=== PATIENT | male | born 1955 | race Hispanic/Latino ===

== ENCOUNTER 2018-06-09 06:52 | Emergency (ER) | payer MEDICARE, OTHER ==
[~2018-06-09] VITALS: Ht 177.8 cm; Wt 87.5 kg
[~2018-06-09 06:52] MED LIST: ALLOPURINOL300 MG PO; ASPIRIN81 MG PO; CALCIUM500 MG PO; FOLIC ACID1 MG PO; HUMALOG100 UNIT/3; HYDROCHLOROTHIA25 MG PO; IMODIUM2 MG PO; LANTUS100 UNITS/; LISINOPRIL10 MG PO; LOVENOX60 MG/0.6 SC; MAGNESIUM250 MG PO; METOPROLOL SUCC25 MG PO; METOPROLOL TART25 MG PO; MYCOPHENOLATE250 MG PO; PROGRAF0.5 MG PO; RANITIDINE HCL150 MG PO; TACROLIMUS1 MG PO; TORSEMIDE10 MG PO; VITAMIN D5000 UNIT PO; WARFARIN SODIU2.5 MG PO
--- OUTSIDE RECORDS SUMMARY | 2018-06-09 06:55 | XMS REPORT | Clinical Summary ---
Author Author [facility] Organization [facility] Address Unknown Phone Unavailable Care Team Providers Care Electric Motor Fitter Name Role Phone César Augustin MD PCP Unavailable Allergies No Known Allergies Medications End Date Status Medication Sig Dispensed Refills Start Date Active folic acid (FOLVITE) 1 MG Take 1 mg by 0 tablet mouth daily. Active loperamide (IMODIUM) 2 mg Take 2 mg by 0 capsule mouth every other day as needed for diarrhea. Active metoprolol succinate XL Take 25 mg by 0 (TOPROL-XL) 25 mg 24 hr mouth 2 (two) tablet times a day. 1/2 tab Active tacrolimus (PROGRAF) 1 MG Take 1 mg by 0 capsule mouth 2 (two) times a day. Takes two of the 1mg in the morning and 1mg in the evening Active aspirin (ECOTRIN) 81 MG Take 81 mg by 0 enteric coated tablet mouth daily. Active insulin lispro (HumaLOG) Inject under 0 100 unit/mL injection the skin 3 (three) times a day before meals. Per sliding scale Active warfarin (COUMADIN) 5 MG Take 5 mg by 0 tablet mouth daily. Tuesdays, and sundays Active warfarin (COUMADIN) 2.5 Take 2.5 mg 0 MG tablet by mouth daily. Sat, sat, sat and saturdays Active allopurinol (ZYLOPRIM) Take 300 mg 0 300 MG tablet by mouth every other day. Active terazosin (HYTRIN) 1 MG Take 1 mg by 0 capsule mouth nightly. Active acetaminophen-codeine Take 1 tablet 0 (TYLENOL WITH CODEINE #3) by mouth 300-30 mg per tablet every 4 (four) hours as needed for moderate pain. Active gabapentin (NEURONTIN) Take 300 mg 0 300 mg capsule by mouth 2 (two) times a day as needed. Active lisinopril Take 5 mg by 0 (PRINIVIL,ZESTRIL) 5 mg mouth every tablet morning. 06/15/2018 Active sodium bicarbonate 650 mg Take 1 tablet 60 tablet 0 tablet (650 mg 8 total) by mouth 2 (two) times a day for 30 days. 04/21/2018 Discontinued tacrolimus (PROGRAF) 0.5 Take 0.5 mg 0 MG capsule by mouth daily. 04/21/2018 Discontinued torsemide (DEMADEX) 20 MG Take 20 mg by 0 tablet mouth daily as needed. 1/2 TAB ONLY NEEDED 05/16/2018 Discontinued mycophenolate (CELLCEPT) Take 250 mg 0 250 mg capsule by mouth 2 (two) times a day. Active Problems Problem Noted Date Osteoarthritis of right hip 05/13/2018 Arthritis of right hip 05/13/2018 Encounters Care Team Description Date Type Specialty Deja Harmon MA Care Connect Alert 05/19/2018 Telephone Transplant Kev Smiley RN 05/16/2018 Patient Quality Outreach Vale Tang NP 05/13/2018 Anesthesia Orthopedic Surgery Event Tosha Mustafa MD ARTHROPLASTY, HIP, TOTAL 05/13/2018 Surgery Orthopedic Surgery Tosha Mustafa MD Arthritis of right hip 05/13/2018 Hospital Orthopedic Surgery - Encounter 05/16/2018 Tosha Mustafa MD Preop testing (Primary Dx) 04/23/2018 Pre-Admit Pre-Admission Testing Testing Appointment after 06/08/2017 Family History Medical History Relation Name Comments Diabetes Brother Cancer Father Colon cancer Father Heart disease Mother Diabetes Sister Relation Name Status Comments Brother Father Mother Sister Social History Date Tobacco Use Types Packs/Day Years Used Quit: 07/08/2002 Former Smoker Cigarettes 1 30 Smokeless Tobacco: Never Used Alcohol Use Drinks/Week oz/Week Comments No Sex Assigned at Date Recorded Not on file Industry Job Start Date Occupation Not on file Not on file Not on file Travel End Travel History Travel Start No recent travel history available. Last Filed Vital Signs Time Taken Vital Sign Reading 05/16/2018 11:43 AM MASTER SHEET CLERK Blood Pressure 157/84 05/16/2018 11:43 AM MASTER SHEET CLERK Pulse 66 05/16/2018 11:43 AM MASTER SHEET CLERK Temperature 36 C (96.8 F) 05/16/2018 11:43 AM MASTER SHEET CLERK Respiratory Rate 18 05/16/2018 11:43 AM MASTER SHEET CLERK Oxygen Saturation 97% - Inhaled Oxygen - Concentration 05/13/2018 8:22 AM MASTER SHEET CLERK Weight 87.3 kg (192 lb 9 oz) 05/13/2018 8:22 AM MASTER SHEET CLERK Height 177.8 cm (5' 10") 05/13/2018 8:22 AM MASTER SHEET CLERK Body Mass Index 27.63 Plan of Treatment Health Maintenance Due Date Last Done Comments SHINGRIX VACCINE (1 of 2) 2004 ZOSTER VACCINE 2014 INFLUENZA VACCINE 02/05/2018 05/08/2006 COLON CANCER SCREENING 03/30/2026 03/30/2016 Implants Device Identifier Shelf Expiration Date Model / Serial / Lot Implanted Type Area Manufactur er 02/05/2028 [id number] / / [id number] Shell Actblr Sector Series W/ Hip Joint Right: Hip DEPUY Gripton 56mm [place] - [id number] Implants ORTHO-KNEE Implanted: Qty: 1 on 05/13/2018 by Tosha Eli MD [id number] / / Screw Bone Canc Dome 6.5x35mm Ltxf Hip Joint Right: Hip DEPUY [place] - [id number] Implants ORTHO Implanted: Qty: 1 on 05/13/2018 by Tosha Mustafa MD 12/05/2022 [id number] / / [id number] Liner Actblr Neut Altra Linked Pe Hip Joint N/A: N/A DEPUY 36x56x+4mm Altrx - [id number] Implants ORTHO-KNEE Implanted: Qty: 1 on 05/13/2018 by Tosha Eli MD 03/07/2025 [id number] / / [id number] Stem Hip Cmntls Tprd Procoat Pors Hip Joint N/A: N/A DEPUY Ctng Hiofst Ti Alloy 160mm - Implants ORTHO [id number] Implanted: Qty: 1 on 05/13/2018 by Tosha Mustafa MD 02/04/2023 [id number] / / [id number] [place] Fracture System Biolox Delta IPM N/A: N/A DEPUY Ceramic Femoral Heads Size 36 +1.5 IMPLANT ORTHOPAEDI Mm Articul/Blair 06/20 [employer] Femoral Heads - [id number] Implanted: Qty: 1 on 05/13/2018 by Tosha Mustafa MD Valve Valve Procedures Comments Procedure Name Priority Date/Time Associated Diagnosis POC GLUCOSE Routine 05/16/2018 12:20 PM MASTER SHEET CLERK POC GLUCOSE Routine 05/16/2018 8:04 AM MASTER SHEET CLERK FK506 LEVEL Routine 05/16/2018 4:30 AM MASTER SHEET CLERK ESTIMATED GFR Routine 05/16/2018 4:10 AM MASTER SHEET CLERK PROTHROMBIN TIME WITH INR Routine 05/16/2018 4:10 AM MASTER SHEET CLERK HC COMPLETE BLD COUNT Routine 05/16/2018 W/AUTO DIFF 4:10 AM MASTER SHEET CLERK COMPREHENSIVE METABOLIC Routine 05/16/2018 PANEL 4:10 AM MASTER SHEET CLERK PHOSPHORUS LEVEL Routine 05/16/2018 4:10 AM MASTER SHEET CLERK MAGNESIUM LEVEL Routine 05/16/2018 4:10 AM MASTER SHEET CLERK POC GLUCOSE Routine 05/15/2018 9:27 PM MASTER SHEET CLERK POC GLUCOSE Routine 05/15/2018 5:05 PM MASTER SHEET CLERK PROTHROMBIN TIME WITH INR Routine 05/15/2018 2:09 PM MASTER SHEET CLERK HEMOGLOBIN & HEMATOCRIT Routine 05/15/2018 2:09 PM MASTER SHEET CLERK CREATININE LEVEL, URINE, Routine 05/15/2018 RANDOM 1:53 PM MASTER SHEET CLERK PROTEIN, URINE, RANDOM Routine 05/15/2018 1:53 PM MASTER SHEET CLERK URINALYSIS, AUTOMATED Routine 05/15/2018 WITH MICROSCOPY 1:53 PM MASTER SHEET CLERK POC GLUCOSE Routine 05/15/2018 11:54 AM MASTER SHEET CLERK POC GLUCOSE Routine 05/15/2018 7:48 AM MASTER SHEET CLERK ESTIMATED GFR Routine 05/15/2018 4:00 AM MASTER SHEET CLERK PHOSPHORUS LEVEL Routine 05/15/2018 4:00 AM MASTER SHEET CLERK MAGNESIUM LEVEL Routine 05/15/2018 4:00 AM MASTER SHEET CLERK BASIC METABOLIC PANEL Routine 05/15/2018 4:00 AM MASTER SHEET CLERK POC GLUCOSE Routine 05/14/2018 10:08 PM MASTER SHEET CLERK POC GLUCOSE Routine 05/14/2018 5:32 PM MASTER SHEET CLERK POC GLUCOSE Routine 05/14/2018 12:41 PM MASTER SHEET CLERK POC GLUCOSE Routine 05/14/2018 9:45 AM MASTER SHEET CLERK POC GLUCOSE Routine 05/14/2018 7:48 AM MASTER SHEET CLERK PROTHROMBIN TIME WITH INR Routine 05/14/2018 5:25 AM MASTER SHEET CLERK HC COMPLETE BLD COUNT Routine 05/14/2018 W/AUTO DIFF 5:00 AM MASTER SHEET CLERK PARTIAL THROMBOPLASTIN Routine 05/14/2018 TIME (PTT) 5:00 AM MASTER SHEET CLERK PROTHROMBIN TIME WITH INR Routine 05/14/2018 5:00 AM MASTER SHEET CLERK ESTIMATED GFR Routine 05/14/2018 4:00 AM MASTER SHEET CLERK MAGNESIUM LEVEL Routine 05/14/2018 4:00 AM MASTER SHEET CLERK COMPREHENSIVE METABOLIC Routine 05/14/2018 PANEL 4:00 AM MASTER SHEET CLERK POC GLUCOSE Routine 05/13/2018 10:15 PM MASTER SHEET CLERK POC GLUCOSE Routine 05/13/2018 4:29 PM MASTER SHEET CLERK SODIUM LEVEL STAT 05/13/2018 4:25 PM MASTER SHEET CLERK POTASSIUM LEVEL STAT 05/13/2018 4:25 PM MASTER SHEET CLERK HEMOGLOBIN & HEMATOCRIT STAT 05/13/2018 2:43 PM MASTER SHEET CLERK XR PELVIS 1 OR 2 VW Routine 05/13/2018 2:29 PM MASTER SHEET CLERK POC GLUCOSE Routine 05/13/2018 2:02 PM MASTER SHEET CLERK SURGICAL PATHOLOGY Routine 05/13/2018 REQUEST 1:25 PM MASTER SHEET CLERK XR PELVIS 1 OR 2 VW Routine 05/13/2018 12:56 PM MASTER SHEET CLERK WY AN ELECTIVE Routine 05/13/2018 ENDOTRACHEAL AIRWAY 11:45 AM MASTER SHEET CLERK Procedure Note - Pankaj Branham - 05/13/2018 11:45 AM MASTER SHEET CLERK Airway Date/Time: 05/13/2018 11:22 AM Performed by: PANKAJ BRANHAM Authorized by: JAZMINE HAYES Location: OR Urgency: Elective Difficult Airway: No Resident/C RNA/AA: PANKAJ BRANHAM Preoxygena luis with 100% O2: Yes C-spine Precaution s Maintained Throughout : Yes Mask Ventilatio n: Easy mask Final Airway Type: Endotrache al airway Final Endotrache al Airway: ETT Cuffed: Yes Technique Used: Direct laryngosco py Devices/Me thods Used in Placement: Intubatin g stylet Insertion Site: Oral Blade Type: Singh Laryngosco pe Blade/Vide olaryngosc ope Blade Size: 2 ETT Size (mm): 8.0 Cuff at minimum occlusion pressure: Yes Measured from: Lips ETT to Lips (cm): 23 Placement Verified by: CO2 detection, direct visualizat ion and equal breath sounds Laryngosco pic view: Grade I - full view of glottis Rapid Sequence Induction (RSI): No Modified RSI: No Number of Attempts at Approach: 1 atraumati c ARTHROPLASTY, HIP, TOTAL 05/13/2018 Arthritis of right hip 9:25 AM MASTER SHEET CLERK POC GLUCOSE Routine 05/13/2018 8:25 AM MASTER SHEET CLERK ESTIMATED GFR Routine 05/13/2018 8:15 AM MASTER SHEET CLERK PARTIAL THROMBOPLASTIN Routine 05/13/2018 TIME (PTT) 8:15 AM MASTER SHEET CLERK PROTHROMBIN TIME WITH INR Routine 05/13/2018 8:15 AM MASTER SHEET CLERK BASIC METABOLIC PANEL Routine 05/13/2018 8:15 AM MASTER SHEET CLERK URINE CULTURE Routine 04/23/2018 11:16 AM CDT SMEAR REVIEW Routine 04/23/2018 10:51 AM CDT HC COMPLETE BLD COUNT Routine 04/23/2018 Preop testing W/AUTO DIFF 10:51 AM CDT ECG PRE/POST OP Routine 04/23/2018 Preop testing 9:54 AM CDT BILIRUBIN DIRECT Routine 04/23/2018 9:33 AM CDT URINALYSIS SCREEN AND Routine 04/23/2018 Preop testing MICROSCOPY, WITH REFLEX 9:33 AM CDT TO CULTURE TYPE AND SCREEN Routine 04/23/2018 Preop testing 9:33 AM CDT PARTIAL THROMBOPLASTIN Routine 04/23/2018 Preop testing TIME (PTT) 9:33 AM CDT PROTHROMBIN TIME WITH INR Routine 04/23/2018 Preop testing 9:33 AM CDT after 06/08/2017 Results * POC glucose (05/16/2018 12:20 PM MASTER SHEET CLERK) Only the most recent of 15 results within the time period is included. POC glucose 243 (H) 65 - 99 mg/dL [facility] DEPARTMENT OF Comment: PATHOLOGY AND [facility] Notified RN [employer] MEDICINE Meter ID: [id number] Vascular Ultrasound Technologist: Gerhard Hendricks Performing Organization Address [facility] Cent[facility]ode Phone Number [facility] DEPARTMENT OF [address] [place] [phone] PATHOLOGY AND GENOMIC MEDICINE * FK506 level (05/16/2018 4:30 AM MASTER SHEET CLERK) FK506 level 4.4 ng/mL [facility] DEPARTMENT OF Comment: PATHOLOGY AND Therapeutic range 5-20 ng/mL GENOMIC MEDICINE for 12 hour trough. The range varies depending on the organ transplanted, time after transplantation and co-administered immunosuppressant therapies. Please use clinical judgment to interpret test result. Test performed using Dior Elevator Erector Helper chemiluminescent microparticle immunoassay for Tacrolimus on the CEMETERY MANAGER i System. Performing Organization Address City/[facility]/Zipcode Phone Number [facility] DEPARTMENT [address] [address] PATHOLOGY AND GENOMIC MEDICINE * Estimated GFR (05/16/2018 4:10 AM MASTER SHEET CLERK) Only the most recent of 4 results within the time period is included. Estimated GFR 27 (A) mL/min/1.73 m2 [facility] DEPARTMENT OF Comment: PATHOLOGY AND [employer] GENOMIC MEDICINE rpretation G1 >=90 Normal or high G2 60-89Mildly decreased [id number] Mildly to moderately decreased [id number] Moderately to severely decreased G4 15-29Severely decreased G5 <15Kidney failure The eGFR was calculated using the Chronic Kidney Disease Epidemiology Collaboration (CKD-EPI) equation. Interpretation is based on recommendations of the National Kidney Foundation-Kidney Disease Outcomes Quality Initiative (NKF-KDOQI) published in 2014. Specimen Plasma specimen Performing Organization Address City/[facility]/[place] [address] PATHOLOGY AND GENOMIC MEDICINE * Prothrombin time with INR (05/16/2018 4:10 AM MASTER SHEET CLERK) Only the most recent of 6 results within the time period is included. Prothrombin time 13.7 11.5 - 14.5 sec [facility] DEPARTMENT OF PATHOLOGY AND GENOMIC MEDICINE INR 1.1 [facility] DEPARTMENT OF Comment: PATHOLOGY AND The International Normalized GENOMIC MEDICINE Ratio (INR) is a therapeutic monitoring tool for patients who are stable on oral anticoagulant therapy. An INR of 2.0-3.0 is suggested for deep vein thrombosis/pulmonary embolism. Specimen Blood Performing Organization Address City/[facility] Cent[facility]ode Phone Number [facility] DEPARTMENT OF [address] [place] [address] PATHOLOGY AND GENOMIC MEDICINE * CBC with platelet and differential (05/16/2018 4:10 AM MASTER SHEET CLERK) Only the most recent of 3 results within the time period is included. WBC 9.21 4.50 - 11.00 k/uL [facility] DEPARTMENT OF PATHOLOGY AND GENOMIC MEDICINE RBC 2.22 (L) 4.40 - 6.00 m/uL [facility] DE[facility]MENT OF PATHOLOGY AND GENOMIC MEDICINE HGB 8.0 (L) 14.0 - 18.0 g/dL [facility] DEPARTMENT OF PATHOLOGY AND GENOMIC MEDICINE HCT 23.6 (L) 41.0 - 51.0 % [facility] DEPARTMENT OF PATHOLOGY AND GENOMIC MEDICINE MCV 106.3 (H) 82.0 - 100.0 fL [facility] DEPARTMENT OF PATHOLOGY AND GENOMIC MEDICINE MCH 36.0 (H) 27.0 - 34.0 pg [facility] DEPARTMENT OF PATHOLOGY AND GENOMIC MEDICINE MCHC 33.9 31.0 - 37.0 g/dL [facility] DEPARTMENT OF PATHOLOGY AND GENOMIC MEDICINE RDW - SD 62.4 (H) 37.0 - 55.0 fL [facility] DEPARTMENT OF PATHOLOGY AND GENOMIC MEDICINE MPV 11.9 8.8 - 13.2 fL [facility] DEPARTMENT OF PATHOLOGY AND GENOMIC MEDICINE Platelet count 95 (L) 150 - 400 k/uL [facility] DEPARTMENT OF PATHOLOGY AND GENOMIC MEDICINE Nucleated RBC 0.00 /100 WBC [facility] DEPARTMENT OF PATHOLOGY AND GENOMIC MEDICINE Neutrophils 81.6 (H) 39.0 - 69.0 % [facility] DEPARTMENT OF PATHOLOGY AND GENOMIC MEDICINE Lymphocytes 8.5 (L) 25.0 - 45.0 % [facility] DEPARTMENT OF PATHOLOGY AND GENOMIC MEDICINE Monocytes 9.2 0.0 - 10.0 % [facility] DEPARTMENT OF PATHOLOGY AND GENOMIC MEDICINE Eosinophils 0.0 0.0 - 5.0 % [facility] DEPARTMENT OF PATHOLOGY AND GENOMIC MEDICINE Basophils 0.0 0.0 - 1.0 % [facility] DEPARTMENT OF PATHOLOGY AND GENOMIC MEDICINE Immature granulocytes 0.7Comment: "Immature 0.0 - 1.0 % [facility] DEPARTMENT OF granulocytes" (promyelocytes, PATHOLOGY AND myelocytes, metamyelocytes) GENOMIC MEDICINE Specimen Blood Performing Organization Address [facility] [place] [address] PATHOLOGY AND GENOMIC MEDICINE * Phosphorus level (05/16/2018 4:10 AM MASTER SHEET CLERK) Only the most recent of 2 results within the time period is included. Phosphorus 2.3 (L) 2.4 - 4.5 mg/dL [facility] DE[facility]MENT OF PATHOLOGY AND GENOMIC MEDICINE Specimen Plasma specimen Performing Organization Address City/[facility] [place] [address] PATHOLOGY AND GENOMIC MEDICINE * Magnesium level (05/16/2018 4:10 AM MASTER SHEET CLERK) Only the most recent of 3 results within the time period is included. Magnesium 1.6 1.6 - 2.4 mg/dL [facility] DE[facility]MENT OF PATHOLOGY AND GENOMIC MEDICINE Specimen Plasma specimen Performing Organization Address [facility] [place] [address] PATHOLOGY AND GENOMIC MEDICINE * Comprehensive metabolic panel (05/16/2018 4:10 AM MASTER SHEET CLERK) Only the most recent of 2 results within the time period is included. Sodium 136 135 - 148 mEq/L [facility] DE[facility]MENT OF PATHOLOGY AND GENOMIC MEDICINE Potassium 4.3 3.5 - 5.0 mEq/L [facility] DEPARTMENT OF PATHOLOGY AND GENOMIC MEDICINE Chloride 102 98 - 112 mEq/L [facility] DEPARTMENT OF PATHOLOGY AND GENOMIC MEDICINE CO2 19 (L) 24 - 31 mEq/L [facility] DEPARTMENT OF PATHOLOGY AND GENOMIC MEDICINE Anion gap 15@ANIO 7 - 15 mEq/L [facility] DEPARTMENT OF PATHOLOGY AND GENOMIC MEDICINE BUN 66 (H) 8 - 23 mg/dL [facility] DEPARTMENT OF PATHOLOGY AND GENOMIC MEDICINE Creatinine 2.45 (H) 0.70 - 1.20 mg/dL [facility] DE[facility]MENT OF PATHOLOGY AND GENOMIC MEDICINE Glucose 183 (H) 65 - 99 mg/dL [facility] DE[facility]MENT OF PATHOLOGY AND GENOMIC MEDICINE Calcium 8.7 (L) 8.8 - 10.2 mg/dL [facility] DE[facility]MENT OF PATHOLOGY AND GENOMIC MEDICINE Protein 5.4 (L) 6.3 - 8.3 g/dL [facility] DEPARTMENT OF Comment: PATHOLOGY AND GENOMIC MEDICINE 4.6-7.0 g/dL 1 week 4.4-7.6 g/dL 7 months-1year 5.1-7.3 g/dL 1-2 years5.6-7 .5 g/dL >3 years6.0-8 .0 g/dL 18-150 6.3-8.3 g/dL Albumin 3.0 (L) 3.5 - 5.0 g/dL [facility] DEPARTMENT OF PATHOLOGY AND GENOMIC MEDICINE A/G ratio 1.2 0.7 - 3.8 [facility] DEPARTMENT OF PATHOLOGY AND GENOMIC MEDICINE Alkaline phosphatase 73 40 - 129 U/L [facility] DEPARTMENT OF PATHOLOGY AND GENOMIC MEDICINE AST 53 (H) 10 - 50 U/L [facility] DE[facility]MENT OF PATHOLOGY AND GENOMIC MEDICINE ALT 16 5 - 50 U/L [facility] DE[facility]MENT OF PATHOLOGY AND GENOMIC MEDICINE Total bilirubin 0.5 0.0 - 1.2 mg/dL [facility] DE[facility]MENT OF PATHOLOGY AND GENOMIC MEDICINE Specimen Plasma specimen Performing Organization Address City/State/Zipcode Phone Number [facility] [address] [place] [address] PATHOLOGY AND GENOMIC MEDICINE * Hemoglobin & hematocrit (05/15/2018 2:09 PM MASTER SHEET CLERK) Only the most recent of 2 results within the time period is included. HGB 9.1 (L) 14.0 - 18.0 g/dL [facility] DE[facility]MENT OF PATHOLOGY AND GENOMIC MEDICINE HCT 26.5 (L) 41.0 - 51.0 % [facility] DEPARTMENT OF PATHOLOGY AND GENOMIC MEDICINE Specimen Blood Performing Organization Address City/[facility] [place] [address] PATHOLOGY AND GENOMIC MEDICINE * Protein, urine, random (05/15/2018 1:53 PM MASTER SHEET CLERK) Protein, urine random 73 mg/dL [facility] DEPARTMENT OF PATHOLOGY AND GENOMIC MEDICINE Specimen Urine Performing Organization Address City/[facility] [place] [address] PATHOLOGY AND GENOMIC MEDICINE * Creatinine level, urine, random (05/15/2018 1:53 PM MASTER SHEET CLERK) Creatinine, urine, random 127 mg/dL [facility] DE[facility]MENT OF PATHOLOGY AND GENOMIC MEDICINE Specimen Urine Performing Organization Address City/[facility] [place] [address] PATHOLOGY AND GENOMIC MEDICINE * Urinalysis, automated with microscopy (05/15/2018 1:53 PM MASTER SHEET CLERK) Color, UA Straw [facility] DEPARTMENT OF PATHOLOGY AND GENOMIC MEDICINE Appearance, UA Clear [facility] DEPARTMENT OF PATHOLOGY AND GENOMIC MEDICINE Specific gravity, UA 1.015 1.001 - 1.035 [facility] DEPARTMENT OF PATHOLOGY AND GENOMIC MEDICINE pH, UA 5.0 5.0 - 8.5 [facility] DE[facility]MENT OF PATHOLOGY AND GENOMIC MEDICINE Protein, UA 2+ (A) Negative [facility] DE[facility]MENT OF PATHOLOGY AND GENOMIC MEDICINE Glucose, UA Negative Negative [facility] DE[facility]MENT OF PATHOLOGY AND GENOMIC MEDICINE Ketones, UA Negative Negative [facility] DE[facility]MENT OF PATHOLOGY AND GENOMIC MEDICINE Bilirubin, UA Negative Negative [facility] DE[facility]MENT OF PATHOLOGY AND GENOMIC MEDICINE Blood, UA Small (A) Negative [facility] DE[facility]MENT OF PATHOLOGY AND GENOMIC MEDICINE Nitrite, UA Negative Negative [facility] DEPARTMENT OF PATHOLOGY AND GENOMIC MEDICINE Urobilinogen, UA <2.0 <2.0 [facility] DEPARTMENT OF PATHOLOGY AND GENOMIC MEDICINE Leukocyte esterase, UA Negative Negative [facility] DEPARTMENT OF PATHOLOGY AND GENOMIC MEDICINE Epithelial cells, UA <1 /HPF [facility] DEPARTMENT OF PATHOLOGY AND GENOMIC MEDICINE WBC, UA <1 0 - 1 /HPF [facility] DEPARTMENT OF PATHOLOGY AND GENOMIC MEDICINE RBC, UA <1 0 - 5 /HPF [facility] DEPARTMENT OF PATHOLOGY AND GENOMIC MEDICINE Bacteria, UA None seen None seen [facility] DEPARTMENT OF PATHOLOGY AND GENOMIC MEDICINE Yeast, UA None seen [facility] DEPARTMENT OF PATHOLOGY AND GENOMIC MEDICINE Yeast with pseudohyphae, None seen [facility] DEPARTMENT [facility] PATHOLOGY AND GENOMIC MEDICINE Specimen Urine Performing Organization Address City/[facility] [place] [address] PATHOLOGY AND GENOMIC MEDICINE * Basic metabolic panel (05/15/2018 4:00 AM MASTER SHEET CLERK) Only the most recent of 2 results within the time period is included. Sodium 135 135 - 148 mEq/L [facility] DEPARTMENT OF PATHOLOGY AND GENOMIC MEDICINE Potassium 5.0 3.5 - 5.0 mEq/L [facility] DE[facility]MENT OF PATHOLOGY AND GENOMIC MEDICINE Chloride 101 98 - 112 mEq/L [facility] DE[facility]MENT OF PATHOLOGY AND GENOMIC MEDICINE CO2 21 (L) 24 - 31 mEq/L [facility] DEPARTMENT OF PATHOLOGY AND GENOMIC MEDICINE Anion gap 13@ANIO 7 - 15 mEq/L [facility] DEPARTMENT OF PATHOLOGY AND GENOMIC MEDICINE BUN 61 (H) 8 - 23 mg/dL [facility] DEPARTMENT OF PATHOLOGY AND GENOMIC MEDICINE Creatinine 2.67 (H) 0.70 - 1.20 mg/dL [facility] DE[facility]MENT OF PATHOLOGY AND GENOMIC MEDICINE Glucose 259 (H) 65 - 99 mg/dL [facility] DE[facility]MENT OF PATHOLOGY AND GENOMIC MEDICINE Calcium 8.5 (L) 8.8 - 10.2 mg/dL [facility] DEPARTMENT OF PATHOLOGY AND GENOMIC MEDICINE Specimen Plasma specimen Performing Organization Address City/[facility] [place] [address] PATHOLOGY AND [employer] MEDICINE * Partial thromboplastin time, activated (05/14/2018 5:00 AM MASTER SHEET CLERK) Only the most recent of 3 results within the time period is included. PTT 28.9 23.0 - 36.0 sec [facility] DEPARTMENT OF Comment: PATHOLOGY AND PTT therapeutic range for [facility] MEDICINE unfractionated heparin is 61.0-112.0 seconds which corresponds to Anti-Xa 0.3-0.7 U/ml. Specimen Blood Performing Organization Address City/[facility] [place] [address] PATHOLOGY AND [employer] MEDICINE * Sodium level (05/13/2018 4:25 PM MASTER SHEET CLERK) Sodium 133 (L) 135 - 148 mEq/L [facility] DE[facility]MENT OF PATHOLOGY AND GENOMIC MEDICINE Specimen Plasma specimen Performing Organization Address City/[facility] [place] [address] PATHOLOGY AND GENOMIC MEDICINE * Potassium level (05/13/2018 4:25 PM MASTER SHEET CLERK) Potassium 5.6 (H) 3.5 - 5.0 mEq/L [facility] DE[facility]MENT OF PATHOLOGY AND GENOMIC MEDICINE Specimen Plasma specimen Performing Organization Address City/[facility] [place] [address] PATHOLOGY AND GENOMIC MEDICINE * XR Pelvis 1 Or 2 Vw (05/13/2018 2:29 PM MASTER SHEET CLERK) Only the most recent of 2 results within the time period is included. Narrative Performed At EXAMINATION: XR PELVIS 1 OR 2 VW RADIANT INDICATION: Post operative COMPARISON: 05/13/2018 IMPRESSION: A single frontal view of the pelvis was obtained demonstrating expected postoperative changes following right hip total arthroplasty with appropriate implant alignment. [facility]-[id number] Procedure Note Hm Interface, Radiology Results Incoming - 05/13/2018 2:35 PM MASTER SHEET CLERK EXAMINATION: XR PELVIS 1 OR 2 VW INDICATION: Post operative COMPARISON: 05/13/2018 IMPRESSION: A single frontal view of the pelvis was obtained demonstrating expected postoperative changes following right hip total arthroplasty with appropriate implant alignment. [facility]-[id number] Performing Organization Address [facility] [place] [address] * Surgical pathology request (05/13/2018 1:25 PM MASTER SHEET CLERK) [facility] DEPARTMENT OF PATHOLOGY AND GENOMIC MEDICINE Surgical pathology report See link below for PDF Lab [facility] DEPARTMENT OF Report PATHOLOGY AND GENOMIC MEDICINE Result status This is Final Report for [facility] DEPARTMENT OF [id number] PATHOLOGY AND GENOMIC MEDICINE Performing Organization Address [facility] [place] [address] PATHOLOGY AND GENOMIC MEDICINE * Urine culture (04/23/2018 11:16 AM CDT) Urine culture SEE COMMENTComment: [facility] DEPARTMENT OF Bacteriuria screen negative. PATHOLOGY AND GENOMIC MEDICINE Performing Organization Address City/[facility]/Zipcode Phone Number [address] [place] [address] PATHOLOGY AND GENOMIC MEDICINE * Smear review (04/23/2018 10:51 AM CDT) Platelet slide review Dionne slt decr [facility] DEPARTMENT OF PATHOLOGY AND GENOMIC MEDICINE Anisocytosis Moderate [facility] DEPARTMENT OF PATHOLOGY AND GENOMIC MEDICINE Ovalocytes Moderate [facility] DEPARTMENT OF PATHOLOGY AND GENOMIC MEDICINE Performing Organization Address [facility] Phone Number [place] [phone] PATHOLOGY AND GENOMIC MEDICINE * ECG Pre/Post Op (04/23/2018 9:54 AM CDT) Ventricular rate 62 [facility] Atrial rate 62 [facility] WY interval 200 [facility] QRSD interval 122 [facility] QT interval 444 [facility] QTC interval 450 [facility] P axis 1 23 [facility]USE QRS axis 1 -25 [facility] T wave axis -11 [facility] EKG impression Normal sinus rhythm-Possible [facility] Left atrial enlargement-Nonspecific intraventricular conduction delay-Borderline ECG-No previous ECGs available- Performing Organization Address [facility] Centercode Phone Number [address] [address] * Urinalysis screen and microscopy, with reflex to culture (04/23/2018 9:33 AM CDT) Specimen site Clean catch [facility] DEPARTMENT OF PATHOLOGY AND GENOMIC MEDICINE Color, UA Yellow [facility] DEPARTMENT OF PATHOLOGY AND GENOMIC MEDICINE Appearance, UA Clear [facility] DEPARTMENT OF PATHOLOGY AND GENOMIC MEDICINE Specific gravity, UA 1.015 1.001 - 1.035 [facility] DEPARTMENT OF PATHOLOGY AND GENOMIC MEDICINE pH, UA 5.0 5.0 - 8.5 [facility] DEPARTMENT OF PATHOLOGY AND GENOMIC MEDICINE Protein, UA 3+ (A) Negative [facility] DEPARTMENT OF PATHOLOGY AND GENOMIC MEDICINE Glucose, UA Negative Negative [facility] DEPARTMENT OF PATHOLOGY AND GENOMIC MEDICINE Ketones, UA Negative Negative [facility] DEPARTMENT OF PATHOLOGY AND GENOMIC MEDICINE Bilirubin, UA Negative Negative [facility] DEPARTMENT OF PATHOLOGY AND GENOMIC MEDICINE Blood, UA Negative Negative [facility] DEPARTMENT OF PATHOLOGY AND GENOMIC MEDICINE Nitrite, UA Negative Negative [facility] DEPARTMENT OF PATHOLOGY AND GENOMIC MEDICINE Urobilinogen, UA <2.0 <2.0 [facility] DEPARTMENT OF PATHOLOGY AND GENOMIC MEDICINE Leukocyte esterase, UA Negative Negative [facility] DEPARTMENT OF PATHOLOGY AND GENOMIC MEDICINE Epithelial cells, UA <1 /HPF [facility] DEPARTMENT OF PATHOLOGY AND GENOMIC MEDICINE WBC, UA <1 0 - 1 /HPF [facility] DEPARTMENT OF PATHOLOGY AND GENOMIC MEDICINE RBC, UA <1 0 - 5 /HPF [facility] DEPARTMENT OF PATHOLOGY AND GENOMIC MEDICINE Bacteria, UA None seen None seen [facility] DEPARTMENT OF PATHOLOGY AND GENOMIC MEDICINE Yeast, UA None seen [facility] DEPARTMENT OF PATHOLOGY AND GENOMIC MEDICINE Yeast with pseudohyphae, None seen [facility] DEPARTMENT OF UA PATHOLOGY AND GENOMIC MEDICINE Specimen Urine Performing Organization Address City/[facility]/Zipcode Phone Number [facility] [place] [address] PATHOLOGY AND GENOMIC MEDICINE * Type and screen (04/23/2018 9:33 AM CDT) ABO grouping A [facility] DEPARTMENT OF PATHOLOGY AND GENOMIC MEDICINE Rh type POS [facility] DEPARTMENT OF PATHOLOGY AND GENOMIC MEDICINE Antibody screen (gel) NEG [facility] DEPARTMENT OF PATHOLOGY AND GENOMIC MEDICINE Specimen Blood Performing Organization Address City/[facility] [place] [address] PATHOLOGY AND GENOMIC MEDICINE * Bilirubin direct (04/23/2018 9:33 AM CDT) Bilirubin direct 0.3 0.0 - 0.3 mg/dL [facility] DEPARTMENT OF PATHOLOGY AND GENOMIC MEDICINE Specimen Plasma specimen Performing Organization Address [facility] Centercode Phone Number [facility] [place] [address] PATHOLOGY AND GENOMIC MEDICINE after 06/08/2017 Insurance Payer Benefit Subscriber ID Type Phone Address Plan / Group AETNA AETNA xxxxxxxxxx Indemnity [facility] RE INDEMNITY MEDICARE MEDICARE xxxxxxxxxx Medicare [place], [place] PART A AND B AETNA AETNA xxxxxxxxxx HMO HMO,POS,EP O, MC/EC Advance Directives Patient has advance care planning documents on file. For more information, ashlie arroyo contact: Everette Lucero [address] [facility] [place] [address]
--- OUTSIDE RECORDS SUMMARY | 2018-06-09 06:56 | XMS REPORT | Summary of Care ---
Author Author [facility] Outpatient Imaging [facility] Outpatient Imaging [facility] Address Unknown Phone Unavailable Encounter HQ Encntr_alias(FIN) [id number] Date(s): 06/25/16 - 06/25/16 [facility] Outpatient Imaging [facility] [address] [facility], [address] [place] [phone] Discharge Disposition: Home or Self Care Attending Physician: César Augustin MD Vital Signs No data available for this section Problem List Condition Effective Dates Status Health Status Informant Diabetes(Confirmed) Resolved Heart Resolved murmur(Confirmed) Hypertension(Confirm Resolved ed) Synovial Resolved cyst(Confirmed) Allergies, Adverse Reactions, Alerts Substance Reaction Severity Status NKDA Active Medications No data available for this section Results No data available for this section Immunizations No data available for this section Procedures Procedure Date Related Diagnosis Body Site Liver transplant with recipient hepatectomy Social History Social History Type Response Smoking Status Never smoker; Exposure to Tobacco Smoke None; Cigarette Smoking Last 365 Days No; Reg Smoking Cessation Counseling No Assessment and Plan No data available for this section
--- OUTSIDE RECORDS SUMMARY | 2018-06-09 06:56 | XMS REPORT | Summary of Care ---
Author Organization Unknown Address Unknown Phone Unavailable Encounter HQ Encntr_alitaylor([facility]) [id number] Date(s): 03/22/14 - 03/22/14 [facility] Outpatient Imaging - [address] [address] [place] Discharge Disposition: Home Physician Attending: César Augustin MD Reason for Visit 268.9 - VITAMIN D DEFIC V42.7 - LIVER TRANSPLAN Problem List No data available for this section Allergies, Adverse Reactions, Alerts No data available for this section Medications No data available for this section Medications Administered During Your Visit No data available for this section Immunizations No data available for this section
--- OUTSIDE RECORDS SUMMARY | 2018-06-09 06:56 | XMS REPORT | Summary of Care ---
Author Author [facility] Outpatient Imaging [facility] Outpatient Imaging [facility] Address Unknown Phone Unavailable Encounter HQ Dionna_terrence(FIN) [id number] Date(s): 01/16/18 - 01/16/18 [facility] Imaging [facility] [address] [facility] [address] [place] [phone] Discharge Disposition: Home or Self Care Attending Physician: César Augustin MD Referring Physician: César Augustin MD Vital Signs No [...] Procedures Procedure Date Related Diagnosis Body Site Status Liver transplant with recipient hepatectomy Completed Social History Social History Type Response Smoking Status Never smoker; Exposure to Tobacco Smoke None; Cigarette Smoking Last 365 Days No; Reg Smoking Cessation Counseling No entered on: 12/29/14 Assessment and Plan No data available for this section
--- OUTSIDE RECORDS SUMMARY | 2018-06-09 06:56 | XMS REPORT | Summary of Care ---
Author Organization Unknown Address Unknown Phone Unavailable Encounter HQ Encntr_terrence([facility]) [id number] Date(s): 06/26/14 - 06/26/14 [facility] Outpatient Imaging - [address] [address] [place] Discharge Disposition: Home Physician Attending: César Augustin MD Reason for Visit 782.0 - SKIN SENSATION Problem List No data available for this section Allergies, Adverse Reactions, Alerts No data available for this section Medications No data available for this section Medications Administered During Your Visit No data available for this section Immunizations No data available for this section
--- OUTSIDE RECORDS SUMMARY | 2018-06-09 06:56 | XMS REPORT | Continuity of Care Document ---
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 12/30/2014 [facility] CHEM PANEL Glucose Lvl 120 mg/dL 70 - 99 12/30/2014 5Interpretive Data: Adult reference range values reflect the clinical guidelines of the [place] [employer]. [facility] CHEM PANEL BUN 37 mg/dL 7 - 22 12/30/2014 [facility] CHEM PANEL CO2 28 meq/L 24 - 32 12/30/2014 [facility] CHEM PANEL Chloride Lvl 101 meq/L 95 - 109 12/30/2014 [facility] CHEM PANEL Sodium Lvl 137 meq/L 135 - 145 12/30/2014 [facility] CHEM PANEL Potassium Lvl 4.3 meq/L 3.5 - 5.1 12/30/2014 [facility] Abdomen RUQ US Abdomen RUQ US Right upper quadrant ultrasound. Clinical History: Abnormal Lab tests- LFT Comparison: None. Findings: Transverse and longitudinal imaging of the right upper quadrant. The liver is densely echogenic measuring 15.2 cm. The patient is status post cholecystectomy. There is no biliary ductal dilatation. The common bile duct measures 5 mm. The sonographic Augustin's sign is negative. No free fluid in Wilson's pouch. Right kidney is normal in appearance without mass, hydronephrosis, or stone measuring 10 x 5 x 5.6 cm. The IVC is patent. The pancreas is normal in the visualized portions. The main portal vein is patent with hepatopedal flow. Impression: 1. Hepatic steatosis. 2. Status post cholecystectomy. SL: 16 12/30/2014 - - Read by: Onel Adams MD Dictated Date/time: 12/30/14 09:04 Electronically Signed by: Onel Adams MD 12/30/14 09:07 FINAL REPORT [facility] DRUG SCREEN U Amph Scr Negative *NA* (12/29/14 10:41 PM) Negative 12/30/2014 [facility] DRUG SCREEN U Benzodia Scr Negative *NA* (12/29/14 10:41 PM) Negative 12/30/2014 [facility] DRUG SCREEN U Lilliam Scr Negative *NA* (12/29/14 10:41 PM) Negative 12/30/2014 [facility] DRUG SCREEN U Opiate Scr Negative *NA* (12/29/14 10:41 PM) Negative 12/30/2014 [facility] DRUG SCREEN U Cocaine Scr Negative *NA* (12/29/14 10:41 PM) Negative 12/30/2014 [facility] DRUG SCREEN U Cannab Scr Positive *ABN* (12/29/14 10:41 PM) Negative 12/30/2014 [facility] DRUG SCREEN UDS Note See Note 8 (12/29/14 10:41 PM) 12/30/2014 8Interpretive Data: Drugs reported as positive have not been confirmed by a second method and should be used for medical purposes only. To order confirmation, contact laboratory. note: Below are cut-off concentrations for all urine drugs of abuse performed in the laboratory. Some drugs listed in the table may not be included in this panel. Description Cut-off concentration Amphetamine 1000 ng/mL Barbiturates 200 ng/mL Benzodiazepines 300 ng/mL Cocaine metabolites 300 ng/mL Opiates 300 ng/mL Phencyclidine 25 ng/mL Propoxyphene 300 ng/mL Marijuana metabolites 50 ng/mL Methadone 300 ng/mL Urine alcohol 20 mg/dL [facility] DRUG SCREEN U Phencyc Scr Negative *NA* (12/29/14 10:41 PM) Negative 12/30/2014 [facility] IMMUNOLOGY [place] HCV RNA Log10 6.1 [iU]/mL 12/30/2014 9Interpretive Data: Reference Interval: Less than 15(1.18 log IU/mL)HCV RNA IU/mL Analytic Measurement Range: 15-100,000,000 IU/mL(1.18-8.0 log value) No Target HCV RNA detected is reported as HCV RNA Not Detected. A negative result does not rule out the possibility of the presence of the HCV virus. The specimen may contain HCV below the detectable limits of the assay. HCV RNA detected below 15 IU/mL is resulted as "HCV RNA Detected, Less than 15 HCV RNA IU/mL." HCV version 2.0 quantitative assay is performed using the FDA approved Lizzy VIVIAN AmpliPrep/VIVIAN TaqMan HCV real-time RT-PCR IVD system to detect the 5'-untranslated region of the HCV genome in genotypes 1 through 6 utilizing a dual probe approach. The assay is intended for use as an aid in the management of HCV-infected individuals undergoing anti-viral therapy and results are not intended to be used as the individual means for clinical diagnosis or patient management. Performance characteristics have been verified by the [facility] within [facility]. The [facility] Laboratory is authorized under the Clinical Laboratory Improvement Amendments of 1988 (CLIA-88) to perform high complexity testing. [facility] IMMUNOLOGY [place] HCV RNA Virload [id number] [iU]/mL 12/30/2014 [facility] [place]-Hep C Ab Positive *NA* (12/29/14 8:56 PM) Negative 12/30/2014 [facility] CARDIAC ENZYMES CK MB Index 0.7 0.0 - 2.5 12/29/2014 [facility] CARDIAC ENZYMES CK MB 10.1 ng/mL 0.5 - 3.6 12/29/2014 [facility] CARDIAC ENZYMES Total CK 1359 unit/L 12 - 191 12/29/2014 [facility] CARDIAC ENZYMES BNP 337 pg/mL <=100 pg/mL 12/29/2014 7Interpretive Data: Elevated results are in line with increasing severity of congestive heart failure. Minor elevations between 100 and 300 may be seen with Myocardial Ischemia, Sodium retaining drugs, and compensated/treated heart failure. [facility] CARDIAC ENZYMES Troponin-I 0.02 ng/mL 0.00 - 0.40 12/29/2014 [facility] CHEM PANEL BUN 32 mg/dL 7 - 22 12/29/2014 [facility] CHEM PANEL Glucose Lvl 103 mg/dL 70 - 99 12/29/2014 6Interpretive Data: Adult reference range values reflect the clinical guidelines of the [place] [employer]. [facility] CHEM PANEL eGFR 31 mL/min/1.73m2 12/29/2014 3Result Comment: The eGFR is calculated using the CKD-EPI formula. In most young, healthy individuals the eGFR will be >90 mL/min/1.73m2. The eGFR declines with age. An eGFR of 60-89 may be normal in some populations, particularly the elderly, for whom the CKD-EPI formula has not been extensively validated. Use of the eGFR is not recommended in the following populations: Individuals with unstable creatinine concentrations, including patients and those with serious co-morbid conditions. Patients with extremes in muscle mass or diet. The data above are obtained from the National Kidney Disease Education Program (NKDEP) which additionally recommends that when the eGFR is used in patients with extremes of body mass index for purposes of drug dosing, the eGFR should be multiplied by the estimated BMI. [facility] CHEM PANEL Calcium Lvl 9.3 mg/dL 8.5 - 10.5 12/29/2014 [facility] CHEM PANEL AGAP 14.2 meq/L 10.0 - 20.0 12/29/2014 [facility] CHEM PANEL CO2 24 meq/L 24 - 32 12/29/2014 [facility] CHEM PANEL Chloride Lvl 99 meq/L 95 - 109 12/29/2014 [facility] CHEM PANEL Potassium Lvl 4.2 meq/L 3.5 - 5.1 12/29/2014 [facility] CHEM PANEL Sodium Lvl 133 meq/L 135 - 145 12/29/2014 [facility] CHEM PANEL Creatinine Lvl 2.2 mg/dL 0.5 - 1.4 12/29/2014 [facility] Chest 1view DX Chest 1view DX CHEST SINGLE VIEW: HX: Chest pain COMPARISON: 02/17/2014 FINDINGS: The lungs are free of consolidation or pleural effusion and the mediastinal silhouette is within normal limits of size. The visualized osseous structures are grossly normal. A stellate density overlying the anterior arch of the right sixth rib was present on previous examination of 02/17/2014. A larger density is seen superimposed on the cardiac silhouette to the left of midline in the lower thoracic cavity. The right-sided density appears represent a calcification in the major fissure from previous infection. The left-sided calcification is in the posterior myocardium or pericardium, associated with previous myocardial/pericardial insult. The appearance is stable when compared to prior CT of 04/21/2013. IMPRESSION: 1. Myocardial/pericardial calcification in the left lower chest similar to previous exams. 2. Calcification in the region the major fissure in the right lower lung unchanged from prior studies. 3. No acute abnormality noted. SL: 12 12/29/2014 - - Read by: Shadi Villalobos MD Dictated Date/time: 12/29/14 17:14 Electronically Signed by: Shadi Villalobos MD 12/29/14 17:19 FINAL REPORT [facility] Spine cervical wo contrast MRI Spine cervical wo contrast MRI EXAM: MRI CERVICAL SPINE WITHOUT CONTRAST DATE: Jun 26, 2014 11:24:14 AM CLINICAL INDICATION: Paresthesias. TECHNIQUE: Multiplanar, multisequence MRI cervical spine without IV contrast COMPARISON: Cervical MRI of 07/24/2007 FINDINGS: Cervical vertebral bodies have normal height, shape and alignment. No worrisome marrow signal abnormality is identified. Cerebellar tonsils are above foramen magnum. Cervical cord signal is normal and homogenous. Paravertebral soft tissues are within normal limits. Disc levels, spinal canal, neural foramina: Craniocervical junction: No stenosis C1-C2: No subluxation, ligamentous pannus formation, or stenosis C2-C3: Intervertebral disc height and signal are maintained. There is no stenosis. C3-C4: Loss of intervertebral disc height and signal with moderate diffuse disc bulge and radial annular fissuring. There is indention of the thecal sac. Mild left facet hypertrophy cause bilateral foraminal narrowing without encroachment. C4-C5: Loss of intervertebral disc height and signal with small posterior disc osteophyte complex indenting thecal sac without remodeling of the cord contour. There is mild facet hypertrophy without significant neural foraminal narrowing. C5-C6: Loss of intervertebral disc height and signal with posterior disc osteophyte complex indenting the thecal sac and slightly flattening anterior cord contour. There is a bilateral uncovertebral hypertrophy lead to mild bilateral neural foraminal narrowing. C6-C7: Loss of intervertebral disc height and signal with small diffuse osteophyte complex and superimposed moderate diffuse disc bulge. There there scattered radial fissuring of the posterior annulus. Is indention of the thecal sac without remodeling of the cord contour. The neural foramina are grossly patent. C7-T1: Loss of intervertebral disc height and signal. There is no stenosis. IMPRESSION: Significant motion artifact on axial images limits the foraminal evaluation. 1. Multilevel spondylosis . Mild C5-C6 spinal stenosis which remodeling of the anterior cord contour without cord signal abnormality. 2. Mild bilateral C5-C6 neural foraminal narrowing without encroachment 3. Interval removal or resolution of the previously present C7-T1 extradural lesion, likely a synovial cyst 06/26/2014 - - Read by: Rustam Bustos MD Dictated Date/time: 06/27/14 08:33 Electronically Signed by: Rustam Bustos MD 06/27/14 08:46 FINAL REPORT [facility] Bone Density-Dual Energy Absorptionmetry Bone Density-Dual Energy Absorptionmetry - Bone Density-Dual Energy Absorptionmetry MALE BONE DENSITY EVALUATION: 03/22/2014 CLINICAL DATA: Vitamin D deficiency. COMPARISON: 04/01/2012 AP L1-L4 region of spine using Lunar Dual Energy X-Ray Absorptiometry from [facility] with reported normal fracture risk, BMD of 1.113g/cm2, T-score of -0.90, Z-score of -1.30 and 88.0% age-match bone mineralization. 04/01/2012 Right hip using Lunar Dual Energy X-Ray Absorptiometry from [facility] with reported normal fracture risk, BMD of 1.049g/cm2, T-score of -0.40, Z-score of -0.40 and 95.0% age-match bone mineralization. 04/01/2012 Left hip using Lunar Dual Energy X-Ray Absorptiometry from [facility] with reported normal fracture risk, BMD of 1.027g/cm2, T-score of -0.50, Z-score of -0.50 and 93.0% age-match bone mineralization. FINDINGS: Bone density evaluation was performed 03/22/2014 on the AP L1-L4 region of spine using Lunar Dual Energy X-Ray Absorptiometry. The BMD average for the exam is 1.186 g/cm2. The T-score is -0.30 and the Z-score is -0.30. These values indicate 97.0% for age-matched controls. Since the previous similar exam of 04/01/2012, there has been a +0.073 or +6.6% change in the BMD value which represents no significant interval change in bone density. This matches the World Health Organization's criteria for normal bone density and places the patient within normal limits of fracture risk. An additional bone density evaluation was performed 03/22/2014 on the right femur neck using Lunar Dual Energy X-Ray Absorptiometry. The BMD average for the exam is 0.957 g/cm2. The T-score is -0.90 and the Z-score is -0.20. These values indicate 97.0% for age-matched controls. This matches the World Health Organization's criteria for normal bone density and places the patient within normal limits of fracture risk. An additional bone density evaluation was performed 03/22/2014 on the right hip using Lunar Dual Energy X-Ray Absorptiometry. The BMD average for the exam is 1.047 g/cm2. The T-score is -0.40 and the Z-score is -0.10. These values indicate 98.0% for age-matched controls. Since the previous similar exam of 04/01/2012, there has been a -0.002 or -0.2% change in the BMD value which represents no significant interval change in bone density. This matches the World Health Organization's criteria for normal bone density and places the patient within normal limits of fracture risk. An additional bone density evaluation was performed 03/22/2014 on the left femur neck using Lunar Dual Energy X-Ray Absorptiometry. The BMD average for the exam is 0.997 g/cm2. The T-score is -0.60 and the Z-score is 0.10. These values indicate 101.0% for age-matched controls. This matches the World Health Organization's criteria for normal bone density and places the patient within normal limits of fracture risk. An additional bone density evaluation was performed 03/22/2014 on the left hip using Lunar Dual Energy X-Ray Absorptiometry. The BMD average for the exam is 1.029 g/cm2. The T-score is -0.50 and the Z-score is -0.30. These values indicate 96.0% for age-matched controls. Since the previous similar exam of 04/01/2012, there has been a +0.002 or +0.2% change in the BMD value which represents no significant interval change in bone density. This matches the World Health Organization's criteria for normal bone density and places the patient within normal limits of fracture risk. IMPRESSION: BONE DENSITY WITHIN NORMAL LIMITS Patient is at normal risk for fracture. Dr. Aldo steinberg/ashkan:03/22/2014 16:43:24 Salon Stylist: Efrain Mccray [facility] 03/22/2014 - - Read by: Aldo Choi MD Dictated Date/time: 03/22/14 16:43 Electronically Signed by: Aldo Choi MD 03/22/14 16:43 FINAL REPORT [facility] [place] Vital Signs Vital Sign Value Date Comments Source Systolic (mm Hg) 120 01/01/2015 [facility] Diastolic (mm Hg) 86 01/01/2015 [facility] Heart Rate 80 01/01/2015 [facility] Temperature Oral (F) 98.2 F 01/01/2015 [facility] Respitory Rate 16 01/01/2015 [facility] Respitory Rate 16 01/01/2015 [facility] Temperature Oral (F) 98.7 F 01/01/2015 [facility] Heart Rate 83 01/01/2015 [facility] Systolic (mm Hg) 106 01/01/2015 [facility] Diastolic (mm Hg) 74 01/01/2015 [facility] Heart Rate 74 01/01/2015 [facility] Temperature Oral (F) 98.8 F 01/01/2015 [facility] Respitory Rate 16 01/01/2015 [facility] Systolic (mm Hg) 127 01/01/2015 [facility] Diastolic (mm Hg) 83 01/01/2015 [facility] Height 170.18 cm 12/30/2014 [facility] Weight 85.909 12/30/2014 [facility] BMI Calculated 29.66 12/30/2014 [facility] BMI Calculated 27.18 12/30/2014 [facility] Weight 85.909 12/30/2014 [facility] Height 177.8 cm 12/30/2014 [facility] Weight 85.909 12/29/2014 [facility] Encounters Location Location Details Encounter Type Encounter Number Reason For Visit Attending Provider ADM Date DC Date Status Source [facility] [place] [facility] [id number] Zana Hatch 02/17/2014 02/18/2014 [facility] [place] [facility] [place] [facility] [id number] César Augustin 03/22/2014 03/23/2014 [facility] [place] [facility] [place] [facility] [id number] César Augustin 06/26/2014 06/27/2014 [facility] [place] [facility] O[facility] Observation Patient [id number] Beka Sandra 12/29/2014 01/01/2015 [facility] [place] [facility] [id number] César Augutsin 06/25/2016 06/26/[address] [facility] [place] [facility] [id number] Ok Branch 07/11/2017 07/12/2017 LUIGI Smith [facility] [place] [facility] [id number] César Augustin 01/16/2018 01/17/2018 [facility] [place] Procedures Procedure Code Date Perfomer Comments Source Liver transplant with recipient hepatectomy [id number] BENNY Smith Liver transplant [facility]atectomy [id number] [facility] [place] Liver [facility] with recipient hepatectomy [id number] [facility]
--- OUTSIDE RECORDS SUMMARY | 2018-06-09 06:56 | XMS REPORT | Summary of Care ---
Author Author [facility] [place] Organization [facility] [place] Address Unknown Phone Unavailable Encounter HQ Ravenr_terrence(FIN) [id number] Date(s): 07/11/17 - 07/11/17 [facility] [place] [address] [place] [address] [phone] Discharge Disposition: Home or Self Care Attending Physician: Ok Branch MD Vital Signs No data available for [...]
--- OUTSIDE RECORDS SUMMARY | 2018-06-09 06:56 | XMS REPORT | Summary of Care ---
Author Organization Unknown Address Unknown Phone Unavailable Encounter HQ Elayne(MOON) [id number] Date(s): 12/29/14 - 01/01/15 [facility] [address] [place] [address]- Discharge Disposition: Home Physician Attending: Beka Flores DO Physician Admitting: Beka Flores DO Vital Signs 1 2 3 Most recent to oldest [Reference Range]: 170.18 cm (12/30/14 4:47 AM) 177.8 cm (12/29/14 10:29 PM) Height 98.2 DegF (01/01/15 4:00 PM) 98.7 DegF (01/01/15 11:58 AM) 98.8 DegF (01/01/15 7:51 AM) Temperature Oral [96.4-99.1 DegF] 120/86 mmHg (01/01/15 4:00 PM) 106/74 mmHg (01/01/15 11:58 AM) 127/83 mmHg (01/01/15 7:51 AM) Blood Pressure [90-140/60-90 mmHg] 16 BRMIN (01/01/15 4:00 PM) 16 BRMIN (01/01/15 11:58 AM) 16 BRMIN (01/01/15 7:51 AM) Respiratory Rate [14-20 BRMIN] 80 bpm (01/01/15 4:00 PM) 83 bpm (01/01/15 11:58 AM) 74 bpm (01/01/15 7:51 AM) Peripheral Pulse Rate [60-100 bpm] 85.909 kg (12/30/14 4:47 AM) 85.909 kg (12/29/14 10:29 PM) 85.909 kg (12/29/14 4:46 PM) Weight 29.66 m2 (12/30/14 4:47 AM) 27.18 m2 (12/29/14 10:29 PM) Body Mass Index Problem List Condition Effective Dates Status Health Status Informant Diabetes(Confirmed) Resolved Heart Resolved murmur(Confirmed) Hypertension(Confirm Resolved ed) Synovial Resolved cyst(Confirmed) Allergies, Adverse Reactions, Alerts Substance Reaction Severity Status NKDA Active Medications allopurinol 300 mg, 1 tab, Route: PO, Drug form: TAB, Daily, Dosing Weight 85.909, kg, Start date: 12/30/14 9:00:00, Duration: 30 day, Stop date: 01/28/15 9:00:00 Notes: (Same as: Zyloprim) Start Date: 12/30/14 Stop Date: 01/01/15 Status: Discontinued allopurinol 300 mg oral tablet 300 mg=1 tab, PO, Daily, # 30 tab, 0 Refill(s) Start Date: 12/29/14 Status: Ordered aspirin 81 mg, 1 tab, Route: PO, Drug form: ECTAB, Daily, Dosing Weight 85.909, kg, Star t date: 12/30/14 1:15:00, Duration: 30 day, Stop date: 01/28/15 9:00:00 Notes: Do not crush or chew.(Same As: Ecotrin) Start Date: 12/30/14 Stop Date: 01/01/15 Status: Discontinued aspirin 81 mg tablet, enteric coated 81 mg=1 tab, PO, Daily, # 90 tab, 3 Refill(s) Start Date: 12/29/14 Status: Ordered Ativan 0.5 mg, 1 tab, Route: PO, Drug form: TAB, Q6H, Dosing Weight 85.909, kg, PRN as needed for anxiety, Start date: 12/30/14 18:00:00, Duration: 30 day, Stop date: 01/29/15 12:00:00 Notes: (Same as: Ativan) Start Date: 12/30/14 Stop Date: 01/01/15 Status: Discontinued atropine 0.5 mg, 5 mL, Route: IVP, Drug form: INJ, PRN, Dosing Weight 85.909, kg, PRN Bra dycardia, Start date: 12/30/14 5:07:00, Stop date: 01/29/15 5:06:00 Start Date: 12/30/14 Stop Date: 01/01/15 Status: Discontinued Calcium 500+D oral tablet, chewable 1 tab, CHEW, TID, 0 Refill(s) Start Date: 12/29/14 Status: Ordered calcium-vitamin D 500 mg-200 intl units oral tablet 1 tab, Route: PO, Drug Form: TAB, Dosing Weight 85.909, kg, TID-Meals, Start nolvia e: 12/30/14 8:00:00, Duration: 30 day, Stop date: 01/28/15 17:00:00 Notes: (Same As: Madeline-D, OsCal-D, Oyster Calcium) Start Date: 12/30/14 Stop Date: 01/01/15 Status: Discontinued Dextrose 50% Syringe 25 gm, 50 mL, Route: IVP, Drug Form: INJ, Dosing Weight 85.909, kg, PRN, PRN Blo od Glucose Results, Start date: 12/30/14 0:54:00, Duration: 30 day, Stop date: 0 01/29/15 0:53:00 Start Date: 12/30/14 Stop Date: 01/01/15 Status: Discontinued Dextrose 50% Syringe 12.5 gm, 25 mL, Route: IVP, Drug Form: INJ, Dosing Weight 85.909, kg, PRN, PRN B lood Glucose Results, Start date: 12/30/14 0:54:00, Duration: 30 day, Stop date: 01/29/15 0:53:00 Start Date: 12/30/14 Stop Date: 01/01/15 Status: Discontinued glucagon 1 mg, Route: IM, Drug form: PDR/INJ, PRN, Dosing Weight 85.909, kg, PRN Blood Gl ucose Results, Start date: 12/30/14 0:54:00, Duration: 30 day, Stop date: 0:53:00 Start Date: 12/30/14 Stop Date: 01/01/15 Status: Discontinued Humalog SUB-Q, TID-Before Meals, 0 Refill(s) Start Date: 12/29/14 Status: Ordered hydrochlorothiazide 25 mg, 1 tab, Route: PO, Drug form: TAB, Daily, Dosing Weight 85.909, kg, Start date: 12/30/14 9:00:00, Duration: 30 day, Stop date: 01/28/15 9:00:00 Notes: (Same as: Hydrodiuril) With food. Start Date: 12/30/14 Stop Date: 12/30/14 Status: Discontinued hydrochlorothiazide 25 mg, PO, Daily, 0 Refill(s) Start Date: 12/29/14 Stop Date: 01/01/15 Status: Discontinued insulin aspart 2 unit, 0.02 mL, Route: SUB-Q, Drug form: SOLN, TID-Before Meals, Dosing Weight 85.909, kg, PRN Blood Glucose Results, Start date: 12/30/14 0:54:00, Duration: 3 0 day, Stop date: 01/29/15 0:53:00 Notes: Roll in palms of hands gently; Do not shake vigorously. (Same as: NovoLO G)"single patient use only" Stable for 28 days at room temperature.Expires in _ ____ days from Date Start Date: 12/30/14 Stop Date: 01/01/15 Status: Discontinued insulin aspart 4 unit, 0.04 mL, Route: SUB-Q, Drug form: SOLN, TID-Before Meals, Dosing Weight 85.909, kg, PRN Blood Glucose Results, Start date: 12/30/14 0:54:00, Duration: 3 0 day, Stop date: 01/29/15 0:53:00 Notes: Roll in palms of hands gently; Do not shake vigorously. (Same as: NovoLO G)"single patient use only" Stable for 28 days at room temperature.Expires in _ ____ days from Date Start Date: 12/30/14 Stop Date: 01/01/15 Status: Discontinued insulin aspart 3 unit, 0.03 mL, Route: SUB-Q, Drug form: SOLN, TID-Before Meals, Dosing Weight 85.909, kg, PRN Blood Glucose Results, Start date: 12/30/14 0:54:00, Duration: 3 0 day, Stop date: 01/29/15 0:53:00 Notes: Roll in palms of hands gently; Do not shake vigorously. (Same as: NovoLO G)"single patient use only" Stable for 28 days at room temperature.Expires in _ ____ days from Date Start Date: 12/30/14 Stop Date: 01/01/15 Status: Discontinued insulin aspart 5 unit, 0.05 mL, Route: SUB-Q, Drug form: SOLN, TID-Before Meals, Dosing Weight 85.909, kg, PRN Blood Glucose Results, Start date: 12/30/14 0:54:00, Duration: 3 0 day, Stop date: 01/29/15 0:53:00 Notes: Roll in palms of hands gently; Do not shake vigorously. (Same as: NovoLO G)"single patient use only" Stable for 28 days at room temperature.Expires in _ ____ days from Date Start Date: 12/30/14 Stop Date: 01/01/15 Status: Discontinued insulin aspart 1 unit, 0.01 mL, Route: SUB-Q, Drug form: SOLN, TID-Before Meals, Dosing Weight 85.909, kg, PRN Blood Glucose Results, Start date: 12/30/14 0:54:00, Duration: 3 0 day, Stop date: 01/29/15 0:53:00 Notes: Roll in palms of hands gently; Do not shake vigorously. (Same as: NovoLO G)"single patient use only" Stable for 28 days at room temperature.Expires in _ ____ days from Date Start Date: 12/30/14 Stop Date: 01/01/15 Status: Discontinued lactulose 20 gm, 30 ml, Route: PO, Drug Form: SYRP, Dosing Weight 85.909, kg, ONCE, PRN Ot her -See Comment, Start date: 12/29/14 22:32:00, Stop date: 01/28/15 22:31:00 Notes: (Same as:Chronulac) Start Date: 12/29/14 Stop Date: 12/29/14 Status: Completed lactulose 20 gm, 30 ml, Route: PO, Drug Form: SYRP, Dosing Weight 85.909, kg, TID, Start d ate: 12/30/14 9:00:00, Duration: 30 day, Stop date: 01/28/15 17:00:00 Notes: (Same as:Chronulac) Start Date: 12/30/14 Stop Date: 01/01/15 Status: Discontinued lactulose 10 g/15 mL oral syrup 20 gm=30 mL, PO, TID, X 30 day, # 2700 mL, 0 Refill(s) Start Date: 01/01/15 Stop Date: 01/31/15 Status: Ordered Lantus SUB-Q, Before Lunch, 0 Refill(s) Start Date: 12/29/14 Status: Ordered lisinopril 5 mg, 1 tab, Route: PO, Drug form: TAB, Daily, Dosing Weight 85.909, kg, Start d ate: 12/30/14 9:00:00, Duration: 30 day, Stop date: 01/28/15 9:00:00 Notes: (Same as: Prinivil, Zestril) Start Date: 12/30/14 Stop Date: 01/01/15 Status: Discontinued lisinopril 5 mg oral tablet 5 mg=1 tab, PO, Daily, # 30 tab, 0 Refill(s) Start Date: 12/29/14 Status: Ordered metoprolol 25 mg oral tablet, extended release 25 mg=1 tab, PO, BID, # 30 tab, 0 Refill(s) Start Date: 12/29/14 Status: Ordered metoprolol tartrate 25 mg, 1 tab, Route: PO, Drug form: TAB, [id number], Dosing Weight 85.909, kg, Star t date: 12/30/14 18:00:00, Duration: 30 day, Stop date: 01/29/15 6:00:00 Notes: (Same as: Lopressor) Start Date: 12/30/14 Stop Date: 01/01/15 Status: Discontinued mycophenolate mofetil 1,000 mg, 2 tab, Route: PO, Drug form: TAB, BID, Dosing Weight 85.909, kg, Start date: 12/30/14 9:00:00, Duration: 30 day, Stop date: 01/28/15 17:00:00 Notes: SEPARATE ANTACIDS from [employer] by 2 hrs.(Same As: CellCept) Start Date: 12/30/14 Stop Date: 01/01/15 Status: Discontinued mycophenolate mofetil 250 mg oral capsule 1,000 mg=4 cap, PO, BID, # 120 cap, 0 Refill(s) Start Date: 12/29/14 Status: Ordered nitroglycerin 0.4 mg sublingual tablet 0.4 mg, 1 tab, Route: SL, Drug form: TAB, Q5Min, Dosing Weight 85.909, kg, PRN C hest Pain, Start date: 12/30/14 5:06:00, Duration: 30 day, Stop date: 01/29/15 5 :05:00 Notes: (Same as:Nitroquick, Nitrostat)"Do Not Crush" Sublingual tablet Start Date: 12/30/14 Stop Date: 01/01/15 Status: Discontinued Prograf 0.5 mg, 1 cap, Route: PO, Drug form: CAP, [id number], Dosing Weight 85.909, kg, Sta rt date: 12/30/14 9:00:00, Duration: 30 day, Stop date: 01/28/15 9:00:00 Notes: Avoid grapefruit and grapefruit juice.(Same As: Prograf) Start Date: 12/30/14 Stop Date: 01/01/15 Status: Discontinued Prograf 0.5 mg oral capsule 0.5 mg=1 cap, PO, [id number], 0 Refill(s) Start Date: 12/29/14 Status: Ordered Sodium Chloride 0.9% IV 500 mL 500 mL, Rate: 100 ml/hr, Infuse over: 5 hr, Route: IV, Dosing Weight 85.909 kg, Total Volume: 500, Start date: 12/29/14 21:41:00, Duration: 30 day, Stop date: 0 01/28/15 21:40:00 Start Date: 12/29/14 Stop Date: 12/31/14 Status: Discontinued Xanax 0.5 mg oral tablet 0.5 mg, 1 tab, Route: PO, Drug form: TAB, TID, Dosing Weight 85.909, kg, Start d ate: 12/30/14 9:00:00, Duration: 30 day, Stop date: 01/28/15 17:00:00 Notes: With food or milk(Same as: Xanax) Start Date: 12/30/14 Stop Date: 12/30/14 Status: Discontinued Zantac PRN, 0 Refill(s) Start Date: 12/29/14 Stop Date: 01/01/15 Status: Discontinued Results ELECTROLYTES 1 2 3 Most recent to oldest [Reference Range]: 139 mEq/L (12/31/14 4:16 AM) 137 mEq/L (12/30/14 4:16 AM) 133 mEq/L *LOW* (12/29/14 4:58 PM) Sodium Lvl [135-145 mEq/L] 4.2 mEq/L (12/31/14 4:16 AM) 4.3 mEq/L (12/30/14 4:16 AM) 4.2 mEq/L (12/29/14 4:58 PM) Potassium Lvl [3.5-5.1 mEq/L] 102 mEq/L (12/31/14 4:16 AM) 101 mEq/L (12/30/14 4:16 AM) 99 mEq/L (12/29/14 4:58 PM) Chloride Lvl [95-109 mEq/L] 23 mEq/L *LOW* (12/31/14 4:16 AM) 28 mEq/L (12/30/14 4:16 AM) 24 mEq/L (12/29/14 4:58 PM) CO2 [24-32 mEq/L] 18.2 mEq/L (12/31/14 4:16 AM) 12.3 mEq/L (12/30/14 4:16 AM) 14.2 mEq/L (12/29/14 4:58 PM) AGAP [10.0-20.0 mEq/L] CHEM PANEL 1 2 3 Most recent to oldest [Reference Range]: 2.0 mg/dL *HI* (12/31/14 4:16 AM) 2.2 mg/dL *HI* (12/30/14 4:16 AM) 2.2 mg/dL *HI* (12/29/14 4:58 PM) Creatinine Lvl [0.5-1.4 mg/dL] 35 mL/min/1.73m2 1 *NA* (12/31/14 4:16 AM) 31 mL/min/1.73m2 2 *NA* (12/30/14 4:16 AM) 31 mL/min/1.73m2 3 *NA* (12/29/14 4:58 PM) eGFR 38 mg/dL *HI* (12/31/14 4:16 AM) 37 mg/dL *HI* (12/30/14 4:16 AM) 32 mg/dL *HI* (12/29/14 4:58 PM) BUN [7-22 mg/dL] 17 (12/30/14 4:16 AM) B/C Ratio [6-25] 94 mg/dL 4 (12/31/14 4:16 AM) 120 mg/dL 5 *HI* (12/30/14 4:16 AM) 103 mg/dL 6 *HI* (12/29/14 4:58 PM) Glucose Lvl [70-99 mg/dL] 6.2 g/dL *LOW* (12/30/14 4:16 AM) Total Protein [6.4-8.4 g/dL] 2.8 g/dL *LOW* (12/30/14 4:16 AM) Albumin Lvl [3.5-5.0 g/dL] 3.4 g/dL (12/30/14 4:16 AM) Globulin [2.0-4.0 g/dL] 0.8 (12/30/14 4:16 AM) A/G Ratio [0.7-1.6] 8.8 mg/dL (12/31/14 4:16 AM) 8.5 mg/dL (12/30/14 4:16 AM) 9.3 mg/dL (12/29/14 4:58 PM) Calcium Lvl [8.5-10.5 mg/dL] 235 unit/L *HI* (12/30/14 4:16 AM) ALT [0-65 unit/L] 299 unit/L *HI* (12/30/14 4:16 AM) AST [0-37 unit/L] 159 unit/L *HI* (12/30/14 4:16 AM) Alk Phos [39-136 unit/L] 3.3 mg/dL *HI* (12/30/14 4:16 AM) Bili Total [0.2-1.3 mg/dL] 1Result Comment: The eGFR is calculated using [...] from the National Kidney Disease Education Program ( NKDEP) which additionally recommends that when the eGFR is used in patients with extremes of body mass index for purposes of drug dosing, the eGFR should be mul tiplied by the estimated BMI. 2Result Comment: The eGFR is calculated using [...] from the National Kidney Disease Education Program ( NKDEP) which additionally recommends that when the eGFR is used in patients with extremes of body mass index for purposes of drug dosing, the eGFR should be mul tiplied by the estimated BMI. 3Result Comment: The eGFR is calculated using [...] from the National Kidney Disease Education Program ( NKDEP) which additionally recommends that when the eGFR is used in patients with extremes of body mass index for purposes of drug dosing, the eGFR should be mul tiplied by the estimated BMI. 4Interpretive Data: Adult reference range values reflect the clinical guidelines of the [place] [employer]. 5Interpretive Data: Adult reference range values reflect the clinical guidelines of the [place] [employer]. 6Interpretive Data: Adult reference range values reflect the clinical guidelines of the [place] [employer]. CARDIAC ENZYMES 1 2 3 Most recent to oldest [Reference Range]: 1116 unit/L *HI* (12/30/14 4:16 AM) 1359 unit/L *HI* (12/29/14 4:58 PM) Total CK [12-191 unit/L] 7.6 ng/mL *HI* (12/30/14 4:16 AM) 10.1 ng/mL *HI* (12/29/14 4:58 PM) CK MB [0.5-3.6 ng/mL] 0.7 (12/30/14 4:16 AM) 0.7 (12/29/14 4:58 PM) CK MB Index [0.0-2.5] 0.02 ng/mL (12/30/14 4:16 AM) 0.02 ng/mL (12/29/14 4:58 PM) Troponin-I [0.00-0.40 ng/mL] 337 pg/mL 7 *HI* (12/29/14 4:58 PM) BNP [<=100 pg/mL] 7Interpretive Data: Elevated results are in line with increasing severity of congestive heart failure. Minor elevations between 100 and 300 may be seen with Myocardial Ischemia, Sodium retaining drugs, and compensated/treated heart failure. DRUG SCREEN 1 2 3 Most recent to oldest [Reference Range]: Negative *NA* (12/29/14 10:41 PM) U Amph Scr [Negative] Negative *NA* (12/29/14 10:41 PM) U Lilliam Scr [Negative] Negative *NA* (12/29/14 10:41 PM) U Benzodia Scr [Negative] Negative *NA* (12/29/14 10:41 PM) U Cocaine Scr [Negative] Negative *NA* (12/29/14 10:41 PM) U Opiate Scr [Negative] Negative *NA* (12/29/14 10:41 PM) U Phencyc Scr [Negative] Positive *ABN* (12/29/14 10:41 PM) U Cannab Scr [Negative] See Note 8 (12/29/14 10:41 PM) UDS Note 8Interpretive Data: Drugs reported as positive have [...] Methadone 300 ng/mL Urine alcohol 20 mg/dL TOXICOLOGY 1 2 3 Most recent to oldest [Reference Range]: <2.0 ng/mL *LOW* (12/30/14 4:19 AM) Tacrolimus Lvl [5.0-15.0 ng/mL] URINE AND STOOL 1 2 3 Most recent to oldest [Reference Range]: Clear (12/31/14 11:33 AM) UA Turbidity [Clear] Yellow *NA* (12/31/14 11:33 AM) UA Color [Yellow] 6.0 (12/31/14 11:33 AM) UA pH [5.0-8.0] 1.012 (12/31/14 11:33 AM) UA Spec Grav [<=1.030] Negative mg/dL *NA* (12/31/14 11:33 AM) UA Glucose [Negative mg/dL] Negative (12/31/14 11:33 AM) UA Blood [Negative] Negative mg/dL *NA* (12/31/14 11:33 AM) UA Ketones [Negative mg/dL] Negative mg/dL (12/31/14 11:33 AM) UA Protein [Negative mg/dL] 2.0 mg/dL *HI* (12/31/14 11:33 AM) UA Urobilinogen [0.1-1.0 mg/dL] Negative *NA* (12/31/14 11:33 AM) UA Bili [Negative] Negative (12/31/14 11:33 AM) UA Leuk Est [Negative] Negative (12/31/14 11:33 AM) UA Nitrite [Negative] <1 /HPF (12/31/14 11:33 AM) UA WBC [0-5 /HPF] Occasional /LPF *NA* (12/31/14 11:33 AM) UA Sq Epi [Few /LPF] IMMUNOLOGY 1 2 3 Most recent to oldest [Reference Range]: Positive *NA* (12/29/14 8:56 PM) [place]-Hep C Ab [Negative] [id number] IU/mL *NA* (12/29/14 8:56 PM) [place] HCV RNA Virload 6.1 IU/mL 9 *NA* (12/29/14 8:56 PM) [place] HCV RNA Log10 9Interpretive Data: Reference Interval: Less than 15(1.18 [...] performed using the FDA approved Lizzy VIVIAN AmpliPrep/VIVAIN TaqMan HCV real-time RT-PCR IVD system to detect the 5'-untranslated region of the HCV genome in genotypes 1 thr ough 6 utilizing a dual probe approach. The assay is intended for use as an aid in the management of HCV-infected individuals undergoing anti-viral therapy and results are not intended to be used as the individual means for clinical diagnos is or patient management. Performance characteristics have been verified by the [facility] within [facility]. The [facility] is authorized under the Clinical Laboratory Improvement Amendments of 1988 (CLIA-88) to perform high complexity testing. HEMATOLOGY 1 2 3 Most recent to oldest [Reference Range]: 4.6 K/CMM (12/31/14 4:16 AM) WBC [3.7-10.4 K/CMM] 3.23 M/CMM *LOW* (12/31/14 4:16 AM) RBC [4.70-6.10 M/CMM] 12.9 g/dL *LOW* (12/31/14 4:16 AM) Hgb [14.0-18.0 g/dL] 37.0 % *LOW* (12/31/14 4:16 AM) Hct [42.0-54.0 %] 114.5 fL *HI* (12/31/14 4:16 AM) MCV [80.0-94.0 fL] 39.9 pg *HI* (12/31/14 4:16 AM) MCH [27.0-31.0 pg] 34.8 g/dL (12/31/14 4:16 AM) MCHC [32.0-36.0 g/dL] 14.1 % (12/31/14 4:16 AM) RDW [11.5-14.5 %] 85 K/CMM *LOW* (12/31/14 4:16 AM) Platelet [133-450 K/CMM] 9.6 fL (12/31/14 4:16 AM) MPV [7.4-10.4 fL] 52.3 % (12/31/14 4:16 AM) Segs [45.0-75.0 %] 31.2 % (12/31/14 4:16 AM) Lymphocytes [20.0-40.0 %] 13.3 % *HI* (12/31/14 4:16 AM) Monocytes [2.0-12.0 %] 2.4 % (12/31/14 4:16 AM) Eosinophils [0.0-4.0 %] 0.8 % (12/31/14 4:16 AM) Basophils [0.0-1.0 %] 2.4 K/CMM (12/31/14 4:16 AM) Segs-Bands # [1.5-8.1 K/CMM] 1.4 K/CMM (12/31/14 4:16 AM) Lymphocytes # [1.0-5.5 K/CMM] 0.6 K/CMM (12/31/14 4:16 AM) Monocytes # [0.0-0.8 K/CMM] 0.1 K/CMM (12/31/14 4:16 AM) Eosinophils # [0.0-0.5 K/CMM] 3+ *NA* (12/31/14 4:16 AM) Macrocyte [None Seen] Immunizations No data available for this section Procedures Procedure Date Related Diagnosis Body Site Liver transplant with recipient hepatectomy Social History Social History Type Response Smoking Status Never smoker; Exposure to Tobacco Smoke None; Cigarette Smoking Last 365 Days No; Reg Smoking Cessation Counseling No Assessment and Plan Extracted from: Title: Clinical Document Author: Marta Reynoso MD Date: 01/01/15 SUBJECTIVE:Pt s and patient reprt that he is feeling better , wishes to go home, much more alert now OBJECTIVE: GENERAL: Alert Ox3 HEENT: Anicteric NECK: Nontender LUNGS: Clear to ausculatation CARDIOVASCULAR: S1, S2.Normal ABDOMEN: Soft, nontender, no rebound , no guarding EXTREMITIES: No lower extremities edema. NEUROLOGICAL: Alert, oriented, communicative. LABS: Labs (Last four charted values) WBC 4.6(DEC 31) Hgb L 12.9(DEC 31) Hct L 37.0(DEC 31) Plt L 85(DEC 31) Na 139(ALLEN 26)137(ALLEN 25)L 133(ALLEN 24) K 4.2(ALLEN 26)4.3(ALLEN 25)4.2(ALLEN 24) CO2 L 23(ALLEN 26)28(ALLEN 25)24(ALLEN 24) Cl 102(ALLEN 26)101(ALLEN 25)99(ALLEN 24) Cr H 2.0(ALLEN 26)H 2.2(ALLEN 25)H 2.2(ALLEN 24) BUN H 38(ALLEN 26)H 37(ALLEN 25)H 32(ALLEN 24) Glucose Random 94(ALLEN 26)H 120(ALLEN 25)H 103(ALLEN 24) Ca 8.8(ALLEN 26)8.5(ALLEN 25)9.3(ALLEN 24) Troponin 0.02(ALLEN 25)0.02(ALLEN 24) CK MB H 7.6(ALLEN 25)H 10.1(ALLEN 24) Total CK H 1116(ALLEN 25)H 1359(ALLEN 24) XRAYS: Vital Signs (last 24 hrs) Last Charted Temp Oral98.2 DegF (JAN 01 16:00) Heart Rate Waldvdcoxy25 bpm (JAN 01 16:00) Resp Rate 16 BRMIN (JAN 01 16:00) [id number] mmHg (JAN 01 16:00) DBP86 mmHg (JAN 01 16:00) Medications (19) Active Scheduled: (8) allopurinol 300 mg TAB 300 mg 1 tab, PO, Daily aspirin 81 mg ECT 81 mg 1 tab, PO, Daily calcium-vitamin D 500 mg-200 unit TAB 1 tab, PO, TID-Meals lactulose 20 gm/30 ml ud LIQ 20 gm 30 ml, PO, TID lisinopril 5 mg TAB 5 mg 1 tab, PO, Daily metoprolol tartrate 25 mg TAB 25 mg 1 tab, PO, [id number] mycophenolate mofetil 500 mg film TAB 1,000 mg 2 tab, PO, BID tacrolimus 0.5 mg CAP 0.5 mg 1 cap, PO, [id number] Continuous: (0) PRN: (11) atropine 1 mg/10 ml INJ syringe 0.5 mg 5 mL, IVP, PRN Dextrose 50% 50 ml INJ syringe 12.5 gm 25 mL, IVP, PRN Dextrose 50% 50 ml INJ syringe 25 gm 50 mL, IVP, PRN glucagon recombinant 1 mg PDR 1 mg, IM, PRN insulin aspart 100 unit/ml 3ml Pen 1 unit 0.01 mL, SUB-Q, TID-Before Meals insulin aspart 100 unit/ml 3ml Pen 2 unit 0.02 mL, SUB-Q, TID-Before Meals insulin aspart 100 unit/ml 3ml Pen 3 unit 0.03 mL, SUB-Q, TID-Before Meals insulin aspart 100 unit/ml 3ml Pen 4 unit 0.04 mL, SUB-Q, TID-Before Meals insulin aspart 100 unit/ml 3ml Pen 5 unit 0.05 mL, SUB-Q, TID-Before Meals LORazepam 0.5 mg TAB 0.5 mg 1 tab, PO, Q6H nitroglycerin 0.4 mg TAB 25's btl 0.4 mg 1 tab, SL, Q5Min Diagnosis : 1)Hepatitis C , s/p OLT 2)Hepatic encephalopathy 3)HTN 4)GOUT Plan: 1)Continue Lactulose, add Xifaxan 2) DC home soon Extracted from: Title: Clinical Document Author: Max Sultana MD Date: 12/29/14 History and Physical Attending: Beka Flores: Service: Emergency Medicine Service Code status: None Specified=FULL CODE Reason for Admission: DYSPNEA, WEAKNESS Working DRG: None Documented Isolation: None Documented Consulting Physicians: (none on file) CC: my hands were shaking HPI: This is a 59 yo w/ below PMHx who p/w 4 day h/o shaking. Ocurred more in hands than in LEs, happens when he tried to do something and not so much at rest. C/o chest pressure (not pain), located retrosternally, intermittent, lasting seconds at a time. Worsens w/ deep breath but independent of activity. SOB independent of exertion. Pt is not sedentary. Has dry cough. Temp 98 at home. N/V x 5, NB/NB. Poor appetite. Watery stools, no melena or hematochezia. Also c/o b/l feet numbness that started recently. Denies lightheadedness/dizziness, vertigo, focal weakness. PMHx: liver disease hep C T2DM HTN heart murmur PSHx: Liver transplant FHx: reviewed and noncontributory SHx: Former smoker and everyday EtOH and quit in 2004 Denies illicit drugs Meds: Medication List Active Medications Ordered allopurinol: 300 mg, 1 tab, PO, Daily, 30 tab, 0 Refill(s). ALPRAZolam: 0.5 mg, 1 tab, PO, TID. aspirin: 81 mg, 1 tab, PO, Daily, 90 tab, 3 Refill(s). calcium-vitamin D: 1 tab, CHEW, TID, 0 Refill(s). hydrochlorothiazide: 25 mg, PO, Daily, 0 Refill(s). insulin glargine: SUB-Q, Before Lunch, 0 Refill(s). insulin lispro: SUB-Q, TID-Before Meals, 0 Refill(s). lisinopril: 5 mg, 1 tab, PO, Daily, 30 tab, 0 Refill(s). metoprolol: 25 mg, 1 tab, PO, BID, 30 tab, 0 Refill(s). mycophenolate mofetil: 1,000 mg, 4 cap, PO, BID, 120 cap, 0 Refill(s). ranitidine: PRN, 0 Refill(s). Sodium Chloride 0.9% IV 500 mL: 100 ml/hr, IV, Stop: 01/28/15 21:40:00. tacrolimus: 0.5 mg, 1 cap, PO, [id number], 0 Refill(s). Medications Inactivated in the Last 72 Hours ALPRAZolam: 0.5 mg, 2 tab, PYXIS, ONCE. lactulose: 20 gm, 30 ml, PO, ONCE, PRN: Other -See Comment. Sodium Chloride 0.9% IV: 500 mL, PYXIS, ONCE. Allergies: NKDA ROS: See HPI. All other systems reviewed by myself are negative unless noted above. Physical Exam: VitalsTmp(F)[id number] 12/29 23:[id number]--- 12/29 21:[id number]--- 12/29 19:[id number]--- 12/29 16:[id number]--- 24 Hr Tmax: 98.4F (36.89c) at 12/29 16:46Vital Signs are the last 5 in the past 48 hours. General: NAD, nontoxic appearing HEENT: NCAT, PERRL, MMM, no JVD Cardiovascular: RRR, S1S2, systolic murmur Respiratory: CTAB Abdomen: +BS, NT/ND Extremities: no b/l LE edema Skin: no rashes Neurologic: AAOx4, comprehension and speech intact, CN III-XII grossly intact, +asterixis, diminished sensation to light touch in b/l feet plantar areas distal to heel Musculoskeletal: symmetric strength in all extremities Labs: 24hr Labs 12/29 2241 U Amph ScrNegative U Lilliam ScrNegative U Benzodia ScrNegative U Cannab ScrPositive U Cocaine ScrNegative U Opiate ScrNegative U Phencyc ScrNegative UDS NoteSee Note 12/29 1658 Glucose Aeh672 H BUN32 H Creatinine Lvl2.2 H Sodium Zbx155 L Potassium Lvl4.2 Chloride Lvl99 CO224 AGAP14.2 Calcium Lvl9.3 eGFR31 IMK507 H Troponin-I0.02 CK MB10.1 H Total FH4644 H CK MB Index0.7 12/29 1651 Glucose CAI560 H Micro: blood cx sent Imaging: CXR: 1. Myocardial/pericardial calcification in the left lower chest similar to previous exams. 2. Calcification in the region the major fissure in the right lower lung unchanged from prior studies. 3. No acute abnormality noted. EKG: NSR, no major ST abnormalities Assessment and Plan: 59 yo p/w tremors, N/V/D, chest pressure, SOB. Ammonia 97 although not really a reliable indicator of hepatic encephalopathy. He is AAOx4 and not somnolent but does have asterixis. BNP 337 but does not look volume overloaded. CK 1359, has some chest discomfort but EKG and trop so far not elevated. He did have SOB but CXR shows no acute abnormalities and pt is not sedentary to sugest PE (although there is some pleuritic component, he is not tachycardic, tachypneic, or hypoxic). # hypovolemia: iv fluids # ACS r/o: aspirin, EKG okay, trend cardiac enzymes, tele monitoring # renal insufficiency: unknown baseline but was told that he has some baseline dysfxn, iv fluids and recheck # hepatic encephalopathy: lactulose tid, GI consult # transaminitis w/ elevated alk phos and elevated bili: RUQ u/s, GI consult # thrombocytopenia: no signs/symptoms of bleeding # T2DM: SSI Prophylaxis: SCDs Diet: diabetic Max [employer]
--- OUTSIDE RECORDS SUMMARY | 2018-06-09 06:56 | XMS REPORT | Clinical Summary ---
Author Author JONATHAN [facility] Organization [facility] Address Unknown Phone Unavailable Care Team Providers Care Blast Furnace Checker Name Role Phone César Augustin PCP Hector Stone 30 Unavailable Allergies No Known Allergies Medications End Date Status Medication Sig Dispensed Refills Start Date Active metoprolol (LOPRESSOR) 25 Take 12.5 mg 0 MG tablet by mouth 2 (two) times daily . Active insulin lispro (HUMALOG) Inject 0 100 unit/mL injection subcutaneousl y 3 (three) times daily before meals. Sliding scale Active folic acid (FOLVITE) 1 MG Take 1 mg by 0 tablet mouth daily. Active aspirin 81 MG EC tablet Take 81 mg by 0 mouth daily. Active allopurinol (ZYLOPRIM) Take 300 mg 0 300 MG tablet by mouth daily. Active warfarin (COUMADIN) 2.5 Take 2.5 mg 0 MG tablet by mouth daily Takes 2.5 mg (, Sat, , Sat, Saturday) Takes 5 mg Saturday and Saturday. . Active tacrolimus (PROGRAF) 1 MG 2 capsules in 270 capsule 3 capsuleIndications: am, 1 mg in 8 Status post liver pm. transplantation (HCC), Hepatocellular carcinoma (HCC), Renal insufficiency, Hepatitis C virus infection without hepatic coma, unspecified chronicity, Immunosuppression (HCC), Status post liver transplantation (HCC), Immunosuppression (HCC) Active terazosin (HYTRIN) 1 MG Take 1 mg by 0 capsule mouth 2 (two) times daily . Active acetaminophen-codeine Take 1 tablet 0 (TYLENOL #3) 300-30 mg by mouth 3 per tablet (three) times daily. Active lisinopril Take 5 mg by 0 (PRINIVIL,ZESTRIL) 5 MG mouth daily. tablet Active gabapentin (NEURONTIN) Take 1 0 300 MG capsule (300 8 capsuleIndications: mg total) by Status post liver mouth 2 (two) transplantation (HCC), times daily. Hepatocellular carcinoma (HCC) 02/15/2018 Discontinued torsemide (DEMADEX) 20 MG Take 10 mg by 0 tablet mouth as needed . 09/17/2017 Discontinued mycophenolate (CELLCEPT) Take 1 180 capsule 2 250 mg capsule (250 7 capsuleIndications: mg total) by Status post liver mouth 2 (two) transplantation (HCC), times daily. Immunosuppression (HCC) 02/15/2018 Discontinued lisinopril Take 5 mg by 0 (PRINIVIL,ZESTRIL) 5 MG mouth daily . tablet 02/15/2018 Discontinued pantoprazole (PROTONIX) Take 1 tablet 30 tablet 0 40 MG tablet (40 mg total) 7 by mouth daily. 02/15/2018 Discontinued miscellaneous medical Please 1 each 0 supply [facility] [place] 1 7 rolling walker (5' 10' Wt 181 lbs). 02/15/2018 Discontinued insulin needles, Use as 30 each 0 disposable, 30 X 3/4 " directed with 7 Ndle heparin. 02/15/2018 Discontinued levoFLOXacin (LEVAQUIN) Take 1 tablet 5 tablet 0 500 MG tabletIndications: (500 mg 7 Status post liver total) by transplantation (HCC), mouth every Renal insufficiency, other day. Urinary tract infection without hematuria, site unspecified 10/02/2017 Discontinued tacrolimus (PROGRAF) 1 MG Take 1 270 capsule 2 capsuleIndications: capsule (1 mg 7 Status post liver total) by transplantation (HCC), mouth 2 (two) Hepatocellular carcinoma times daily. (HCC), Renal insufficiency, Hepatitis C virus infection without hepatic coma, unspecified chronicity, Immunosuppression (HCC) 10/02/2017 Discontinued tacrolimus (PROGRAF) 1 MG Take 1 180 capsule 3 capsuleIndications: capsule (1 mg 7 Status post liver total) by transplantation (HCC), mouth 2 (two) Hepatocellular carcinoma times daily. (HCC), Renal insufficiency, Hepatitis C virus infection without hepatic coma, unspecified chronicity, Immunosuppression (HCC) 10/02/2017 Discontinued mycophenolate (CELLCEPT) Take 1 180 capsule 3 250 mg capsule (250 8 capsuleIndications: mg total) by Status post liver mouth 2 (two) transplantation (HCC), times daily. Immunosuppression (HCC) 09/27/2017 mycophenolate (CELLCEPT) Take 1 14 capsule 0 250 mg capsule (250 8 capsuleIndications: mg total) by Status post liver mouth 2 (two) transplantation (HCC), times daily Immunosuppression (HCC) for 7 days. 11/07/2017 Discontinued mycophenolate (CELLCEPT) Take 2 360 capsule 3 250 mg capsules (500 8 capsuleIndications: mg total) by Status post liver mouth 2 (two) transplantation (HCC), times daily. Immunosuppression (HCC), Status post liver transplantation (HCC), Hepatocellular carcinoma (HCC), Renal insufficiency, Hepatitis C virus infection without hepatic coma, unspecified chronicity, Immunosuppression (HCC) 11/22/2017 Discontinued mycophenolate (CELLCEPT) Take 3 540 capsule 3 250 mg capsules (750 8 capsuleIndications: mg total) by Status post liver mouth 2 (two) transplantation (HCC), times daily. Immunosuppression (HCC), Status post liver transplantation (HCC), Hepatocellular carcinoma (HCC), Renal insufficiency, Hepatitis C virus infection without hepatic coma, unspecified chronicity, Immunosuppression (HCC) 12/13/2017 Discontinued mycophenolate (CELLCEPT) Take 2 120 capsule 11 250 mg capsules (500 8 capsuleIndications: mg total) by Status post liver mouth 2 (two) transplantation (HCC), times daily. Immunosuppression (HCC), Status post liver transplantation (HCC), Hepatocellular carcinoma (HCC), Renal insufficiency, Hepatitis C virus infection without hepatic coma, unspecified chronicity, Immunosuppression (HCC), Complication of transplanted liver, unspecified complication (HCC) 04/23/2018 Discontinued mycophenolate (CELLCEPT) Take 1 120 capsule 11 250 mg capsule (250 8 capsuleIndications: mg total) by Status post liver mouth 2 (two) transplantation (HCC), times daily. Immunosuppression (HCC), Status post liver transplantation (HCC), Hepatocellular carcinoma (HCC), Renal insufficiency, Hepatitis C virus infection without hepatic coma, unspecified chronicity, Immunosuppression (HCC), Complication of transplanted liver, unspecified complication (HCC) 02/24/2018 Discontinued gabapentin (NEURONTIN) Take 300 mg 0 300 MG capsule by mouth 3 (three) times daily. Active Problems Problem Noted Date Abdominal pain, acute, epigastric 02/16/2018 Elevated troponin 02/16/2018 Vomiting and diarrhea 02/16/2018 Screening for malignant neoplasm 12/30/2017 UTI (urinary tract infection) 02/08/2017 Acute hyperkalemia 08/31/2016 Elevated liver enzymes 06/27/2016 S/P TAVR (transcatheter aortic valve replacement) 04/30/2016 SIRS due to infectious process with organ dysfunction 04/04/2016 Postoperative pain 04/02/2016 Type 2 diabetes mellitus with hyperglycemia 04/02/2016 Peritonitis 04/02/2016 Chronic anticoagulation 04/02/2016 Intra-abdominal abscess 04/01/2016 Ischemic bowel disease 03/31/2016 Postoperative anemia due to acute blood loss 03/31/2016 Hyperglycemia 03/31/2016 SIRS (systemic inflammatory response syndrome) 03/31/2016 CKD (chronic kidney disease), stage III 03/25/2016 Acute kidney injury superimposed on chronic kidney disease 03/25/2016 Severe aortic stenosis 03/25/2016 Moderate mitral regurgitation 03/25/2016 Left leg DVT 04/22/2015 DVT (deep venous thrombosis) 04/20/2015 Hemolytic anemia 04/06/2015 Immunosuppression 07/30/2014 Renal insufficiency 03/16/2014 Last Assessment & Plan: His creatinine has been elevated since at least January 2012 (our earliest record) - level on 03/16/14 was 1.66 (EGFR 43) - he sees Dr. Naik every 3-6 months. We will review his liver biopsy and change to sirolimus to prevent further deterioration. HCV (hepatitis C virus) 03/16/2014 Last Assessment & Plan: He has documented HCV recurrence - viral load in 2013 was 1.2 million IU/mL. We will refer his for antiviral therapy. Diabetes 03/16/2014 Last Assessment & Plan: Insulin dependent - followed by Dr. Augustin - FBS < 130 on AM finger stick - A1c 5.6 by patient history. We will defer further care to Dr. Augustin. Osteopenia 03/16/2014 Last Assessment & Plan: He has spontaneous fractures, suggesting osteopenia or osteoporosis. He will speak to Dr. Augustin about a Dexa scan and therapy as indicated. He recently stopped vitamin D because of an elevated level. Pulmonic stenosis 03/16/2014 Last Assessment & Plan: He has a loud pulmonary valve murmur, and has been told that he will require pulmonary valve replacement in the next year. He will follow up with Dr. Knowles (cardiology). Status post liver transplantation 11/11/2013 Last Assessment & Plan: OLT 23 December 2004. His liver tests continue to increase - suspect a combination of rejection and HCV. Will get liver biopsy and consider change to sirolimus to avoid further renal injury. Hepatocellular carcinoma 11/11/2013 Last Assessment & Plan: Nine years post OLT - recurrence is very unlikely at this stage - routine ultrasound scheduled for today. Encounter for long-term (current) use of high-risk medication 11/11/2013 Resolved Problems Problem Noted Date Resolved Date Ileostomy in place 08/30/2016 12/30/2017 Anemia 04/19/2016 12/30/2017 SOB (shortness of breath) 04/04/2016 12/30/2017 URI (upper respiratory infection) 08/26/2015 12/30/2017 DVT (deep venous thrombosis) 04/20/2015 12/30/2017 Overview: UPDATED BY ICD10 SNOMED/IMO UPDATES Leg pain, diffuse, left 04/20/2015 12/30/2017 Encounters Care Team Description Date Type Specialty Kimberli Garcia Labs Only (SPK W PTN RE: LAB/RX RESULTS; NO MED CHANGES; REPEAT BLD WK X1 MTH; 06/27/18; [facility]; GGT;) 06/04/2018 Telephone Transplant Hepatology Juice Landa MD 05/31/2018 Orders Only Transplant Hepatology Amarilys Garcia RN Medication Management 05/15/2018 Telephone Transplant Hepatology Amarilys Garcia, valve lapper Management 05/14/2018 Telephone Transplant Hepatology Amarilys Garcia, valve lapper Management 05/09/2018 Telephone Transplant Hepatology Amarilys Garcia, ERNESTINE Follow-up 05/06/2018 Telephone Transplant Hepatology Amarilys Garcia RN Follow-up 05/05/2018 Telephone Transplant Hepatology Juice Landa MD 05/02/2018 Orders Only Transplant Hepatology Amarilys Garcia RN Abnormal Lab (hemolyzed specimen ) 05/02/2018 Telephone Transplant Hepatology Juice Landa MD 04/30/2018 Orders Only Transplant Hepatology Amarilys Garcia RN Follow-up 04/25/2018 Telephone Transplant Hepatology Amarilys Garcia, valve lapper Management 04/24/2018 Telephone Transplant Hepatology Amarilys Garcia, ERNESTINE Follow-up 04/23/2018 Telephone Transplant Hepatology Amarilys Garcia, valve lapper Management 04/23/2018 Telephone Transplant Hepatology Amarilys Garcia RN 04/23/2018 Orders Only Transplant Hepatology Amarilys Garcia RN Follow-up 04/23/2018 Telephone Transplant Hepatology Juice Landa MD 04/21/2018 Orders Only Transplant Hepatology Amarilys Garcia RN Follow-up 04/16/2018 Telephone Transplant Hepatology Amarilys Garcia RN Follow-up 04/15/2018 Telephone Transplant Hepatology Kimberli Garcia Labs Only (LVM RE: LAB/RX RESULTS; NO MED CHANGES; REPEAT BLD WK X2 MTHS; 06/02/2018; [facility]; GGT;) 04/07/2018 Telephone Transplant Hepatology Juice Landa MD 04/02/2018 Orders Only Transplant Hepatology Katherine Roberson RN 03/25/2018 Documentation Research Kimberli Garcia 02/25/2018 Documentation Transplant Hepatology Amie Mireles MD Status post liver transplantation (Primary Dx); Hepatocellular carcinoma (HCC); Acute kidney injury superimposed on chronic kidney disease (HCC); Chronic anticoagulation; CKD (chronic kidney disease), stage III; Hepatitis C virus infection without hepatic coma, unspecified chronicity; Hyperglycemia; Immunosuppression (HCC); Screening for malignant neoplasm 02/24/2018 Follow-Up Transplant Hepatology Amie Mireles MD Status post liver transplantation; Hepatocellular carcinoma (HCC); Immunosuppression; Hepatitis C virus infection without hepatic coma, unspecified chronicity; Screening for malignant neoplasm 02/24/2018 Hospital Encounter Amie Mireles MD Status post liver transplantation; Hepatocellular carcinoma (HCC); Immunosuppression; Hepatitis C virus infection without hepatic coma, unspecified chronicity; Screening for malignant neoplasm 02/24/2018 Hospital Radiology Encounter Amie Mireles MD Status post liver transplantation; Hepatocellular carcinoma (HCC); Immunosuppression; Hepatitis C virus infection without hepatic coma, unspecified chronicity; Screening for malignant neoplasm 02/24/2018 Orders Only Lab Amarilys Garcia, valve lapper Management 02/21/2018 Telephone Transplant Hepatology Veronica Cash Appointment 02/19/2018 Telephone Research Martín Spaulding MD [place], MD Rick Chen Khannan K., MD Abdominal pain, acute, epigastric (Primary Dx); Vomiting and diarrhea; Acute kidney injury superimposed on chronic kidney disease (HCC); Elevated troponin; Severe dehydration; Type 2 diabetes mellitus with hyperglycemia, with long-term current use of insulin (HCC); Liver transplanted (HCC); Gastroenteritis; Immunosuppression (HCC); Status post liver transplantation (HCC); Viral gastroenteritis; Immunosuppressed status (HCC) 02/15/2018 Emergency Transplant - 02/17/2018 Kalani Lozano Lab Results 01/22/2018 Telephone Transplant Hepatology Juice Landa MD 01/16/2018 Orders Only Transplant Hepatology Amarilys Garcia RN Status post liver transplantation (Primary Dx); Hepatocellular carcinoma (HCC); Immunosuppression; Hepatitis C virus infection without hepatic coma, unspecified chronicity; Screening for malignant neoplasm 12/30/2017 Orders Only Transplant Hepatology Amarilys Garcia RN Medication Dose Change 12/30/2017 Telephone Transplant Hepatology Juice Landa MD 12/25/2017 Orders Only Transplant Hepatology Amarilys Garcia RN Medication Management 12/24/2017 Telephone Transplant Hepatology Amarilys Garcia RN Medication Dose Change 12/13/2017 Telephone Transplant Hepatology Amarilys Garcia RN Status post liver transplantation (HCC); Immunosuppression (HCC); Status post liver transplantation; Hepatocellular carcinoma (HCC); Renal insufficiency; Hepatitis C virus infection without hepatic coma, unspecified chronicity; Immunosuppression; Complication of transplanted liver, unspecified complication (HCC) 12/13/2017 Orders Only Transplant Hepatology Juice Lnada MD 12/09/2017 Orders Only Transplant Hepatology Amarilys Garcia RN Follow-up; Medication Management 12/09/2017 Telephone Transplant Hepatology Emily Hernandez RN Medication Dose Change (Dr. Iniguez reviewed labs from 11/14) 11/22/2017 Telephone Transplant Hepatology Juice Lnada MD 11/14/2017 Orders Only Transplant Hepatology Amarilys Garcia RN Status post liver transplantation (HCC); Immunosuppression (HCC); Status post liver transplantation; Hepatocellular carcinoma (HCC); Renal insufficiency; Hepatitis C virus infection without hepatic coma, unspecified chronicity; Immunosuppression 11/07/2017 Orders Only Transplant Hepatology Amarilys Garcia, valve lapper Dose Change 11/07/2017 Telephone Transplant Hepatology Juice Landa MD 11/04/2017 Orders Only Transplant Hepatology Amarilys Garcia, valve lapper Management 10/30/2017 Telephone Transplant Hepatology Amarilys Garcia RN Status post liver transplantation (HCC); Immunosuppression (HCC); Status post liver transplantation; Hepatocellular carcinoma (HCC); Renal insufficiency; Hepatitis C virus infection without hepatic coma, unspecified chronicity; Immunosuppression 10/02/2017 Orders Only Transplant Hepatology Amarilys Garcia RN Medication Dose Change 10/02/2017 Telephone Transplant Hepatology Evelia Borden RN Cellcept refill 09/28/2017 Telephone Transplant Hepatology Juice Landa MD 09/25/2017 Orders Only Transplant Hepatology Amarilys Garcia RN Follow-up 09/20/2017 Telephone Transplant Hepatology Amarilys Garcia RN Status post liver transplantation (Primary Dx); Immunosuppression 09/20/2017 Orders Only Transplant Hepatology Amarilys Garcia RN Medication Management 09/20/2017 Telephone Transplant Hepatology Lauren Scruggs RN Status post liver transplantation (HCC); Immunosuppression (HCC) 09/17/2017 Refill Transplant Hepatology Sterling Iniguez MD Status post liver transplantation (HCC); Immunosuppression (HCC) 09/12/2017 Refill Transplant Hepatology Maxine Gomez Labs Only 08/16/2017 Telephone Transplant Hepatology Amarilys Garcia RN Status post liver transplantation; Immunosuppression; CKD (chronic kidney disease), stage III 08/14/2017 Orders Only Transplant Hepatology Amarilys Garcia RN Status post liver transplantation (Primary Dx); Immunosuppression; CKD (chronic kidney disease), stage III 08/14/2017 Orders Only Transplant Hepatology Amarilys Garcia, ERNESTINE Labs Only 08/14/2017 Telephone Transplant Hepatology Yaquelin Arshad RN health care concerns 07/22/2017 Telephone Transplant Hepatology Juice Landa MD Status post liver transplantation; Hepatocellular carcinoma (HCC); Renal insufficiency; Hepatitis C virus infection without hepatic coma, unspecified chronicity; Immunosuppression 06/14/2017 Refill Transplant Hepatology after 06/08/2017 Immunizations Name Dates Previously Given Next Due Influenza High Dose 04/25/2015 Preservative Free Family History Medical History Relation Name Comments Diabetes Brother Liver disease Cousin 2 cousin with liver disease and 1transplant list Cancer Father prostate cancer Heart disease Mother Relation Name Status Comments Brother Cousin Father Mother Social History Date Tobacco Use Types Packs/Day Years Used Quit: 07/08/2004 Former Smoker 1 20 Smokeless Tobacco: Never Used Alcohol Use Drinks/Week oz/Week Comments No Sex Assigned at Date Recorded Not on file Industry Job Start Date Occupation Not on file Not on file Not on file Travel End Travel History Travel Start No recent travel history available. Last Filed Vital Signs Time Taken Vital Sign Reading 02/24/2018 9:55 AM CDT Blood Pressure 146/86 02/24/2018 9:55 AM CDT Pulse 73 02/24/2018 9:55 AM CDT Temperature 36.9 C (98.4 F) 02/24/2018 9:55 AM CDT Respiratory Rate 18 02/24/2018 9:55 AM CDT Oxygen Saturation 97% - Inhaled Oxygen - Concentration 02/24/2018 9:55 AM CDT Weight 84.6 kg (186 lb 9.6 oz) 02/24/2018 9:55 AM CDT Height 177.8 cm (5' 10") 02/24/2018 9:55 AM CDT Body Mass Index 26.77 Plan of Treatment Health Maintenance Due Date Last Done Comments INFLUENZA VACCINE 04/07/2018 Implants Device Identifier Shelf Expiration Date Model / Serial / Lot Implanted Type Area Manufactur er 10/05/2017 [id number] / N/A / [id number] Closure Sys Perclose Progl 6fr Cardiovasc Right: Groin [employer] [id number] - Sn/A ular LAB:VASC Implanted: Qty: 2 on 04/30/2016 by Bo Marrero MD 02/04/2018 [id number] / / [id number] Tiss Live Frm Strtce 6x10cm - Tissue [employer] [id number] Graft/Subs Implanted: Qty: 1 on 08/30/2016 by Panda Oconnor MD 01/11/2018 [id number] / [id number] / N/A Valve Aortic 29 [id number] - Valves [employer]: [id number] STRUCTURAL Implanted: Qty: 1 on 04/30/2016 HEART Procedures Comments Procedure Name Priority Date/Time Associated Diagnosis TACROLIMUS Routine 05/31/2018 8:53 AM GROUP LEADER CBC W/PLT COUNT & AUTO Routine 05/31/2018 DIFFERENTIAL 8:53 AM GROUP LEADER HEPATIC FUNCTION PANEL Routine 05/31/2018 8:53 AM GROUP LEADER BASIC METABOLIC PANEL (7) Routine 05/31/2018 8:53 AM GROUP LEADER MAGNESIUM Routine 05/31/2018 8:53 AM GROUP LEADER TACROLIMUS Routine 05/02/2018 1:50 PM CDT CBC W/PLT COUNT & AUTO Routine 05/02/2018 DIFFERENTIAL 1:50 PM CDT HEPATIC FUNCTION PANEL Routine 05/02/2018 1:50 PM CDT BASIC METABOLIC PANEL (7) Routine 05/02/2018 1:50 PM CDT MAGNESIUM Routine 05/02/2018 1:50 PM CDT TACROLIMUS Routine 04/30/2018 8:39 AM CDT CBC W/PLT COUNT & AUTO Routine 04/30/2018 DIFFERENTIAL 8:39 AM CDT HEPATIC FUNCTION PANEL Routine 04/30/2018 8:39 AM CDT BASIC METABOLIC PANEL (7) Routine 04/30/2018 8:39 AM CDT MAGNESIUM Routine 04/30/2018 8:39 AM CDT TACROLIMUS Routine 04/21/2018 9:03 AM CDT CBC W/PLT COUNT & AUTO Routine 04/21/2018 DIFFERENTIAL 9:03 AM CDT HEPATIC FUNCTION PANEL Routine 04/21/2018 9:03 AM CDT BASIC METABOLIC PANEL (7) Routine 04/21/2018 9:03 AM CDT MAGNESIUM Routine 04/21/2018 9:03 AM CDT TACROLIMUS Routine 04/02/2018 8:06 AM CDT CBC W/PLT COUNT & AUTO Routine 04/02/2018 DIFFERENTIAL 8:06 AM CDT HEPATIC FUNCTION PANEL Routine 04/02/2018 8:06 AM CDT BASIC METABOLIC PANEL (7) Routine 04/02/2018 8:06 AM CDT MAGNESIUM Routine 04/02/2018 8:06 AM CDT US ABDOMINAL WITH DOPPLER Routine 02/24/2018 Status post liver 9:00 AM CDT transplantation Hepatocellular carcinoma (HCC) Immunosuppression Hepatitis C virus infection without hepatic coma, unspecified chronicity Screening for malignant neoplasm XR CHEST 2 VIEWS Routine 02/24/2018 Status post liver 7:45 AM CDT transplantation Hepatocellular carcinoma (HCC) Immunosuppression Hepatitis C virus infection without hepatic coma, unspecified chronicity Screening for malignant neoplasm CBC W/PLT COUNT & AUTO Routine 02/24/2018 Status post liver DIFFERENTIAL 7:14 AM CDT transplantation Hepatocellular carcinoma (HCC) Immunosuppression Hepatitis C virus infection without hepatic coma, unspecified chronicity Screening for malignant neoplasm PHOSPHORUS Routine 02/24/2018 Status post liver 7:14 AM CDT transplantation Hepatocellular carcinoma (HCC) Immunosuppression Hepatitis C virus infection without hepatic coma, unspecified chronicity Screening for malignant neoplasm ALPHA FETOPROTEIN (AFP), Routine 02/24/2018 Status post liver TUMOR MARKER 7:14 AM CDT transplantation Hepatocellular carcinoma (HCC) Immunosuppression Hepatitis C virus infection without hepatic coma, unspecified chronicity Screening for malignant neoplasm MAGNESIUM Routine 02/24/2018 Status post liver 7:14 AM CDT transplantation Hepatocellular carcinoma (HCC) Immunosuppression Hepatitis C virus infection without hepatic coma, unspecified chronicity Screening for malignant neoplasm LIPID PANEL Routine 02/24/2018 Status post liver 7:14 AM CDT transplantation Hepatocellular carcinoma (HCC) Immunosuppression Hepatitis C virus infection without hepatic coma, unspecified chronicity Screening for malignant neoplasm COMPREHENSIVE METABOLIC Routine 02/24/2018 Status post liver PANEL 7:14 AM CDT transplantation Hepatocellular carcinoma (HCC) Immunosuppression Hepatitis C virus infection without hepatic coma, unspecified chronicity Screening for malignant neoplasm CBC W/PLT COUNT & AUTO Routine 02/24/2018 Status post liver DIFFERENTIAL 7:14 AM CDT transplantation Hepatocellular carcinoma (HCC) Immunosuppression Hepatitis C virus infection without hepatic coma, unspecified chronicity Screening for malignant neoplasm BILIRUBIN, DIRECT Routine 02/24/2018 Status post liver 7:14 AM CDT transplantation Hepatocellular carcinoma (HCC) Immunosuppression Hepatitis C virus infection without hepatic coma, unspecified chronicity Screening for malignant neoplasm HEPATITIS C PCR, Routine 02/24/2018 Status post liver QUANTITATIVE 7:13 AM CDT transplantation Hepatocellular carcinoma (HCC) Immunosuppression Hepatitis C virus infection without hepatic coma, unspecified chronicity Screening for malignant neoplasm TACROLIMUS LEVEL Routine 02/24/2018 Status post liver 7:13 AM CDT transplantation Hepatocellular carcinoma (HCC) Immunosuppression Hepatitis C virus infection without hepatic coma, unspecified chronicity Screening for malignant neoplasm RHYTHM STRIP - SCAN 02/18/2018 2:00 PM CDT POCT-GLUCOSE METER Routine 02/17/2018 11:44 AM CDT ECHOCARDIOGRAM REPORT - 02/17/2018 SCAN 10:30 AM CDT POCT-GLUCOSE METER Routine 02/17/2018 7:32 AM CDT HEPATIC FUNCTION PANEL Routine 02/17/2018 5:47 AM CDT TACROLIMUS LEVEL Routine 02/17/2018 5:47 AM CDT CBC (HEMOGRAM ONLY) Routine 02/17/2018 5:47 AM CDT PROTHROMBIN TIME/INR Routine 02/17/2018 5:47 AM CDT MAGNESIUM Routine 02/17/2018 5:47 AM CDT BASIC METABOLIC PANEL (7) Routine 02/17/2018 5:47 AM CDT POCT-GLUCOSE METER Routine 02/16/2018 9:43 PM CDT 2D ECHO W/ DOPPLER Routine 02/16/2018 (CW/PW/COLOR) 5:27 PM CDT POCT-GLUCOSE METER Routine 02/16/2018 5:04 PM CDT POCT-GLUCOSE METER Routine 02/16/2018 11:41 AM CDT POCT-GLUCOSE METER Routine 02/16/2018 7:38 AM CDT TACROLIMUS LEVEL Routine 02/16/2018 5:19 AM CDT TROPONIN I Routine 02/16/2018 5:19 AM CDT CBC (HEMOGRAM ONLY) Routine 02/16/2018 5:19 AM CDT PROTHROMBIN TIME/INR Routine 02/16/2018 5:19 AM CDT MAGNESIUM Routine 02/16/2018 5:19 AM CDT BASIC METABOLIC PANEL (7) Routine 02/16/2018 5:19 AM CDT ECG 12-LEAD STAT 02/15/2018 11:40 PM CDT TROPONIN I STAT 02/15/2018 11:38 PM CDT ECG 12-LEAD Routine 02/15/2018 9:00 PM CDT Procedure Note - Interface, External Ris In - 02/15/2018 11:21 PM CDT Ventricula r Rate 93 BPM Atrial Rate 93 BPM P-R Interval 200 ms QRS Duration 124 ms Q-T Interval 380 ms QTC Calculatio n(Bazett) 472 ms P [place] 27 degrees R [place] -50 degrees T [place] 57 degrees Normal sinus rhythm Possible Left atrial enlargemen t Left anterior fascicular block Abnormal ECG When compared with ECG of 7 17:38, T wave inversion no longer evident in Inferior leads ECG 12-LEAD STAT 02/15/2018 9:00 PM CDT URINALYSIS W/ REFLEX STAT 02/15/2018 URINE CULTURE 8:[address] ABDOMEN/PELVIS WITHOUT STAT 02/15/2018 IV CONTRAST 8:49 PM CDT PT/APTT STAT 02/15/2018 7:54 PM CDT CBC W/PLT COUNT & AUTO STAT 02/15/2018 DIFFERENTIAL 7:53 PM CDT TACROLIMUS LEVEL AP Routine 02/15/2018 7:53 PM CDT COMPREHENSIVE METABOLIC STAT 02/15/2018 PANEL 7:53 PM CDT CREATINE KINASE (CK), STAT 02/15/2018 TOTAL AND MB 7:53 PM CDT LIPASE STAT 02/15/2018 7:53 PM CDT TROPONIN I STAT 02/15/2018 7:53 PM CDT CBC W/PLT COUNT & AUTO STAT 02/15/2018 DIFFERENTIAL 7:53 PM CDT PHOSPHORUS STAT 02/15/2018 7:53 PM CDT MAGNESIUM STAT 02/15/2018 7:53 PM CDT TACROLIMUS Routine 01/16/2018 9:27 AM CDT CBC W/PLT COUNT & AUTO Routine 01/16/2018 DIFFERENTIAL 9:27 AM CDT HEPATIC FUNCTION PANEL Routine 01/16/2018 9:27 AM CDT BASIC METABOLIC PANEL (7) Routine 01/16/2018 9:27 AM CDT MAGNESIUM Routine 01/16/2018 9:27 AM CDT TACROLIMUS Routine 12/25/2017 8:17 AM CDT CBC W/PLT COUNT & AUTO Routine 12/25/2017 DIFFERENTIAL 8:17 AM CDT HEPATIC FUNCTION PANEL Routine 12/25/2017 8:17 AM CDT BASIC METABOLIC PANEL (7) Routine 12/25/2017 8:17 AM CDT MAGNESIUM Routine 12/25/2017 8:17 AM CDT TACROLIMUS Routine 12/09/2017 9:25 AM CDT CBC W/PLT COUNT & AUTO Routine 12/09/2017 DIFFERENTIAL 9:25 AM CDT HEPATIC FUNCTION PANEL Routine 12/09/2017 9:25 AM CDT BASIC METABOLIC PANEL (7) Routine 12/09/2017 9:25 AM CDT MAGNESIUM Routine 12/09/2017 9:25 AM CDT TACROLIMUS Routine 11/14/2017 9:05 AM CDT CBC W/PLT COUNT & AUTO Routine 11/14/2017 DIFFERENTIAL 9:05 AM CDT HEPATIC FUNCTION PANEL Routine 11/14/2017 9:05 AM CDT BASIC METABOLIC PANEL (7) Routine 11/14/2017 9:05 AM CDT MAGNESIUM Routine 11/14/2017 9:05 AM CDT TACROLIMUS Routine 11/04/2017 9:40 AM CDT CBC W/PLT COUNT & AUTO Routine 11/04/2017 DIFFERENTIAL 9:40 AM CDT HEPATIC FUNCTION PANEL Routine 11/04/2017 9:40 AM CDT BASIC METABOLIC PANEL (7) Routine 11/04/2017 9:40 AM CDT MAGNESIUM Routine 11/04/2017 9:40 AM CDT TACROLIMUS Routine 09/25/2017 9:34 AM CDT CBC W/PLT COUNT & AUTO Routine 09/25/2017 DIFFERENTIAL 9:34 AM CDT HEPATIC FUNCTION PANEL Routine 09/25/2017 9:34 AM CDT BASIC METABOLIC PANEL (7) Routine 09/25/2017 9:34 AM CDT MAGNESIUM Routine 09/25/2017 9:34 AM CDT after 06/08/2017 Results * TACROLIMUS (05/31/2018 8:53 AM GROUP LEADER) Only the most recent of 11 results within the time period is included. Tacrolimus, Highly 4.5 (L) mcg/L [facility] Sensitive, LC/MS/MS Comment: ([facility]) No definitive therapeutic or toxic ranges have been established. Optimal blood drug levels are influenced by type of transplant, patient response, time post- transplant, co-administration of other drugs, and drug formulation. The following trough range is a suggested guideline: 5.0-20.0 mcg/L. This test was developed and its analytical performance characteristics have been determined by [facility]. It has not been cleared or approved by the FDA. This assay has been validated pursuant to the CLIA regulations and is used for clinical purposes. Narrative Performed At FASTING:YES [facility] FASTING: YES Resulting Agency Comment Performing Organization Information: Site ID: [facility]: [facility] Address: [address] [place] [address] Director: Dr. Jadon Riley Performing Organization Address City/State/Zipcode Phone Number [facility] [address] [place] [address] [facility] * CBC with platelet count + automated diff (05/31/2018 8:53 AM GROUP LEADER) Only the most recent of 11 results within the time period is included. WBC 6.0 3.8 - 10.8 Thousand/uL [facility] RBC 2.52 (L) 4.20 - 5.80 Million/uL [facility] Hemoglobin 8.8 (L) 13.2 - 17.1 g/dL [facility] Hematocrit 25.9 (L) 38.5 - 50.0 % [facility] MCV 102.8 (H) 80.0 - 100.0 fL [facility] MCH 34.9 (H) 27.0 - 33.0 pg [facility] MCHC 34.0 32.0 - 36.0 g/dL [facility] RDW 14.1 11.0 - 15.0 % [facility] Platelets 177 140 - 400 Thousand/uL [facility] MPV 10.9 7.5 - 12.5 fL [facility] # Neutros 4,236 1,500 - 7,800 cells/uL [facility] # Lymphs 960 850 - 3,900 cells/uL [facility] # Monos 660 200 - 950 cells/uL [facility] # Eos 102 15 - 500 cells/uL [facility] # Baso 42 0 - 200 cells/uL [facility] % Neutros 70.6 % [facility] % Lymphs 16.0 % [facility] % Monos 11.0 % [facility] % Eos 1.7 % [facility] % Baso 0.7 % [facility] Narrative Performed At FASTING:YES [facility] FASTING: YES Resulting Agency Comment Performing Organization Information: Site ID: [id number] Name: [facility] Address: [address] [place] [phone] Director: Teresa Pizarro Performing Organization Address [facility] Phone Number [facility] [address] [place] [address] [facility] * Magnesium (05/31/2018 8:53 AM GROUP LEADER) Only the most recent of 15 results within the time period is included. Magnesium, Serum 1.3 (L) 1.5 - 2.5 mg/dL [facility] Narrative Performed At FASTING:YES [facility] FASTING: YES Resulting Agency Comment Performing Organization Information: Site ID: [id number] Name: [facility] Address: [address] [place] [phone] Director: Teresa Pizarro Performing Organization Address [facility] Phone Number [facility] [address] [place] [address] [facility] * Hepatic function panel (05/31/2018 8:53 AM GROUP LEADER) Only the most recent of 12 results within the time period is included. Protein, Total, Serum 6.0 (L) 6.1 - 8.1 g/dL [facility] Albumin 3.4 (L) 3.6 - 5.1 g/dL [facility] GLOBULIN ([facility]) 2.6 1.9 - 3.7 g/dL (calc) [facility] Albumin Globulin Ratio 1.3 1.0 - 2.5 (calc) [facility] Bilirubin, Total 0.7 0.2 - 1.2 mg/dL [facility] Bilirubin, Direct 0.2 < OR=0.2 mg/dL [facility] Bilirubin, Indirect 0.5 0.2 - 1.2 mg/dL (calc) [facility] Alkaline Phosphatase, S 107 40 - 115 U/L [facility] AST (SGOT) 20 10 - 35 U/L [facility] ALT (SGPT) 10 9 - 46 U/L [facility] Narrative Performed At FASTING:YES [facility] FASTING: YES Resulting Agency Comment Performing Organization Information: Site ID: [id number] Name: [facility] Address: [address] [place] [phone] Director: Teersa Pizarro Performing Organization Address City/State/Zipcode Phone Number [facility] [address] [place] [address] [facility] * Basic Metabolic Panel (05/31/2018 8:53 AM GROUP LEADER) Only the most recent of 13 results within the time period is included. Glucose 113 (H) 65 - 99 mg/dL [facility] Comment: Fasting reference interval For someone without known diabetes, a glucose value between 100 and 125 mg/dL is consistent with prediabetes and should be confirmed with a follow-up test. BUN 58 (H) 7 - 25 mg/dL [facility] Creatinine 2.91 (H) 0.70 - 1.25 mg/dL [facility] Comment: For patients >49 years of age, the reference limit for Creatinine is approximately 13% higher for people identified as -Filipino. eGFR If NonAfricn Am 22 (L) > OR=60 mL/min/1.73m2 [facility] eGFR If Africn Am 25 (L) > OR=60 mL/min/1.73m2 [facility] BUN/Creatinine Ratio 20 6 - 22 (calc) [facility] Sodium 138 135 - 146 mmol/L [facility] Potassium, Serum 5.3 3.5 - 5.3 mmol/L [facility] Chloride 105 98 - 110 mmol/L [facility] Carbon Dioxide, Total 24 20 - 32 mmol/L [facility] Calcium, Serum 9.1 8.6 - 10.3 mg/dL [facility] Narrative Performed At FASTING:YES [facility] FASTING: YES Resulting Agency Comment Performing Organization Information: Site ID: [id number] Name: [facility] Lab Address: [address] [place] [address] Director: Teresa Pizarro Performing Organization Address City/State/Zipcode Phone Number R[facility] [address] [address] [facility] * US abdominal with doppler (02/24/2018 9:00 AM CDT) Narrative Performed At FINAL REPORT yourdelivery Ultrasound of the Abdomen and Duplex Doppler. TECHNIQUE: Sonographic assessment of the abdomen was performed as well as a detailed duplex Doppler assessment of the liver including spectral wave forms and color-flow analysis of the major vascular structures. Clinical History: evaluate hepatic vessels; Hx: OLT;HCC,. Comparison study: CT scan dated February 15, 2018 and ultrasound dated January 29, 2017. Findings: The transplant liver is homogeneous in echotexture with no focal masses. It measures 13.3 cm in length. There is no evidence of intra or extrahepatic biliary dilatation with the common bile duct measuring five mm. The main portal vein diameter is 1.1 cm. The gallbladder is absent. The spleen measures 9.8 cm, enlarged. The pancreas is not well seen. No ascites is present. The right kidney measures 9.2 cm and left kidney measures 10.1 cm. A 1.0 x 0.9 x 1.2 cm complex cyst is seen in the upper pole of the right kidney with some internal septations.No pleural effusions are seen.The proximal aorta and IVC are unremarkable. Doppler interrogation of the liver demonstrates a main portal vein diameter measuring 1.1 cm with a peak systolic velocity of 20 cm/sec. Hepatopetal inflow is seen in the right, left, main portal and splenic veins. The resistive indices in the proper, right and left hepatic arteries are 0.6, 0.6 and 0.6 respectively. Outflow with appropriate directionality is seen in the IVC, hepatic venous confluence as well as the right, middle and left hepatic veins. Impression: 1. Homogeneous transplant liver. No focal masses are seen. 2. Pancreas not well seen. 3. Unremarkable hepatic Doppler. 4. Complex cyst in the right kidney which could be followed up. 5. Pancreas not well seen. Signed: Omar Mejia MD Report Verified Date/Time:02/24/2018 10:46:05 Reading Location: [address] Radiology Reading Room Procedure Note Interface, External Ris In - 02/24/2018 10:48 AM CDT FINAL REPORT Ultrasound of the Abdomen and Duplex Doppler. TECHNIQUE: Sonographic assessment of the abdomen was performed as well as a detailed duplex Doppler assessment of the liver including spectral wave forms and color-flow analysis of the major vascular structures. Clinical History: evaluate hepatic vessels; Hx: OLT;HCC,. Comparison study: CT scan dated February 15, 2018 and ultrasound dated January 29, 2017. Findings: The transplant liver is homogeneous in echotexture with no focal masses. It measures 13.3 cm in length. There is no evidence of intra or extrahepatic biliary dilatation with the common bile duct measuring five mm. The main portal vein diameter is 1.1 cm. The gallbladder is absent. The spleen measures 9.8 cm, enlarged. The pancreas is not well seen. No ascites is present. The right kidney measures 9.2 cm and left kidney measures 10.1 cm. A 1.0 x 0.9 x 1.2 cm complex cyst is seen in the upper pole of the right kidney with some internal septations. No pleural effusions are seen. The proximal aorta and IVC are unremarkable. Doppler interrogation of the liver demonstrates a main portal vein diameter measuring 1.1 cm with a peak systolic velocity of 20 cm/sec. Hepatopetal inflow is seen in the right, left, main portal and splenic veins. The resistive indices in the proper, right and left hepatic arteries are 0.6, 0.6 and 0.6 respectively. Outflow with appropriate directionality is seen in the IVC, hepatic venous confluence as well as the right, middle and left hepatic veins. Impression: 1. Homogeneous transplant liver. No focal masses are seen. 2. Pancreas not well seen. 3. Unremarkable hepatic Doppler. 4. Complex cyst in the right kidney which could be followed up. 5. Pancreas not well seen. Signed: Omar Mejia MD Report Verified Date/Time: 02/24/2018 10:46:05 Reading Location: [address] Radiology Reading Room Performing Organization Address [facility] Phone Number [facility] * XR chest 2 views (02/24/2018 7:45 AM CDT) Narrative Performed At FINAL REPORT [facility] INDICATION: Post OLT; HX;HCC COMPARISON: January 29, 2017 TECHNIQUE: Chest radiograph, two views, PA and lateral. FINDINGS / IMPRESSION: Right lower lung suture again noted. Lungs are clear. No pneumothorax or definite pleural effusion is demonstrated. Transcatheter aortic valve replacement and mitral valve annular calcification again noted. Heart shadow is normal in size. Osseous structures unremarkable. Signed: James Tyler MD Report Verified Date/Time:02/24/2018 08:25:59 Reading Location: [facility] Diagnostic Imaging Reading Room - [place] [id number] Procedure Note Interface, External Ris In - 02/24/2018 8:28 AM CDT FINAL REPORT INDICATION: Post OLT; HX;HCC COMPARISON: January 29, 2017 TECHNIQUE: Chest radiograph, two views, PA and lateral. FINDINGS / IMPRESSION: Right lower lung suture again noted. Lungs are clear. No pneumothorax or definite pleural effusion is demonstrated. Transcatheter aortic valve replacement and mitral valve annular calcification again noted. Heart shadow is normal in size. Osseous structures unremarkable. Signed: James Tyler MD Report Verified Date/Time: 02/24/2018 08:25:59 Reading Location: [facility] Diagnostic Imaging Reading Room - [place] [id number] Performing Organization Address City/[facility] Phone Number [facility] * CBC with platelet count + automated diff (02/24/2018 7:14 AM CDT) Only the most recent of 2 results within the time period is included. WBC 4.6 3.5 - 10.5 K/L [facility] RBC 3.10 (L) 4.63 - 6.08 M/L [facility] Hemoglobin 10.4 (L) 13.7 - 17.5 GM/DL [facility] Hematocrit 32.1 (L) 40.1 - 51.0 % [facility] MCV 103.5 (H) 79.0 - 92.2 fL [facility] MCH 33.5 (H) 25.7 - 32.2 pg [facility] MCHC 32.4 32.3 - 36.5 GM/DL [facility] RDW 16.0 (H) 11.6 - 14.4 % [facility] Platelets 143 (L) 150 - 450 K/CU MM [facility] MPV 10.6 9.4 - 12.4 fL [facility] nRBC 0 0 - 0 /100 WBC [facility] % Neutros 67 % [facility] % Lymphs 21 % [facility] % Monos 10 % [facility] % Eos 2 % [facility] % Baso 1 % [facility] # Neutros 3.04 1.78 - 5.38 K/L [facility] # Lymphs 0.94 (L) 1.32 - 3.57 K/L [facility] # Monos 0.44 0.30 - 0.82 K/L [facility] # Eos 0.10 0.04 - 0.54 K/L [facility] # Baso 0.03 0.01 - 0.08 K/L [facility] Immature 0 0 - 1 % [facility] Specimen Blood Performing Organization Address City/State/Zipcode Phone Number [facility] [address] [place] [address] MEDICAL CENTER * Alpha fetoprotein (AFP), tumor marker (02/24/2018 7:14 AM CDT) Alpha-Fetoprotein <2.0 <10.0 ng/mL [facility] Specimen Blood Performing Organization Address City/[facility] Phone Number [address] * Phosphorus (02/24/2018 7:14 AM CDT) Only the most recent of 2 results within the time period is included. Phosphorus 3.7 2.3 - 4.7 mg/dL [facility] Specimen Blood Performing Organization Address City/[facility] Phone Number [address] * Bilirubin, direct (02/24/2018 7:14 AM CDT) Bilirubin, Direct 0.3 0.1 - 0.5 mg/dL [facility] Specimen Blood Performing Organization Address [facility] Phone Number [address] * Lipid panel (02/24/2018 7:14 AM CDT) Triglycerides 55 mg/dL [facility] Cholesterol 162 mg/dL [facility] HDL 84 mg/dL [facility] LDL Calculated 67 mg/dL [facility] Specimen Blood Narrative Performed At Triglyceride Reference Range: [facility] Low Risk <150 [facility] [id number] High Risk 200-499 Very High Risk>=500 Cholesterol Reference Range: Low Risk <200 [id number] High Risk>240 HDL Cholesterol Reference Range: Low Risk >=60 High Risk <40 LDL Cholesterol Reference Range: Optimal<100 Near [id number] Very High >=190 Performing Organization Address City/[facility] Phone Number [address] * Comprehensive metabolic panel (02/24/2018 7:14 AM CDT) Only the most recent of 2 results within the time period is included. Protein, Total 6.6 6.0 - 8.3 gm/dL [facility] Albumin 3.7 3.5 - 5.0 g/dL [facility] Alkaline Phosphatase 107 40 - 150 U/L [facility] Total Bilirubin 0.6 0.2 - 1.2 mg/dL [facility] Sodium 139 136 - 145 meq/L [facility] Potassium 5.0 3.5 - 5.1 meq/L [facility] Chloride 111 (H) 98 - 107 meq/L [facility] CO2 22 22 - 29 meq/L [facility] BUN 43 (H) 7 - 21 mg/dL [facility] Creatinine 2.19 (H) 0.57 - 1.25 mg/dL [facility] Glucose 112 (H) 70 - 105 mg/dL [facility] Calcium 9.1 8.4 - 10.2 mg/dL [facility] AST 43 (H) 5 - 34 U/L [facility] ALT 34 6 - 55 U/L [facility] EGFR 31Comment: ESTIMATED GFR IS mL/min/1.73 sq m [facility] NOT ACCURATE CREATININE [facility] CLEARANCE IN PREDICTING GLOMERULAR FILTRATION RATE. ESTIMATED GFR IS NOT APPLICABLE FOR DIALYSIS PATIENTS. Specimen Blood Performing Organization Address City/State/Zipcode Phone Number [facility] [address] [place] [address] [facility] * Tacrolimus level (02/24/2018 7:13 AM CDT) Only the most recent of 4 results within the time period is included. Tacrolimus Lvl 7.9 (L) 10.0 - 20.0 ng/mL [facility] Specimen Blood Performing Organization Address City/State/Zipcode Phone Number [address] [address] [facility] * Hepatitis C PCR, Quantitative (02/24/2018 7:13 AM CDT) HCV PCR, Quantitative HCV RNA not detected HCV RNA not detected [facility] Specimen Blood Narrative Performed At This test uses a Real-Time Polymerase Chain Reaction (RT-PCR) methodology and [facility] was performed using [employer] Ampliprep/[employer] TaqMan HCV test kit version 2.0 [facility] ([employer] Reportable range for this assay is 15 - 100,000,000 IU per mL (1.18 - 8.00 Log IU/mL). Performing Organization Address [facility] Phone Number [address] [address] [phone] [place] [address] * RHYTHM STRIP - SCAN (02/18/2018 2:00 PM CDT) Narrative Performed At * POC-Glucose meter (02/17/2018 11:44 AM CDT) Only the most recent of 6 results within the time period is included. POC-Glucose Meter 163 (H)Comment: TESTED AT 70 - 110 mg/dL [facility] [address] [place] [address] Specimen Blood Performing Organization Address [facility] Phone Number [address] [address] [phone] [place] [address] * ECHOCARDIOGRAM REPORT - SCAN (02/17/2018 10:30 AM CDT) Narrative Performed At * Prothrombin time/INR (02/17/2018 5:47 AM CDT) Only the most recent of 2 results within the time period is included. Protime 19.3 (H) 11.7 - 14.7 seconds [facility] INR 1.6 <=5.9 [facility] Specimen Blood Narrative Performed At RECOMMENDED COUMADIN/WARFARIN INR THERAPY RANGES [facility] STANDARD DOSE: 2.0 - 3.0 Includes: PROPHYLAXIS for venous thrombosis, [facility] systemic embolization; TREATMENT for venous thrombosis and/or pulmonary embolus. HIGH RISK: Target INR is 2.5-3.5 for patients with mechanical heart valves. Performing Organization Address City/[facility] Phone Number [facility] [address] [place] [address] [facility] * CBC (Hemogram only) (02/17/2018 5:47 AM CDT) Only the most recent of 2 results within the time period is included. WBC 4.9 3.5 - 10.5 K/L [facility] RBC 2.84 (L) 4.63 - 6.08 M/L [facility] Hemoglobin 9.3 (L) 13.7 - 17.5 GM/DL [facility] Hematocrit 29.7 (L) 40.1 - 51.0 % [facility] MCV 104.6 (H) 79.0 - 92.2 fL [facility] MCH 32.7 (H) 25.7 - 32.2 pg [facility] MCHC 31.3 (L) 32.3 - 36.5 GM/DL [facility] RDW 15.9 (H) 11.6 - 14.4 % [facility] Platelets 80 (L) 150 - 450 K/CU MM [facility] MPV 10.3 9.4 - 12.4 fL [facility] nRBC 0 0 - 0 /100 WBC [facility] Specimen Blood Performing Organization Address City/State/Zipcode Phone Number [facility] [address] [place] [address] [facility] * 2D Echo W/Doppler(CW/PW/Color) (02/16/2018 5:27 PM CDT) Ejection [facility] ECHO HEARTLAB MKCKESSON CPACS Narrative Performed At Transthoracic Echocardiography Report (TTE) [facility] ECHO HEARTLAB Demographics [facility] Patient NameGONDIYA, Date of Study02/16/2018 DAVID Male Visit [id number] Unknown Room [id number] Number Date of 1955ReferringAlexander Postalian PhysicianMEL Sweeney Age 62 year(s)SonographerJake Alvarez [facility] Interpreting Bo Ashley MD PhysicianBSLMC Needs to be Pre Read Procedure Type of Study TTE procedure:2DECHO W DOPPLER(CW/PW/COLOR) (Pending Discharge) Indications:Known or suspected heart failure. Clinical History Hepatitis C Cirrhosis Diabetes DVT Cancer Murmur Hypertension 2004 Liver Transplant 07/31/15 TAVR - 29mm Medtronic HGB 10 HCT 30.2 % Height: 70 inches Weight: 78.93 kg (174 lbs) BSA: 1.97 m^2 BMI: 24.97 kg/m^2 HR: 79 bpm BP: 139/90 mmHg Summary The LV endocardium is adequately visualized. The left ventricle is chamber size (by PSLAX dimension) is normal (male - LVIDd 4.2-5.8cm) . Severe concentric LV hypertrophy. All of the LV segments contract normally . LVEF by Madden's method of disk assessment is normal (55-60%) . Grade 1 diastolic dysfunction (impaired relaxation and low-normal LA pressure). A biologic prosthetic aortic valve is visualized and appears well-seated with normal function by doppler. AoV dimensionless obstructive index (DOI)) is 0.54 . Mean AVR gradient= 12mmHg. There is trace paravalvular leak posteriorly. Estimated peak systolic PA pressure is 25-30 mmHg . Signature Findings Rhythm/BPRegular sinus rhythm during the exam. Left Ventricle The LV endocardium is adequately visualized. The left ventricle is chamber size (by PSLAX dimension) is normal (male - LVIDd 4.2-5.8cm) . Severe concentric LV hypertrophy. All of the LV segments contract normally . LVEF by Madden's method of disk assessment is normal (55-60%) . Grade 1 diastolic dysfunction (impaired relaxation and low-normal LA pressure). Left AtriumLA size is moderately enlarged (42-48 ml/m2) . Right VentricleThe right ventricular cavity size is mildly enlarged . Normal right ventricular systolic function. Right Atrium RA size is normal. Atrial SeptumNormal interatrial septum by available views. Aortic Valve A biologic prosthetic aortic valve is visualized and appears well-seated with normal function by doppler. AoV dimensionless obstructive index (DOI)) is 0.54 . Mean AVR gradient=12mmHg. There is trace paravalvular leak posteriorly. Mitral Valve Mild MV leaflet thickening. Mild mitral annular calcification. Mild mitral regurgitation. Tricuspid ValveTV structure is normal Mild tricuspid regurgitation. Estimated peak systolic PA pressure is 25-30 mmHg . Pulmonic Valve PV is not well visualized; function appears normal by Doppler visualized. AortaAortic root size (SInus of Valsalva diameter) is normal . PericardiumNo pericardial effusion is visualized. IVC/SVC/PA/PV/PleuralThe estimated RA pressure by IVC dynamics 5-10mmHg . Chambers/Structures Left Atrium LA Volume: 84.45 ml LA Area: 26.46 cm^2 LA Vol. Index: 43 ml/m^2 Left Ventricle LVIDd: 4.79 cm LVIDs: 2.85 cm LV Septum Diastolic: 1.44 cm LV PW Diastolic: 1.65 cmLV FS: 40.5 % LVEDV Madden's:81.98 ml LVESV Madden's:35.71 mlLVEDVI: 42 ml/m^2 LVEF Madden's: 56.4 %LVESVI: 18 ml/m^2 LVOT Diameter: 1.83 cm Right Atrium RA Vol. (Sngl Plane): 38.11 ml Right Ventricle RV Diast Dim.: 3.7 cm Aorta Ao Root S of Pretty.: 3.19 cm Doppler/Quantitative Measurements Mitral Valve MV Peak E-Wave: 0.79 m/sMV Peak A-Wave: 1.55 m/s E/A Ratio: 0.51 Peak Gradient: 2.51 mmHg Deceleration Time: 202.9 msec MR Velocity: 5.58 m/s MV Mario. Peak: Tissue Doppler E' Lateral Velocity: 0.05 m/s A' Lateral Velocity: 0.1 m/s E/E': 15 Aortic Valve Peak Velocity: 2.46 m/sMean Velocity: 1.59 m/s Peak Gradient: 24.12 mmHgMean Gradient: 12.15 mmHg AV Area (continuity): 1.43 cm^2 AV VTI: 42.74 cm AV DVI: 0.54 LVOT Peak Velocity: 1.08 m/s Peak Gradient: 4.66 mmHg Mean Velocity: 0.68 m/s Mean Gradient: 2.24 mmHg LVOT Diameter: 1.83 cmLVOT VTI: 23.22 cm LVOT Area: 2.63 cm^2LVOT SV:61.04 ml LVOT CO: 4.82 l/min LVOT CI: 2.45 l/min/m^2 Tricuspid Valve TR Velocity: 1.81 m/s TR Gradient: 13.08 mmHg Procedure Note Interface, External Ris In - 02/17/2018 9:56 AM CDT Transthoracic Echocardiography Report (TTE) Demographics Patient Name GEOFF, Date of Study 02/16/2018 DAVID Gender Male Visit Number [id number] Race Unknown Room Number 1250 Number Date of 1955 Referring Jose Rafael Alfaro Physician MEL Sweeney Age 62 year(s) Enterprise Security Architect Jake Alvarez RDJOY Interpreting Bo Ashley MD Physician [facility] Needs to be Pre Read Procedure Type of Study TTE procedure:2DECHO W DOPPLER(CW/PW/COLOR) (Pending Discharge) Indications:Known or suspected heart failure. Clinical History Hepatitis C Cirrhosis Diabetes DVT Cancer Murmur Hypertension 2004 Liver Transplant 07/31/15 TAVR - 29mm Medtronic HGB 10 HCT 30.2 % Height: 70 inches Weight: 78.93 kg (174 lbs) BSA: 1.97 m^2 BMI: 24.97 kg/m^2 HR: 79 bpm BP: 139/90 mmHg Summary The LV endocardium is adequately visualized. The left ventricle is chamber size (by PSLAX dimension) is normal (male - LVIDd 4.2-5.8cm) . Severe concentric LV hypertrophy. All of the LV segments contract normally . LVEF by Madden's method of disk assessment is normal (55-60%) . Grade 1 diastolic dysfunction (impaired relaxation and low-normal LA pressure). A biologic prosthetic aortic valve is visualized and appears well-seated with normal function by doppler. AoV dimensionless obstructive index (DOI)) is 0.54 . Mean AVR gradient = 12mmHg. There is trace paravalvular leak posteriorly. Estimated peak systolic PA pressure is 25-30 mmHg . Signature Findings Rhythm/BP Regular sinus rhythm during the exam. Left Ventricle The LV endocardium is adequately visualized. The left ventricle is chamber size (by PSLAX dimension) is normal (male - LVIDd 4.2-5.8cm) . Severe concentric LV hypertrophy. All of the LV segments contract normally . LVEF by Madden's method of disk assessment is normal (55-60%) . Grade 1 diastolic dysfunction (impaired relaxation and low-normal LA pressure). Left Atrium LA size is moderately enlarged (42-48 ml/m2) . Right Ventricle The right ventricular cavity size is mildly enlarged . Normal right ventricular systolic function. Right Atrium RA size is normal. Atrial Septum Normal interatrial septum by available views. Aortic Valve A biologic prosthetic aortic valve is visualized and appears well-seated with normal function by doppler. AoV dimensionless obstructive index (DOI)) is 0.54 . Mean AVR gradient=12mmHg. There is trace paravalvular leak posteriorly. Mitral Valve Mild MV leaflet thickening. Mild mitral annular calcification. Mild mitral regurgitation. Tricuspid Valve TV structure is normal Mild tricuspid regurgitation. Estimated peak systolic PA pressure is 25-30 mmHg . Pulmonic Valve PV is not well visualized; function appears normal by Doppler visualized. Aorta Aortic root size (SInus of Valsalva diameter) is normal . Pericardium No pericardial effusion is visualized. IVC/SVC/PA/PV/Pleural The estimated RA pressure by IVC dynamics 5-10mmHg . Chambers/Structures Left Atrium LA Volume: 84.45 ml LA Area: 26.46 cm^2 LA Vol. Index: 43 ml/m^2 Left Ventricle LVIDd: 4.79 cm LVIDs: 2.85 cm LV Septum Diastolic: 1.44 cm LV PW Diastolic: 1.65 cm LV FS: 40.5 % LVEDV Madden's:81.98 ml LVESV Madden's:35.71 ml LVEDVI: 42 ml/m^2 LVEF Madden's: 56.4 % LVESVI: 18 ml/m^2 LVOT Diameter: 1.83 cm Right Atrium RA Vol. (Sngl Plane): 38.11 ml Right Ventricle RV Diast Dim.: 3.7 cm Aorta Ao Root S of Pretty.: 3.19 cm Doppler/Quantitative Measurements Mitral Valve MV Peak E-Wave: 0.79 m/s MV Peak A-Wave: 1.55 m/s E/A Ratio: 0.51 Peak Gradient: 2.51 mmHg Deceleration Time: 202.9 msec MR Velocity: 5.58 m/s MV Mario. Peak: Tissue Doppler E' Lateral Velocity: 0.05 m/s A' Lateral Velocity: 0.1 m/s E/E': 15 Aortic Valve Peak Velocity: 2.46 m/s Mean Velocity: 1.59 m/s Peak Gradient: 24.12 mmHg Mean Gradient: 12.15 mmHg AV Area (continuity): 1.43 cm^2 AV VTI: 42.74 cm AV DVI: 0.54 LVOT Peak Velocity: 1.08 m/s Peak Gradient: 4.66 mmHg Mean Velocity: 0.68 m/s Mean Gradient: 2.24 mmHg LVOT Diameter: 1.83 cm LVOT VTI: 23.22 cm LVOT Area: 2.63 cm^2 LVOT SV:61.04 ml LVOT CO: 4.82 l/min LVOT CI: 2.45 l/min/m^2 Tricuspid Valve TR Velocity: 1.81 m/s TR Gradient: 13.08 mmHg Performing Organization Address City/State/Zipcode Phone Number [facility] * Troponin I (02/16/2018 5:19 AM CDT) Only the most recent of 3 results within the time period is included. Troponin I 0.11 (H) 0.00 - 0.03 ng/mL [facility] Specimen Blood - Arm, Left Narrative Performed At Troponin I (TnI) levels must be interpreted in the context of the presenting [facility] symptoms and the clinical findings. Elevated TnI levels indicate myocardial [facility] damage, but are not specific for ischemic heart disease. Elevated TnI levels are seen in patients with other cardiac conditions (including myocarditis and congestive heart failure), and slight TnI elevations occur in patients with other conditions, including sepsis, renal failure, acidosis, acute neurological disease, and persistent tachyarrhythmia. Performing Organization Address City/[facility] Phone Number [facility] [address] [place] [address] [facility] * ECG 12 lead (02/15/2018 11:40 PM CDT) Only the most recent of 2 results within the time period is included. Narrative Performed At Ventricular Rate 91 BPM GE MUSE Atrial Rate 91 BPM P-R Interval 202 ms QRS Duration 124 ms Q-T Interval 388 ms QTC Calculation(Bazett) 477 ms P [place] 30 degrees R [place] -43 degrees T [place] 51 degrees Normal sinus rhythm Left atrial enlargement Left axis deviation Non-specific intra-ventricular conduction delay Abnormal ECG When compared with ECG of 15-FEB-2018 21:00, No significant change was found Confirmed by MD Tyson, Spencer ([id number]) on 02/16/2018 8:32:08 AM Procedure Note Interface, External Ris In - 02/16/2018 8:32 AM CDT Ventricular Rate 91 BPM Atrial Rate 91 BPM P-R Interval 202 ms QRS Duration 124 ms Q-T Interval 388 ms QTC Calculation(Bazett) 477 ms P [place] 30 degrees R [place] -43 degrees T [place] 51 degrees Normal sinus rhythm Left atrial enlargement Left axis deviation Non-specific intra-ventricular conduction delay Abnormal ECG When compared with ECG of 15-FEB-2018 21:00, No significant change was found Confirmed by MD Mehta Roberto ([id number]) on 02/16/2018 8:32:08 AM Performing Organization Address City/[facility]/Zipcode Phone Number GE MUSE * Urinalysis w/Microscopic + Reflex to Culture (02/15/2018 8:50 PM CDT) Color, UA Yellow [facility] Clarity, UA Clear [facility] Specific [place], UA 1.013 1.001 - 1.035 [facility] pH, UA 5.5 5.0 - 8.0 [facility] Protein, UA 200 mg/dL (A) Negative [facility] Glucose, UA Negative Negative [facility] Ketones, UA Trace (A) Negative [facility] Bilirubin, UA Negative Negative [facility] Blood, UA Small (A) Negative [facility] Nitrite, UA Negative Negative [facility] Leukocytes, UA Negative Negative [facility] Urobilinogen, UA 2.0 (H) 0.2 - 1.0 mg/dL [facility] RBC, UA 1 /HPF [facility] WBC, UA 1 /HPF [facility] Mucus Rare [facility] Squam Epithel, UA 1 /HPF [facility] Hyaline Casts, UA 11 /LPF [facility] Crystals, Urine Rare [facility] Specimen Source [facility] Specimen Urine - Urine, Clean Catch Performing Organization Address City/[facility]/Zipcode Phone Number [facility] [address] [place] [address] [facility] * CT abdomen pelvis without contrast (02/15/2018 8:49 PM CDT) Narrative Performed At FINAL REPORT [place] CLINICAL HISTORY: Right flank pain, acute abdominal pain FINDINGS: Multiple axial images of the abdomen and pelvis were performed without intravenous contrast. Oral contrast was not given. This exam was performed according to our departmental dose-optimization program, which includes automated exposure control, adjustment of the mA and/or kV according to patient size and/or use of the iterative reconstruction technique. Comparison: 03/30/2016 Lower chest: Clear lungs. No pleural effusion or pneumothorax. Previous TAVR. Liver: No significant findings. Gallbladder and biliary tree: Previous cholecystectomy Spleen: No significant findings. Adrenal Glands: No significant findings. Kidneys and ureters: Bilateral renal atrophy. No nephrolithiasis or noncontrast CT evidence of obstructive uropathy. Stomach and Duodenum: No significant findings. Pancreas: No significant findings. Bowel: Previous partial right hemicolectomy. No evidence of bowel obstruction or anastomotic breakdown. No pneumatosis intestinalis. Left colonic diverticulosis. Bladder: Decompressed Major vascular structures: Atherosclerotic calcifications. Previous IVC filter placement. Reproductive organs: No significant findings. Other: No free air, fluid or adenopathy Skeleton: Advanced degenerative changes in the right hip. IMPRESSION: No CT abnormality to explain the patient's symptoms. Left colonic diverticulosis. Postoperative changes, as described. Signed: Sourav La MD Report Verified Date/Time:02/15/2018 21:18:10 Reading Location: [address] Reading Room Procedure Note Interface, External Ris In - 02/15/2018 9:20 PM CDT FINAL REPORT CLINICAL HISTORY: Right flank pain, acute abdominal pain FINDINGS: Multiple axial images of the abdomen and pelvis were performed without intravenous contrast. Oral contrast was not given. This exam was performed according to our departmental dose-optimization program, which includes automated exposure control, adjustment of the mA and/or kV according to patient size and/or use of the iterative reconstruction technique. Comparison: 03/30/2016 Lower chest: Clear lungs. No pleural effusion or pneumothorax. Previous TAVR. Liver: No significant findings. Gallbladder and biliary tree: Previous cholecystectomy Spleen: No significant findings. Adrenal Glands: No significant findings. Kidneys and ureters: Bilateral renal atrophy. No nephrolithiasis or noncontrast CT evidence of obstructive uropathy. Stomach and Duodenum: No significant findings. Pancreas: No significant findings. Bowel: Previous partial right hemicolectomy. No evidence of bowel obstruction or anastomotic breakdown. No pneumatosis intestinalis. Left colonic diverticulosis. Bladder: Decompressed Major vascular structures: Atherosclerotic calcifications. Previous IVC filter placement. Reproductive organs: No significant findings. Other: No free air, fluid or adenopathy Skeleton: Advanced degenerative changes in the right hip. IMPRESSION: No CT abnormality to explain the patient's symptoms. Left colonic diverticulosis. Postoperative changes, as described. Signed: Sourav La MD Report Verified Date/Time: 02/15/2018 21:18:10 Reading Location: [address] Reading Room Performing Organization Address City/[facility]oh Phone Number GE RIS * PT/aPTT (02/15/2018 7:54 PM CDT) Protime 22.9 (H) 11.7 - 14.7 seconds [facility] INR 2.0 <=5.9 [facility] PTT 33.7 22.5 - 36.0 seconds [facility] Specimen Blood Narrative Performed At RECOMMENDED COUMADIN/WARFARIN INR THERAPY RANGES [facility] STANDARD DOSE: 2.0 - 3.0 Includes: PROPHYLAXIS for venous thrombosis, [facility] systemic embolization; TREATMENT for venous thrombosis and/or pulmonary embolus. HIGH RISK: Target INR is 2.5-3.5 for patients with mechanical heart valves. Performing Organization Address City/[facility]/Zipcode Phone Number [facility] [address] [place] [address] [facility] * Lipase (02/15/2018 7:53 PM CDT) Lipase 45 8 - 78 U/L [facility] Specimen Blood Performing Organization Address City/[facility]/Zipcode Phone Number [facility] [address] [place], [place] [id number] [facility] * Creatine Kinase (CK), Total and MB (02/15/2018 7:53 PM CDT) Total CK 447 (H) 29 - 200 U/L [facility] CK-MB 7.8 (H) 0.0 - 6.6 ng/mL [facility] MB Relative Index 1.7 % [facility] Specimen Blood Narrative Performed At CK-MB Reference Range: [facility] <6.7Normal [facility] 6.7-10.0Borderline >10.0 Abnormal Performing Organization Address City/State/Zipcode Phone Number [facility] [address] [place] [address] [facility] after 06/08/2017 Insurance Payer Benefit Subscriber ID Type Phone Address Plan / Group MEDICARE MEDICARE A xxxxxxxxxx Medicare B AETNA - MGD CARE AETNA xxxxxxxxxx Comm INDEMNITY NON CONTR Advance Directives For more information, please contact: [address] [address] Date Inactivated Comments Code Status Date Activated 02/17/2018 6:18 PM Full Code 02/16/2018 2:02 AM This code status was determined by: Patient 11/06/2016 12:29 PM Full Code 11/06/2016 10:45 AM This code status was determined by: Patient 09/06/2016 4:16 PM Full Code 08/30/2016 6:41 PM This code status was determined by: Patient 08/30/2016 6:41 PM Full Code 08/30/2016 6:08 AM This code status was determined by: Patient 08/16/2016 9:19 PM Full Code 08/16/2016 4:15 PM This code status was determined by: Patient
--- OUTSIDE RECORDS SUMMARY | 2018-06-09 06:57 | XMS REPORT ---
Author Author [facility] Address Unknown Phone Unavailable Care Team Providers Care Missile Mechanic Name Role Phone HILDA WHITE Unavailable Unavailable CHUY AMES Unavailable Unavailable COURTNEY BOB Unavailable Unavailable Joshua REDDING Unavailable Unavailable Jeff LUCAS Unavailable Unavailable AMY LOPEZ Unavailable Unavailable DOMITILA SALINAS Unavailable Unavailable Problems This patient has no known problems. Allergies, Adverse Reactions, Alerts This patient has no known allergies or adverse reactions. Medications This patient has no known medications. Results Test Description Test Time Test Comments Text Results Atomic Results Result Comments HEPATITIS C PCR, QUANTITATIVE 2018-02-25 14:43:00 HCV RESULT COMPONENT (RAJENDRA) (test cens=6190) HCV RNA not detected HCV RNA not detected This test uses a Real-Time Polymerase Chain Reaction (RT-PCR) methodology and wa s performed using VIVIAN Ampliprep/VIVIAN TaqMan HCV test kit version 2.0 ([employer]).Reportable range for this assay is 15 - 100,000,000 IU per mL (1.18 - 8.00 Log IU/mL).U/S, ABDOMINAL, WITH [id number] 10:46:00 Doppler Study to evaluate Hepatic vesselsDoppler study to evaluate hepatic vesse ls; Hx;OLT;HCCReason for Exam:->evaluate hepatic vessels; Hx: OLT;HCC,FINAL REPORT Ultrasound of the Abdomen and Duplex Doppler. TECHNIQUE: Sonographic assessment of the abdomen was performed as well as a de tailed duplex Doppler assessment of the liver including spectral wave forms and color-flow analysis of the major vascular structures. Clinical History: evaluate hepatic vessels; Hx: OLT;HCC,. Comparison study: CT scan dated February 15, 2018 and ultrasound dated January 29, 2017. Findings: The transplant liver is homogeneou s in echotexture with no focal masses. It measures 13.3 cm in length. There is n o evidence of intra or extrahepatic biliary dilatation with the common bile duct measuring five mm. The main portal vein diameter is 1.1 cm. The gallbladder is absent. The spleen measures 9.8 cm, enlarged. The pancreas is not well seen. No ascites is present. The right kidney measures 9.2 cm and left kidney measures 10 .1 cm. A 1.0 x 0.9 x 1.2 cm complex cyst is seen in the upper pole of the right kidney with some internal septations. No pleural effusions are seen. The proxi mal aorta and IVC are unremarkable. Doppler interrogation of the liver demonstra cristobal a main portal vein diameter measuring 1.1 cm with a peak systolic velocity o f 20 cm/sec. Hepatopetal inflow is seen in the right, left, main portal and sple mera veins. The resistive indices in the proper, right and left hepatic arteries are 0.6, 0.6 and 0.6 respectively. Outflow with appropriate directionality is s een in the IVC, hepatic venous confluence as well as the right, middle and left hepatic veins. Impression: 1. Homogeneous transplant liver. No focal masses are seen.2. Pancreas not well seen.3. Unremarkable hepatic Doppler.4. Complex cyst i n the right kidney which could be followed up.5. Pancreas not well seen. Signed: Omar Mejiaeport Verified Date/Time: 02/24/2018 10:46:05 Reading Locat ion: [facility] [address] [place] [address] Radiology Reading Room OLIMUS [id number] 09:30:00* Test Item Value Reference Range Comments TACROLIMUS BLOOD (BEAKER) (test laxi=452) 7.9 ng/mL 10.0-20.0 RAD, CHEST, 2 [id number] 08:25:00PA and Lateral for Liver TransplantReason for Exam:->Post OLT; HX;HCCFINAL REPORT INDICATION: Post OLT; HX;HCC COMPARISON: January 29, 2017 TECHNIQUE: Chest radiograph, two views, PA and lateral. FINDINGS / IMPRESSION:Right lower lung suture again noted. Lungs are clear. No pneumothorax or definite pleural effusion is demonstrated. Transcatheter aortic valve replacement and mitral valve annular calcification again noted. Heart shadow is normal in size. Osseous structures unremarkable. Signed: James Tyler MDReport Verified Date/Time: 02/24/2018 08:25:59 Reading Location: [facility] Diagnostic Imaging Reading Room - [place] [address] 1120 A FETOPROTEIN (AFP), TUMOR [id number] 08:15:00* Test Item Value Reference Range Comments ALPHA-FETOPROTEIN (BEAKER) (test hzbi=1899) < ng/mL <10.0 [id number] 07:57:00* Test Item Value Reference Range Comments PHOSPHORUS (BEAKER) (test wmyd=788) 3.7 mg/dL 2.3-4.7 [id number] 07:57:00* Test Item Value Reference Range Comments MAGNESIUM (BEAKER) (test wthb=176) 1.6 mg/dL 1.6-2.6 COMPREHENSIVE METABOLIC [id number] 07:57:00* Test Item Value Reference Range Comments TOTAL PROTEIN (BEAKER) (test atjk=128) 6.6 gm/dL 6.0-8.3 ALBUMIN (BEAKER) (test sspp=6518) 3.7 g/dL 3.5-5.0 ALKALINE PHOSPHATASE (BEAKER) (test avri=594) 107 U/L 40-150 BILIRUBIN TOTAL (BEAKER) (test ewkm=761) 0.6 mg/dL 0.2-1.2 SODIUM (BEAKER) (test uqmz=407) 139 meq/L 136-145 POTASSIUM (BEAKER) (test ylel=004) 5.0 meq/L 3.5-5.1 CHLORIDE (BEAKER) (test itkk=897) 111 meq/L 98-107 CO2 (BEAKER) (test xkqu=091) 22 meq/L 22-29 BLOOD UREA NITROGEN (BEAKER) (test zfkh=683) 43 mg/dL 7-21 CREATININE (BEAKER) (test iomi=563) 2.19 mg/dL 0.57-1.25 GLUCOSE RANDOM (BEAKER) (test xipd=735) 112 mg/dL 70-105 CALCIUM (BEAKER) (test dzov=806) 9.1 mg/dL 8.4-10.2 AST (SGOT) (BEAKER) (test khuq=224) 43 U/L 5-34 ALT (SGPT) (BEAKER) (test ldlg=650) 34 U/L 6-55 EGFR (BEAKER) (test qrvw=2066) 31 mL/min/1.73 sq m ESTIMATED GFR IS NOT ACCURATE CREATININE CLEARANCE IN PREDICTING GLOMERULAR FILTRATION RATE. ESTIMATED GFR IS NOT APPLICABLE FOR DIALYSIS PATIENTS. LIPID [id number] 07:57:00* Test Item Value Reference Range Comments TRIGLYCERIDES (BEAKER) (test arip=139) 55 mg/dL CHOLESTEROL (BEAKER) (test srpd=285) 162 mg/dL HDL CHOLESTEROL (BEAKER) (test wzki=042) 84 mg/dL LDL CHOLESTEROL CALCULATED (BEAKER) (test qsxg=721) 67 mg/dL Triglyceride Reference Range: Low Risk <150 Borderline 150-199 High Risk 200-499 Very High Risk >=500Cholesterol Reference Range: Low Risk <200 Borderline 200-239 High Risk >240HDL Cholesterol Reference Range: Low Risk >=60 High Risk <40LDL Cholesterol Reference Range: Optimal <100 Near Optimal 100-129 Borderline 130-159 High 160-189 Very High >=190 BILIRUBIN, [id number] 07:57:00* Test Item Value Reference Range Comments BILIRUBIN DIRECT (BEAKER) (test cyzf=833) 0.3 mg/dL 0.1-0.5 CBC W/PLT COUNT & AUTO [id number] 07:42:00* Test Item Value Reference Range Comments WHITE BLOOD CELL COUNT (BEAKER) (test fmia=927) 4.6 K/ L 3.5-10.5 RED BLOOD CELL COUNT (BEAKER) (test kubb=500) 3.10 M/ L 4.63-6.08 HEMOGLOBIN (BEAKER) (test qvdv=708) 10.4 GM/DL 13.7-17.5 HEMATOCRIT (BEAKER) (test rwnf=007) 32.1 % 40.1-51.0 MEAN CORPUSCULAR VOLUME (BEAKER) (test ftpe=051) 103.5 fL 79.0-92.2 MEAN CORPUSCULAR HEMOGLOBIN (BEAKER) (test pkgj=010) 33.5 pg 25.7-32.2 MEAN CORPUSCULAR HEMOGLOBIN CONC (BEAKER) (test iipy=535) 32.4 GM/DL 32.3-36.5 RED CELL DISTRIBUTION WIDTH (BEAKER) (test hfdn=536) 16.0 % 11.6-14.4 PLATELET COUNT (BEAKER) (test mvsm=997) 143 K/CU MM 150-450 MEAN PLATELET VOLUME (BEAKER) (test aneh=338) 10.6 fL 9.4-12.4 NUCLEATED RED BLOOD CELLS (BEAKER) (test srgv=436) 0 /100 WBC 0-0 NEUTROPHILS RELATIVE PERCENT (BEAKER) (test nrop=027) 67 % LYMPHOCYTES RELATIVE PERCENT (BEAKER) (test cfbc=988) 21 % MONOCYTES RELATIVE PERCENT (BEAKER) (test obqo=330) 10 % EOSINOPHILS RELATIVE PERCENT (BEAKER) (test knnh=850) 2 % BASOPHILS RELATIVE PERCENT (BEAKER) (test wocf=493) 1 % NEUTROPHILS ABSOLUTE COUNT (BEAKER) (test axjj=398) 3.04 K/ L 1.78-5.38 LYMPHOCYTES ABSOLUTE COUNT (BEAKER) (test giad=493) 0.94 K/ L 1.32-3.57 MONOCYTES ABSOLUTE COUNT (BEAKER) (test wyle=251) 0.44 K/ L 0.30-0.82 EOSINOPHILS ABSOLUTE COUNT (BEAKER) (test wxga=348) 0.10 K/ L 0.04-0.54 BASOPHILS ABSOLUTE COUNT (BEAKER) (test jmfs=700) 0.03 K/ L 0.01-0.08 IMMATURE GRANULOCYTES-RELATIVE PERCENT (BEAKER) (test pvja=6949) 0 % 0-1 POCT-GLUCOSE [id number] 12:35:00* Test Item Value Reference Range Comments POC-GLUCOSE METER (BEAKER) (test skra=2531) 163 mg/dL 70-110 TESTED AT [address] [address] TACROLIMUS [id number] 12:03:00* Test Item Value Reference Range Comments TACROLIMUS BLOOD (BEAKER) (test wwht=626) 9.3 ng/mL 10.0-20.0 POCT-GLUCOSE [id number] 10:51:00* Test Item Value Reference Range Comments POC-GLUCOSE METER (BEAKER) (test ohgl=2145) 132 mg/dL 70-110 TESTED AT [address] [address] [id number] 06:50:00* Test Item Value Reference Range Comments MAGNESIUM (BEAKER) (test kbud=919) 1.6 mg/dL 1.6-2.6 BASIC METABOLIC [id number] 06:50:00* Test Item Value Reference Range Comments SODIUM (BEAKER) (test vnau=036) 139 meq/L 136-145 POTASSIUM (BEAKER) (test hdnz=743) 4.5 meq/L 3.5-5.1 CHLORIDE (BEAKER) (test yltq=517) 111 meq/L 98-107 CO2 (BEAKER) (test xpmq=474) 21 meq/L 22-29 BLOOD UREA NITROGEN (BEAKER) (test aayr=310) 36 mg/dL 7-21 CREATININE (BEAKER) (test hdbn=379) 2.20 mg/dL 0.57-1.25 GLUCOSE RANDOM (BEAKER) (test foes=001) 141 mg/dL 70-105 CALCIUM (BEAKER) (test fhec=767) 8.9 mg/dL 8.4-10.2 EGFR (BEAKER) (test stja=7484) 30 mL/min/1.73 sq m ESTIMATED GFR IS NOT ACCURATE CREATININE CLEARANCE IN PREDICTING GLOMERULAR FILTRATION RATE. ESTIMATED GFR IS NOT APPLICABLE FOR DIALYSIS PATIENTS. HEPATIC FUNCTION [id number] 06:50:00* Test Item Value Reference Range Comments TOTAL PROTEIN (BEAKER) (test abfi=120) 5.3 gm/dL 6.0-8.3 ALBUMIN (BEAKER) (test pfxj=2024) 3.0 g/dL 3.5-5.0 BILIRUBIN TOTAL (BEAKER) (test vgpt=259) 1.5 mg/dL 0.2-1.2 BILIRUBIN DIRECT (BEAKER) (test saig=298) 0.7 mg/dL 0.1-0.5 ALKALINE PHOSPHATASE (BEAKER) (test uxyk=010) 107 U/L 40-150 AST (SGOT) (BEAKER) (test jyez=953) 58 U/L 5-34 ALT (SGPT) (BEAKER) (test ejrj=980) 34 U/L 6-55 PROTHROMBIN TIME/[id number] 06:23:00* Test Item Value Reference Range Comments PROTIME (BEAKER) (test qgif=606) 19.3 seconds 11.7-14.7 INR (BEAKER) (test osyy=622) 1.6 <=5.9 RECOMMENDED COUMADIN/WARFARIN INR THERAPY RANGESSTANDARD DOSE: 2.0 - 3.0 Inclu gabriel: PROPHYLAXIS for venous thrombosis, systemic embolization; TREATMENT for elizabeth ous thrombosis and/or pulmonary embolus.HIGH RISK: Target INR is 2.5-3.5 for pat ients with mechanical heart valves.CBC (HEMOGRAM ONLY)2018-02-17 06:09:00* Test Item Value Reference Range Comments WHITE BLOOD CELL COUNT (BEAKER) (test xous=728) 4.9 K/ L 3.5-10.5 RED BLOOD CELL COUNT (BEAKER) (test arky=749) 2.84 M/ L 4.63-6.08 HEMOGLOBIN (BEAKER) (test xhbn=258) 9.3 GM/DL 13.7-17.5 HEMATOCRIT (BEAKER) (test wskd=333) 29.7 % 40.1-51.0 MEAN CORPUSCULAR VOLUME (BEAKER) (test elgp=876) 104.6 fL 79.0-92.2 MEAN CORPUSCULAR HEMOGLOBIN (BEAKER) (test wxpa=357) 32.7 pg 25.7-32.2 MEAN CORPUSCULAR HEMOGLOBIN CONC (BEAKER) (test txfp=109) 31.3 GM/DL 32.3-36.5 RED CELL DISTRIBUTION WIDTH (BEAKER) (test pdgi=104) 15.9 % 11.6-14.4 PLATELET COUNT (BEAKER) (test sfdl=107) 80 K/CU MM 150-450 MEAN PLATELET VOLUME (BEAKER) (test rbri=505) 10.3 fL 9.4-12.4 NUCLEATED RED BLOOD CELLS (BEAKER) (test rtst=702) 0 /100 WBC 0-0 POCT-GLUCOSE [id number] 21:46:00* Test Item Value Reference Range Comments POC-GLUCOSE METER (BEAKER) (test ofuz=0656) 133 mg/dL 70-110 TESTED AT [place] [id number] POCT-GLUCOSE [id number] 17:10:00* Test Item Value Reference Range Comments POC-GLUCOSE METER (BEAKER) (test zhnc=0905) 159 mg/dL 70-110 TESTED AT [address] [address] TACROLIMUS [id number] 12:14:00* Test Item Value Reference Range Comments TACROLIMUS BLOOD (BEAKER) (test bdxx=696) 9.4 ng/mL 10.0-20.0 POCT-GLUCOSE [id number] 11:51:00* Test Item Value Reference Range Comments POC-GLUCOSE METER (BEAKER) (test yoqh=4775) 289 mg/dL 70-110 TESTED AT [address] [address] TACROLIMUS [id number] 11:33:00* Test Item Value Reference Range Comments TACROLIMUS BLOOD (BEAKER) (test ynaj=843) 11.3 ng/mL 10.0-20.0 POCT-GLUCOSE [id number] 08:13:00* Test Item Value Reference Range Comments POC-GLUCOSE METER (BEAKER) (test qcyv=2496) 111 mg/dL 70-110 TESTED AT [place] [address] TROPONIN [id number] 06:37:00* Test Item Value Reference Range Comments TROPONIN I (BEAKER) (test wxut=658) 0.11 ng/mL 0.00-0.03 Troponin I (TnI) levels must be interpreted in the context of the presenting sym ptoms and the clinical findings. Elevated TnI levels indicate myocardial damage, but are not specific for ischemic heart disease. Elevated TnI levels are seen in patients with other cardiac conditions (including myocarditis and congestive h eart failure), and slight TnI elevations occur in patients with other conditions , including sepsis, renal failure, acidosis, acute neurological disease, and per sistent tachyarrhythmia.[id number] 06:32:00* Test Item Value Reference Range Comments MAGNESIUM (BEAKER) (test bwnz=633) 1.4 mg/dL 1.6-2.6 BASIC METABOLIC [id number] 06:32:00* Test Item Value Reference Range Comments SODIUM (BEAKER) (test vaqy=280) 135 meq/L 136-145 POTASSIUM (BEAKER) (test doan=713) 4.3 meq/L 3.5-5.1 CHLORIDE (BEAKER) (test sysy=308) 106 meq/L 98-107 CO2 (BEAKER) (test ztuf=086) 22 meq/L 22-29 BLOOD UREA NITROGEN (BEAKER) (test szhc=526) 49 mg/dL 7-21 CREATININE (BEAKER) (test tumi=035) 2.59 mg/dL 0.57-1.25 GLUCOSE RANDOM (BEAKER) (test zevh=673) 98 mg/dL 70-105 CALCIUM (BEAKER) (test sqli=094) 9.5 mg/dL 8.4-10.2 EGFR (BEAKER) (test xpxu=7160) 25 mL/min/1.73 sq m ESTIMATED GFR IS NOT ACCURATE CREATININE CLEARANCE IN PREDICTING GLOMERULAR FILTRATION RATE. ESTIMATED GFR IS NOT APPLICABLE FOR DIALYSIS PATIENTS. PROTHROMBIN [id number] 06:20:00* Test Item Value Reference Range Comments PROTIME (BEAKER) (test bnzd=515) 22.6 seconds 11.7-14.7 INR (BEAKER) (test lgjg=058) 2.0 <=5.9 RECOMMENDED COUMADIN/WARFARIN INR THERAPY RANGESSTANDARD DOSE: 2.0 - 3.0 Inclu gabriel: PROPHYLAXIS for venous thrombosis, systemic embolization; TREATMENT for elizabeth ous thrombosis and/or pulmonary embolus.HIGH RISK: Target INR is 2.5-3.5 for pat ients with mechanical heart valves.CBC (HEMOGRAM ONLY)2018-02-16 06:10:00* Test Item Value Reference Range Comments WHITE BLOOD CELL COUNT (BEAKER) (test mmmp=994) 6.1 K/ L 3.5-10.5 RED BLOOD CELL COUNT (BEAKER) (test ioxa=959) 3.00 M/ L 4.63-6.08 HEMOGLOBIN (BEAKER) (test njql=143) 10.0 GM/DL 13.7-17.5 HEMATOCRIT (BEAKER) (test rkzx=975) 30.2 % 40.1-51.0 MEAN CORPUSCULAR VOLUME (BEAKER) (test jypi=721) 100.7 fL 79.0-92.2 MEAN CORPUSCULAR HEMOGLOBIN (BEAKER) (test dqfw=945) 33.3 pg 25.7-32.2 MEAN CORPUSCULAR HEMOGLOBIN CONC (BEAKER) (test tmyb=345) 33.1 GM/DL 32.3-36.5 RED CELL DISTRIBUTION WIDTH (BEAKER) (test xtfi=898) 15.9 % 11.6-14.4 PLATELET COUNT (BEAKER) (test iohb=127) 103 K/CU MM 150-450 MEAN PLATELET VOLUME (BEAKER) (test zswu=613) 11.8 fL 9.4-12.4 NUCLEATED RED BLOOD CELLS (BEAKER) (test ldln=381) 0 /100 WBC 0-0 TROPONIN [id number] 03:38:00* Test Item Value Reference Range Comments TROPONIN I (BEAKER) (test fbna=913) 0.12 ng/mL 0.00-0.03 Troponin I (TnI) levels must be interpreted in the context of the presenting sym ptoms and the clinical findings. Elevated TnI levels indicate myocardial damage, but are not specific for ischemic heart disease. Elevated TnI levels are seen in patients with other cardiac conditions (including myocarditis and congestive h eart failure), and slight TnI elevations occur in patients with other conditions , including sepsis, renal failure, acidosis, acute neurological disease, and per sistent tachyarrhythmia.URINALYSIS W/ REFLEX URINE [id number] 21:25:00* Test Item Value Reference Range Comments COLOR (BEAKER) (test mscx=198) Yellow CLARITY (BEAKER) (test pbyp=495) Clear SPECIFIC GRAVITY UA (BEAKER) (test srdk=336) 1.013 1.001-1.035 PH UA (BEAKER) (test yqxi=846) 5.5 5.0-8.0 PROTEIN UA (BEAKER) (test dsyd=143) 200 mg/dL Negative GLUCOSE UA (BEAKER) (test oppo=907) Negative Negative KETONES UA (BEAKER) (test ayeh=488) Trace Negative BILIRUBIN UA (BEAKER) (test qirb=614) Negative Negative BLOOD UA (BEAKER) (test kbbi=306) Small Negative NITRITE UA (BEAKER) (test kaev=123) Negative Negative LEUKOCYTE ESTERASE UA (BEAKER) (test bllg=889) Negative Negative UROBILINOGEN UA (BEAKER) (test riux=648) 2.0 mg/dL 0.2-1.0 RBC UA (BEAKER) (test cgps=063) 1 /HPF WBC UA (BEAKER) (test cwwc=702) 1 /HPF MUCUS (BEAKER) (test wzqf=6374) Rare SQUAMOUS EPITHELIAL (BEAKER) (test bpse=970) 1 /HPF HYALINE CASTS (BEAKER) (test ptwq=013) 11 /LPF CRYSTALS, URINE (BEAKER) (test tnsi=5365) Rare SOURCE(BEAKER) (test ygpo=8317) CT, [id number] 21:18:00Reason for exam:->DIARRHEAReason for exam:-> ABDOMINAL PAINReason for exam:->EMESISWhat is the patient's sedation requirement?->No SedationFINAL REPORT CLINICAL HISTORY: Right flank pain, acute abdominal pain FINDINGS: Multiple axial images of the abdomen and pelvis were performed without intravenous contrast. Oral contrast was not given. This exam was performed according to our departmental dose- optimization program, which includes automated exposure control, adjustment [...] structures: Atherosclerotic calcifications. Previous IVC filter placement. Repro ductive organs: No significant findings. Other: No free air, fluid or adenopathy Skeleton: Advanced degenerative changes in the right hip. IMPRESSION: No CT abn ormality to explain the patient's symptoms. Left colonic diverticulosis. Postope rative changes, as described. Signed: Sourav La MDReport Verified Date/Time: 02/15/2018 21:18:10 Reading Location: [address] Reading Room TINE KINASE (CK), TOTAL AND [id number] 20:21:00* Test Item Value Reference Range Comments CREATINE KINASE TOTAL (BEAKER) (test mngw=586) 447 U/L 29-200 CREATINE KINASE-MB (BEAKER) (test dsvl=851) 7.8 ng/mL 0.0-6.6 CREATINE KINASE-MB INDEX (BEAKER) (test wdvl=680) 1.7 % CK-MB Reference Range:<6.7 Normal6.7-10.0 Borderline>10.0 Abnormal TROPONIN [id number] 20:21:00* Test Item Value Reference Range Comments TROPONIN I (BEAKER) (test plin=708) 0.09 ng/mL 0.00-0.03 Troponin I (TnI) levels must be interpreted in the context of the presenting sym ptoms and the clinical findings. Elevated TnI levels indicate myocardial damage, but are not specific for ischemic heart disease. Elevated TnI levels are seen in patients with other cardiac conditions (including myocarditis and congestive h eart failure), and slight TnI elevations occur in patients with other conditions , including sepsis, renal failure, acidosis, acute neurological disease, and per sistent tachyarrhythmia.COMPREHENSIVE METABOLIC [id number] 20:17:00* Test Item Value Reference Range Comments TOTAL PROTEIN (BEAKER) (test pwde=794) 6.9 gm/dL 6.0-8.3 ALBUMIN (BEAKER) (test wqzh=7524) 3.9 g/dL 3.5-5.0 ALKALINE PHOSPHATASE (BEAKER) (test cygn=279) 150 U/L 40-150 BILIRUBIN TOTAL (BEAKER) (test dpop=933) 1.8 mg/dL 0.2-1.2 SODIUM (BEAKER) (test dojm=286) 134 meq/L 136-145 POTASSIUM (BEAKER) (test mspy=863) 4.5 meq/L 3.5-5.1 CHLORIDE (BEAKER) (test idlw=109) 105 meq/L 98-107 CO2 (BEAKER) (test eoih=523) 18 meq/L 22-29 BLOOD UREA NITROGEN (BEAKER) (test tmfx=745) 52 mg/dL 7-21 CREATININE (BEAKER) (test ciwg=608) 2.88 mg/dL 0.57-1.25 GLUCOSE RANDOM (BEAKER) (test tbqq=744) 215 mg/dL 70-105 CALCIUM (BEAKER) (test dbgy=011) 9.6 mg/dL 8.4-10.2 AST (SGOT) (BEAKER) (test ynpo=273) 64 U/L 5-34 ALT (SGPT) (BEAKER) (test qziq=270) 39 U/L 6-55 EGFR (BEAKER) (test agmj=7912) 22 mL/min/1.73 sq m ESTIMATED GFR IS NOT ACCURATE CREATININE CLEARANCE IN PREDICTING GLOMERULAR FILTRATION RATE. ESTIMATED GFR IS NOT APPLICABLE FOR DIALYSIS PATIENTS. [id number] 20:16:00* Test Item Value Reference Range Comments PHOSPHORUS (BEAKER) (test lobb=612) 2.5 mg/dL 2.3-4.7 [id number] 20:16:00* Test Item Value Reference Range Comments MAGNESIUM (BEAKER) (test jtcx=797) 1.6 mg/dL 1.6-2.6 [id number] 20:16:00* Test Item Value Reference Range Comments LIPASE (BEAKER) (test cfjg=012) 45 U/L 8-78 [id number] 20:12:00* Test Item Value Reference Range Comments PROTIME (BEAKER) (test mwyr=935) 22.9 seconds 11.7-14.7 INR (BEAKER) (test tfjz=722) 2.0 <=5.9 PARTIAL THROMBOPLASTIN TIME (BEAKER) (test zdzt=001) 33.7 seconds 22.5-36.0 RECOMMENDED COUMADIN/WARFARIN INR THERAPY RANGESSTANDARD DOSE: 2.0 - 3.0 Inclu gabriel: PROPHYLAXIS for venous thrombosis, systemic embolization; TREATMENT for elizabeth ous thrombosis and/or pulmonary embolus.HIGH RISK: Target INR is 2.5-3.5 for pat ients with mechanical heart valves.CBC W/PLT COUNT & AUTO [id number] 20:03:00* Test Item Value Reference Range Comments WHITE BLOOD CELL COUNT (BEAKER) (test ohcj=177) 7.2 K/ L 3.5-10.5 RED BLOOD CELL COUNT (BEAKER) (test ckee=793) 3.41 M/ L 4.63-6.08 HEMOGLOBIN (BEAKER) (test pnil=298) 11.3 GM/DL 13.7-17.5 HEMATOCRIT (BEAKER) (test gxis=447) 34.5 % 40.1-51.0 MEAN CORPUSCULAR VOLUME (BEAKER) (test hftd=321) 101.2 fL 79.0-92.2 MEAN CORPUSCULAR HEMOGLOBIN (BEAKER) (test vplk=017) 33.1 pg 25.7-32.2 MEAN CORPUSCULAR HEMOGLOBIN CONC (BEAKER) (test mgka=341) 32.8 GM/DL 32.3-36.5 RED CELL DISTRIBUTION WIDTH (BEAKER) (test uohr=274) 15.8 % 11.6-14.4 PLATELET COUNT (BEAKER) (test itbp=339) 121 K/CU MM 150-450 MEAN PLATELET VOLUME (BEAKER) (test emyf=827) 10.9 fL 9.4-12.4 NUCLEATED RED BLOOD CELLS (BEAKER) (test dvxo=550) 0 /100 WBC 0-0 NEUTROPHILS RELATIVE PERCENT (BEAKER) (test jnni=334) 84 % LYMPHOCYTES RELATIVE PERCENT (BEAKER) (test zxuz=489) 6 % MONOCYTES RELATIVE PERCENT (BEAKER) (test syii=375) 9 % EOSINOPHILS RELATIVE PERCENT (BEAKER) (test aavq=188) 0 % BASOPHILS RELATIVE PERCENT (BEAKER) (test zreg=111) 0 % NEUTROPHILS ABSOLUTE COUNT (BEAKER) (test pzex=129) 6.05 K/ L 1.78-5.38 LYMPHOCYTES ABSOLUTE COUNT (BEAKER) (test fytj=330) 0.46 K/ L 1.32-3.57 MONOCYTES ABSOLUTE COUNT (BEAKER) (test ocxp=123) 0.65 K/ L 0.30-0.82 EOSINOPHILS ABSOLUTE COUNT (BEAKER) (test udin=432) 0.00 K/ L 0.04-0.54 BASOPHILS ABSOLUTE COUNT (BEAKER) (test ynqs=297) 0.02 K/ L 0.01-0.08 IMMATURE GRANULOCYTES-RELATIVE PERCENT (BEAKER) (test qnuz=3509) 0 % 0-1 CREATINE KINASE (CK), TOTAL AND [id number] 12:21:00* Test Item Value Reference Range Comments CREATINE KINASE TOTAL (BEAKER) (test qynz=928) 164 U/L 29-200 CREATINE KINASE-MB (BEAKER) (test apiq=862) 2.6 ng/mL 0.0-6.6 CREATINE KINASE-MB INDEX (BEAKER) (test exah=512) 1.6 % CK-MB Reference Range:<6.7 Normal6.7-10.0 Borderline>10.0 AbnormalB- TYPE NATRIURETIC FACTOR (BNP)2017-04-19 12:13:00* Test Item Value Reference Range Comments B-TYPE NATRIURETIC PEPTIDE (RAJENDRA) (test ebnw=989) 589 pg/mL 0-100 PROTHROMBIN TIME/[id number] 11:48:00* Test Item Value Reference Range Comments PROTIME (BEAKER) (test nxdj=442) 16.4 seconds 11.7-14.7 INR (BEAKER) (test oxrw=639) 1.3 <=5.9 RECOMMENDED COUMADIN/WARFARIN INR THERAPY RANGESSTANDARD DOSE: 2.0 - 3.0 Inclu gabriel: PROPHYLAXIS for venous thrombosis, systemic embolization; TREATMENT for elizabeth ous thrombosis and/or pulmonary embolus.HIGH RISK: Target INR is 2.5-3.5 for pat ients with mechanical heart valves.BLOOD [id number] 18:00:00* Test Item Value Reference Range Comments CULTURE (BEAKER) (test rrpt=5082) No growth in 5 days BLOOD [id number] 18:00:00* Test Item Value Reference Range Comments CULTURE (BEAKER) (test phkt=1674) No growth in 5 days URINE [id number] 09:42:00* Test Item Value Reference Range Comments CULTURE (BEAKER) (test qsbg=0272) ESCHERICHIA COLI >100,000 col/mL Escherichia coli Amikacin (test code=1) Ampicillin + Sulbactam (test code=6) Aztreonam (test code=32) Cefepime (test code=51) Cefoxitin (test code=68) Ceftazidime (test code=27) Ceftriaxone (test code=52) Ertapenem (test code=38) Gentamicin (test code=18) Levofloxacin (test code=22) Meropenem (test code=34) Nitrofurantoin (test code=23) Piperacillin + Tazobactam (test code=29) Tetracycline (test code=2) Tobramycin (test code=25) Trimethoprim + Sulfamethoxazole (test code=47) EBV VIRAL [id number] 18:30:00* Test Item Value Reference Range Comments EBV VIRAL LOAD - NEGATIVE (BEAKER) (test pplb=1946) Negative or below the linear range of the assay (<500 copies/mL) This assay was performed by real-time PCR for the detection of the Ifeoma-Billingsley virus (EBV) gene EBNA-1. The test is composed of (1) DNA extraction from patien t specimen, and (2) real-time PCR amplification and detection with ENOQ-7-leddft ic primers and probes. A well-conserved region of the EBNA-1 gene is targeted, a long with an internal control sequence used to confirm PCR amplification. Asympt omatic carriers and viral genetic variation, among other factors, can affect the accuracy of nucleic acid testing; therefore, results should be interpreted in l ight of clinical data.This test was developed and its performance characteristic s determined by the [facility] Pathology Department, Section of ministerio Pathology. It has not been cleared or approved by the U.S. Food and Rupert g Administration (FDA), since FDA approval is not required for clinical use of t he test. Validation was done as required by The Clinical Laboratory Improvement Amendments of 1987.CMV PCR, [id number] 18:27:00* Test Item Value Reference Range Comments CMV VIRAL LOAD - NEGATIVE (RAJENDRA) (test cjho=2915) Negative or below the linear range of the assay (<375 copies/mL) Cytomegalovirus (CMV) infection can cause significant disease in immunosuppresse d patients. However, it is common for CMV to manifest as a limited infection whi ch is of no clinical significance in immunosuppressed patients or in healthy ind ividuals.Viral load measurements are helpful to identify clinical CMV infection and to guide the pre-emptive management of antiviral therapy. For treatment of CMV infection due to reactivation in transplant recipients, a threshold between 4,000 and 5,000 copies/mL is suggested. For treatment of primary CMV infection, a lower threshold can be used.CMV infection may also be monitored using weekly serial measurements. Serial measurements of CMV DNA viral load can be evaluated by identifying a 10-fold change, as well as assessing the CMV DNA viral load and the clinical context for each patient.The plasma CMV DNA viral load was detected using quantitative polymerase chain reaction and fluorescent monitoring of a s pecific hybridized probe. Genetic variation and other factors can affect the acc uracy of nucleic acid testing. Therefore, the results should be interpreted in l ight of clinical data. A negative result may not exclude the presence of CMV dis ease.This test was developed and its performance characteristics determined by [facility] Pathology Department, Section of Molecular Patholog y. It has not been cleared or approved by the U.S. Food and Drug Administration (FDA), since FDA approval is not required for clinical use of the test. Validati on was done as required by The Clinical Laboratory Improvement Amendments of 198 8.TACROLIMUS [id number] 15:56:00* Test Item Value Reference Range Comments TACROLIMUS BLOOD (BEAKER) (test khuk=172) 9.8 ng/mL 10.0-20.0 URINALYSIS W/ [id number] 14:35:00* Test Item Value Reference Range Comments COLOR (BEAKER) (test twqi=804) Yellow CLARITY (BEAKER) (test xxcy=023) Clear SPECIFIC GRAVITY UA (BEAKER) (test rnfy=601) 1.014 1.001-1.035 PH UA (BEAKER) (test qhzw=101) 5.5 5.0-8.0 PROTEIN UA (BEAKER) (test fbij=515) 50 mg/dL Negative GLUCOSE UA (BEAKER) (test zyiz=875) Negative Negative KETONES UA (BEAKER) (test wuze=885) Negative Negative BILIRUBIN UA (BEAKER) (test nyoi=318) Negative Negative BLOOD UA (BEAKER) (test nalr=794) Negative Negative NITRITE UA (BEAKER) (test wnio=195) Negative Negative LEUKOCYTE ESTERASE UA (BEAKER) (test sclp=653) Negative Negative UROBILINOGEN UA (BEAKER) (test delv=216) 0.2 mg/dL 0.2-1.0 RBC UA (BEAKER) (test arrw=727) < /HPF WBC UA (BEAKER) (test cdpd=209) 1 /HPF BACTERIA (BEAKER) (test fjaw=591) Rare SQUAMOUS EPITHELIAL (BEAKER) (test tpxy=580) 1 /HPF HYALINE CASTS (BEAKER) (test gzha=217) 11 /LPF SOURCE(BEAKER) (test ocye=4687) COMPREHENSIVE METABOLIC [id number] 13:08:00* Test Item Value Reference Range Comments TOTAL PROTEIN (BEAKER) (test fslr=486) 7.1 gm/dL 6.0-8.3 ALBUMIN (BEAKER) (test byzy=6338) 3.6 g/dL 3.5-5.0 ALKALINE PHOSPHATASE (BEAKER) (test palo=726) 172 U/L 40-150 BILIRUBIN TOTAL (BEAKER) (test eerx=249) 0.9 mg/dL 0.2-1.2 SODIUM (BEAKER) (test kodl=504) 136 meq/L 136-145 POTASSIUM (BEAKER) (test jmvt=646) 4.3 meq/L 3.5-5.1 CHLORIDE (BEAKER) (test kyth=499) 101 meq/L 98-107 CO2 (BEAKER) (test rlec=776) 25 meq/L 22-29 BLOOD UREA NITROGEN (BEAKER) (test vdxe=361) 51 mg/dL 7-21 CREATININE (BEAKER) (test zckh=316) 4.42 mg/dL 0.57-1.25 GLUCOSE RANDOM (BEAKER) (test soiu=348) 125 mg/dL 70-105 CALCIUM (BEAKER) (test oczo=548) 9.3 mg/dL 8.4-10.2 AST (SGOT) (BEAKER) (test iisz=195) 52 U/L 5-34 ALT (SGPT) (BEAKER) (test hysq=565) 28 U/L 6-55 EGFR (BEAKER) (test ohxo=0331) 14 mL/min/1.73 sq m ESTIMATED GFR IS NOT ACCURATE CREATININE CLEARANCE IN PREDICTING GLOMERULAR FILTRATION RATE. ESTIMATED GFR IS NOT APPLICABLE FOR DIALYSIS PATIENTS. BILIRUBIN, [id number] 13:04:00* Test Item Value Reference Range Comments BILIRUBIN DIRECT (BEAKER) (test frkt=654) 0.5 mg/dL 0.1-0.5 CBC W/PLT COUNT & AUTO [id number] 12:27:00* Test Item Value Reference Range Comments WHITE BLOOD CELL COUNT (BEAKER) (test uddy=444) 5.5 K/ L 3.5-10.5 RED BLOOD CELL COUNT (BEAKER) (test oftm=354) 3.11 M/ L 4.63-6.08 HEMOGLOBIN (BEAKER) (test chhu=668) 9.9 GM/DL 13.7-17.5 HEMATOCRIT (BEAKER) (test ackb=038) 30.3 % 40.1-51.0 MEAN CORPUSCULAR VOLUME (BEAKER) (test kewd=176) 97.4 fL 79.0-92.2 MEAN CORPUSCULAR HEMOGLOBIN (BEAKER) (test gbkk=980) 31.8 pg 25.7-32.2 MEAN CORPUSCULAR HEMOGLOBIN CONC (BEAKER) (test abjh=706) 32.7 GM/DL 32.3-36.5 RED CELL DISTRIBUTION WIDTH (BEAKER) (test pxdx=917) 19.3 % 11.6-14.4 PLATELET COUNT (BEAKER) (test tzdq=501) 146 K/CU MM 150-450 MEAN PLATELET VOLUME (BEAKER) (test ikgg=596) 11.1 fL 9.4-12.4 NUCLEATED RED BLOOD CELLS (BEAKER) (test lxee=336) 0 /100 WBC 0-0 NEUTROPHILS RELATIVE PERCENT (BEAKER) (test qcsk=618) 68 % LYMPHOCYTES RELATIVE PERCENT (BEAKER) (test rmxv=104) 21 % MONOCYTES RELATIVE PERCENT (BEAKER) (test vqkw=832) 10 % EOSINOPHILS RELATIVE PERCENT (BEAKER) (test ypqx=836) 0 % BASOPHILS RELATIVE PERCENT (BEAKER) (test vebw=888) 1 % NEUTROPHILS ABSOLUTE COUNT (BEAKER) (test yzek=178) 3.76 K/ L 1.78-5.38 LYMPHOCYTES ABSOLUTE COUNT (BEAKER) (test ckge=477) 1.14 K/ L 1.32-3.57 MONOCYTES ABSOLUTE COUNT (BEAKER) (test risq=716) 0.53 K/ L 0.30-0.82 EOSINOPHILS ABSOLUTE COUNT (BEAKER) (test obhh=376) 0.01 K/ L 0.04-0.54 BASOPHILS ABSOLUTE COUNT (BEAKER) (test ksxv=979) 0.03 K/ L 0.01-0.08 IMMATURE GRANULOCYTES-RELATIVE PERCENT (BEAKER) (test nppu=8340) 0 % 0-1 TACROLIMUS [id number] 15:22:00* Test Item Value Reference Range Comments TACROLIMUS BLOOD (BEAKER) (test dbfx=294) 19.0 ng/mL 10.0-20.0 COMPREHENSIVE METABOLIC [id number] 15:12:00* Test Item Value Reference Range Comments TOTAL PROTEIN (BEAKER) (test iclw=637) 6.9 gm/dL 6.0-8.3 ALBUMIN (BEAKER) (test tgwt=2621) 3.4 g/dL 3.5-5.0 ALKALINE PHOSPHATASE (BEAKER) (test xjhd=488) 178 U/L 40-150 BILIRUBIN TOTAL (BEAKER) (test fyet=936) 0.8 mg/dL 0.2-1.2 SODIUM (BEAKER) (test eutu=520) 137 meq/L 136-145 POTASSIUM (BEAKER) (test kmor=624) 4.9 meq/L 3.5-5.1 CHLORIDE (BEAKER) (test hryq=823) 105 meq/L 98-107 CO2 (BEAKER) (test gbme=120) 23 meq/L 22-29 BLOOD UREA NITROGEN (BEAKER) (test zhhn=784) 46 mg/dL 7-21 CREATININE (BEAKER) (test alqf=669) 3.33 mg/dL 0.57-1.25 GLUCOSE RANDOM (BEAKER) (test trpc=279) 112 mg/dL 70-105 CALCIUM (BEAKER) (test qumk=554) 9.1 mg/dL 8.4-10.2 AST (SGOT) (BEAKER) (test ijvv=200) 83 U/L 5-34 ALT (SGPT) (BEAKER) (test kcvb=397) 31 U/L 6-55 EGFR (BEAKER) (test lbey=9403) 19 mL/min/1.73 sq m ESTIMATED GFR IS NOT ACCURATE CREATININE CLEARANCE IN PREDICTING GLOMERULAR FILTRATION RATE. ESTIMATED GFR IS NOT APPLICABLE FOR DIALYSIS PATIENTS. [id number] 13:08:00* Test Item Value Reference Range Comments MAGNESIUM (BEAKER) (test ohqv=052) 2.4 mg/dL 1.6-2.6 BILIRUBIN, [id number] 13:08:00* Test Item Value Reference Range Comments BILIRUBIN DIRECT (BEAKER) (test bezt=660) 0.4 mg/dL 0.1-0.5 CBC W/PLT COUNT & AUTO [id number] 12:24:00* Test Item Value Reference Range Comments WHITE BLOOD CELL COUNT (BEAKER) (test iuqw=866) 4.1 K/ L 3.5-10.5 RED BLOOD CELL COUNT (BEAKER) (test bowc=556) 3.12 M/ L 4.63-6.08 HEMOGLOBIN (BEAKER) (test gpwt=524) 10.0 GM/DL 13.7-17.5 HEMATOCRIT (BEAKER) (test kdnp=102) 30.9 % 40.1-51.0 MEAN CORPUSCULAR VOLUME (BEAKER) (test ifun=936) 99.0 fL 79.0-92.2 MEAN CORPUSCULAR HEMOGLOBIN (BEAKER) (test bxfh=588) 32.1 pg 25.7-32.2 MEAN CORPUSCULAR HEMOGLOBIN CONC (BEAKER) (test ubgj=232) 32.4 GM/DL 32.3-36.5 RED CELL DISTRIBUTION WIDTH (BEAKER) (test cqtb=335) 19.0 % 11.6-14.4 PLATELET COUNT (BEAKER) (test rdja=756) 153 K/CU MM 150-450 MEAN PLATELET VOLUME (BEAKER) (test lbwf=766) 11.2 fL 9.4-12.4 NUCLEATED RED BLOOD CELLS (BEAKER) (test kugy=143) 0 /100 WBC 0-0 NEUTROPHILS RELATIVE PERCENT (BEAKER) (test tkdh=141) 64 % LYMPHOCYTES RELATIVE PERCENT (BEAKER) (test axez=434) 24 % MONOCYTES RELATIVE PERCENT (BEAKER) (test vwpr=853) 9 % EOSINOPHILS RELATIVE PERCENT (BEAKER) (test xoow=316) 2 % BASOPHILS RELATIVE PERCENT (BEAKER) (test atxi=992) 1 % NEUTROPHILS ABSOLUTE COUNT (BEAKER) (test fctm=660) 2.64 K/ L 1.78-5.38 LYMPHOCYTES ABSOLUTE COUNT (BEAKER) (test fcfz=990) 0.99 K/ L 1.32-3.57 MONOCYTES ABSOLUTE COUNT (BEAKER) (test xoxs=810) 0.36 K/ L 0.30-0.82 EOSINOPHILS ABSOLUTE COUNT (BEAKER) (test tgkk=375) 0.08 K/ L 0.04-0.54 BASOPHILS ABSOLUTE COUNT (BEAKER) (test bkrq=147) 0.03 K/ L 0.01-0.08 IMMATURE GRANULOCYTES-RELATIVE PERCENT (BEAKER) (test lrwc=6543) 0 % 0-1 BUN AND [id number] 11:56:00* Test Item Value Reference Range Comments BLOOD UREA NITROGEN (BEAKER) (test tsgd=559) 33 mg/dL 7-21 CREATININE (BEAKER) (test yizg=401) 2.51 mg/dL 0.57-1.25 EGFR (BEAKER) (test zczq=9387) 26 mL/min/1.73 sq m ESTIMATED GFR IS NOT ACCURATE CREATININE CLEARANCE IN PREDICTING GLOMERULAR FILTRATION RATE. ESTIMATED GFR IS NOT APPLICABLE FOR DIALYSIS PATIENTS. CREATINE KINASE (CK), TOTAL AND [id number] 11:41:00* Test Item Value Reference Range Comments CREATINE KINASE TOTAL (BEAKER) (test oarr=149) 297 U/L 29-200 CREATINE KINASE-MB (BEAKER) (test fyrk=258) 4.8 ng/mL 0.0-6.6 CREATINE KINASE-MB INDEX (BEAKER) (test nbke=999) 1.6 % Effective 05/25/2014: CK-MB Reference Range ChangeNew: 0.0-6.6 Previous: 0.0- 4.9CK-MB Reference Range:<6.7 Normal6.7-10.0 Borderline>10.0 Abnormal [id number] 11:39:00* Test Item Value Reference Range Comments ALBUMIN (BEAKER) (test hcln=2961) 3.6 g/dL 3.5-5.0 PROTHROMBIN [id number] 11:38:00* Test Item Value Reference Range Comments PROTIME (BEAKER) (test tuso=432) 22.2 seconds 11.7-14.7 INR (BEAKER) (test axvf=784) 1.9 <=5.9 RECOMMENDED COUMADIN/WARFARIN INR THERAPY RANGESSTANDARD DOSE: 2.0 - 3.0 Inclu gabriel: PROPHYLAXIS for venous thrombosis, systemic embolization; TREATMENT for elizabeth ous thrombosis and/or pulmonary embolus.HIGH RISK: Target INR is 2.5-3.5 for pat ients with mechanical heart valves.B-TYPE NATRIURETIC FACTOR (BNP)2016-11-06 11:38:00* Test Item Value Reference Range Comments B-TYPE NATRIURETIC PEPTIDE (BEAKER) (test ucim=764) 492 pg/mL 0-100 CBC W/PLT COUNT & AUTO [id number] 11:21:00* Test Item Value Reference Range Comments WHITE BLOOD CELL COUNT (BEAKER) (test zmdi=304) 4.5 K/ L 4.0-10.0 RED BLOOD CELL COUNT (BEAKER) (test ginh=606) 3.18 M/ L 4.20-5.80 HEMOGLOBIN (BEAKER) (test modt=852) 10.8 GM/DL 13.0-16.8 HEMATOCRIT (BEAKER) (test abyg=998) 32.8 % 40.0-50.0 MEAN CORPUSCULAR VOLUME (BEAKER) (test fyjk=930) 103.0 fL 82.0-98.0 MEAN CORPUSCULAR HEMOGLOBIN (BEAKER) (test lcgc=152) 33.8 pg 27.0-33.0 MEAN CORPUSCULAR HEMOGLOBIN CONC (BEAKER) (test vvkh=266) 32.8 GM/DL 32.0-36.0 RED CELL DISTRIBUTION WIDTH (BEAKER) (test hfzz=559) 15.0 % 10.3-14.2 PLATELET COUNT (BEAKER) (test nsed=776) 177 K/CU MM 150-430 MEAN PLATELET VOLUME (BEAKER) (test ujtl=323) 7.2 fL 6.5-10.5 NUCLEATED RED BLOOD CELLS (BEAKER) (test lgqm=436) 0 /100 WBC 0-0 NEUTROPHILS RELATIVE PERCENT (BEAKER) (test wlnp=151) 68 % LYMPHOCYTES RELATIVE PERCENT (BEAKER) (test bqdq=704) 21 % MONOCYTES RELATIVE PERCENT (BEAKER) (test xtqw=262) 9 % EOSINOPHILS RELATIVE PERCENT (BEAKER) (test htjo=903) 1 % BASOPHILS RELATIVE PERCENT (BEAKER) (test vfdc=437) 1 % NEUTROPHILS ABSOLUTE COUNT (BEAKER) (test hzap=150) 3.07 K/ L 1.80-8.00 LYMPHOCYTES ABSOLUTE COUNT (BEAKER) (test unje=212) 0.93 K/ L 1.48-4.50 MONOCYTES ABSOLUTE COUNT (BEAKER) (test gwez=156) 0.40 K/ L 0.00-1.30 EOSINOPHILS ABSOLUTE COUNT (BEAKER) (test kqgg=153) 0.04 K/ L 0.00-0.50 BASOPHILS ABSOLUTE COUNT (BEAKER) (test vpkp=158) 0.05 K/ L 0.00-0.20 0.00POCT-GLUCOSE [id number] 11:28:00* Test Item Value Reference Range Comments POC-GLUCOSE METER (BEAKER) (test krnn=1154) 107 mg/dL 70-110 TESTED AT [facility] [address] [facility] [address] TACROLIMUS [id number] 10:44:00* Test Item Value Reference Range Comments TACROLIMUS BLOOD (BEAKER) (test xyvx=817) 3.3 ng/mL 10.0-20.0 Draw 30 minutes prior to administering tacroPOCT-GLUCOSE [id number] 07:34:00* Test Item Value Reference Range Comments POC-GLUCOSE METER (BEAKER) (test lcmn=3862) 119 mg/dL 70-110 TESTED AT [address] [address] HEPATIC FUNCTION [id number] 06:18:00* Test Item Value Reference Range Comments TOTAL PROTEIN (BEAKER) (test dhgi=387) 6.2 gm/dL 6.0-8.3 ALBUMIN (BEAKER) (test jmpu=8390) 3.2 g/dL 3.5-5.0 BILIRUBIN TOTAL (BEAKER) (test kjjh=593) 0.7 mg/dL 0.2-1.2 BILIRUBIN DIRECT (BEAKER) (test jrdl=399) 0.3 mg/dL 0.1-0.5 ALKALINE PHOSPHATASE (BEAKER) (test uinn=167) 116 U/L 40-150 AST (SGOT) (BEAKER) (test irnz=816) 19 U/L 5-34 ALT (SGPT) (BEAKER) (test kfjs=380) 12 U/L 6-55 BASIC METABOLIC [id number] 06:18:00* Test Item Value Reference Range Comments SODIUM (BEAKER) (test kmeo=076) 136 meq/L 136-145 POTASSIUM (BEAKER) (test rfmn=476) 4.3 meq/L 3.5-5.1 CHLORIDE (BEAKER) (test yuxm=402) 104 meq/L 98-107 CO2 (BEAKER) (test syve=411) 21 meq/L 22-29 BLOOD UREA NITROGEN (BEAKER) (test zhyd=748) 29 mg/dL 7-21 CREATININE (BEAKER) (test xlfu=567) 1.78 mg/dL 0.57-1.25 GLUCOSE RANDOM (BEAKER) (test ikfq=452) 111 mg/dL 70-105 CALCIUM (BEAKER) (test tfzs=177) 9.2 mg/dL 8.4-10.2 EGFR (BEAKER) (test oqcq=4752) 39 mL/min/1.73 sq m ESTIMATED GFR IS NOT ACCURATE CREATININE CLEARANCE IN PREDICTING GLOMERULAR FILTRATION RATE. ESTIMATED GFR IS NOT APPLICABLE FOR DIALYSIS PATIENTS. PROTHROMBIN [id number] 06:11:00* Test Item Value Reference Range Comments PROTIME (BEAKER) (test yezz=240) 13.9 seconds 11.7-14.7 INR (BEAKER) (test uguq=927) 1.1 <=5.9 RECOMMENDED COUMADIN/WARFARIN INR THERAPY RANGESSTANDARD DOSE: 2.0 - 3.0 Inclu gabriel: PROPHYLAXIS for venous thrombosis, systemic embolization; TREATMENT for elizabeth ous thrombosis and/or pulmonary embolus.HIGH RISK: Target INR is 2.5-3.5 for pat ients with mechanical heart valves.While on warfarin.POCT-GLUCOSE METER 2016-09-05 21:40:00* Test Item Value Reference Range Comments POC-GLUCOSE METER (BEAKER) (test ezhf=1507) 165 mg/dL 70-110 TESTED AT [address] [address] POCT-GLUCOSE [id number] 16:04:00* Test Item Value Reference Range Comments POC-GLUCOSE METER (BEAKER) (test xazd=0661) 172 mg/dL 70-110 TESTED AT [address] [address] OCCULT BLOOD, [id number] 13:06:00* Test Item Value Reference Range Comments FECAL OCCULT BLOOD (BEAKER) (test soen=786) Negative Negative POCT-GLUCOSE [id number] 12:09:00* Test Item Value Reference Range Comments POC-GLUCOSE METER (BEAKER) (test fqkv=0508) 109 mg/dL 70-110 TESTED AT [address] [address] CBC (HEMOGRAM ONLY)2016-09-05 11:35:00* Test Item Value Reference Range Comments WHITE BLOOD CELL COUNT (BEAKER) (test lsmo=952) 5.8 K/ L 4.0-10.0 RED BLOOD CELL COUNT (BEAKER) (test jjjo=002) 2.84 M/ L 4.20-5.80 HEMOGLOBIN (BEAKER) (test iutu=412) 9.7 GM/DL 13.0-16.8 HEMATOCRIT (BEAKER) (test sawu=712) 28.2 % 40.0-50.0 MEAN CORPUSCULAR VOLUME (BEAKER) (test grgl=673) 99.1 fL 82.0-98.0 MEAN CORPUSCULAR HEMOGLOBIN (BEAKER) (test naut=022) 34.1 pg 27.0-33.0 MEAN CORPUSCULAR HEMOGLOBIN CONC (BEAKER) (test fkzf=615) 34.4 GM/DL 32.0-36.0 RED CELL DISTRIBUTION WIDTH (BEAKER) (test rfso=264) 17.0 % 10.3-14.2 PLATELET COUNT (BEAKER) (test iyrh=933) 154 K/CU MM 150-430 MEAN PLATELET VOLUME (BEAKER) (test txbn=726) 7.4 fL 6.5-10.5 NUCLEATED RED BLOOD CELLS (BEAKER) (test twoy=670) 0 /100 WBC 0-0 0.00TACROLIMUS [id number] 09:19:00* Test Item Value Reference Range Comments TACROLIMUS BLOOD (BEAKER) (test aslm=160) 4.1 ng/mL 10.0-20.0 Draw 30 minutes prior to administering tacroPOCT-GLUCOSE [id number] 07:52:00* Test Item Value Reference Range Comments POC-GLUCOSE METER (BEAKER) (test rqwp=2853) 130 mg/dL 70-110 TESTED AT [facility] [address] [facility] [address] PROTHROMBIN TIME/[id number] 06:24:00* Test Item Value Reference Range Comments PROTIME (BEAKER) (test yajf=208) 14.0 seconds 11.7-14.7 INR (BEAKER) (test rfym=402) 1.1 <=5.9 RECOMMENDED COUMADIN/WARFARIN INR THERAPY RANGESSTANDARD DOSE: 2.0 - 3.0 Inclu gabriel: PROPHYLAXIS for venous thrombosis, systemic embolization; TREATMENT for elizabeth ous thrombosis and/or pulmonary embolus.HIGH RISK: Target INR is 2.5-3.5 for pat ients with mechanical heart valves.While on warfarin.HEPATIC FUNCTION PANEL 2016-09-05 06:19:00* Test Item Value Reference Range Comments TOTAL PROTEIN (BEAKER) (test sedu=791) 5.8 gm/dL 6.0-8.3 ALBUMIN (BEAKER) (test ogop=8941) 3.1 g/dL 3.5-5.0 BILIRUBIN TOTAL (BEAKER) (test fjuo=192) 1.0 mg/dL 0.2-1.2 BILIRUBIN DIRECT (BEAKER) (test cpph=303) 0.4 mg/dL 0.1-0.5 ALKALINE PHOSPHATASE (BEAKER) (test fqxd=132) 119 U/L 40-150 AST (SGOT) (BEAKER) (test zful=631) 17 U/L 5-34 ALT (SGPT) (BEAKER) (test ynku=718) 12 U/L 6-55 BASIC METABOLIC [id number] 06:19:00* Test Item Value Reference Range Comments SODIUM (BEAKER) (test khga=307) 134 meq/L 136-145 POTASSIUM (BEAKER) (test vidq=620) 4.3 meq/L 3.5-5.1 CHLORIDE (BEAKER) (test ahxg=120) 104 meq/L 98-107 CO2 (BEAKER) (test nhwa=509) 21 meq/L 22-29 BLOOD UREA NITROGEN (BEAKER) (test ynbt=523) 31 mg/dL 7-21 CREATININE (BEAKER) (test ngqa=380) 1.70 mg/dL 0.57-1.25 GLUCOSE RANDOM (BEAKER) (test adgh=290) 127 mg/dL 70-105 CALCIUM (BEAKER) (test fbqn=029) 9.1 mg/dL 8.4-10.2 EGFR (BEAKER) (test ncid=5502) 41 mL/min/1.73 sq m ESTIMATED GFR IS NOT ACCURATE CREATININE CLEARANCE IN PREDICTING GLOMERULAR FILTRATION RATE. ESTIMATED GFR IS NOT APPLICABLE FOR DIALYSIS PATIENTS. POCT-GLUCOSE [id number] 21:25:00* Test Item Value Reference Range Comments POC-GLUCOSE METER (BEAKER) (test bvbd=6185) 152 mg/dL 70-110 TESTED AT [facility] [address] [facility] [address] POCT-GLUCOSE [id number] 17:41:00* Test Item Value Reference Range Comments POC-GLUCOSE METER (BEAKER) (test bqeq=8444) 108 mg/dL 70-110 TESTED AT [facility] [address] [facility] [address] OCCULT BLOOD, [id number] 16:11:00* Test Item Value Reference Range Comments FECAL OCCULT BLOOD (BEAKER) (test ntwx=530) Positive Negative HEMOGLOBIN AND [id number] 12:40:00* Test Item Value Reference Range Comments HEMOGLOBIN (BEAKER) (test tnsb=954) 10.1 GM/DL 13.0-16.8 HEMATOCRIT (BEAKER) (test dbjj=565) 29.4 % 40.0-50.0 POCT-GLUCOSE [id number] 11:57:00* Test Item Value Reference Range Comments POC-GLUCOSE METER (BEAKER) (test wgkl=1058) 136 mg/dL 70-110 TESTED AT [address] [address] TACROLIMUS [id number] 11:04:00* Test Item Value Reference Range Comments TACROLIMUS BLOOD (BEAKER) (test bens=682) 4.1 ng/mL 10.0-20.0 Draw 30 minutes prior to administering tacroPOCT-GLUCOSE [id number] 07:35:00* Test Item Value Reference Range Comments POC-GLUCOSE METER (BEAKER) (test wrxx=7171) 134 mg/dL 70-110 TESTED AT [address] [address] HEPATIC FUNCTION [id number] 06:37:00* Test Item Value Reference Range Comments TOTAL PROTEIN (BEAKER) (test wjtq=480) 6.1 gm/dL 6.0-8.3 ALBUMIN (BEAKER) (test okne=5722) 3.2 g/dL 3.5-5.0 BILIRUBIN TOTAL (BEAKER) (test ukrh=790) 1.4 mg/dL 0.2-1.2 BILIRUBIN DIRECT (BEAKER) (test jhzv=508) 0.6 mg/dL 0.1-0.5 ALKALINE PHOSPHATASE (BEAKER) (test aojs=529) 137 U/L 40-150 AST (SGOT) (BEAKER) (test npzw=112) 20 U/L 5-34 ALT (SGPT) (BEAKER) (test qhqr=938) 15 U/L 6-55 BASIC METABOLIC [id number] 06:37:00* Test Item Value Reference Range Comments SODIUM (BEAKER) (test gyof=354) 131 meq/L 136-145 POTASSIUM (BEAKER) (test piep=933) 4.6 meq/L 3.5-5.1 CHLORIDE (BEAKER) (test htbz=103) 101 meq/L 98-107 CO2 (BEAKER) (test ebvk=025) 19 meq/L 22-29 BLOOD UREA NITROGEN (BEAKER) (test rgri=460) 38 mg/dL 7-21 CREATININE (BEAKER) (test ipmv=147) 1.75 mg/dL 0.57-1.25 GLUCOSE RANDOM (BEAKER) (test ueti=489) 135 mg/dL 70-105 CALCIUM (BEAKER) (test xble=383) 9.4 mg/dL 8.4-10.2 EGFR (BEAKER) (test qwdg=2682) 40 mL/min/1.73 sq m ESTIMATED GFR IS NOT ACCURATE CREATININE CLEARANCE IN PREDICTING GLOMERULAR FILTRATION RATE. ESTIMATED GFR IS NOT APPLICABLE FOR DIALYSIS PATIENTS. HEMOGLOBIN AND [id number] 06:25:00* Test Item Value Reference Range Comments HEMOGLOBIN (BEAKER) (test nryh=094) 10.7 GM/DL 13.0-16.8 HEMATOCRIT (BEAKER) (test udfe=372) 32.2 % 40.0-50.0 PROTHROMBIN [id number] 06:08:00* Test Item Value Reference Range Comments PROTIME (BEAKER) (test nfkf=882) 14.3 seconds 11.7-14.7 INR (BEAKER) (test ofwo=462) 1.1 <=5.9 RECOMMENDED COUMADIN/WARFARIN INR THERAPY RANGESSTANDARD DOSE: 2.0 - 3.0 Inclu gabriel: PROPHYLAXIS for venous thrombosis, systemic embolization; TREATMENT for elizabeth ous thrombosis and/or pulmonary embolus.HIGH RISK: Target INR is 2.5-3.5 for pat ients with mechanical heart valves.While on warfarin.HEMOGLOBIN AND HEMATOCRIT 2016-09-03 23:28:00* Test Item Value Reference Range Comments HEMOGLOBIN (BEAKER) (test xjls=694) 10.2 GM/DL 13.0-16.8 HEMATOCRIT (BEAKER) (test lahl=253) 31.2 % 40.0-50.0 POCT-GLUCOSE [id number] 21:43:00* Test Item Value Reference Range Comments POC-GLUCOSE METER (BEAKER) (test yzxu=7088) 138 mg/dL 70-110 TESTED AT [facility] [address] [facility] [address] POCT-GLUCOSE [id number] 17:42:00* Test Item Value Reference Range Comments POC-GLUCOSE METER (BEAKER) (test ggnf=6270) 115 mg/dL 70-110 TESTED AT [facility] [address] [facility] [address] [id number] 17:41:00* Test Item Value Reference Range Comments D-DIMER QUANTITATIVE (BEAKER) (test azcc=663) 8.17 MG/L FEU <0.50 Intended Use: The D-Dimer Assay can be used to aid in the diagnosis of Deep Vein Thrombosis (DVT) and Pulmonary Embolism Disease (PED).In patients with low pre- test probability, various studies concerning STA Liatest D-dimer test have repor luis that with a cutoff value of 0.50 MG/L FEU, the Negative Predictive Value (RESPOOLER V) regarding the exclusion of thrombosis is within 95-100% range.FIBRINOGEN 2016-09-03 17:34:00* Test Item Value Reference Range Comments FIBRINOGEN LEVEL (BEAKER) (test tnhi=183) 543 mg/dl 225-434 PT/[id number] 17:34:00* Test Item Value Reference Range Comments PROTIME (BEAKER) (test hxzq=636) 12.7 seconds 11.7-14.7 INR (BEAKER) (test eltf=114) 1.0 <=5.9 PARTIAL THROMBOPLASTIN TIME (BEAKER) (test tgdj=346) 32.3 seconds 22.5-36.0 RECOMMENDED COUMADIN/WARFARIN INR THERAPY RANGESSTANDARD DOSE: 2.0 - 3.0 Inclu gabriel: PROPHYLAXIS for venous thrombosis, systemic embolization; TREATMENT for elizabeth ous thrombosis and/or pulmonary embolus.HIGH RISK: Target INR is 2.5-3.5 for pat ients with mechanical heart valves.HEMOGLOBIN AND [id number] 17:23:00 * Test Item Value Reference Range Comments HEMOGLOBIN (BEAKER) (test mexz=509) 11.5 GM/DL 13.0-16.8 HEMATOCRIT (BEAKER) (test qwlh=263) 33.2 % 40.0-50.0 CBC (HEMOGRAM ONLY)2016-09-03 12:27:00* Test Item Value Reference Range Comments WHITE BLOOD CELL COUNT (BEAKER) (test sdmz=310) 8.0 K/ L 4.0-10.0 RED BLOOD CELL COUNT (BEAKER) (test fcou=017) 3.09 M/ L 4.20-5.80 HEMOGLOBIN (BEAKER) (test egys=584) 10.8 GM/DL 13.0-16.8 HEMATOCRIT (BEAKER) (test ygtz=249) 31.3 % 40.0-50.0 MEAN CORPUSCULAR VOLUME (BEAKER) (test kgby=786) 101.0 fL 82.0-98.0 MEAN CORPUSCULAR HEMOGLOBIN (BEAKER) (test zbjh=421) 35.0 pg 27.0-33.0 MEAN CORPUSCULAR HEMOGLOBIN CONC (BEAKER) (test lloa=213) 34.5 GM/DL 32.0-36.0 RED CELL DISTRIBUTION WIDTH (BEAKER) (test sqlp=643) 16.4 % 10.3-14.2 PLATELET COUNT (BEAKER) (test velt=975) 157 K/CU MM 150-430 MEAN PLATELET VOLUME (BEAKER) (test vtno=038) 8.0 fL 6.5-10.5 NUCLEATED RED BLOOD CELLS (BEAKER) (test norx=137) 0 /100 WBC 0-0 0.00POCT-GLUCOSE [id number] 12:12:00* Test Item Value Reference Range Comments POC-GLUCOSE METER (AKER) (test wwkg=6265) 129 mg/dL 70-110 TESTED AT [address] [address] OCCULT BLOOD, [id number] 11:53:00* Test Item Value Reference Range Comments FECAL OCCULT BLOOD (BEAKER) (test khry=323) Positive Negative TACROLIMUS [id number] 10:24:00* Test Item Value Reference Range Comments TACROLIMUS BLOOD (BEAKER) (test hzfu=574) 4.3 ng/mL 10.0-20.0 Draw 30 minutes prior to administering tacroPOCT-GLUCOSE [id number] 08:10:00* Test Item Value Reference Range Comments POC-GLUCOSE METER (BEAKER) (test dxon=6850) 124 mg/dL 70-110 TESTED AT [address] [address] [id number] 03:34:00* Test Item Value Reference Range Comments PARTIAL THROMBOPLASTIN TIME (BEAKER) (test edwz=795) 60.2 seconds 22.5-36.0 While on warfarin.CBC W/PLT COUNT & AUTO [id number] 03:34:00* Test Item Value Reference Range Comments WHITE BLOOD CELL COUNT (BEAKER) (test ycni=183) 8.7 K/ L 4.0-10.0 RED BLOOD CELL COUNT (BEAKER) (test bedp=183) 3.18 M/ L 4.20-5.80 HEMOGLOBIN (BEAKER) (test uybs=786) 10.9 GM/DL 13.0-16.8 HEMATOCRIT (BEAKER) (test eqjq=989) 32.4 % 40.0-50.0 MEAN CORPUSCULAR VOLUME (BEAKER) (test djsq=788) 102.0 fL 82.0-98.0 MEAN CORPUSCULAR HEMOGLOBIN (BEAKER) (test ypvj=615) 34.4 pg 27.0-33.0 MEAN CORPUSCULAR HEMOGLOBIN CONC (BEAKER) (test qxhh=127) 33.7 GM/DL 32.0-36.0 RED CELL DISTRIBUTION WIDTH (BEAKER) (test iggi=456) 16.3 % 10.3-14.2 PLATELET COUNT (BEAKER) (test zlwi=323) 150 K/CU MM 150-430 MEAN PLATELET VOLUME (BEAKER) (test gyrn=660) 7.9 fL 6.5-10.5 NUCLEATED RED BLOOD CELLS (BEAKER) (test upev=776) 0 /100 WBC 0-0 NEUTROPHILS RELATIVE PERCENT (BEAKER) (test psvp=174) 75 % LYMPHOCYTES RELATIVE PERCENT (BEAKER) (test kubc=711) 12 % MONOCYTES RELATIVE PERCENT (BEAKER) (test yfip=346) 12 % EOSINOPHILS RELATIVE PERCENT (BEAKER) (test uquh=694) 2 % BASOPHILS RELATIVE PERCENT (BEAKER) (test lakx=613) 0 % NEUTROPHILS ABSOLUTE COUNT (BEAKER) (test ggfc=765) 6.46 K/ L 1.80-8.00 LYMPHOCYTES ABSOLUTE COUNT (BEAKER) (test vqka=567) 1.02 K/ L 1.48-4.50 MONOCYTES ABSOLUTE COUNT (BEAKER) (test owvz=117) 1.01 K/ L 0.00-1.30 EOSINOPHILS ABSOLUTE COUNT (BEAKER) (test amkv=289) 0.14 K/ L 0.00-0.50 BASOPHILS ABSOLUTE COUNT (BEAKER) (test lcmt=544) 0.03 K/ L 0.00-0.20 0.00PROTHROMBIN [id number] 03:32:00* Test Item Value Reference Range Comments PROTIME (BEAKER) (test jrok=972) 13.4 seconds 11.7-14.7 INR (BEAKER) (test ndvs=275) 1.0 <=5.9 RECOMMENDED COUMADIN/WARFARIN INR THERAPY RANGESSTANDARD DOSE: 2.0 - 3.0 Inclu gabriel: PROPHYLAXIS for venous thrombosis, systemic embolization; TREATMENT for elizabeth ous thrombosis and/or pulmonary embolus.HIGH RISK: Target INR is 2.5-3.5 for pat ients with mechanical heart valves.While on warfarin.POCT-GLUCOSE METER 2016-09-02 20:52:00* Test Item Value Reference Range Comments POC-GLUCOSE METER (RAJENDRA) (test wdxk=5112) 143 mg/dL 70-110 TESTED AT [address] [address] [id number] 20:41:00* Test Item Value Reference Range Comments PARTIAL THROMBOPLASTIN TIME (RAJENDRA) (test bkew=288) 86.5 seconds 22.5-36.0 POCT-GLUCOSE [id number] 17:29:00* Test Item Value Reference Range Comments POC-GLUCOSE METER (RAJENDRA) (test lyqa=6206) 124 mg/dL 70-110 TESTED AT [facility] [address] [facility] [address] [id number] 13:09:00* Test Item Value Reference Range Comments PARTIAL THROMBOPLASTIN TIME (RAJENDRA) (test bbzk=489) 34.7 seconds 22.5-36.0 Prior to initiating heparinIf baseline INR has not been drawn or baseline INR is greater than 3.5.PROTHROMBIN [id number] 13:08:00* Test Item Value Reference Range Comments PROTIME (BEAKER) (test pqjg=428) 13.5 seconds 11.7-14.7 INR (BEAKER) (test yvov=325) 1.0 <=5.9 RECOMMENDED COUMADIN/WARFARIN INR THERAPY RANGESSTANDARD DOSE: 2.0 - 3.0 Inclu gabriel: PROPHYLAXIS for venous thrombosis, systemic embolization; TREATMENT for elizabeth ous thrombosis and/or pulmonary embolus.HIGH RISK: Target INR is 2.5-3.5 for pat ients with mechanical heart valves.Prior to initiating heparinIf baseline INR nice s not been drawn or baseline INR is greater than 3.5.CBC (HEMOGRAM ONLY) 2016-09-02 13:01:00* Test Item Value Reference Range Comments WHITE BLOOD CELL COUNT (BEAKER) (test ivgd=702) 8.5 K/ L 4.0-10.0 RED BLOOD CELL COUNT (BEAKER) (test qzvq=262) 3.45 M/ L 4.20-5.80 HEMOGLOBIN (BEAKER) (test gbzm=555) 11.6 GM/DL 13.0-16.8 HEMATOCRIT (BEAKER) (test vqfh=432) 34.9 % 40.0-50.0 MEAN CORPUSCULAR VOLUME (BEAKER) (test wmbu=980) 101.0 fL 82.0-98.0 MEAN CORPUSCULAR HEMOGLOBIN (BEAKER) (test akft=943) 33.6 pg 27.0-33.0 MEAN CORPUSCULAR HEMOGLOBIN CONC (BEAKER) (test vozf=529) 33.2 GM/DL 32.0-36.0 RED CELL DISTRIBUTION WIDTH (BEAKER) (test fwlu=112) 17.3 % 10.3-14.2 PLATELET COUNT (BEAKER) (test sjze=499) 124 K/CU MM 150-430 MEAN PLATELET VOLUME (BEAKER) (test kfpx=737) 7.8 fL 6.5-10.5 NUCLEATED RED BLOOD CELLS (BEAKER) (test orwc=239) 0 /100 WBC 0-0 0.00POCT-GLUCOSE [id number] 11:13:00* Test Item Value Reference Range Comments POC-GLUCOSE METER (BEAKER) (test alpo=8083) 136 mg/dL 70-110 TESTED AT [facility] [address] [facility] [address] TACROLIMUS [id number] 09:11:00* Test Item Value Reference Range Comments TACROLIMUS BLOOD (BEAKER) (test oihk=458) 5.4 ng/mL 10.0-20.0 Draw 30 minutes prior to administering tacroPOCT-GLUCOSE [id number] 08:20:00* Test Item Value Reference Range Comments POC-GLUCOSE METER (BEAKER) (test ybmb=2366) 127 mg/dL 70-110 TESTED AT [facility] [address] [place] [address] CBC (HEMOGRAM ONLY)2016-09-02 07:38:00* Test Item Value Reference Range Comments WHITE BLOOD CELL COUNT (BEAKER) (test kfau=907) 8.3 K/ L 4.0-10.0 RED BLOOD CELL COUNT (BEAKER) (test gqdm=748) 3.24 M/ L 4.20-5.80 HEMOGLOBIN (BEAKER) (test vcfm=321) 10.8 GM/DL 13.0-16.8 HEMATOCRIT (BEAKER) (test eebf=923) 33.3 % 40.0-50.0 MEAN CORPUSCULAR VOLUME (BEAKER) (test eovg=615) 103.0 fL 82.0-98.0 MEAN CORPUSCULAR HEMOGLOBIN (BEAKER) (test cokx=530) 33.3 pg 27.0-33.0 MEAN CORPUSCULAR HEMOGLOBIN CONC (BEAKER) (test jnzj=332) 32.3 GM/DL 32.0-36.0 RED CELL DISTRIBUTION WIDTH (BEAKER) (test npvc=196) 16.6 % 10.3-14.2 PLATELET COUNT (BEAKER) (test vqmg=497) 123 K/CU MM 150-430 MEAN PLATELET VOLUME (BEAKER) (test cdop=492) 8.0 fL 6.5-10.5 NUCLEATED RED BLOOD CELLS (BEAKER) (test pfcs=763) 0 /100 WBC 0-0 [id number] 07:28:00* Test Item Value Reference Range Comments PHOSPHORUS (BEAKER) (test zrcx=034) 2.9 mg/dL 2.3-4.7 [id number] 07:28:00* Test Item Value Reference Range Comments MAGNESIUM (BEAKER) (test ulrn=934) 1.8 mg/dL 1.6-2.6 BASIC METABOLIC [id number] 07:28:00* Test Item Value Reference Range Comments SODIUM (BEAKER) (test lkte=976) 130 meq/L 136-145 POTASSIUM (BEAKER) (test pthu=440) 4.0 meq/L 3.5-5.1 CHLORIDE (BEAKER) (test xivd=055) 98 meq/L 98-107 CO2 (BEAKER) (test sxpt=347) 22 meq/L 22-29 BLOOD UREA NITROGEN (BEAKER) (test djiq=956) 27 mg/dL 7-21 CREATININE (BEAKER) (test bitu=941) 1.64 mg/dL 0.57-1.25 GLUCOSE RANDOM (BEAKER) (test niml=501) 120 mg/dL 70-105 CALCIUM (BEAKER) (test hthd=452) 8.8 mg/dL 8.4-10.2 EGFR (BEAKER) (test dpxk=7420) 43 mL/min/1.73 sq m ESTIMATED GFR IS NOT ACCURATE CREATININE CLEARANCE IN PREDICTING GLOMERULAR FILTRATION RATE. ESTIMATED GFR IS NOT APPLICABLE FOR DIALYSIS PATIENTS. POCT-GLUCOSE [id number] 20:51:00* Test Item Value Reference Range Comments POC-GLUCOSE METER (BEAKER) (test rdah=8380) 173 mg/dL 70-110 TESTED AT [place] [id number] POCT-GLUCOSE [id number] 17:49:00* Test Item Value Reference Range Comments POC-GLUCOSE METER (BEAKER) (test ogun=4770) 125 mg/dL 70-110 TESTED AT [address] [address] POCT-GLUCOSE [id number] 11:33:00* Test Item Value Reference Range Comments POC-GLUCOSE METER (BEAKER) (test fbea=2559) 173 mg/dL 70-110 TESTED AT [address] [address] POCT-GLUCOSE [id number] 07:57:00* Test Item Value Reference Range Comments POC-GLUCOSE METER (BEAKER) (test qzuz=2912) 148 mg/dL 70-110 TESTED AT [address] [address] CBC (HEMOGRAM ONLY)2016-09-01 05:37:00* Test Item Value Reference Range Comments WHITE BLOOD CELL COUNT (BEAKER) (test djar=385) 9.8 K/ L 4.0-10.0 RED BLOOD CELL COUNT (BEAKER) (test wksk=741) 3.38 M/ L 4.20-5.80 HEMOGLOBIN (BEAKER) (test wpip=389) 11.2 GM/DL 13.0-16.8 HEMATOCRIT (BEAKER) (test ofgs=004) 34.4 % 40.0-50.0 MEAN CORPUSCULAR VOLUME (BEAKER) (test xaag=511) 102.0 fL 82.0-98.0 MEAN CORPUSCULAR HEMOGLOBIN (BEAKER) (test zlky=857) 33.2 pg 27.0-33.0 MEAN CORPUSCULAR HEMOGLOBIN CONC (BEAKER) (test dpmw=130) 32.6 GM/DL 32.0-36.0 RED CELL DISTRIBUTION WIDTH (BEAKER) (test jqcx=485) 17.2 % 10.3-14.2 PLATELET COUNT (BEAKER) (test zvyo=993) 128 K/CU MM 150-430 MEAN PLATELET VOLUME (BEAKER) (test ibsn=457) 8.0 fL 6.5-10.5 NUCLEATED RED BLOOD CELLS (BEAKER) (test egib=015) 0 /100 WBC 0-0 [id number] 05:31:00* Test Item Value Reference Range Comments PHOSPHORUS (BEAKER) (test rbmn=824) 2.4 mg/dL 2.3-4.7 [id number] 05:31:00* Test Item Value Reference Range Comments MAGNESIUM (BEAKER) (test xdvl=325) 1.6 mg/dL 1.6-2.6 BASIC METABOLIC [id number] 05:31:00* Test Item Value Reference Range Comments SODIUM (BEAKER) (test skbg=539) 130 meq/L 136-145 POTASSIUM (BEAKER) (test nlgd=809) 4.2 meq/L 3.5-5.1 CHLORIDE (BEAKER) (test zxsv=932) 98 meq/L 98-107 CO2 (BEAKER) (test fjzy=513) 24 meq/L 22-29 BLOOD UREA NITROGEN (BEAKER) (test monl=191) 27 mg/dL 7-21 CREATININE (BEAKER) (test uukg=625) 1.69 mg/dL 0.57-1.25 GLUCOSE RANDOM (BEAKER) (test algn=980) 147 mg/dL 70-105 CALCIUM (BEAKER) (test ijow=401) 8.8 mg/dL 8.4-10.2 EGFR (BEAKER) (test dqpy=2727) 41 mL/min/1.73 sq m ESTIMATED GFR IS NOT ACCURATE CREATININE CLEARANCE IN PREDICTING GLOMERULAR FILTRATION RATE. ESTIMATED GFR IS NOT APPLICABLE FOR DIALYSIS PATIENTS. POCT-GLUCOSE [id number] 21:31:00* Test Item Value Reference Range Comments POC-GLUCOSE METER (BEAKER) (test idmx=2646) 266 mg/dL 70-110 TESTED AT [address] [address] POCT-GLUCOSE [id number] 17:50:00* Test Item Value Reference Range Comments POC-GLUCOSE METER (BEAKER) (test uyxb=7947) 152 mg/dL 70-110 TESTED AT [address] [address] POCT-GLUCOSE [id number] 11:15:00* Test Item Value Reference Range Comments POC-GLUCOSE METER (BEAKER) (test bbaa=6445) 239 mg/dL 70-110 TESTED AT [address] [address] TACROLIMUS [id number] 10:35:00* Test Item Value Reference Range Comments TACROLIMUS BLOOD (BEAKER) (test imlq=586) 6.7 ng/mL 10.0-20.0 POCT-GLUCOSE [id number] 08:00:00* Test Item Value Reference Range Comments POC-GLUCOSE METER (BEAKER) (test fboe=4427) 211 mg/dL 70-110 TESTED AT [address] [address] [id number] 04:58:00* Test Item Value Reference Range Comments PHOSPHORUS (BEAKER) (test htss=662) 3.5 mg/dL 2.3-4.7 [id number] 04:58:00* Test Item Value Reference Range Comments MAGNESIUM (BEAKER) (test pcrr=161) 1.4 mg/dL 1.6-2.6 BASIC METABOLIC [id number] 04:58:00* Test Item Value Reference Range Comments SODIUM (BEAKER) (test odne=210) 134 meq/L 136-145 POTASSIUM (BEAKER) (test qgmc=706) 4.9 meq/L 3.5-5.1 CHLORIDE (BEAKER) (test xdmn=246) 104 meq/L 98-107 CO2 (BEAKER) (test orma=548) 22 meq/L 22-29 BLOOD UREA NITROGEN (BEAKER) (test npzd=760) 36 mg/dL 7-21 CREATININE (BEAKER) (test jyoo=335) 2.19 mg/dL 0.57-1.25 GLUCOSE RANDOM (BEAKER) (test fiql=523) 258 mg/dL 70-105 CALCIUM (BEAKER) (test plgl=281) 8.3 mg/dL 8.4-10.2 EGFR (BEAKER) (test mgoc=3278) 31 mL/min/1.73 sq m ESTIMATED GFR IS NOT ACCURATE CREATININE CLEARANCE IN PREDICTING GLOMERULAR FILTRATION RATE. ESTIMATED GFR IS NOT APPLICABLE FOR DIALYSIS PATIENTS. CBC (HEMOGRAM ONLY)2016-08-31 04:52:00* Test Item Value Reference Range Comments WHITE BLOOD CELL COUNT (BEAKER) (test mlpm=800) 8.9 K/ L 4.0-10.0 RED BLOOD CELL COUNT (BEAKER) (test pwpc=503) 3.53 M/ L 4.20-5.80 HEMOGLOBIN (BEAKER) (test cngy=267) 11.3 GM/DL 13.0-16.8 HEMATOCRIT (BEAKER) (test blad=897) 36.4 % 40.0-50.0 MEAN CORPUSCULAR VOLUME (BEAKER) (test wggg=920) 103.0 fL 82.0-98.0 MEAN CORPUSCULAR HEMOGLOBIN (BEAKER) (test vwrx=999) 32.1 pg 27.0-33.0 MEAN CORPUSCULAR HEMOGLOBIN CONC (BEAKER) (test nchv=827) 31.1 GM/DL 32.0-36.0 RED CELL DISTRIBUTION WIDTH (BEAKER) (test ldop=208) 17.0 % 10.3-14.2 PLATELET COUNT (BEAKER) (test pdae=061) 134 K/CU MM 150-430 MEAN PLATELET VOLUME (BEAKER) (test cqcj=029) 8.0 fL 6.5-10.5 NUCLEATED RED BLOOD CELLS (BEAKER) (test bxkb=820) 0 /100 WBC 0-0 0.00BASIC METABOLIC [id number] 00:18:00* Test Item Value Reference Range Comments SODIUM (BEAKER) (test avns=867) 136 meq/L 136-145 POTASSIUM (BEAKER) (test uwkt=137) 5.4 meq/L 3.5-5.1 CHLORIDE (BEAKER) (test zyfp=573) 109 meq/L 98-107 CO2 (BEAKER) (test kdyi=038) 18 meq/L 22-29 BLOOD UREA NITROGEN (BEAKER) (test otfb=781) 37 mg/dL 7-21 CREATININE (BEAKER) (test xafk=861) 2.27 mg/dL 0.57-1.25 GLUCOSE RANDOM (BEAKER) (test uysz=280) 136 mg/dL 70-105 CALCIUM (BEAKER) (test iehh=801) 9.1 mg/dL 8.4-10.2 EGFR (BEAKER) (test iudb=6543) 29 mL/min/1.73 sq m ESTIMATED GFR IS NOT ACCURATE CREATININE CLEARANCE IN PREDICTING GLOMERULAR FILTRATION RATE. ESTIMATED GFR IS NOT APPLICABLE FOR DIALYSIS PATIENTS. POCT-GLUCOSE [id number] 21:36:00* Test Item Value Reference Range Comments POC-GLUCOSE METER (BEAKER) (test fjyi=8068) 131 mg/dL 70-110 TESTED AT [facility] [address] [facility] [address] POCT-GLUCOSE [id number] 20:35:00* Test Item Value Reference Range Comments POC-GLUCOSE METER (BEAKER) (test qjie=7508) 199 mg/dL 70-110 TESTED AT [address] [address] BASIC METABOLIC [id number] 19:28:00* Test Item Value Reference Range Comments SODIUM (BEAKER) (test abmx=792) 137 meq/L 136-145 POTASSIUM (BEAKER) (test jxnw=168) 6.9 meq/L 3.5-5.1 Specimen slightly hemolyzed CHLORIDE (BEAKER) (test naeu=224) 112 meq/L 98-107 CO2 (BEAKER) (test gkmm=020) 16 meq/L 22-29 BLOOD UREA NITROGEN (BEAKER) (test kjyx=705) 37 mg/dL 7-21 CREATININE (BEAKER) (test puvs=793) 2.19 mg/dL 0.57-1.25 Specimen slightly hemolyzed GLUCOSE RANDOM (BEAKER) (test pbib=712) 161 mg/dL 70-105 CALCIUM (BEAKER) (test jbye=100) 8.9 mg/dL 8.4-10.2 EGFR (BEAKER) (test myzh=5329) 31 mL/min/1.73 sq m ESTIMATED GFR IS NOT ACCURATE CREATININE CLEARANCE IN PREDICTING GLOMERULAR FILTRATION RATE. ESTIMATED GFR IS NOT APPLICABLE FOR DIALYSIS PATIENTS. [id number] 19:19:00* Test Item Value Reference Range Comments MAGNESIUM (BEAKER) (test cvlj=666) 1.8 mg/dL 1.6-2.6 Specimen slightly hemolyzed [id number] 19:19:00* Test Item Value Reference Range Comments PHOSPHORUS (BEAKER) (test qwyq=017) 3.3 mg/dL 2.3-4.7 Specimen slightly hemolyzed HEPATIC FUNCTION [id number] 19:19:00* Test Item Value Reference Range Comments TOTAL PROTEIN (BEAKER) (test ukmc=299) 6.5 gm/dL 6.0-8.3 Specimen slightly hemolyzed ALBUMIN (BEAKER) (test rdnk=2787) 3.6 g/dL 3.5-5.0 Specimen slightly hemolyzed BILIRUBIN TOTAL (BEAKER) (test cgyb=959) 1.6 mg/dL 0.2-1.2 Specimen slightly hemolyzed BILIRUBIN DIRECT (BEAKER) (test kvpm=318) 0.6 mg/dL 0.1-0.5 Specimen slightly hemolyzed ALKALINE PHOSPHATASE (BEAKER) (test diqf=353) 184 U/L 40-150 AST (SGOT) (BEAKER) (test xzir=871) 50 U/L 5-34 Specimen slightly hemolyzed ALT (SGPT) (BEAKER) (test bhhi=226) 35 U/L 6-55 Specimen slightly hemolyzed PROTHROMBIN [id number] 19:11:00* Test Item Value Reference Range Comments PROTIME (BEAKER) (test oogt=245) 14.9 seconds 11.7-14.7 INR (BEAKER) (test jfvi=646) 1.2 <=5.9 RECOMMENDED COUMADIN/WARFARIN INR THERAPY RANGESSTANDARD DOSE: 2.0 - 3.0 Inclu gabriel: PROPHYLAXIS for venous thrombosis, systemic embolization; TREATMENT for elizabeth ous thrombosis and/or pulmonary embolus.HIGH RISK: Target INR is 2.5-3.5 for pat ients with mechanical heart valves.[id number] 19:11:00* Test Item Value Reference Range Comments PARTIAL THROMBOPLASTIN TIME (BEAKER) (test ttmu=676) 26.7 seconds 22.5-36.0 CBC W/PLT COUNT & AUTO [id number] 19:07:00* Test Item Value Reference Range Comments WHITE BLOOD CELL COUNT (BEAKER) (test fwcb=282) 10.5 K/ L 4.0-10.0 RED BLOOD CELL COUNT (BEAKER) (test xwit=402) 3.74 M/ L 4.20-5.80 HEMOGLOBIN (BEAKER) (test jxof=790) 12.6 GM/DL 13.0-16.8 HEMATOCRIT (BEAKER) (test ueia=286) 37.7 % 40.0-50.0 MEAN CORPUSCULAR VOLUME (BEAKER) (test qtvh=213) 101.0 fL 82.0-98.0 MEAN CORPUSCULAR HEMOGLOBIN (BEAKER) (test jrve=784) 33.7 pg 27.0-33.0 MEAN CORPUSCULAR HEMOGLOBIN CONC (BEAKER) (test yqwa=749) 33.5 GM/DL 32.0-36.0 RED CELL DISTRIBUTION WIDTH (BEAKER) (test jssr=815) 17.8 % 10.3-14.2 PLATELET COUNT (BEAKER) (test uajl=930) 150 K/CU MM 150-430 MEAN PLATELET VOLUME (BEAKER) (test oerz=059) 7.9 fL 6.5-10.5 NUCLEATED RED BLOOD CELLS (BEAKER) (test wezc=520) 0 /100 WBC 0-0 NEUTROPHILS RELATIVE PERCENT (BEAKER) (test lnbl=269) 87 % LYMPHOCYTES RELATIVE PERCENT (BEAKER) (test yszx=307) 7 % MONOCYTES RELATIVE PERCENT (BEAKER) (test jwut=600) 7 % EOSINOPHILS RELATIVE PERCENT (BEAKER) (test gwru=906) 0 % BASOPHILS RELATIVE PERCENT (BEAKER) (test judd=993) 0 % NEUTROPHILS ABSOLUTE COUNT (BEAKER) (test pcgt=921) 9.07 K/ L 1.80-8.00 LYMPHOCYTES ABSOLUTE COUNT (BEAKER) (test sett=122) 0.68 K/ L 1.48-4.50 MONOCYTES ABSOLUTE COUNT (BEAKER) (test mfrw=789) 0.70 K/ L 0.00-1.30 EOSINOPHILS ABSOLUTE COUNT (BEAKER) (test rsdq=465) 0.01 K/ L 0.00-0.50 BASOPHILS ABSOLUTE COUNT (BEAKER) (test mmdo=043) 0.01 K/ L 0.00-0.20 0.00BASIC METABOLIC [id number] 18:45:00* Test Item Value Reference Range Comments SODIUM (BEAKER) (test wjnq=764) 136 meq/L 136-145 POTASSIUM (BEAKER) (test qayr=189) 6.9 meq/L 3.5-5.1 Specimen slightly hemolyzed CHLORIDE (BEAKER) (test zltz=800) 112 meq/L 98-107 CO2 (BEAKER) (test lxjr=456) 17 meq/L 22-29 BLOOD UREA NITROGEN (BEAKER) (test ipfi=901) 37 mg/dL 7-21 CREATININE (BEAKER) (test wkvo=101) 2.16 mg/dL 0.57-1.25 Specimen slightly hemolyzed GLUCOSE RANDOM (BEAKER) (test vunq=155) 160 mg/dL 70-105 CALCIUM (BEAKER) (test hxhm=180) 8.5 mg/dL 8.4-10.2 EGFR (BEAKER) (test goyo=1880) 31 mL/min/1.73 sq m ESTIMATED GFR IS NOT ACCURATE CREATININE CLEARANCE IN PREDICTING GLOMERULAR FILTRATION RATE. ESTIMATED GFR IS NOT APPLICABLE FOR DIALYSIS PATIENTS. [id number] 15:19:00* Test Item Value Reference Range Comments POTASSIUM (BEAKER) (test xvun=155) 5.7 meq/L 3.5-5.1 BASIC METABOLIC [id number] 15:19:00* Test Item Value Reference Range Comments SODIUM (BEAKER) (test qhgv=259) 138 meq/L 136-145 POTASSIUM (BEAKER) (test laax=925) 5.7 meq/L 3.5-5.1 CHLORIDE (BEAKER) (test ydak=275) 112 meq/L 98-107 CO2 (BEAKER) (test ldju=328) 17 meq/L 22-29 BLOOD UREA NITROGEN (BEAKER) (test pkio=504) 36 mg/dL 7-21 CREATININE (BEAKER) (test ahsn=220) 2.12 mg/dL 0.57-1.25 GLUCOSE RANDOM (BEAKER) (test jglb=204) 161 mg/dL 70-105 CALCIUM (BEAKER) (test vfgs=697) 8.9 mg/dL 8.4-10.2 EGFR (BEAKER) (test uklk=4093) 32 mL/min/1.73 sq m ESTIMATED GFR IS NOT ACCURATE CREATININE CLEARANCE IN PREDICTING GLOMERULAR FILTRATION RATE. ESTIMATED GFR IS NOT APPLICABLE FOR DIALYSIS PATIENTS. SODIUM NA-STAT [id number] 13:21:00* Test Item Value Reference Range Comments SODIUM (BEAKER) (test kgwo=063) 138 meq/L 135-148 POTASSIUM-STAT [id number] 13:21:00* Test Item Value Reference Range Comments POTASSIUM (BEAKER) (test clyx=148) 5.3 meq/L 3.6-5.5 CALCIUM, [id number] 13:21:00* Test Item Value Reference Range Comments CALCIUM IONIZED (BEAKER) (test robe=520) 0.99 mmol/L 1.12-1.27 PH, BLOOD (BEAKER) (test utgb=9008) 7.26 BLOOD GAS, [id number] 13:21:00* Test Item Value Reference Range Comments PH ARTERIAL (BEAKER) (test ztue=554) 7.26 7.35-7.45 PCO2 ARTERIAL (BEAKER) (test xpgz=022) 47 mmHg 35-45 PO2 ARTERIAL (BEAKER) (test klpp=691) 337 mmHg 80-90 O2 SATURATION ARTERIAL (BEAKER) (test wchl=768) 99.7 % 96.0-97.0 HCO3 ARTERIAL (BEAKER) (test xpyy=120) 20 mmol/L 21-29 BASE EXCESS ARTERIAL (BEAKER) (test nphm=089) -6.5 mmol/L -2.0-3.0 PATIENT TEMPERATURE (BEAKER) (test cthe=9335) 37.0 C FIO2 (BEAKER) (test zzgm=5942) 100.0 % GLUCOSE-STAT [id number] 13:21:00* Test Item Value Reference Range Comments GLUCOSE RANDOM (BEAKER) (test stdk=052) 143 mg/dL 70-110 HGB/HCT (H&H) - STAT [id number] 13:21:00* Test Item Value Reference Range Comments HEMOGLOBIN (BEAKER) (test rcnz=936) 11.5 g/dL 13.0-16.8 HEMATOCRIT (BEAKER) (test qorm=753) 34.0 % 40.0-50.0 BLOOD GAS, [id number] 11:44:00* Test Item Value Reference Range Comments PH ARTERIAL (BEAKER) (test sjto=997) 7.41 7.35-7.45 PCO2 ARTERIAL (BEAKER) (test unsp=584) 30 mmHg 35-45 PO2 ARTERIAL (BEAKER) (test zegx=520) 209 mmHg 80-90 O2 SATURATION ARTERIAL (BEAKER) (test prkp=317) 99.4 % 96.0-97.0 HCO3 ARTERIAL (BEAKER) (test tgqv=942) 19 mmol/L 21-29 BASE EXCESS ARTERIAL (BEAKER) (test xwbu=522) -5.0 mmol/L -2.0-3.0 PATIENT TEMPERATURE (BEAKER) (test cgam=1852) 37.0 C FIO2 (BEAKER) (test mvek=4675) 50.0 % GLUCOSE-STAT [id number] 11:44:00* Test Item Value Reference Range Comments GLUCOSE RANDOM (BEAKER) (test ldku=475) 169 mg/dL 70-110 HGB/HCT (H&H) - STAT [id number] 11:44:00* Test Item Value Reference Range Comments HEMOGLOBIN (BEAKER) (test twwv=217) 11.7 g/dL 13.0-16.8 HEMATOCRIT (BEAKER) (test zfjq=431) 34.0 % 40.0-50.0 CALCIUM, [id number] 11:43:00* Test Item Value Reference Range Comments CALCIUM IONIZED (BEAKER) (test ebrc=103) 1.13 mmol/L 1.12-1.27 PH, BLOOD (BEAKER) (test byli=3848) 7.41 SODIUM NA-STAT [id number] 11:42:00* Test Item Value Reference Range Comments SODIUM (BEAKER) (test mvpp=562) 136 meq/L 135-148 POTASSIUM-STAT [id number] 11:42:00* Test Item Value Reference Range Comments POTASSIUM (BEAKER) (test mamf=259) 5.1 meq/L 3.6-5.5 CALCIUM, [id number] 09:59:00* Test Item Value Reference Range Comments CALCIUM IONIZED (BEAKER) (test cevf=719) 1.19 mmol/L 1.12-1.27 PH, BLOOD (BEAKER) (test qzxw=0085) 7.40 BLOOD GAS, [id number] 09:58:00* Test Item Value Reference Range Comments PH ARTERIAL (BEAKER) (test oafp=740) 7.42 7.35-7.45 PCO2 ARTERIAL (BEAKER) (test kbsy=123) 32 mmHg 35-45 PO2 ARTERIAL (BEAKER) (test rdvg=661) 171 mmHg 80-90 O2 SATURATION ARTERIAL (BEAKER) (test xrso=367) 99.2 % 96.0-97.0 HCO3 ARTERIAL (BEAKER) (test ykaw=538) 20 mmol/L 21-29 BASE EXCESS ARTERIAL (BEAKER) (test ivwj=291) -3.8 mmol/L -2.0-3.0 PATIENT TEMPERATURE (BEAKER) (test atqt=2778) 36.1 C FIO2 (BEAKER) (test wtsk=9194) 50.0 % POTASSIUM-STAT [id number] 09:58:00* Test Item Value Reference Range Comments POTASSIUM (BEAKER) (test agdy=162) 5.9 meq/L 3.6-5.5 HGB/HCT (H&H) - STAT [id number] 09:58:00* Test Item Value Reference Range Comments HEMOGLOBIN (BEAKER) (test fcib=694) 11.9 g/dL 13.0-16.8 HEMATOCRIT (BEAKER) (test shjv=815) 35.0 % 40.0-50.0 GLUCOSE-STAT [id number] 09:57:00* Test Item Value Reference Range Comments GLUCOSE RANDOM (BEAKER) (test zyuk=680) 110 mg/dL 70-110 SODIUM NA-STAT [id number] 09:57:00* Test Item Value Reference Range Comments SODIUM (BEAKER) (test moqt=135) 135 meq/L 135-148 HEPARIN ASSAY - LOW MOLECULAR [id number] 08:49:00* Test Item Value Reference Range Comments LOVENOX-ANTI 10A (BEAKER) (test fztw=6487) < u/ml 0.60-2.00 Effective 05/14/2016: Reference Range ChangeNew: 0.60-2.00 Previous: 0.60-1.99A nti-Factor 10A Level (Heparin Assay for Low Molecular Weight Heparin)Monitoring Guidelines: Blood samples should be obtained 4 hours post subcutaneous injection (time of Peak level) Therapeutic Peak Levels: 0.6-1.0 units/mL twice daily enoxaparin 1.0-2.0 units/mL once daily enoxaparinPOTASSIUM-STAT LAB 2016-08-30 07:40:00* Test Item Value Reference Range Comments POTASSIUM (BEAKER) (test crxe=545) 5.8 meq/L 3.6-5.5 [id number] 07:29:00* Test Item Value Reference Range Comments PARTIAL THROMBOPLASTIN TIME (BEAKER) (test hwek=501) 34.9 seconds 22.5-36.0 PROTHROMBIN TIME/[id number] 07:28:00* Test Item Value Reference Range Comments PROTIME (BEAKER) (test rpkw=185) 14.3 seconds 11.7-14.7 INR (BEAKER) (test ioat=139) 1.1 <=5.9 RECOMMENDED COUMADIN/WARFARIN INR THERAPY RANGESSTANDARD DOSE: 2.0 - 3.0 Inclu gabriel: PROPHYLAXIS for venous thrombosis, systemic embolization; TREATMENT for elizabeth ous thrombosis and/or pulmonary embolus.HIGH RISK: Target INR is 2.5-3.5 for pat ients with mechanical heart valves.POTASSIUM-STAT [id number] 07:24:00* Test Item Value Reference Range Comments POTASSIUM (BEAKER) (test ktmt=851) 7.0 meq/L 3.6-5.5 POCT-GLUCOSE [id number] 07:04:00* Test Item Value Reference Range Comments POC-GLUCOSE METER (BEAKER) (test paju=7781) 116 mg/dL 70-110 TESTED AT [address] [address] [facility] [address] [place] [address] Patient Name: DAVID TELLEZ MR #: [id number] : 1955 Age/Sex: 61/M Req #: [id number] Adm Physician: Ordered by: SHERIF REDDING MD Report #: [id number] Location: ER Room/Bed: Procedure: [id number] CT/CT BRAIN WO Exam Date: Exam Time: 1625 REPORT STATUS: Signed Exam: Head CT without contrast History: Weakness, hypoglycemia Comparison studies: None Technique: Axial images were obtained from the skull base to the vertex. Coronal and sagittal images reconstructed from the axial data. Intravenous contrast: None Findings: Scalp: No abnormalities. Bone s: No fractures, blastic or lytic lesions. Brain sulci: Mildly prominent. Ventricles: Mild compensatory dilatation. No hydrocephalus. Extra-axial space s: No masses, no fluid collection. Incidental punctate dystrophic or vascular calcification along the left middle frontal sulcus Parenchyma: No mass, acute hemorrhage or acute cortical vascular insults. A few scattered subtle h ypodensities in the supratentorial white matter are nonspecific but most yoseph tible with chronic small vessel ischemic changes. Sellar/suprasellar region : No abnormalities. Craniocervical junction: Patent foramen magnum. No Chiari one malformation. Incidental findings: Atherosclerotic calcifications in the carotid siphons. IMPRESSION: No acute abnormalities. Chron ic findings: 1. Mild generalized volume loss. 2. Mild small vessel ischemi c changes. Signed by: Dr. Marlene Judd M.D. on 03/30/2017 5:29 PM D ictated By: MARLENE JUDD MD 28 Transcribed By: AUGUSTO on 03/30/171728 COPY TO: Dannie REDDING MD CHEST 2 VIEWS [place] [address] Patient Name: DAVID TELLEZ MR #: [id number] : 1955 Age/Sex: 61/M Req #: [id number] Adm Physician: Ordered by: BELKYS BELLO Report #: [id number] Location: ER Room/Bed: Procedure: [id number] DX/CHEST 2 VIEWS Exam Dionicio e: 03/30/17 Exam Time: 1358 REPORT STATUS: Sign ed EXAMINATION: PA and lateral views of the chest. COMPARISON: None CLINICAL HISTORY: Lower extremity swelling DISCUSSION: Lines /tubes: None. Lungs: Central venous congestion. No pulmonary edema. No co nsolidation. Pleura: There is no pleural effusion or pneumothorax. He art and mediastinum: Aortic stent. Heart size normal. Bones and soft tissu es: No acute bony abnormalities. Postsurgical change overlying the right hem ithorax. IMPRESSION: Central venous congestion without pulmonary edema. Signed by: Dr. Stefani Vila M.D. on 03/30/2017 2:20 PM Dictated By: STEFANI VILA MD 142 Transcribed By: AUGUSTO on 03/30/17 142 COPY TO: BELKYS COX
[2018-06-09] MEDS ORDERED: LIDOCAINE 1% W/EPINEPHRINE 20 ML VIAL INJ ONE (07:45)
[2018-06-09 08:15] LABS: INR 3.55; PROTHROMBIN TIME 37.9 seconds (11.9-14.5)
[2018-06-09 08:16] LABS: PARTIAL THROMBOPLASTIN TIME 68.5 seconds (23.8-35.5)
[2018-06-09] MEDS ORDERED: HYDROCODONE/APAP 10MG-325MG TAB PO ONE (08:45)
== END 2018-06-09 10:30 | disposition home or self-care (01) ==
LOC: ER 06:52
DX: S01.512A Laceration without foreign body of oral cavity, initial encounter (principal); Y93.84 Activity, sleeping; Y92.003 Bedroom of unspecified non-institutional (private) residence as the place of occurrence of the external cause; R79.1 Abnormal coagulation profile; E11.22 Type 2 diabetes mellitus with diabetic chronic kidney disease; I12.9 Hypertensive chronic kidney disease with stage 1 through stage 4 chronic kidney disease, or unspecified chronic kidney disease; N18.9 Chronic kidney disease, unspecified; Z86.718 Personal history of other venous thrombosis and embolism; Z79.01 Long term (current) use of anticoagulants; Z94.4 Liver transplant status; Z93.3 Colostomy status; Z90.49 Acquired absence of other specified parts of digestive tract; Z79.82 Long term (current) use of aspirin
CPT/HCPCS: 36415; 85610; 85730; 99283

== ENCOUNTER 2018-11-04 15:28 | Emergency (ER) | payer MEDICARE, OTHER ==
[~2018-11-04] VITALS: Ht 177.8 cm; Wt 78.5 kg
--- OUTSIDE RECORDS SUMMARY | 2018-11-04 15:35 | XMS REPORT | Clinical Summary ---
Author Author [facility] Address Unknown Phone Unavailable Care Team Providers Care Workforce Analyst Name Role Phone César Augustin MD PCP [...] mouth 2 (two) tablet times a day. \\ Active aspirin (ECOTRIN) 81 MG Take 81 [...] 300 MG tablet by mouth daily. Active terazosin (HYTRIN) 1 MG Take 1 mg by 0 capsule mouth 2 (two) times a day. Active gabapentin (NEURONTIN) Take 300 mg 0 300 mg capsule by mouth 2 (two) times a day as needed. Active lisinopril Take 5 mg by 0 (PRINIVIL,ZESTRIL) 5 mg mouth every tablet morning. Active furosemide (LASIX) 40 mg Take 40 mg by 0 tablet mouth daily. Active oxyCODone (ROXICODONE) 5 Take 5 mg by 0 MG immediate release mouth every 8 tablet (eight) hours as needed for moderate pain. 07/25/2022 Active tacrolimus (PROGRAF) 1 MG Take 2 60 capsule 0 capsule capsules (2 8 mg total) by mouth every morning. 07/25/2022 Active tacrolimus (PROGRAF) 1 MG Take 1 30 capsule 49 capsule capsule (1 mg 8 total) by mouth every evening. 04/21/2018 Discontinued tacrolimus (PROGRAF) 0.5 Take 0.5 mg 0 MG capsule by mouth daily. 06/25/2018 Discontinued tacrolimus (PROGRAF) 1 MG Take 1 mg by 0 capsule mouth every evening. Takes two of the 1mg in the morning and 1mg in the evening 04/21/2018 Discontinued torsemide (DEMADEX) 20 MG Take 20 mg by 0 tablet mouth daily as needed. 1/2 TAB ONLY NEEDED 05/16/2018 Discontinued mycophenolate (CELLCEPT) Take 250 mg 0 250 mg capsule by mouth 2 (two) times a day. 06/25/2018 Discontinued acetaminophen-codeine Take 1 tablet 0 (TYLENOL WITH CODEINE #3) by mouth 300-30 mg per tablet every 4 (four) hours as needed for moderate pain. 06/15/2018 sodium bicarbonate 650 mg Take 1 tablet 60 tablet 0 tablet (650 mg 8 total) by mouth 2 (two) times a day for 30 days. 06/25/2018 Discontinued tacrolimus (PROGRAF) 1 MG Take 2 mg by 0 capsule mouth every morning. 07/05/2018 doxycycline (VIBRAMYCIN) Take 1 20 capsule 0 100 MG capsule capsule (100 8 mg total) by mouth 2 (two) times a day for 10 days. Active Problems Problem Noted Date Dehiscence of external operation wound 06/23/2018 Osteoarthritis of right hip 05/13/2018 Arthritis of right hip 05/13/2018 Encounters Care Team Description Date Type Specialty Deja Harmon MA Care Connect Alert 06/27/2018 Telephone Transplant Hallie Ellis RN 06/25/2018 Patient Quality Outreach Onel Larson MD 06/24/2018 Anesthesia Orthopedic Surgery Event Tosha Mustafa MD IRRIGATION AND DEBRIDEMENT HIP 06/24/2018 Surgery Orthopedic Surgery Bo Akhtar MD Disruption of external surgical wound, initial encounter (Primary Dx) 06/23/2018 Hospital Orthopedic Surgery - Encounter 06/25/2018 Bo Akhtar MD 06/23/2018 Orders Only General Internal Medicine Deja Harmon MA Care Connect Alert 05/19/2018 Telephone Transplant Kev Smiley RN 05/16/2018 Patient Quality Outreach Vale Tang NP 05/13/2018 Anesthesia Orthopedic Surgery Event Tosha Mustafa MD ARTHROPLASTY, HIP, TOTAL 05/13/2018 Surgery Orthopedic Surgery Tosha Mustafa MD Arthritis of right hip 05/13/2018 Hospital Orthopedic Surgery - Encounter 05/16/2018 Tosha Mustafa MD Preop testing (Primary Dx) 04/23/2018 Pre-Admit Pre-Admission Testing Testing Appointment after 11/03/2017 Family History Medical History Relation Name Comments [...] Vital Signs Time Taken Vital Sign Reading 06/25/2018 11:43 AM INVESTIGATOR FRAUD Blood Pressure 129/76 06/25/2018 11:43 AM INVESTIGATOR FRAUD Pulse 97 06/25/2018 11:43 AM INVESTIGATOR FRAUD Temperature 36.8 C (98.2 F) 06/25/2018 11:43 AM INVESTIGATOR FRAUD Respiratory Rate 16 06/25/2018 11:43 AM INVESTIGATOR FRAUD Oxygen Saturation 94% - Inhaled Oxygen - Concentration 05/13/2018 8:22 AM INVESTIGATOR FRAUD Weight 87.3 kg (192 lb 9 oz) 05/13/2018 8:22 AM INVESTIGATOR FRAUD Height 177.8 cm (5' 10") 05/13/2018 8:22 AM INVESTIGATOR FRAUD Body Mass Index 27.63 Plan of Treatment Health Maintenance Due Date Last Done Comments COLON CANCER SCREENING 2004 SHINGLES VACCINES (#1) 2004 INFLUENZA VACCINE 02/05/2019 05/08/2006 Implants Device Identifier Shelf Expiration Date Model / Serial / Lot Implanted Type Area Manufactur er 02/05/2028 [id number] / / [id number] Shell Actblr Sector Series W/ Hip Joint Right: Hip DEPUY Gripton 56mm [place] - [id number] Implants ORTHO-KNEE Implanted: Qty: 1 on 05/13/2018 by Tosha Eli MD [id number] / / Screw Bone Canc Dome 6.5x35mm Ltxf Hip Joint Right: Hip DEPUY [place] - [id number] Implants ORTHO Implanted: Qty: 1 on 05/13/2018 by Tosha Mustafa MD 12/05/2022 [id number] / / [id number] Liner Actblr Neut Altra Linked Pe Hip Joint N/A: N/A DEPUY 36x56x+4mm Altrx - [id number] Implants ORTHO-KNEE Implanted: Qty: 1 on 05/13/2018 by Tosha Eli MD 03/07/2025 [id number] / / [id number] Stem Hip Cmntls Tprd Procoat Pors Hip Joint N/A: N/A DEPMirimus Ctng Hiofst Ti Alloy 160mm - Implants ORTHO [id number] Implanted: Qty: 1 on 05/13/2018 by Tosha Mustafa MD 02/04/2023 [id number] / / [id number] [place] Fracture System Biolox Delta IPM N/A: N/A DEPMirimus Ceramic Femoral Heads Size 36 +1.5 IMPLANT ORTHOPAEDI Mm Articul/Blair 12/14 [employer] Femoral Heads - [id number] Implanted: Qty: 1 on 05/13/2018 by Tosha Mustafa MD Valve Valve Procedures Comments Procedure Name Priority Date/Time Associated Diagnosis POC GLUCOSE Routine 06/25/2018 12:06 PM INVESTIGATOR FRAUD POC GLUCOSE Routine 06/25/2018 8:41 AM INVESTIGATOR FRAUD ESTIMATED GFR Routine 06/25/2018 3:45 AM INVESTIGATOR FRAUD HC COMPLETE BLD COUNT Routine 06/25/2018 W/AUTO DIFF 3:45 AM INVESTIGATOR FRAUD PHOSPHORUS LEVEL Routine 06/25/2018 3:45 AM INVESTIGATOR FRAUD MAGNESIUM LEVEL Routine 06/25/2018 3:45 AM INVESTIGATOR FRAUD BASIC METABOLIC PANEL Routine 06/25/2018 3:45 AM INVESTIGATOR FRAUD FK506 TACROLIMUS LEVEL, Routine 06/25/2018 RANDOM 3:45 AM INVESTIGATOR FRAUD POC GLUCOSE Routine 06/24/2018 8:36 PM INVESTIGATOR FRAUD POC GLUCOSE Routine 06/24/2018 6:11 PM INVESTIGATOR FRAUD ANESTHESIA INTUBATION Routine 06/24/2018 5:31 PM INVESTIGATOR FRAUD Procedure Note - Alex Mantilla CRNA - 06/24/2018 5:31 PM INVESTIGATOR FRAUD ANESTHESIA INTUBATION Performed by: Alex Mantilla CRNA Authorized by: Vanita Corral MD Location: OR Resident/C RNA/AA: Alex Mantilla CRNA Preoxygena luis with 100% O2: Yes C-spine Precaution s Maintained Throughout : Yes Mask Ventilatio n: Easy mask Final Airway Type: Endotrache al airway Final Endotrache al Airway: ETT Cuffed: Yes Technique Used: Direct laryngosco py Devices/Me thods Used in Placement: Intubatin g stylet Insertion Site: Oral Blade Type: Yue Laryngosco pe Blade/Vide olaryngosc ope Blade Size: 3 ETT Size (mm): 8.0 Cuff at minimum occlusion pressure: Yes Measured from: Lips ETT to Lips (cm): 23 Placement Verified by: CO2 detection Laryngosc opic view: Grade I - full view of glottis Number of Attempts at Approach: 1 Eyes taped on LOC, Easy BMV, DL x 1 with MAC 3, Oral intubation x 1 attempt. Oral mucosa and dentition intact INCISION AND DRAINAGE, 06/24/2018 Primary osteoarthritis of HIP 2:20 PM INVESTIGATOR FRAUD right hip POC GLUCOSE Routine 06/24/2018 2:18 PM INVESTIGATOR FRAUD CRYSTAL ANALYSIS Routine 06/24/2018 1:33 PM INVESTIGATOR FRAUD CELL COUNT AND Routine 06/24/2018 DIFFERENTIAL, BODY FLUID 1:33 PM INVESTIGATOR FRAUD FL RAD HIP ASPIRATION Routine 06/24/2018 RIGHT 12:34 PM INVESTIGATOR FRAUD AFB STAIN Routine 06/24/2018 12:20 PM INVESTIGATOR FRAUD GRAM STAIN Routine 06/24/2018 12:20 PM INVESTIGATOR FRAUD AFB CULTURE Routine 06/24/2018 12:20 PM INVESTIGATOR FRAUD ANAEROBIC CULTURE Routine 06/24/2018 12:20 PM INVESTIGATOR FRAUD JOINT FLUID CULTURE Routine 06/24/2018 12:20 PM INVESTIGATOR FRAUD POC GLUCOSE Routine 06/24/2018 8:21 AM INVESTIGATOR FRAUD PROTHROMBIN TIME WITH INR Routine 06/24/2018 7:40 AM INVESTIGATOR FRAUD FK506 TACROLIMUS LEVEL, Routine 06/24/2018 RANDOM 4:00 AM INVESTIGATOR FRAUD ESTIMATED GFR Routine 06/24/2018 4:00 AM INVESTIGATOR FRAUD HEMOGLOBIN A1C Routine 06/24/2018 4:00 AM INVESTIGATOR FRAUD HC COMPLETE BLD COUNT Routine 06/24/2018 W/AUTO DIFF 4:00 AM INVESTIGATOR FRAUD BASIC METABOLIC PANEL Routine 06/24/2018 4:00 AM INVESTIGATOR FRAUD B NATRIURETIC PEPTIDE Routine 06/24/2018 4:00 AM INVESTIGATOR FRAUD POC GLUCOSE Routine 06/23/2018 10:15 PM INVESTIGATOR FRAUD POC GLUCOSE Routine 06/23/2018 6:12 PM INVESTIGATOR FRAUD ECG 12-LEAD Routine 06/23/2018 5:13 PM INVESTIGATOR FRAUD PREPARE FRESH FROZEN Timed 06/23/2018 PLASMA 5:00 PM INVESTIGATOR FRAUD TYPE AND SCREEN Timed 06/23/2018 5:00 PM INVESTIGATOR FRAUD ESTIMATED GFR Routine 06/23/2018 2:50 PM INVESTIGATOR FRAUD PROTHROMBIN TIME WITH INR Routine 06/23/2018 2:50 PM INVESTIGATOR FRAUD HC COMPLETE BLD COUNT Routine 06/23/2018 W/AUTO DIFF 2:50 PM INVESTIGATOR FRAUD BASIC METABOLIC PANEL Routine 06/23/2018 2:50 PM INVESTIGATOR FRAUD B NATRIURETIC PEPTIDE Routine 06/23/2018 2:50 PM INVESTIGATOR FRAUD BLOOD CULTURE, AEROBIC & Routine 06/23/2018 ANAEROBIC 2:50 PM INVESTIGATOR FRAUD SODIUM LEVEL, URINE, Routine 06/23/2018 RANDOM 11:15 AM INVESTIGATOR FRAUD CREATININE LEVEL, URINE, Routine 06/23/2018 RANDOM 11:15 AM INVESTIGATOR FRAUD URINALYSIS, AUTOMATED Routine 06/23/2018 WITH MICROSCOPY 11:15 AM INVESTIGATOR FRAUD POC GLUCOSE Routine 05/16/2018 12:20 PM INVESTIGATOR FRAUD POC GLUCOSE Routine 05/16/2018 8:04 AM INVESTIGATOR FRAUD FK506 TACROLIMUS LEVEL, Routine 05/16/2018 RANDOM 4:30 AM INVESTIGATOR FRAUD ESTIMATED GFR Routine 05/16/2018 4:10 AM INVESTIGATOR FRAUD PROTHROMBIN TIME WITH INR Routine 05/16/2018 4:10 AM INVESTIGATOR FRAUD HC COMPLETE BLD COUNT Routine 05/16/2018 W/AUTO DIFF 4:10 AM INVESTIGATOR FRAUD COMPREHENSIVE METABOLIC Routine 05/16/2018 PANEL 4:10 AM INVESTIGATOR FRAUD PHOSPHORUS LEVEL Routine 05/16/2018 4:10 AM INVESTIGATOR FRAUD MAGNESIUM LEVEL Routine 05/16/2018 4:10 AM INVESTIGATOR FRAUD POC GLUCOSE Routine 05/15/2018 9:27 PM INVESTIGATOR FRAUD POC GLUCOSE Routine 05/15/2018 5:05 PM INVESTIGATOR FRAUD PROTHROMBIN TIME WITH INR Routine 05/15/2018 2:09 PM INVESTIGATOR FRAUD HEMOGLOBIN & HEMATOCRIT Routine 05/15/2018 2:09 PM INVESTIGATOR FRAUD CREATININE LEVEL, URINE, Routine 05/15/2018 RANDOM 1:53 PM INVESTIGATOR FRAUD PROTEIN, URINE, RANDOM Routine 05/15/2018 1:53 PM INVESTIGATOR FRAUD URINALYSIS, AUTOMATED Routine 05/15/2018 WITH MICROSCOPY 1:53 PM INVESTIGATOR FRAUD POC GLUCOSE Routine 05/15/2018 11:54 AM INVESTIGATOR FRAUD POC GLUCOSE Routine 05/15/2018 7:48 AM INVESTIGATOR FRAUD ESTIMATED GFR Routine 05/15/2018 4:00 AM INVESTIGATOR FRAUD PHOSPHORUS LEVEL Routine 05/15/2018 4:00 AM INVESTIGATOR FRAUD MAGNESIUM LEVEL Routine 05/15/2018 4:00 AM INVESTIGATOR FRAUD BASIC METABOLIC PANEL Routine 05/15/2018 4:00 AM INVESTIGATOR FRAUD POC GLUCOSE Routine 05/14/2018 10:08 PM INVESTIGATOR FRAUD POC GLUCOSE Routine 05/14/2018 5:32 PM INVESTIGATOR FRAUD POC GLUCOSE Routine 05/14/2018 12:41 PM INVESTIGATOR FRAUD POC GLUCOSE Routine 05/14/2018 9:45 AM INVESTIGATOR FRAUD POC GLUCOSE Routine 05/14/2018 7:48 AM INVESTIGATOR FRAUD PROTHROMBIN TIME WITH INR Routine 05/14/2018 5:25 AM INVESTIGATOR FRAUD HC COMPLETE BLD COUNT Routine 05/14/2018 W/AUTO DIFF 5:00 AM INVESTIGATOR FRAUD PARTIAL THROMBOPLASTIN Routine 05/14/2018 TIME (PTT) 5:00 AM INVESTIGATOR FRAUD PROTHROMBIN TIME WITH INR Routine 05/14/2018 5:00 AM INVESTIGATOR FRAUD ESTIMATED GFR Routine 05/14/2018 4:00 AM INVESTIGATOR FRAUD MAGNESIUM LEVEL Routine 05/14/2018 4:00 AM INVESTIGATOR FRAUD COMPREHENSIVE METABOLIC Routine 05/14/2018 PANEL 4:00 AM INVESTIGATOR FRAUD POC GLUCOSE Routine 05/13/2018 10:15 PM INVESTIGATOR FRAUD POC GLUCOSE Routine 05/13/2018 4:29 PM INVESTIGATOR FRAUD SODIUM LEVEL STAT 05/13/2018 4:25 PM INVESTIGATOR FRAUD POTASSIUM LEVEL STAT 05/13/2018 4:25 PM INVESTIGATOR FRAUD HEMOGLOBIN & HEMATOCRIT STAT 05/13/2018 2:43 PM INVESTIGATOR FRAUD XR PELVIS 1 OR 2 VW Routine 05/13/2018 2:29 PM INVESTIGATOR FRAUD POC GLUCOSE Routine 05/13/2018 2:02 PM INVESTIGATOR FRAUD SURGICAL PATHOLOGY Routine 05/13/2018 REQUEST 1:25 PM INVESTIGATOR FRAUD XR PELVIS 1 OR 2 VW Routine 05/13/2018 12:56 PM INVESTIGATOR FRAUD GA AN ELECTIVE Routine 05/13/2018 ENDOTRACHEAL AIRWAY 11:45 AM INVESTIGATOR FRAUD Procedure Note - Pankaj Nieves - 05/13/2018 11:45 AM INVESTIGATOR FRAUD Airway Date/Time: 05/13/2018 11:22 AM Performed by: PAKNAJ NIEVES Authorized by: JAZMINE HAYES Location: OR Urgency: Elective Difficult Airway: No Resident/C RNA/AA: PANKAJ NIEVES Preoxygena luis with 100% O2: Yes C-spine [...] 05/13/2018 Arthritis of right hip 9:25 AM INVESTIGATOR FRAUD POC GLUCOSE Routine 05/13/2018 8:25 AM INVESTIGATOR FRAUD ESTIMATED GFR Routine 05/13/2018 8:15 AM INVESTIGATOR FRAUD PARTIAL THROMBOPLASTIN Routine 05/13/2018 TIME (PTT) 8:15 AM INVESTIGATOR FRAUD PROTHROMBIN TIME WITH INR Routine 05/13/2018 8:15 AM INVESTIGATOR FRAUD BASIC METABOLIC PANEL Routine 05/13/2018 8:15 AM INVESTIGATOR FRAUD URINE CULTURE Routine 04/23/2018 11:16 AM CDT [...] 04/23/2018 Preop testing 9:33 AM CDT after 11/03/2017 Results * POC glucose (06/25/2018 12:06 PM INVESTIGATOR FRAUD) Only the most recent of 23 results within the time period is included. POC glucose 190 (H) 65 - 99 mg/dL [facility] Comment: [facility] Notified RN Meter ID: [id number] Medical Housekeeper: Louis Fontanez Performing Organization Address City/State/Zipcode Phone Number [facility] DEPARTMENT OF [address] [place] [address] PATHOLOGY AND GENOMIC MEDICINE [address] * Estimated GFR (06/25/2018 3:45 AM INVESTIGATOR FRAUD) Only the most recent of 7 results within the time period is included. Estimated GFR 21 (A) mL/min/1.73 m2 [facility] Comment: HOSPITAL CatergoryUnitsInte rpretation G1 >=90 Normal or high G2 60-89Mildly decreased M2h10-67 Mildly to moderately decreased T0o40-99 Moderately to severely decreased G4 15-29Severely decreased G5 <15Kidney failure The eGFR was calculated using the Chronic Kidney Disease Epidemiology Collaboration (CKD-EPI) equation. Interpretation is based on recommendations of the National Kidney Foundation-Kidney Disease Outcomes Quality Initiative (NKF-KDOQI) published in 2014. Specimen Plasma specimen Performing Organization Address City/[facility] [place] [address] PATHOLOGY AND [facility] MEDICINE [address] * FK506 level (06/25/2018 3:45 AM INVESTIGATOR FRAUD) Only the most recent of 3 results within the time period is included. FK506 level 10.7 ng/mL [facility] Comment: HOSPITAL Therapeutic range 5-20 ng/mL for 12 hour trough. The range varies depending on the organ transplanted, time after transplantation and co-administered immunosuppressant therapies. Please use clinical judgment to interpret test result. Test performed using [employer] Teacher chemiluminescent microparticle immunoassay for Tacrolimus on the COMPUTER CLERK i System. Specimen Blood Performing Organization Address [facility] Phone Number [facility] [place] [address] PATHOLOGY AND GENOMIC MEDICINE [address] * CBC with platelet and differential (06/25/2018 3:45 AM INVESTIGATOR FRAUD) Only the most recent of 6 results within the time period is included. WBC 8.39 4.50 - 11.00 k/uL [facility] RBC 2.68 (L) 4.40 - 6.00 m/uL [facility] HGB 9.4 (L) 14.0 - 18.0 g/dL [facility] HCT 27.2 (L) 41.0 - 51.0 % [facility] MCV 101.5 (H) 82.0 - 100.0 fL [facility] MCH 35.1 (H) 27.0 - 34.0 pg [facility] MCHC 34.6 31.0 - 37.0 g/dL [facility] RDW - SD 52.6 37.0 - 55.0 fL [facility] MPV 11.7 8.8 - 13.2 fL [facility] Platelet count 122 (L) 150 - 400 k/uL [facility] Nucleated RBC 0.00 /100 WBC [facility] Neutrophils 81.0 (H) 39.0 - 69.0 % [facility] Lymphocytes 9.9 (L) 25.0 - 45.0 % [facility] Monocytes 8.2 0.0 - 10.0 % [facility] Eosinophils 0.1 0.0 - 5.0 % [facility] Basophils 0.4 0.0 - 1.0 % [facility] Immature granulocytes 0.4Comment: "Immature 0.0 - 1.0 % [facility] granulocytes" (promyelocytes, HOSPITAL myelocytes, metamyelocytes) Specimen Blood Performing Organization Address City/[facility] Phone Number [facility] [place] [address] PATHOLOGY AND [facility] MEDICINE [address] * Phosphorus level (06/25/2018 3:45 AM INVESTIGATOR FRAUD) Only the most recent of 3 results within the time period is included. Phosphorus 3.0 2.4 - 4.5 mg/dL [facility] Specimen Plasma specimen Performing Organization Address City/[facility] Phone Number [facility] [place] [address] PATHOLOGY AND GENOMIC MEDICINE [address] * Magnesium level (06/25/2018 3:45 AM INVESTIGATOR FRAUD) Only the most recent of 4 results within the time period is included. Magnesium 1.1 (L) 1.6 - 2.4 mg/dL [facility] Specimen Plasma specimen Performing Organization Address [facility] Phone Number [facility] [place] [address] PATHOLOGY AND GENOMIC MEDICINE [address] * Basic metabolic panel (06/25/2018 3:45 AM INVESTIGATOR FRAUD) Only the most recent of 5 results within the time period is included. Sodium 135 135 - 148 mEq/L [facility] Potassium 4.3 3.5 - 5.0 mEq/L [facility] Chloride 96 (L) 98 - 112 mEq/L [facility] CO2 23 (L) 24 - 31 mEq/L [facility] Anion gap 16@ANIO (H) 7 - 15 mEq/L [facility] BUN 58 (H) 8 - 23 mg/dL [facility] Creatinine 3.02 (H) 0.70 - 1.20 mg/dL [facility] Glucose 139 (H) 65 - 99 mg/dL [facility] Calcium 9.2 8.8 - 10.2 mg/dL [facility] Specimen Plasma specimen Performing Organization Address City/[facility] Phone Number [facility] [place] [address] PATHOLOGY AND GENOMIC MEDICINE [address] * Crystal analysis (06/24/2018 1:33 PM INVESTIGATOR FRAUD) Crystal analysis specimen [facility] Monosodium urate None seen None seen [facility] CPPD crystals None seen None seen [facility] Specimen Fluid Performing Organization Address [facility] Phone Number [facility] [place] [address] PATHOLOGY AND GENOMIC MEDICINE [address] * Cell count and differential, body fluid (06/24/2018 1:33 PM INVESTIGATOR FRAUD) [facility] fluid type Synovial [facility] Color, fluid Red [facility] Appearance, fluid Cloudy (A) [facility] RBC, fluid SEE COMMENTComment: 2+ (500 - /CMM [facility] 10,000 RBC/CMM) [facility] Nucleated cells, fluid 88 /CMM [facility] Fluid mononuclear cell See Diff [facility] Neutrophils, fluid 42 % [facility] Lymphocytes, fluid 46 % [facility] Eosinophils, fluid 2 % [facility] Macrophages, fluid 10 % [facility] Specimen Fluid Performing Organization Address City/[facility] Phone Number [facility] [place] [address] PATHOLOGY AND GENOMIC MEDICINE [facility] [address] [place] [address] HOSPITAL * [place] Rad Hip Aspiration Right (06/24/2018 12:34 PM INVESTIGATOR FRAUD) Narrative Performed At EXAMINATION:[place] RAD HIP ASPIRATION RIGHT [facility] CLINICAL HISTORY:poossible hip infection COMPARISON:05/13/2018 RADI[facility] DOSE: Fluoroscopic time was 2.4 minutes minutes. 4 fluoroscopic exposures. COMMENTS: Informed consent was obtained. Right hip joint was localized with fluoroscopy. The overlying skin was prepped and draped in routine sterile fashion. Using fluoroscopic guidance, after administration of local lidocaine, a 22G needle was advanced into the right hip joint. 15 cc's of bloody synovial fluid were aspirated and sent for the requested labs. Patient tolerated the procedure and there were no immediate complications. IMPRESSION: Successful fluoroscopic guided right hip aspiration. [facility]-[id number] Procedure Note Interface, Radiology Results Incoming - 06/24/2018 2:05 PM INVESTIGATOR FRAUD EXAMINATION: [place] RAD HIP ASPIRATION RIGHT CLINICAL HISTORY: poossible hip infection COMPARISON: 05/13/2018 RADIATION DOSE: Fluoroscopic time was 2.4 minutes minutes. 4 fluoroscopic exposures. COMMENTS: Informed consent was obtained. Right hip joint was localized with fluoroscopy. The overlying skin was prepped and draped in routine sterile fashion. Using fluoroscopic guidance, after administration of local lidocaine, a 22G needle was advanced into the right hip joint. 15 cc's of bloody synovial fluid were aspirated and sent for the requested labs. Patient tolerated the procedure and there were no immediate complications. IMPRESSION: Successful fluoroscopic guided right hip aspiration. [facility]-[id number] Performing Organization Address City/State/Zipcode Phone Number [facility] [address] [place] [address] * Joint fluid culture (06/24/2018 12:20 PM INVESTIGATOR FRAUD) Joint fluid culture No growth after 4 days. [facility] isolate Comment: HOSPITAL Specimen Information Specimen Source: Joint Fluid Specimen Site: Right Hip Specimen Joint fluid Performing Organization Address City/State/Zipcode Phone Number [facility] DEPARTMENT OF [address] [place] [id number] PATHOLOGY AND GENOMIC MEDICINE [facility] [address] [place] [address] HOSPITAL * AFB culture (06/24/2018 12:20 PM INVESTIGATOR FRAUD) AFB culture isolate No growth after 6 weeks of [facility] incubation. HOSPITAL Comment: Specimen Information Specimen Source: Joint Fluid Specimen Site: Right Hip Specimen Joint fluid Performing Organization Address City/[facility] Phone Number [facility] DEPARTMENT OF [address] [place] [address] PATHOLOGY AND GENOMIC MEDICINE [address] * Gram stain (06/24/2018 12:20 PM INVESTIGATOR FRAUD) Gram stain isolate Few WBC's [facility] No organisms seen HOSPITAL Comment: Specimen Information Specimen Source: Joint Fluid Specimen Site: Right Hip Specimen Joint fluid Performing Organization Address [facility] Phone Number [facility] DEPARTMENT OF [address] [place] [address] PATHOLOGY AND GENOMIC MEDICINE [address] * AFB stain (06/24/2018 12:20 PM INVESTIGATOR FRAUD) AFB stain No acid fast bacilli (AFB) [facility] seen. HOSPITAL Comment: Specimen Information Specimen Source: Joint Fluid Specimen Site: Right Hip Specimen Joint fluid Performing Organization Address [facility] [facility] Phone Number [facility] DEPARTMENT OF [address] [place] [address] PATHOLOGY AND GENOMIC MEDICINE [address] * Anaerobic culture (06/24/2018 12:20 PM INVESTIGATOR FRAUD) Anaerobic culture isolate No anaerobic organisms [facility] isolated. HOSPITAL Comment: Specimen Information Specimen Source: Joint Fluid Specimen Site: Right Hip Specimen Joint fluid Performing Organization Address [facility] Phone Number [facility] DEPARTMENT OF [address] [place] [address] PATHOLOGY AND GENOMIC MEDICINE [address] * Prothrombin time with INR (06/24/2018 7:40 AM INVESTIGATOR FRAUD) Only the most recent of 8 results within the time period is included. Prothrombin time 18.9 (H) 11.5 - 14.5 sec [facility] INR 1.6 [facility] Comment: HOSPITAL The International Normalized Ratio (INR) is a therapeutic monitoring tool for patients who are stable on oral anticoagulant therapy. An INR of 2.0-3.0 is suggested for deep vein thrombosis/pulmonary embolism. Specimen Blood Performing Organization Address [facility] Phone Number [facility] DEPARTMENT OF [address] [place] [id number] PATHOLOGY AND GENOMIC MEDICINE [address] * B natriuretic peptide (06/24/2018 4:00 AM INVESTIGATOR FRAUD) Only the most recent of 2 results within the time period is included. BNP 307 (H) 0 - 100 pg/mL [facility] Specimen Blood Performing Organization Address City/[facility]/Zipcode Phone Number [facility] DEPARTMENT OF [address] [place] [address] PATHOLOGY AND GENOMIC MEDICINE [address] * Hemoglobin A1c (06/24/2018 4:00 AM INVESTIGATOR FRAUD) Hemoglobin A1C 6.5 (H) 4.0 - 5.6 % [facility] Comment: HOSPITAL HbA1c cutoffs for diagnosing diabetes: 4.0% - 5.6%=normal 5.7% - 6.4%=increased risk for diabetes (prediabetes) >=6.5%=diabetes Goals for glycemic control (ADA 2016) < 7.0%Target for non adults with diabetes. More or less stringent targets may be appropriate for individual patients. <7.5% Target for Children and adolescents with type 1 diabetes. Specimen Blood Performing Organization Address [facility]/Zipcode Phone Number [facility] DEPARTMENT OF [address] [place] [address] PATHOLOGY AND GENOMIC MEDICINE [address] * ECG 12 lead (06/23/2018 5:13 PM INVESTIGATOR FRAUD) Ventricular rate 89 [facility] Atrial rate 89 [facility] GA interval 212 [facility] QRSD interval 122 [facility] QT interval 390 [facility] QTC interval 474 [facility] P axis 1 31 [facility] QRS axis 1 -40 [facility] T wave axis 23 [facility] EKG impression Sinus rhythm with 1st degree [facility] AV block-Possible Left atrial enlargement-Left axis deviation-Nonspecific intraventricular conduction delay-Abnormal ECG-In automated comparison with ECG of 23-JUN-2018 17:13,-No significant change was found- Narrative Performed At Performing Organization Address City/State/Zipcode Phone Number [facility] MUSE [address] [place] [address] * Prepare fresh frozen plasma, 1 Units (06/23/2018 5:00 PM INVESTIGATOR FRAUD) Product name Thawed Plasma [facility] Unit number [id number] [facility] Product code [id number] [facility] Dispense status Transfused [facility] Blood expiration date [id number] [facility] Blood type code 6200 [facility] Blood type A POSITIVE [facility] Specimen Blood Performing Organization Address [facility] Corporation[facility] Phone Number [facility] [place] [address] PATHOLOGY AND GENOMIC MEDICINE [address] * Type and screen (06/23/2018 5:00 PM INVESTIGATOR FRAUD) Only the most recent of 2 results within the time period is included. ABO grouping A [facility] Rh type POS [facility] Antibody screen (gel) NEG [facility] Specimen Blood Performing Organization Address [facility] Corporation[facility] Phone Number [facility] [place] [address] PATHOLOGY AND GENOMIC MEDICINE [address] * Blood culture, aerobic & anaerobic (06/23/2018 2:50 PM INVESTIGATOR FRAUD) Blood culture isolate No growth after 5 days of [facility] incubation. HOSPITAL Comment: Specimen Information Specimen Source: Blood Specimen Site: Forearm, right Specimen Blood - Forearm, right Performing Organization Address City/[facility] Corporation[facility] Phone Number [facility] DEPARTMENT OF [address] [place] [address] PATHOLOGY AND GENOMIC MEDICINE [address] * Sodium level, urine, random (06/23/2018 11:15 AM INVESTIGATOR FRAUD) Sodium, urine, random 87 mEq/L [facility] Specimen Urine Performing Organization Address [facility] Corporation[facility] Phone Number [facility] [place] [address] PATHOLOGY AND GENOMIC MEDICINE [address] * Creatinine level, urine, random (06/23/2018 11:15 AM INVESTIGATOR FRAUD) Only the most recent of 2 results within the time period is included. Creatinine, urine, random 28 mg/dL [facility] Specimen Urine Performing Organization Address City/[facility] Phone Number [facility] [place] [address] PATHOLOGY AND GENOMIC MEDICINE [address] * Urinalysis, automated with microscopy (06/23/2018 11:15 AM INVESTIGATOR FRAUD) Only the most recent of 2 results within the time period is included. Color, UA Colorless [facility] Appearance, UA Clear [facility] Specific gravity, UA 1.006 1.001 - 1.035 [facility] pH, UA 7.0 5.0 - 8.5 [facility] Protein, UA Negative Negative [facility] Glucose, UA Negative Negative [facility] Ketones, UA Negative Negative [facility] Bilirubin, UA Negative Negative [facility] Blood, UA Small (A) Negative [facility] Nitrite, UA Negative Negative [facility] Urobilinogen, UA <2.0 <2.0 [facility] Leukocyte esterase, UA Negative Negative [facility] WBC, UA None seen 0 - 1 /HPF [facility] RBC, UA <1 0 - 5 /HPF [facility] Bacteria, UA None seen None seen [facility] Yeast, UA None seen [facility] Yeast with pseudohyphae, None seen [facility] Specimen Urine Performing Organization Address City/[facility] Corporation[facility]az Phone Number [facility] [place] [address] PATHOLOGY AND GENOMIC MEDICINE [address] * Comprehensive metabolic panel (05/16/2018 4:10 AM INVESTIGATOR FRAUD) Only the most recent of 2 results within the time period is included. Sodium 136 135 - 148 mEq/L [facility] DEPARTMENT OF PATHOLOGY AND GENOMIC MEDICINE Potassium 4.3 3.5 - 5.0 mEq/L [facility] DEPARTMENT OF PATHOLOGY AND GENOMIC MEDICINE Chloride 102 98 - 112 mEq/L [facility] DEPARTMENT OF PATHOLOGY AND GENOMIC MEDICINE CO2 19 (L) 24 - 31 mEq/L [facility] DEPARTMENT OF PATHOLOGY AND GENOMIC MEDICINE Anion gap 15@ANIO 7 - 15 mEq/L [facility] DEPARTMENT OF PATHOLOGY AND GENOMIC MEDICINE BUN 66 (H) 8 - 23 mg/dL [facility] DEPARTMENT OF PATHOLOGY AND GENOMIC MEDICINE Creatinine 2.45 (H) 0.70 - 1.20 mg/dL [facility] DEPARTMENT OF PATHOLOGY AND GENOMIC MEDICINE Glucose 183 (H) 65 - 99 mg/dL [facility] DEPARTMENT OF PATHOLOGY AND GENOMIC MEDICINE Calcium 8.7 (L) 8.8 - 10.2 mg/dL [facility] DEPARTMENT OF PATHOLOGY AND GENOMIC MEDICINE Protein 5.4 (L) 6.3 - 8.3 g/dL [facility] DEPARTMENT OF Comment: PATHOLOGY AND GENOMIC MEDICINE 4.6-7.0 g/dL 1 week 4.4-7.6 g/dL 7 months-1year 5.1-7.3 g/dL 1-2 years5.6-7 .5 g/dL >3 years6.0-8 .0 g/dL 18-150 6.3-8.3 g/dL Albumin 3.0 (L) 3.5 - 5.0 g/dL [facility] DEPARTMENT OF PATHOLOGY AND GENOMIC MEDICINE A/G ratio 1.2 0.7 - 3.8 [facility] DEPARTMENT OF PATHOLOGY AND GENOMIC MEDICINE Alkaline phosphatase 73 40 - 129 U/L [facility] DEPARTMENT OF PATHOLOGY AND GENOMIC MEDICINE AST 53 (H) 10 - 50 U/L [facility] DEPARTMENT OF PATHOLOGY AND GENOMIC MEDICINE ALT 16 5 - 50 U/L [facility] DEPARTMENT OF PATHOLOGY AND GENOMIC MEDICINE Total bilirubin 0.5 0.0 - 1.2 mg/dL [facility] DEPARTMENT OF PATHOLOGY AND GENOMIC MEDICINE Specimen Plasma specimen Performing Organization Address City/[facility] [place] [address] PATHOLOGY AND GENOMIC MEDICINE * Hemoglobin & hematocrit (05/15/2018 2:09 PM INVESTIGATOR FRAUD) Only the most recent of 2 results within the time period is included. HGB 9.1 (L) 14.0 - 18.0 g/dL [facility] DEPARTMENT OF PATHOLOGY AND GENOMIC MEDICINE HCT 26.5 (L) 41.0 - 51.0 % [facility] DEPARTMENT OF PATHOLOGY AND GENOMIC MEDICINE Specimen Blood Performing Organization Address City/State/[facility] [place] [address] PATHOLOGY AND GENOMIC MEDICINE * Protein, urine, random (05/15/2018 1:53 PM INVESTIGATOR FRAUD) Protein, urine random 73 mg/dL [facility] DEPARTMENT OF PATHOLOGY AND GENOMIC MEDICINE Specimen Urine Performing Organization Address [facility] Corporation[facility] Phone Number [facility] [place] [address] PATHOLOGY AND GENOMIC MEDICINE * Partial thromboplastin time, activated (05/14/2018 5:00 AM INVESTIGATOR FRAUD) Only the most recent of 3 results within the time period is included. PTT 28.9 23.0 - 36.0 sec [facility] DEPARTMENT OF Comment: PATHOLOGY AND PTT therapeutic range for [facility] unfractionated heparin is 61.0-112.0 seconds which corresponds to Anti-Xa 0.3-0.7 U/ml. Specimen Blood Performing Organization Address [facility] [place] [address] PATHOLOGY AND GENOMIC MEDICINE * Sodium level (05/13/2018 4:25 PM INVESTIGATOR FRAUD) Sodium 133 (L) 135 - 148 mEq/L [facility] DEPARTMENT OF PATHOLOGY AND GENOMIC MEDICINE Specimen Plasma specimen Performing Organization Address [facility] [place] [address] PATHOLOGY AND [facility] * Potassium level (05/13/2018 4:25 PM INVESTIGATOR FRAUD) Potassium 5.6 (H) 3.5 - 5.0 mEq/L [facility] DEPARTMENT OF PATHOLOGY AND GENOMIC MEDICINE Specimen Plasma specimen Performing Organization Address [facility] Phone Number [facility] [place] [address] PATHOLOGY AND [facility] MEDICINE * XR Pelvis 1 Or 2 Vw (05/13/2018 2:29 PM INVESTIGATOR FRAUD) Only the most recent of 2 results within the time period is included. Narrative Performed At EXAMINATION: XR PELVIS 1 OR 2 VW RADIANT INDICATION: Post operative COMPARISON: 05/13/2018 IMPRESSION: A single frontal view of the pelvis was obtained demonstrating expected postoperative changes following right hip total arthroplasty with appropriate implant alignment. [facility]-[id number] Procedure Note Interface, Radiology Results Incoming - 05/13/2018 2:35 PM INVESTIGATOR FRAUD EXAMINATION: XR PELVIS 1 OR 2 VW INDICATION: Post operative COMPARISON: 05/13/2018 IMPRESSION: A single frontal view of the pelvis was obtained demonstrating expected postoperative changes following right hip total arthroplasty with appropriate implant alignment. [facility]-[id number] Performing Organization Address City/[facility]/Zipcode Phone Number [facility] [address] [place] [address] * Surgical pathology request (05/13/2018 1:25 PM INVESTIGATOR FRAUD) [facility] DEPARTMENT OF PATHOLOGY AND GENOMIC MEDICINE Surgical pathology report See link below for PDF Lab [facility] DEPARTMENT OF Report PATHOLOGY AND GENOMIC MEDICINE Result status This is Final Report for [facility] DEPARTMENT OF [id number] PATHOLOGY AND GENOMIC MEDICINE Performing Organization Address City/[facility] Corporation[facility] Phone Number [facility] [place] [address] PATHOLOGY AND GENOMIC MEDICINE * Urine culture (04/23/2018 11:16 AM CDT) Urine culture SEE COMMENTComment: [facility] DEPARTMENT OF Bacteriuria screen negative. PATHOLOGY AND GENOMIC MEDICINE Performing Organization Address City/[facility]/Zipcode Phone Number [facility] [place] [address] PATHOLOGY AND GENOMIC MEDICINE * Smear review (04/23/2018 10:51 AM CDT) Platelet slide review Dionne slt decr [facility] DEPARTMENT OF PATHOLOGY AND GENOMIC MEDICINE Anisocytosis Moderate [facility] DEPARTMENT OF PATHOLOGY AND GENOMIC MEDICINE Ovalocytes Moderate [facility] DEPARTMENT OF PATHOLOGY AND GENOMIC MEDICINE Performing Organization Address City/[facility] Phone Number [facility] [place] [address] PATHOLOGY AND GENOMIC MEDICINE * ECG Pre/Post Op (04/23/2018 9:54 AM CDT) Ventricular rate 62 [facility] Atrial rate 62 [facility] GA interval 200 [facility] QRSD interval 122 [facility] QT interval 444 [facility] QTC interval 450 [facility] P axis 1 23 [facility] QRS axis 1 -25 HM MUSE T wave axis -11 [facility] MUSE EKG impression Normal sinus rhythm-Possible [facility] MUSE Left atrial enlargement-Nonspecific intraventricular conduction delay-Borderline ECG-No previous ECGs available- Performing Organization Address City/[facility]/Zipcode Phone Number [address] [address] * Urinalysis screen and microscopy, with reflex to culture (04/23/2018 9:33 AM CDT) Specimen site Clean catch [facility] DEPARTMENT OF PATHOLOGY AND GENOMIC MEDICINE Color, UA Yellow [facility] DEPARTMENT OF PATHOLOGY AND GENOMIC MEDICINE Appearance, UA Clear [facility] DEPARTMENT OF PATHOLOGY AND GENOMIC MEDICINE Specific gravity, UA 1.015 1.001 - 1.035 [facility] DEPARTMENT OF PATHOLOGY AND GENOMIC MEDICINE pH, UA 5.0 5.0 - 8.5 [facility] DEPARTMENT OF PATHOLOGY AND GENOMIC MEDICINE Protein, UA 3+ (A) Negative [facility] DEPARTMENT OF PATHOLOGY AND GENOMIC MEDICINE Glucose, UA Negative Negative [facility] DEPARTMENT OF PATHOLOGY AND GENOMIC MEDICINE Ketones, UA Negative Negative [facility] DEPARTMENT OF PATHOLOGY AND GENOMIC MEDICINE Bilirubin, UA Negative Negative [facility] DEPARTMENT OF PATHOLOGY AND GENOMIC MEDICINE Blood, UA Negative Negative [facility] DEPARTMENT OF PATHOLOGY AND GENOMIC MEDICINE Nitrite, UA Negative Negative [facility] DEPARTMENT OF PATHOLOGY AND GENOMIC MEDICINE Urobilinogen, UA <2.0 <2.0 [facility] DEPARTMENT OF PATHOLOGY AND GENOMIC MEDICINE Leukocyte esterase, UA Negative Negative [facility] DEPARTMENT OF PATHOLOGY AND GENOMIC MEDICINE Epithelial cells, UA <1 /HPF [facility] DEPARTMENT OF PATHOLOGY AND GENOMIC MEDICINE WBC, UA <1 0 - 1 /HPF [facility] DEPARTMENT OF PATHOLOGY AND GENOMIC MEDICINE RBC, UA <1 0 - 5 /HPF [facility] DEPARTMENT OF PATHOLOGY AND GENOMIC MEDICINE Bacteria, UA None seen None seen [facility] DEPARTMENT OF PATHOLOGY AND GENOMIC MEDICINE Yeast, UA None seen [facility] DEPARTMENT OF PATHOLOGY AND GENOMIC MEDICINE Yeast with pseudohyphae, None seen [facility] DEPARTMENT OF PATHOLOGY AND GENOMIC MEDICINE Specimen Urine Performing Organization Address City/[facility] Phone Number [facility] DEPARTMENT OF [address] [place] [address] PATHOLOGY AND GENOMIC MEDICINE * Bilirubin direct (04/23/2018 9:33 AM CDT) Bilirubin direct 0.3 0.0 - 0.3 mg/dL [facility] DEPARTMENT OF PATHOLOGY AND GENOMIC MEDICINE Specimen Plasma specimen Performing Organization Address City/State/[facility] Corporation[facility] Phone Number [facility] DEPARTMENT OF [address] [place] [address] PATHOLOGY AND GENOMIC MEDICINE after 11/03/2017 Insurance Payer Benefit Subscriber ID Type Phone Address Plan / Group MEDICARE MEDICARE xxxxxxxxxx Medicare [place] PART A AND B AETNA AETNA xxxxxxxxxx Indemnity [employer] INDEMNITY Advance Directives Patient has advance care planning documents on file. For more information, ashlie e contact: Everette Lucero [address] [place] [address]
--- OUTSIDE RECORDS SUMMARY | 2018-11-04 15:36 | XMS REPORT | Continuity of Care Document ---
Author Author [facility] Organization Interface Address Unknown Phone Unavailable Problems Problem Status Onset Date Classification Date Reported Comments Source DX: NAUSEA, VOMITTING, Active 09/17/2018 [facility] Multiple fractures of ribs, right side, sequela 02/22/2018 09/03/2018 [facility] [place] R07.1 - CHEST PAIN ON BREATHING Active 06/25/2016 [facility] Z86.718 - PERSONAL HISTORY OF OTHER VENO Active 04/19/2015 [facility] DYSPNEA, WEAKNESS Active 12/29/2014 [facility] CHEST PAIN Active 12/29/2014 [facility] 268.9 - VITAMIN D DEFIC V42.7 - LIVER TR Active 03/18/2014 [facility] 729.5 - PAIN IN LIMB Active 07/24/2013 [facility] [place] Diabetes Resolved Problem 09/24/2018 [facility] [place],[facility] [place],[facility] Heart murmur Resolved Problem 09/24/2018 [facility] [place], [facility] [place],[facility] Hypertension Resolved Problem 09/24/2018 [facility] [place], [facility] [place],[facility] Synovial cyst Resolved Problem 09/24/2018 [facility] [place], [facility] [place],[facility] Chronic renal failure Active Problem 06/09/2018 [facility] Diabetic foot ulcer Active Problem 06/09/2018 [facility] Dizziness Active Problem 06/09/2018 [facility] Nausea Active Problem 06/09/2018 [facility] Renal failure , acute on chronic Active Problem 06/09/2018 [facility] NAUSEA WITH VOMITING, UNSPECIFIED Active [facility] Medications Medication Details Route Status Patient Instructions Ordering Provider Order Date Source Enoxaparin Sodium (Lovenox) 60 Mg/0.6 Ml Inj, 80 Mg Subcutaneously Every 12 Hours Active 03/30/2017 [facility] Tacrolimus 1 Mg Capsule, 3 Mg Oral Twice A Day Active 03/30/2017 [facility] Allopurinol 300 Mg Tablet, 300 Mg Oral Daily Active 06/17/2016 [facility] Calcium Carbonate (Calcium) 500 Mg Tablet, 500 Mg Oral Three Times A Day Active 06/17/2016 [facility] Cholecalciferol (Vitamin D3) (Vitamin D) 5,000 Unit Tablet, 5000 Units Oral Mondays Active 06/17/2016 [facility] Hydrochlorothiazide 25 Mg Tablet, 25 Mg Oral Daily Active 06/17/2016 [facility] Insulin Glargine (Lantus) 100 Units/Ml Ml, Active 06/17/2016 [facility] Lisinopril 10 Mg Tablet, 10 Mg Oral Daily Active 06/17/2016 [facility] Magnesium Oxide (Magnesium) 250 Mg Tablet, 750 Mg Oral Three Times A Day Active 06/17/2016 [facility] Metoprolol Succinate 25 Mg Tab.er.24h, 25 Mg Oral Twice A Day Active 06/17/2016 [facility] Mycophenolate Mofetil 250 Mg Capsule, 250 Mg Oral Twice A Day Active 06/17/2016 [facility] Ranitidine Hcl 150 Mg Tablet, 150 Mg Oral Twice A Day Active 06/17/2016 [facility] Tacrolimus (Prograf) 0.5 Mg Capsule, 0.5 Mg Oral Daily Active 06/17/2016 [facility] Lactulose 667 MG/ML Oral Solution 20 gm=30 mL, PO, TID, X 30 day, # 2700 mL, 0 Refill(s) Active 01/01/2015 [facility] metoprolol tartrate 25 mg, 1 tab, Route: PO, Drug form: TAB, [id number]-20, Dosing Weight 85.909, kg, Start date: 12/30/14 18:00:00, Duration: 30 day, Stop date: 01/29/15 6:00:00Notes: (Same as: Lopressor) No Longer Active 12/30/2014 [facility] Ativan 0.5 mg, 1 tab, Route: PO, Drug form: TAB, Q6H, Dosing Weight 85.909, kg, PRN as needed for anxiety, Start date: 12/30/14 18:00:00, Duration: 30 day, Stop date: 01/29/15 12:00:00Notes: (Same as: Ativan) No Longer Active 12/30/2014 [facility] mycophenolate mofetil 1,000 mg, 2 tab, Route: PO, Drug form: TAB, BID, Dosing Weight 85.909, kg, Start date: 12/30/14 9:00:00, Duration: 30 day, Stop date: 01/28/15 17:00:00Notes: SEPARATE ANTACIDS from [employer] by 2 hrs. (Same As: CellCept) No Longer Active 12/30/2014 [facility] Prograf 0.5 mg, 1 cap, Route: PO, Drug form: CAP, [id number], Dosing Weight 85.909, kg, Start date: 12/30/14 9:00:00, Duration: 30 day, Stop date: 01/28/15 9:00:00Notes: Avoid grapefruit and grapefruit juice. (Same As: Prograf) No Longer Active 12/30/2014 [facility] Hydrochlorothiazide 25 mg, 1 tab, Route: PO, Drug form: TAB, Daily, Dosing Weight 85.909, kg, Start date: 12/30/14 9:00:00, Duration: 30 day, Stop date: 01/28/15 9:00:00Notes: (Same as: Hydrodiuril) With food. Inactive 12/30/2014 [facility] Allopurinol 300 mg, 1 tab, Route: PO, Drug form: TAB, Daily, Dosing Weight 85.909, kg, Start date: 12/30/14 9:00:00, Duration: 30 day, Stop date: 01/28/15 9:00:00Notes: (Same as: Zyloprim) No Longer Active 12/30/2014 [facility] Alprazolam 0.5 MG Oral Tablet [Xanax] 0.5 mg, 1 tab, Route: PO, Drug form: TAB, TID, Dosing Weight 85.909, kg, Start date: 12/30/14 9:00:00, Duration: 30 day, Stop date: 01/28/15 17:00:00Notes: With food or milk (Same as: Xanax) Inactive 12/30/2014 [facility] Lactulose 20 gm, 30 ml, Route: PO, Drug Form: SYRP, Dosing Weight 85.909, kg, TID, Start date: 12/30/14 9:00:00, Duration: 30 day, Stop date: 01/28/15 17:00:00Notes: (Same as:Chronulac) No Longer Active 12/30/2014 [facility] Lisinopril 5 mg, 1 tab, Route: PO, Drug form: TAB, Daily, Dosing Weight 85.909, kg, Start date: 12/30/14 9:00:00, Duration: 30 day, Stop date: 01/28/15 9:00:00Notes: (Same as: Prinivil, Zestril) No Longer Active 12/30/2014 [facility] Calcium Carbonate 1250 MG / Cholecalciferol 400 UNT Chewable Tablet 1 tab, Route: PO, Drug Form: TAB, Dosing Weight 85.909, kg, TID-Meals, Start date: 12/30/14 8:00:00, Duration: 30 day, Stop date: 01/28/15 17:00:00Notes: (Same As: Madeline-D, OsCal-D, Oyster Calcium) No Longer Active 12/30/2014 [facility] Atropine 0.5 mg, 5 mL, Route: IVP, Drug form: INJ, PRN, Dosing Weight 85.909, kg, PRN Bradycardia, Start date: 12/30/14 5:07:00, Stop date: 01/29/15 5:06:00 No Longer Active 12/30/2014 [facility] Nitroglycerin 0.4 MG Sublingual Tablet 0.4 mg, 1 tab, Route: SL, Drug form: TAB, Q5Min, Dosing Weight 85.909, kg, PRN Chest Pain, Start date: 12/30/14 5:06:00, Duration: 30 day, Stop date: 01/29/15 5:05:00Notes: (Same as:Nitroquick, Nitrostat) "Do Not Crush" Sublingual tablet No Longer Active 12/30/2014 [facility] Aspirin 81 mg, 1 tab, Route: PO, Drug form: ECTAB, Daily, Dosing Weight 85.909, kg, Start date: 12/30/14 1:15:00, Duration: 30 day, Stop date: 01/28/15 9:00:00Notes: Do not crush or chew. (Same As: Ecotrin) No Longer Active 12/30/2014 [facility] Insulin, Aspart, Human 2 unit, 0.02 mL, [...] days from Date No Longer Active 12/30/2014 [facility] Dextrose 50% Syringe 25 gm, 50 mL, Route: IVP, Drug Form: INJ, Dosing Weight 85.909, kg, PRN, PRN Blood Glucose Results, Start date: 12/30/14 0:54:00, Duration: 30 day, Stop date: 01/29/15 0:53:00 No Longer Active 12/30/2014 [facility] Glucagon 1 mg, Route: IM, Drug form: PDR/INJ, PRN, Dosing Weight 85.909, kg, PRN Blood Glucose Results, Start date: 12/30/14 0:54:00, Duration: 30 day, Stop date: 01/29/15 0:53:00 No Longer Active 12/30/2014 [facility] Lactulose 20 gm, 30 ml, Route: PO, Drug Form: SYRP, Dosing Weight 85.909, kg, ONCE, PRN Other -See Comment, Start date: 12/29/14 22:32:00, Stop date: 01/28/15 22:31:00Notes: (Same as:Chronulac) Inactive 12/30/2014 [facility] Sodium Chloride 0.154 MEQ/ML Injectable Solution 500 mL, Rate: 100 ml/hr, Infuse over: 5 hr, Route: IV, Dosing Weight 85.909 kg, Total Volume: 500, Start date: 12/29/14 21:41:00, Duration: 30 day, Stop date: 01/28/15 21:40:00 No Longer Active 12/30/2014 [facility] Zantac PRN, 0 Refill(s) No Longer Active 12/30/2014 [facility] allopurinol 300 mg oral tablet 300 mg=1 tab, PO, Daily, # 30 tab, 0 Refill(s) Active 12/30/2014 [facility] Calcium 500+D oral tablet, chewable 1 tab, CHEW, TID, 0 Refill(s) Active 12/30/2014 [facility] Aspirin 81 MG Enteric Coated Tablet 81 mg=1 tab, PO, Daily, # 90 tab, 3 Refill(s) Active 12/30/2014 [facility] Tacrolimus 0.5 MG Oral Capsule [Prograf] 0.5 mg=1 cap, PO, [id number], 0 Refill(s) Active 12/30/2014 [facility] mycophenolate mofetil 250 mg oral capsule 1,000 mg=4 cap, PO, BID, # 120 cap, 0 Refill(s) Active 12/30/2014 [facility] Hydrochlorothiazide 25 mg, PO, Daily, 0 Refill(s) No Longer Active 12/30/2014 [facility] lisinopril 5 mg oral tablet 5 mg=1 tab, PO, Daily, # 30 tab, 0 Refill(s) Active 12/30/2014 [facility] Humalog SUB-Q, TID-Before Meals, 0 Refill(s) Active 12/30/2014 [facility] metoprolol 25 mg oral tablet, extended release 25 mg=1 tab, PO, BID, # 30 tab, 0 Refill(s) Active 12/30/2014 [facility] Lantus SUB-Q, Before Lunch, 0 Refill(s) Active 12/30/2014 [facility] Aspirin 81 Mg Tab.chew Daily Active [facility] Folic Acid 1 Mg Tablet Daily Active [facility] Insulin Lispro (Humalog) 100 Unit/1 Ml Insuln.pen Active [facility] Loperamide Hcl (Imodium*) 2 Mg Cap Daily Active [facility] Metoprolol Tartrate 25 Mg Tablet Twice A Day Active [facility] Mycophenolate Mofetil 250 Mg Capsule Twice A Day Active [facility] Tacrolimus (Prograf) 0.5 Mg Capsule Bedtime Active [facility] Torsemide 10 Mg Tablet Daily Active [facility] Warfarin Sodium 2.5 Mg Tablet Sat,Sat,,Sat,Sun Active [facility] Allergies, Adverse Reactions, Alerts Substance Category Reaction Severity Reaction type Status Date Reported Comments Source No Known Drug Allergies Unknown Allergy to Substance Active 06/09/2018 [facility] Immunizations Immunization Date Given Site Status Last Updated Comments Source Results Order Name Results Value Reference Range Date Interpretation Comments Source Stomach emptying NM Stomach emptying NM Patient Name: DAVID TELLEZ : 1955; Age: 62 years Male MR: [id number] Study: Stomach emptying NM 09/22/2018 7:15 AM CDT Clinical Indication: - R11.2 Nausea with vomiting, unspecified. Vomiting, nausea, no appetite since June 2018. COMPARISON: None TECHNIQUE: Gastric emptying study is performed using 1.1 mCi of technetium 99m sulfur colloid mixed with scrambled egg, administered orally. 240 minutes of static imaging was performed at 30-60 minute intervals in the frontal plane - starting immediately after radiotracer administration. The data was used for gastric emptying calculation/extrapolation. FINDINGS: The gastric emptying is delayed.. There is progression of the radiotracer into bowel. The T-1/2 is not achieved using the raw data. % excretion at approx. 60 minutes: -37 % % excretion at approx. 90 minutes: -34 % % excretion at approx. 120 minutes: -31 % % excretion at approx. 180 minutes: -15 % % excretion at approx. 240 minutes: -2 % (Normal >90%) IMPRESSION: 1. Marked delayed gastric emptying. SL: JHIGINIO 09/22/2018 - - Read by: Lane Thompson MD Dictated Date/time: 09/22/18 14:21 Electronically Signed by: Lane Thompson MD 09/22/18 14:23 FINAL REPORT [facility] Prothrombin time (PT) in platelet poor plasma by coagulation assay 37.9 11.9 - 14.5 06/09/2018 [facility] INR in Platelet poor plasma by Coagulation assay 3.55 06/09/2018 [facility] Activated partial thromboplastin time (aPTT) in platelet poor plasma bycoagulation assay 68.5 23.8 - 35.5 06/09/2018 [facility] Ext Lower Venous Doppler Unilat US Ext Lower Venous Doppler Unilat US EXAM: US RIGHT LOWER EXTREMITY VENOUS DOPPLER DATE: 05/27/2018 3:01 PM 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 I have personally reviewed the images as well as the Resident's interpretation and agree with the findings. Read by: Jeannette Hebert MD Resident: Jeannette Hebert MD Dictated Date/time: 02/14/18 10:40 Electronically Signed by: Marcelino Arvizu MD 02/14/18 15:58 FINAL REPORT [facility] Ribs unilateral DX Ribs unilateral DX EXAM: [...] - This report was dictated by a Budget Consultant/Fellow. I have personally reviewed the images as well as the Resident's interpretation and agree with the findings. Read by: Ulisses Tesfaye (Fellow) Resident: Ulisses Tesfaey (Fellow) Dictated Date/time: 01/16/18 10:50 Electronically Signed by: Zuly Pulido MD 01/16/18 19:48 FINAL REPORT [facility] Hip wo contrast MRI Hip wo contrast [...] of the contralateral left hip on large vcyxa-al-cofr imaging demonstrates left femoral head avascular necrosis [...] Large right hip effusion. 5. Limited large acwvs-sb-tbio imaging of the left hip demonstrates mild to moderate left hip arthrosis with diffuse chondrosis. 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 Motor [...] MD 06/25/16 16:46 FINAL REPORT [facility] URINE AND STOOL UA pH 6.0 5.0 - 8.0 12/31/2014 [facility] URINE AND STOOL UA Protein Negative mg/dL Negative mg/dL 12/31/2014 [facility] URINE AND STOOL UA Leuk Est Negative (12/31/14 11:33 AM) Negative 12/31/2014 [facility] URINE AND STOOL UA Nitrite Negative (12/31/14 11:33 AM) Negative 12/31/2014 [facility] URINE AND STOOL UA Blood Negative (12/31/14 11:33 AM) Negative 12/31/2014 [facility] URINE AND STOOL UA Urobilinogen 2.0 mg/dL 0.1 - 1.0 12/31/2014 [facility] URINE AND STOOL UA Bili Negative *NA* (12/31/14 11:33 AM) Negative 12/31/2014 [facility] URINE AND STOOL UA Ketones Negative mg/dL Negative mg/dL 12/31/2014 [facility] URINE AND STOOL UA Glucose Negative mg/dL Negative mg/dL 12/31/2014 [facility] URINE AND STOOL UA Sq Epi Occasional /LPF Few /LPF 12/31/2014 [facility] URINE AND STOOL UA WBC null 0 - 5 12/31/2014 [facility] URINE AND STOOL UA Spec Grav 1.012 <=1.030 12/31/2014 [facility] URINE AND STOOL UA Turbidity Clear (12/31/14 11:33 AM) Clear 12/31/2014 [facility] URINE AND STOOL UA Color Yellow *NA* (12/31/14 11:33 AM) Yellow 12/31/2014 [facility] CHEM PANEL eGFR 35 mL/min/1.73m2 12/31/2014 1Result [...] should be multiplied by the estimated BMI. [facility] CHEM PANEL Glucose Lvl 94 mg/dL 70 - 99 12/31/2014 4Interpretive Data: Adult reference range values reflect the clinical guidelines of the [place] [employer]. [facility] CHEM PANEL Creatinine Lvl 2.0 mg/dL 0.5 - 1.4 12/31/2014 [facility] CHEM PANEL BUN 38 mg/dL 7 - 22 12/31/2014 [facility] CHEM PANEL Calcium Lvl 8.8 mg/dL 8.5 - 10.5 12/31/2014 [facility] CHEM PANEL CO2 23 meq/L 24 - 32 12/31/2014 [facility] CHEM PANEL Chloride Lvl 102 meq/L 95 - 109 12/31/2014 [facility] CHEM PANEL Potassium Lvl 4.2 meq/L 3.5 - 5.1 12/31/2014 [facility] CHEM PANEL Sodium Lvl 139 meq/L 135 - 145 12/31/2014 [facility] CHEM PANEL AGAP 18.2 meq/L 10.0 - 20.0 12/31/2014 [facility] HEMATOLOGY Platelet 85 K/CMM 133 - 450 12/31/2014 [facility] HEMATOLOGY MPV 9.6 fL 7.4 - 10.4 12/31/2014 [facility] RBC 3.23 M/CMM 4.70 - 6.10 12/31/2014 [facility] Hgb 12.9 g/dL 14.0 - 18.0 12/31/2014 [facility] Hct 37.0 % 42.0 - 54.0 12/31/2014 [facility] WBC 4.6 K/CMM 3.7 - 10.4 12/31/2014 [facility] RDW 14.1 % 11.5 - 14.5 12/31/2014 [facility] MCHC 34.8 g/dL 32.0 - 36.0 12/31/2014 [facility] MCV 114.5 fL 80.0 - 94.0 12/31/2014 [facility] MCH 39.9 pg 27.0 - 31.0 12/31/2014 [facility] HEMATOLOGY Monocytes 13.3 % 2.0 - 12.0 12/31/2014 [facility] HEMATOLOGY Macrocyte 3+ *NA* (12/31/14 4:16 AM) None Seen 12/31/2014 [facility] HEMATOLOGY Eosinophils # 0.1 K/CMM 0.0 - 0.5 12/31/2014 [facility] HEMATOLOGY Monocytes # 0.6 K/CMM 0.0 - 0.8 12/31/2014 [facility] HEMATOLOGY Segs 52.3 % 45.0 - 75.0 12/31/2014 [facility] Lymphocytes 31.2 % 20.0 - 40.0 12/31/2014 [facility] HEMATOLOGY Eosinophils 2.4 % 0.0 - 4.0 12/31/2014 [facility] HEMATOLOGY Basophils 0.8 % 0.0 - 1.0 12/31/2014 [facility] Segs-Bands # 2.4 K/CMM 1.5 - 8.1 12/31/2014 [facility] HEMATOLOGY Lymphocytes # 1.4 K/CMM 1.0 - 5.5 12/31/2014 [facility] TOXICOLOGY Tacrolimus Lvl null 5.0 - 15.0 12/30/2014 [facility] CARDIAC ENZYMES CK MB Index 0.7 0.0 - 2.5 12/30/2014 [facility] CARDIAC ENZYMES Troponin-I 0.02 ng/mL 0.00 - 0.40 12/30/2014 [facility] CARDIAC ENZYMES CK MB 7.6 ng/mL 0.5 - 3.6 12/30/2014 [facility] CARDIAC ENZYMES Total CK 1116 unit/L 12 - 191 12/30/2014 [facility] CHEM PANEL eGFR 31 mL/min/1.73m2 12/30/2014 2Result [...] should be multiplied by the estimated BMI. [facility] CHEM PANEL Alk Phos 159 unit/L 39 - 136 12/30/2014 [facility] CHEM PANEL Albumin Lvl 2.8 g/dL 3.5 - 5.0 12/30/2014 [facility] CHEM PANEL AGAP 12.3 meq/L 10.0 - 20.0 12/30/2014 [facility] CHEM PANEL Calcium Lvl 8.5 mg/dL 8.5 - 10.5 12/30/2014 [facility] CHEM PANEL Total Protein 6.2 g/dL 6.4 - 8.4 12/30/2014 [facility] CHEM PANEL Globulin 3.4 g/dL 2.0 - 4.0 12/30/2014 [facility] CHEM PANEL B/C Ratio 17 6 - 25 12/30/2014 [facility] CHEM PANEL ALT 235 unit/L 0 - 65 12/30/2014 [facility] CHEM PANEL A/G Ratio 0.8 0.7 - 1.6 12/30/2014 [facility] CHEM PANEL AST 299 unit/L 0 - 37 12/30/2014 [facility] CHEM PANEL Bili Total 3.3 mg/dL 0.2 - 1.3 12/30/2014 [facility] CHEM PANEL Creatinine Lvl 2.2 mg/dL 0.5 - 1.4 12/30/2014 [facility] CHEM PANEL Glucose Lvl 120 mg/dL 70 - 99 12/30/2014 5Interpretive Data: Adult reference range values reflect the clinical guidelines of the [place] [employer]. [facility] CHEM PANEL BUN 37 mg/dL 7 - 22 12/30/2014 [facility] CHEM PANEL CO2 28 meq/L 24 - 32 12/30/2014 [facility] CHEM PANEL Chloride Lvl 101 meq/L 95 - 109 12/30/2014 [facility] CHEM PANEL Sodium Lvl 137 meq/L 135 - 145 12/30/2014 [facility] CHEM PANEL Potassium Lvl 4.3 meq/L 3.5 - 5.1 12/30/2014 [facility] Abdomen RUQ US Abdomen RUQ US Right [...] Onel Adams MD 12/30/14 09:07 FINAL REPORT [facility] DRUG SCREEN U Amph Scr Negative *NA* (12/29/14 10:41 PM) Negative 12/30/2014 [facility] DRUG SCREEN U Benzodia Scr Negative *NA* (12/29/14 10:41 PM) Negative 12/30/2014 [facility] DRUG SCREEN U Lilliam Scr Negative *NA* (12/29/14 10:41 PM) Negative 12/30/2014 [facility] DRUG SCREEN U Opiate Scr Negative *NA* (12/29/14 10:41 PM) Negative 12/30/2014 [facility] DRUG SCREEN U Cocaine Scr Negative *NA* (12/29/14 10:41 PM) Negative 12/30/2014 [facility] DRUG SCREEN U Cannab Scr Positive *ABN* (12/29/14 10:41 PM) Negative 12/30/2014 [facility] DRUG SCREEN UDS Note See Note 8 [...] Methadone 300 ng/mL Urine alcohol 20 mg/dL [facility] DRUG SCREEN U Phencyc Scr Negative *NA* (12/29/14 10:41 PM) Negative 12/30/2014 [facility] HCV RNA Log10 6.1 [iU]/mL 12/30/2014 9Interpretive [...] the Molecular Diagnostic Laboratory within [facility]. The Molecular Diagnostic Laboratory is authorized under the Clinical Laboratory Improvement Amendments of 1988 (CLIA-88) to perform high complexity testing. [facility] HCV RNA Virload 1150140 [iU]/mL 12/30/2014 [facility]-Hep C Ab Positive *NA* (12/29/14 8:56 PM) Negative 12/30/2014 [facility] CARDIAC ENZYMES CK MB Index 0.7 0.0 - 2.5 12/29/2014 [facility] CARDIAC ENZYMES CK MB 10.1 ng/mL 0.5 - 3.6 12/29/2014 [facility] CARDIAC ENZYMES Total CK 1359 unit/L 12 - 191 12/29/2014 [facility] CARDIAC ENZYMES BNP 337 pg/mL <=100 pg/mL 12/29/2014 7Interpretive Data: Elevated results are in line with increasing severity of congestive heart failure. Minor elevations between 100 and 300 may be seen with Myocardial Ischemia, Sodium retaining drugs, and compensated/treated heart failure. [facility] CARDIAC ENZYMES Troponin-I 0.02 ng/mL 0.00 - 0.40 12/29/2014 [facility] CHEM PANEL BUN 32 mg/dL 7 - 22 12/29/2014 [facility] CHEM PANEL Glucose Lvl 103 mg/dL 70 - 99 12/29/2014 6Interpretive Data: Adult reference range values reflect the clinical guidelines of the [place] [employer]. [facility] CHEM PANEL eGFR 31 mL/min/1.73m2 12/29/2014 3Result [...] should be multiplied by the estimated BMI. [facility] CHEM PANEL Calcium Lvl 9.3 mg/dL 8.5 - 10.5 12/29/2014 [facility] CHEM PANEL AGAP 14.2 meq/L 10.0 - 20.0 12/29/2014 [facility] CHEM PANEL CO2 24 meq/L 24 - 32 12/29/2014 [facility] CHEM PANEL Chloride Lvl 99 meq/L 95 - 109 12/29/2014 [facility] CHEM PANEL Potassium Lvl 4.2 meq/L 3.5 - 5.1 12/29/2014 [facility] CHEM PANEL Sodium Lvl 133 meq/L 135 - 145 12/29/2014 [facility] CHEM PANEL Creatinine Lvl 2.2 mg/dL 0.5 - 1.4 12/29/2014 [facility] Chest 1view DX Chest 1view DX CHEST [...] Shadi Villalobos MD 12/29/14 17:19 FINAL REPORT [facility] cervical wo contrast MRI Spine [...] Rustam Bustos MD 06/27/14 08:46 FINAL REPORT [facility] Bone Density-Dual Energy Absorptionmetry Bone Density-Dual Energy Absorptionmetry - Bone Density-Dual Energy Absorptionmetry MALE BONE DENSITY EVALUATION: 03/22/2014 CLINICAL DATA: Vitamin D deficiency. COMPARISON: 04/01/2012 AP L1-L4 region of spine using Lunar Dual Energy X-Ray Absorptiometry from [facility] with reported normal fracture risk, BMD of 1.113g/cm2, T-score of -0.90, Z-score of -1.30 and 88.0% age-match bone mineralization. 04/01/2012 Right hip using Lunar Dual Energy X-Ray Absorptiometry from [facility] with reported normal fracture risk, BMD of 1.049g/cm2, T-score of -0.40, Z-score of -0.40 and 95.0% age-match bone mineralization. 04/01/2012 Left hip using Lunar Dual Energy X-Ray Absorptiometry from [facility] with reported normal fracture risk, BMD of [...] at normal risk for fracture. Dr. Aldo Choi M.D. [facility]:03/22/2014 16:43:24 Wood Last Maker: Efrain Mccray [facility] 03/22/2014 - - Read by: Aldo Choi MD Dictated Date/time: 03/22/14 16:43 Electronically Signed by: Aldo Choi MD 03/22/14 16:43 FINAL REPORT [facility] Vital Signs Vital Sign Value Date Comments Source Systolic (mm Hg) 120 01/01/2015 [facility] Diastolic (mm Hg) 86 01/01/2015 [facility] Heart Rate 80 01/01/2015 [facility] Temperature Oral (F) 98.2 F 01/01/2015 [facility] Respitory Rate 16 01/01/2015 [facility] Respitory Rate 16 01/01/2015 [facility] Temperature Oral (F) 98.7 F 01/01/2015 [facility] Heart Rate 83 01/01/2015 [facility] Systolic (mm Hg) 106 01/01/2015 [facility] Diastolic (mm Hg) 74 01/01/2015 [facility] Heart Rate 74 01/01/2015 [facility] Temperature Oral (F) 98.8 F 01/01/2015 [facility] Respitory Rate 16 01/01/2015 [facility] Systolic (mm Hg) 127 01/01/2015 [facility] Diastolic (mm Hg) 83 01/01/2015 [facility] Height 170.18 cm 12/30/2014 [facility] Weight 85.909 12/30/2014 [facility] BMI Calculated 29.66 12/30/2014 [facility] BMI Calculated 27.18 12/30/2014 [facility] Weight 85.909 12/30/2014 [facility] Height 177.8 cm 12/30/2014 [facility] Weight 85.909 12/29/2014 [facility] Encounters Location Location Details Encounter Type Encounter Number Reason For Visit Attending Provider ADM Date DC Date Status Source [facility] [place] [facility] [id number] Zana Salazarjuliana 02/17/2014 02/18/2014 [facility] [place] [facility] [place] [facility] [id number] César Augustin 03/22/2014 03/23/2014 [facility] [place] [facility] [place] [facility] [id number] César Augustin 06/26/2014 [facility]/27/[facility] [place] [facility] OBS Observation Patient [id number] Beka Flores 12/29/2014 01/01/2015 [facility] [place] [facility] [id number] César Augustin 06/25/2016 06/26/2016 [facility] [place] [facility] [id number] [place] 07/11/2017 07/12/2017 [facility] [place] [facility] [place] [facility] [id number] César Augustin 01/16/2018 01/17/2018 [facility] [place] [facility] [place] [facility] [id number] César Augustin 02/14/2018 02/15/2018 [facility] [place] Departed Emergency Room [id number] PAMELA MCDANIEL MD 06/09/2018 06/09/2018 [facility] Outpatient [id number] Hallie Cooper 09/22/2018 09/23/2018 [facility] Procedures Procedure Code Date Perfomer Comments Source Liver transplant with recipient hepatectomy [id number] [facility] [place] Liver transplant with recipient hepatectomy [id number] [facility] [place] Liver transplant with recipient hepatectomy [id number] [facility]
--- OUTSIDE RECORDS SUMMARY | 2018-11-04 15:36 | XMS REPORT | Summary of Care ---
Author Author [facility] Organization [facility] Address Unknown Phone Unavailable Encounter HQ Dionna_terrence(FIN) [id number] Date(s): 09/22/18 - 09/22/18 [facility] [address] [place] [address]- Discharge Disposition: Home or Self Care Attending Physician: Hallie Cooper NP Referring Physician: Hallie Cooper NP Vital Signs No data available for this [...]
--- OUTSIDE RECORDS SUMMARY | 2018-11-04 15:36 | XMS REPORT | Summary of Care ---
Author Author [facility] Outpatient Imaging [facility] Outpatient Imaging [facility] Address Unknown Phone Unavailable Encounter HQ Narayanntr_alitaylor(FIN) [id number] Date(s): 02/14/18 - 02/14/18 [facility] Outpatient Imaging [facility] [address] [facility], [address] [place] [phone] Encounter Diagnosis Multiple fractures of ribs, right side, sequela (Final) - 02/21/18 Discharge Disposition: Home or Self Care Attending [...]
--- OUTSIDE RECORDS SUMMARY | 2018-11-04 15:36 | XMS REPORT | Clinical Summary ---
Author Author JONATHAN [facility] Organization [facility] Address Unknown Phone Unavailable Care Team Providers Care Primary Education Professor Name Role Phone César Augustin PCP Hector [...] by 0 tablet mouth as needed . 02/15/2018 Discontinued lisinopril Take 5 mg by 0 (PRINIVIL,ZESTRIL) 5 MG mouth daily . tablet 02/15/2018 Discontinued pantoprazole (PROTONIX) Take 1 tablet 30 tablet 0 40 MG tablet (40 mg total) 7 by mouth daily. 02/15/2018 Discontinued miscellaneous medical Please 1 each 0 supply [facility] [place] 1 7 rolling walker (5' 10' [...] Urinary tract infection without hematuria, site unspecified 11/07/2017 Discontinued mycophenolate (CELLCEPT) Take 2 360 [...] documented HCV recurrence - viral load in 2012 was 1.2 million IU/mL. We will refer [...] Encounters Care Team Description Date Type Specialty Amarilys Garcia, ERNESTINE Status post liver transplantation; Immunosuppression 09/22/2018 Orders Only Transplant Hepatology Amarilys Garcia, ERNESTINE Status post liver transplantation (Primary Dx); Immunosuppression 09/22/2018 Orders Only Transplant Hepatology Amarilys Garcia, ERNESTINE Labs Only 09/22/2018 Telephone Transplant Hepatology Radha, Kimberli Labs Only (SPK W PTN RE: LAB/RX RESULTS; NO MED CHANGES; REPEAT BLD WK X4 MTHS; 12/11/2018; [facility]; GGT;) 08/15/2018 Telephone Transplant Hepatology Juice Landa MD 08/13/2018 Orders Only Transplant Hepatology Radha, Kimberli Labs Only (LVM RE: LAB/RX RESULTS; NO MED CHANGES; REPEAT BLD WK X1 MTH; 08/12/2018; [facility]; GGT;) 07/18/2018 Telephone Transplant Hepatology Juice Landa MD 07/11/2018 Orders Only Transplant Hepatology Radha, Kimberli Labs Only (SPK W PTN RE: LAB/RX RESULTS; NO MED CHANGES; REPEAT BLD WK X2 WKS; 07/11/2018; [facility]; GGT;) 06/30/2018 Telephone Transplant Hepatology Juice Landa MD 06/27/2018 Orders Only Transplant Hepatology Amarilys Garcia, RN Follow-up 06/26/2018 Telephone Transplant Hepatology Radha, Kimberli Labs Only (SPK W PTN RE: LAB/RX RESULTS; NO MED CHANGES; REPEAT BLD WK X1 MTH; 06/27/18; [facility]; GGT;) 06/04/2018 Telephone Transplant Hepatology Juice Landa MD 05/31/2018 Orders Only Transplant Hepatology Amarilys Garcia, solution coordinator Management 05/15/2018 Telephone Transplant Hepatology Amarilys Garcia, solution coordinator Management 05/14/2018 Telephone Transplant Hepatology Amarilys Garcia, solution coordinator Management 05/09/2018 Telephone Transplant Hepatology Amarilys Garcia, ERNESTINE Follow-up 05/06/2018 Telephone Transplant Hepatology Amarilys Garcia, ERNESTINE Follow-up 05/05/2018 Telephone Transplant Hepatology Juice Landa MD 05/02/2018 Orders Only Transplant Hepatology Amarilys Garcia, ERNESTINE Abnormal Lab (hemolyzed specimen ) 05/02/2018 Telephone Transplant Hepatology Juice Landa MD 04/30/2018 Orders Only Transplant Hepatology Amarilys Garcia, ERNESTINE Follow-up 04/25/2018 Telephone Transplant Hepatology Amarilys Garcia, solution coordinator Management 04/24/2018 Telephone Transplant Hepatology Amarilys Garcia, RN Follow-up 04/23/2018 Telephone Transplant Hepatology Amarilys Garcia, solution coordinator Management 04/23/2018 Telephone Transplant Hepatology Amarilys Garcia RN 04/23/2018 Orders Only Transplant Hepatology Amarilys Garcia RN Follow-up 04/23/2018 Telephone Transplant Hepatology Juice Landa MD 04/21/2018 Orders Only Transplant Hepatology Amarilys Garcia RN Follow-up 04/16/2018 Telephone Transplant Hepatology Amarilys Garcia, ERNESTINE Follow-up 04/15/2018 Telephone Transplant Hepatology Kimberli Garcia [...] neoplasm 02/24/2018 Orders Only Lab Amarilys Garcia, solution coordinator Management 02/21/2018 Telephone Transplant Hepatology Veronica Cash Appointment 02/19/2018 Telephone Research Martín Spaulding MD Ancy, Kayley Marie Clemings, MD Athreya, Khannan K., MD Abdominal pain, acute, epigastric [...] (HCC) 12/13/2017 Orders Only Transplant Hepatology Juice Landa MD 12/09/2017 Orders Only Transplant Hepatology Amarilys Garcia RN Follow-up; Medication Management 12/09/2017 Telephone Transplant Hepatology Emily Hernandez RN Medication Dose Change (Dr. Iniguez reviewed labs from 11/14) 11/22/2017 Telephone Transplant Hepatology Juice Landa MD 11/14/2017 Orders Only Transplant Hepatology Amarilys Garcia RN Status post liver transplantation (HCC); Immunosuppression (HCC); Status post liver transplantation; Hepatocellular carcinoma (HCC); Renal insufficiency; Hepatitis C virus infection without hepatic coma, unspecified chronicity; Immunosuppression 11/07/2017 Orders Only Transplant Hepatology Amarilys Garcia RN Medication Dose Change 11/07/2017 Telephone Transplant Hepatology Juice Landa MD 11/04/2017 Orders Only Transplant Hepatology after 11/03/2017 Immunizations Name Dates Previously Given Next Due Influenza High Dose 04/25/2015 Preservative Free [id number] Family History Medical History Relation Name Comments [...] Body Mass Index 26.77 Plan of Treatment Care Team Description Date Type Specialty 02/23/2019 Orders Only Transplant Hepatology Amie Mireles MD [address] [facility] [address] [place], [place] [id number] 02/23/2019 Follow-Up Transplant Hepatology 02/23/2019 Appointment Radiology 02/23/2019 Appointment Implants Device Identifier Shelf Expiration Date Model / Serial / Lot Implanted Type Area Manufactur er 10/05/2017 [id number] / N/A / [id number] Closure Sys Perclose Progl 6fr Cardiovasc Right: Groin [employer] [id number] - Sn/A abdirahman LAB:VASC Implanted: Qty: 2 on 04/30/2016 by Bo Marrero MD 02/04/2018 [id number] / / [id number] Tiss Live Frm Strtce 6x10cm - Tissue [employer] [id number] Graft/Subs Implanted: Qty: 1 on 08/30/2016 by Panda Oconnor II, MD 01/11/2018 [id number] / [id number] / N/A Valve Aortic 29 [id number] - Valves MED[employer]: [id number] STRUCTURAL Implanted: Qty: 1 on 04/30/2016 HEART Procedures Comments Procedure Name Priority Date/Time Associated Diagnosis RHYTHM STRIP - SCAN 10/23/2018 8:40 AM CDT TACROLIMUS Routine 08/13/2018 9:00 AM WOODWORKER HELPER CBC W/PLT COUNT & AUTO Routine 08/13/2018 DIFFERENTIAL 9:00 AM WOODWORKER HELPER HEPATIC FUNCTION PANEL Routine 08/13/2018 9:00 AM WOODWORKER HELPER BASIC METABOLIC PANEL (7) Routine 08/13/2018 9:00 AM WOODWORKER HELPER MAGNESIUM Routine 08/13/2018 9:00 AM WOODWORKER HELPER TACROLIMUS Routine 07/11/2018 7:44 AM WOODWORKER HELPER CBC W/PLT COUNT & AUTO Routine 07/11/2018 DIFFERENTIAL 7:44 AM WOODWORKER HELPER HEPATIC FUNCTION PANEL Routine 07/11/2018 7:44 AM WOODWORKER HELPER BASIC METABOLIC PANEL (7) Routine 07/11/2018 7:44 AM WOODWORKER HELPER MAGNESIUM Routine 07/11/2018 7:44 AM WOODWORKER HELPER TACROLIMUS Routine 06/27/2018 10:13 AM WOODWORKER HELPER CBC W/PLT COUNT & AUTO Routine 06/27/2018 DIFFERENTIAL 10:13 AM WOODWORKER HELPER HEPATIC FUNCTION PANEL Routine 06/27/2018 10:13 AM WOODWORKER HELPER BASIC METABOLIC PANEL (7) Routine 06/27/2018 10:13 AM WOODWORKER HELPER MAGNESIUM Routine 06/27/2018 10:13 AM WOODWORKER HELPER TACROLIMUS Routine 05/31/2018 8:53 AM WOODWORKER HELPER CBC W/PLT COUNT & AUTO Routine 05/31/2018 DIFFERENTIAL 8:53 AM WOODWORKER HELPER HEPATIC FUNCTION PANEL Routine 05/31/2018 8:53 AM WOODWORKER HELPER BASIC METABOLIC PANEL (7) Routine 05/31/2018 8:53 AM WOODWORKER HELPER MAGNESIUM Routine 05/31/2018 8:53 AM WOODWORKER HELPER TACROLIMUS Routine 05/02/2018 1:50 PM CDT CBC [...] ms QTC Calculatio n(Bazett) 472 ms P [place] 27 degrees R [place] -50 degrees T [place] 57 degrees Normal sinus rhythm Possible Left [...] CDT MAGNESIUM Routine 11/04/2017 9:40 AM CDT after 11/03/2017 Results * RHYTHM STRIP - SCAN (10/23/2018 8:40 AM CDT) Only the most recent of 2 results within the time period is included. Narrative Performed At * TACROLIMUS (08/13/2018 9:00 AM WOODWORKER HELPER) Only the most recent of 13 results within the time period is included. Tacrolimus, Highly 8.4 mcg/L [facility] Sensitive, LC/MS/MS Comment: ([facility]) No definitive therapeutic or toxic ranges have been established. Optimal blood drug levels are influenced by type of transplant, patient response, time post- transplant, co-administration of other drugs, and drug formulation. The following trough range is a suggested guideline: 5.0-20.0 mcg/L. This test was developed and its analytical performance characteristics have been determined by [facility]. It has not been cleared or approved by the FDA. This assay has been validated pursuant to the CLIA regulations and is used for clinical purposes. Specimen Narrative Performed At FASTING:YES [facility] FASTING: YES Resulting Agency Comment Performing Organization Information: Site ID: Name: [facility] Address: [address] [place] [phone] Director: Dr. Jadon Riley Performing Organization Address City/State/Zipcode Phone Number [facility] [address] [place] [address] [facility] * CBC with platelet count + automated diff (08/13/2018 9:00 AM WOODWORKER HELPER) Only the most recent of 13 results within the time period is included. WBC 5.6 3.8 - 10.8 Thousand/uL [facility] RBC 3.31 (L) 4.20 - 5.80 Million/uL [facility] Hemoglobin 10.5 (L) 13.2 - 17.1 g/dL [facility] Hematocrit 31.7 (L) 38.5 - 50.0 % [facility] MCV 95.8 80.0 - 100.0 fL [facility] MCH 31.7 27.0 - 33.0 pg [facility] MCHC 33.1 32.0 - 36.0 g/dL [facility] RDW 14.3 11.0 - 15.0 % [facility] Platelets 203 140 - 400 Thousand/uL [facility] MPV 10.5 7.5 - 12.5 fL [facility] # Neutros 4,150 1,500 - 7,800 cells/uL [facility] # Lymphs 918 850 - 3,900 cells/uL [facility] # Monos 403 200 - 950 cells/uL [facility] # Eos 78 15 - 500 cells/uL [facility] # Baso 50 0 - 200 cells/uL [facility] % Neutros 74.1 % [facility] % Lymphs 16.4 % [facility] % Monos 7.2 % [facility] % Eos 1.4 % [facility] % Baso 0.9 % [facility] Specimen Narrative Performed At FASTING:YES [facility] FASTING: YES Resulting Agency Comment Performing Organization Information: Site ID: [id number] Name: [facility] Address: [address] [place] [phone] Director: Teresa Pizarro Performing Organization Address [facility] Phone Number [facility] [address] [place] [address] [facility] * Magnesium (08/13/2018 9:00 AM WOODWORKER HELPER) Only the most recent of 17 results within the time period is included. Magnesium, Serum 1.3 (L) 1.5 - 2.5 mg/dL [facility] Specimen Narrative Performed At FASTING:YES [facility] FASTING: YES Resulting Agency Comment Performing Organization Information: Site ID: [id number] Name: [facility] Address: [address] [place] [phone] Director: Teresa Pizarro Performing Organization Address [facility] Phone Number [facility] [address] [place] [address] [facility] * Hepatic function panel (08/13/2018 9:00 AM WOODWORKER HELPER) Only the most recent of 14 results within the time period is included. Protein, Total, Serum 6.5 6.1 - 8.1 g/dL [facility] Albumin 3.8 3.6 - 5.1 g/dL [facility] GLOBULIN ([facility]) 2.7 1.9 - 3.7 g/dL (calc) [facility] Albumin Globulin Ratio 1.4 1.0 - 2.5 (calc) [facility] Bilirubin, Total 1.0 0.2 - 1.2 mg/dL [facility] Bilirubin, Direct 0.2 < OR=0.2 mg/dL [facility] Bilirubin, Indirect 0.8 0.2 - 1.2 mg/dL (calc) [facility] Alkaline Phosphatase, S 89 40 - 115 U/L [facility] AST (SGOT) 14 10 - 35 U/L [facility] ALT (SGPT) 8 (L) 9 - 46 U/L [facility] Specimen Narrative Performed At FASTING:YES [facility] FASTING: YES Resulting Agency Comment Performing Organization Information: Site ID: [id number] Name: [facility] Address: [address] [place] [phone] Director: Teresa Pizarro Performing Organization Address [facility] Phone Number [facility] [address] [place] [address] [facility] * Basic Metabolic Panel (08/13/2018 9:00 AM WOODWORKER HELPER) Only the most recent of 15 results within the time period is included. Glucose 147 (H) 65 - 99 mg/dL [facility] Comment: Fasting reference interval For someone without known diabetes, a glucose value >125 mg/dL indicates that they may have diabetes and this should be confirmed with a follow-up test. BUN 63 (H) 7 - 25 mg/dL [facility] Creatinine 3.96 (H) 0.70 - 1.25 mg/dL [facility] Comment: For patients >49 years of age, the reference limit for Creatinine is approximately 13% higher for people identified as -Burkinan. eGFR If NonAfricn Am 15 (L) > OR=60 mL/min/1.73m2 [facility] eGFR If Africn Am 18 (L) > OR=60 mL/min/1.73m2 [facility] BUN/Creatinine Ratio 16 6 - 22 (calc) [facility] Sodium 140 135 - 146 mmol/L [facility] Potassium, Serum 4.3 3.5 - 5.3 mmol/L [facility] Chloride 102 98 - 110 mmol/L [facility] Carbon Dioxide, Total 24 20 - 32 mmol/L [facility] Calcium, Serum 9.6 8.6 - 10.3 mg/dL [facility] Specimen Narrative Performed At FASTING:YES [facility] FASTING: YES Resulting Agency Comment Performing Organization Information: Site ID: [id number] Name: [facility] Address: [address] [place] [phone] Director: Teresa Pizarro Performing Organization Address [facility] Phone Number [facility] [address] [place] [address] [facility] * US abdominal with doppler (02/24/2018 9:00 AM CDT) Specimen Narrative Performed At FINAL REPORT [facility] Ultrasound of the Abdomen and Duplex Doppler. [...] MD Report Verified Date/Time:02/24/2018 10:46:05 Reading Location: [address] Radiology Reading Room Procedure Note Interface, [...] Report Verified Date/Time: 02/24/2018 10:46:05 Reading Location: [address] Radiology Reading Room Performing Organization Address City/State/Zipcode Phone Number [facility] * XR chest 2 views (02/24/2018 7:45 AM CDT) Specimen Narrative Performed At FINAL REPORT [facility] INDICATION: Post OLT; HX;HCC COMPARISON: January 29, [...] MD Report Verified Date/Time:02/24/2018 08:25:59 Reading Location: [facility] Diagnostic Imaging Reading Room - [place] [address] Procedure Note Interface, External Ris In - [...] Report Verified Date/Time: 02/24/2018 08:25:59 Reading Location: [facility] Diagnostic Imaging Reading Room - [place] [address] Performing Organization Address City/State/Zipcode Phone Number [facility] * CBC with platelet count + automated diff (02/24/2018 7:14 AM CDT) Only the most recent of 2 results within the time period is included. WBC 4.6 3.5 - 10.5 K/L [facility] RBC 3.10 (L) 4.63 - 6.08 M/L [facility] Hemoglobin 10.4 (L) 13.7 - 17.5 GM/DL [facility] Hematocrit 32.1 (L) 40.1 - 51.0 % [facility] MCV 103.5 (H) 79.0 - 92.[address] [facility] MCH 33.5 (H) 25.7 - 32.[address] [facility] MCHC 32.4 32.3 - 36.5 GM/DL [facility] RDW 16.0 (H) 11.6 - 14.4 % [facility] Platelets 143 (L) 150 - 450 K/CU MM [facility] MPV 10.6 9.4 - 12.[address] [facility] nRBC 0 0 - 0 /[address] [facility] % Neutros 67 % [facility] % Lymphs 21 % [facility] % Monos 10 % [facility] % Eos 2 % [facility] % Baso 1 % [facility] # Neutros 3.04 1.78 - 5.38 K/L [facility] # Lymphs 0.94 (L) 1.32 - 3.57 K/L [facility] # Monos 0.44 0.30 - 0.82 K/L [facility] # Eos 0.10 0.04 - 0.54 K/L [facility] # Baso 0.03 0.01 - 0.08 K/L [facility] Immature 0 0 - 1 % [facility] Granulocytes-[facility] Specimen Blood Performing Organization Address City/State/Zipcode Phone Number [address] [address] [facility] * Alpha fetoprotein (AFP), tumor marker (02/24/2018 7:14 AM CDT) Alpha-Fetoprotein <2.0 <10.0 ng/mL [facility] Specimen Blood Performing Organization Address City/[facility]/Zipcode Phone Number [address] [address] [facility] * Phosphorus (02/24/2018 7:14 AM CDT) Only the most recent of 2 results within the time period is included. Phosphorus 3.7 2.3 - 4.7 mg/dL [facility] Specimen Blood Performing Organization Address City/[facility] Phone Number [address] [address] [phone] [place] [address] * Bilirubin, direct (02/24/2018 7:14 AM CDT) Bilirubin, Direct 0.3 0.1 - 0.5 mg/dL [facility] Specimen Blood Performing Organization Address [facility] [place] [address] [phone] [place] [address] * Lipid panel (02/24/2018 7:14 AM CDT) Triglycerides 55 mg/dL [facility] Cholesterol 162 mg/dL [facility] HDL 84 mg/dL [facility] LDL Calculated 67 mg/dL [facility] Specimen Blood Narrative Performed At Triglyceride Reference Range: [facility] Low Risk <150 [facility] [id number] High Risk 200-499 Very High Risk>=500 Cholesterol Reference Range: Low Risk <200 [id number] High Risk>240 HDL Cholesterol Reference Range: Low Risk >=60 High Risk <40 LDL Cholesterol Reference Range: Optimal<100 Near [id number] [id number] Qlgt342-385 Very High >=190 Performing Organization Address City/[facility] Phone Number [address] [phone] [facility] * Comprehensive metabolic panel (02/24/2018 7:14 AM CDT) Only the most recent of 2 results within the time period is included. Protein, Total 6.6 6.0 - 8.3 gm/dL [facility] Albumin 3.7 3.5 - 5.0 g/dL [facility] Alkaline Phosphatase 107 40 - 150 U/L [facility] Total Bilirubin 0.6 0.2 - 1.2 mg/dL [facility] Sodium 139 136 - 145 meq/L [facility] Potassium 5.0 3.5 - 5.1 meq/L [facility] Chloride 111 (H) 98 - 107 meq/L [facility] CO2 22 22 - 29 meq/L [facility] BUN 43 (H) 7 - 21 mg/dL [facility] Creatinine 2.19 (H) 0.57 - 1.25 mg/dL [facility] Glucose 112 (H) 70 - 105 mg/dL [facility] Calcium 9.1 8.4 - 10.2 mg/dL [facility] AST 43 (H) 5 - 34 U/L [facility] ALT 34 6 - 55 U/L [facility] EGFR 31Comment: ESTIMATED GFR IS mL/min/1.73 sq m [facility] NOT ACCURATE CREATININE [facility] CLEARANCE IN PREDICTING GLOMERULAR FILTRATION RATE. ESTIMATED GFR IS NOT APPLICABLE FOR DIALYSIS PATIENTS. Specimen Blood Performing Organization Address City/[facility]/Zipcode Phone Number [place] [phone] [facility] * Tacrolimus level (02/24/2018 7:13 AM CDT) Only the most recent of 4 results within the time period is included. Tacrolimus Lvl 7.9 (L) 10.0 - 20.0 ng/mL [facility] Specimen Blood Performing Organization Address City/[facility]/Zipcode Phone Number [address] [address] [facility] * Hepatitis C PCR, Quantitative (02/24/2018 7:13 AM CDT) HCV PCR, Quantitative HCV RNA not detected HCV RNA not detected [facility] Specimen Blood Narrative Performed At This test uses a Real-Time Polymerase Chain Reaction (RT-PCR) methodology and [facility] was performed using [employer] Ampliprep/[employer]IVIAN TaqMan HCV test kit version 2.0 [facility] ([employer] Reportable range for this assay is 15 - 100,000,000 IU per mL (1.18 - 8.00 Log IU/mL). Performing Organization Address City/[facility]/[place] [address] [facility] * POC-Glucose meter (02/17/2018 11:44 AM CDT) Only the most recent of 6 results within the time period is included. POC-Glucose Meter 163 (H)Comment: TESTED AT 70 - 110 mg/dL [address] [address] Specimen Blood Performing Organization Address [facility] [place] [address] [phone] [place] [address] * ECHOCARDIOGRAM REPORT - SCAN (02/17/2018 10:30 AM CDT) Narrative Performed At * Prothrombin time/INR (02/17/2018 5:47 AM CDT) Only the most recent of 2 results within the time period is included. Protime 19.3 (H) 11.7 - 14.[address] [facility] INR 1.6 <=5.[address] [facility] Specimen Blood Narrative Performed At RECOMMENDED COUMADIN/WARFARIN INR THERAPY RANGES [facility] STANDARD DOSE: 2.0 - 3.0 Includes: PROPHYLAXIS for venous thrombosis, [facility] systemic embolization; TREATMENT for venous thrombosis and/or pulmonary embolus. HIGH RISK: Target INR is 2.5-3.5 for patients with mechanical heart valves. Performing Organization Address City/[facility] [place] [address] [facility] * CBC (Hemogram only) (02/17/2018 5:47 AM CDT) Only the most recent of 2 results within the time period is included. WBC 4.9 3.5 - 10.5 K/L [facility] RBC 2.84 (L) 4.63 - 6.08 M/L [facility] Hemoglobin 9.3 (L) 13.7 - 17.5 GM/DL [facility] Hematocrit 29.7 (L) 40.1 - 51.0 % [facility] MCV 104.6 (H) 79.0 - 92.[address] [facility] MCH 32.7 (H) 25.7 - 32.[address] [facility] MCHC 31.3 (L) 32.3 - 36.5 GM/DL [facility] RDW 15.9 (H) 11.6 - 14.4 % [facility] Platelets 80 (L) 150 - 450 K/CU MM [facility] MPV 10.3 9.4 - 12.[address] [facility] nRBC 0 0 - 0 /[address] [facility] Specimen Blood Performing Organization Address City/State/Zipcode Phone Number [facility] [address] [place] [address] [facility]ENTER * 2D Echo W/Doppler(CW/PW/Color) (02/16/2018 5:27 PM CDT) Ejection Fraction [facility] Specimen Narrative Performed At Transthoracic Echocardiography Report (TTE) [facility] Demographics [facility] Patient NameGONZALES, Date of Study02/16/2018 DAVID Male Visit [id number] Unknown Room [id number] Number Date of 1955ReferringAlexander Postalian PhysicianMEL Sweeney Age 62 year(s)SonographerJake Alvarez [facility] Interpreting Bo Ashley MD PhysicianBSCORDELL [facility] Needs to be Pre Read Procedure Type of Study TTE procedure:2DECHO W DOPPLER(CW/PW/COLOR) (Pending Discharge) Indications:Known or suspected heart failure. 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 Specimen Blood Narrative Performed At Troponin I (TnI) levels must be interpreted in the context of the presenting [facility] symptoms and the clinical findings. Elevated TnI levels indicate myocardial [facility] damage, but are not specific for ischemic heart disease. Elevated TnI levels are seen in patients with other cardiac conditions (including myocarditis and congestive heart failure), and slight TnI elevations occur in patients with other conditions, including sepsis, renal failure, acidosis, acute neurological disease, and persistent tachyarrhythmia. Performing Organization Address City/State/Zipcode Phone Number [facility] [address] [place] [address] [facility] * ECG 12 lead (02/15/2018 11:40 PM CDT) Only the most recent of 2 results within the time period is included. Specimen Narrative Performed At Ventricular Rate 91 BPM GE MUSE Atrial Rate 91 BPM P-R Interval 202 ms QRS Duration 124 ms Q-T Interval 388 ms QTC Calculation(Bazett) 477 ms P [place] 30 degrees R [place] -43 degrees T [place] 51 degrees Normal sinus rhythm Left atrial enlargement Left axis deviation Non-specific intra-ventricular conduction delay Abnormal ECG When compared with ECG of 15-FEB-2018 21:00, No significant change was found Confirmed by MD Mehta Roberto ([id number]) on 02/16/2018 8:32:08 AM Procedure Note Interface, External Ris In - 02/16/2018 8:32 AM CDT Ventricular Rate 91 BPM Atrial Rate 91 BPM P-R Interval 202 ms QRS Duration 124 ms Q-T Interval 388 ms QTC Calculation(Bazett) 477 ms P [place] 30 degrees R [place] -43 degrees T [place] 51 degrees Normal sinus rhythm Left atrial enlargement Left axis deviation Non-specific intra-ventricular conduction delay Abnormal ECG When compared with ECG of 15-FEB-2018 21:00, No significant change was found Confirmed by MD Mehta Roberto ([id number]) on 02/16/2018 8:32:08 AM Performing Organization Address City/State/Zipcode Phone Number [employer] [facility] * Urinalysis w/Microscopic + Reflex to Culture (02/15/2018 8:50 PM CDT) Color, UA Yellow [facility] Clarity, UA Clear [facility] Specific [place], UA 1.013 1.001 - 1.[address] [facility] pH, UA 5.5 5.0 - 8.[address] [facility] Protein, UA 200 mg/dL (A) Negative [facility] Glucose, UA Negative Negative [facility] Ketones, UA Trace (A) Negative [facility] Bilirubin, UA Negative Negative [facility] Blood, UA Small (A) Negative [facility] Nitrite, UA Negative Negative [facility] Leukocytes, UA Negative Negative [facility] Urobilinogen, UA 2.0 (H) 0.2 - 1.0 mg/dL [facility] RBC, UA 1 /HPF [facility] WBC, UA 1 /HPF [facility] Mucus Rare [facility] Squam Epithel, UA 1 /HPF [facility] Hyaline Casts, UA 11 /LPF [facility] Crystals, Urine Rare [facility] Specimen Source [facility] Specimen Urine Performing Organization Address City/State/Zipcode Phone Number [facility] [address] [place] [address] [facility] * CT abdomen pelvis without contrast (02/15/2018 8:49 PM CDT) Specimen Narrative Performed At FINAL REPORT [facility] CLINICAL HISTORY: Right flank pain, acute abdominal [...] MD Report Verified Date/Time:02/15/2018 21:18:10 Reading Location: [address] Reading Room Procedure Note Interface, External [...] Report Verified Date/Time: 02/15/2018 21:18:10 Reading Location: [address] Reading Room Performing Organization Address City/[facility] Phone Number GE RIS * PT/aPTT (02/15/2018 7:54 PM CDT) Protime 22.9 (H) 11.7 - 14.[address] [facility] INR 2.0 <=5.[address] [facility] PTT 33.7 22.5 - 36.[address] [facility] Specimen Blood Narrative Performed At RECOMMENDED COUMADIN/WARFARIN INR THERAPY RANGES [facility] STANDARD DOSE: 2.0 - 3.0 Includes: PROPHYLAXIS for venous thrombosis, [facility] systemic embolization; TREATMENT for venous thrombosis and/or pulmonary embolus. HIGH RISK: Target INR is 2.5-3.5 for patients with mechanical heart valves. Performing Organization Address [facility] [place] [address] [facility] * Lipase (02/15/2018 7:53 PM CDT) Lipase 45 8 - 78 U/L [facility] Specimen Blood Performing Organization Address City/[facility] Phone Number [place] [phone] [place] [address] [facility] * Creatine Kinase (CK), Total and MB (02/15/2018 7:53 PM CDT) Total CK 447 (H) 29 - 200 U/L [facility] CK-MB 7.8 (H) 0.0 - 6.6 ng/mL [facility] MB Relative Index 1.7 % [facility] Specimen Blood Narrative Performed At CK-MB Reference Range: JONATHAN [facility] <6.7Normal [facility] 6.7-10.0Borderline >10.0 Abnormal Performing Organization Address City/State/Zipcode Phone Number JONATHAN [facility] [address] [place], [place] [phone] [facility] after 11/03/2017 Insurance Payer Benefit Subscriber ID Type Phone Address Plan / Group MEDICARE MEDICARE A xxxxxxxxxx Medicare B AETNA - MGD CARE AETNA xxxxxxxxxx Comm INDEMNITY NON CONTR Advance Directives For more information, please contact: JONATHAN [facility] [address] [place], [place] [phone] Date Inactivated Comments Code Status Date Activated [...]
[2018-11-04] MEDS ORDERED: PANTOPRAZOLE 40 MG 10ML VIAL IV STA (17:16)
[2018-11-04 17:37] LABS: BASOPHILS % 0.4 % (0.0-1.0); EOSINOPHILS # (AUTO) 0.1 (0.0-0.4); EOSINOPHILS % 0.8 % (0.0-6.0); HEMATOCRIT 29.4 % (38.2-49.6); LYMPHOCYTES # (AUTO) 1.7 (1.0-3.2); LYMPHOCYTES % 23.3 % (18.0-39.1); MEAN CORPUSCULAR HEMOGLOBIN 32.8 pg (28-32); MEAN CORPUSCULAR VOLUME 96.4 fL (81-99); MONOCYTES # (AUTO) 0.7 (0.2-0.8); MONOCYTES % 9.9 % (4.4-11.3); NEUTROPHILS # (AUTO) 4.8 (2.1-6.9); NEUTROPHILS % 65.3 % (38.7-80.0); PLATELET COUNT 118 x10e3/uL (140-360); RED BLOOD COUNT 3.05 x10e6/uL (4.3-5.7); RED CELL DISTRIBUTION WIDTH 19.1 % (11.7-14.4)
[2018-11-04 17:42] LABS: INR 1.93; PROTHROMBIN TIME 22.7 seconds (11.9-14.5)
[2018-11-04 17:43] LABS: PARTIAL THROMBOPLASTIN TIME 37.1 seconds (23.8-35.5)
[2018-11-04 17:51] LABS: ALBUMIN 3.1 g/dL (3.5-5.0); ALBUMIN/GLOBULIN RATIO 0.9 (0.8-2.0); ANION GAP 14.9 mmol/L (8-16); CALCIUM 9.1 mg/dL (8.4-10.2); CREATININE, SERUM 5.6 mg/dL (0.72-1.25); MAGNESIUM 1.5 MG/DL (1.3-2.1); POTASSIUM 4.9 mmol/L (3.5-5.1)
[2018-11-04 17:58] LABS: CREATINE KINASE MB 2.4 ng/mL (0-5.0)
--- NOTE | 2018-11-04 18:27 | Diagnostic Imaging Report ---
EXAMINATION: CHEST SINGLE (PORTABLE) INDICATION: Chest pain and tightness. ^FATIGUE, ? GI BLEED COMPARISON: None FINDINGS: TUBES and LINES: None. LUNGS: Mild bibasilar subsegmental atelectasis. There is no evidence of pneumonia or pulmonary edema. PLEURA: No pleural effusion or pneumothorax. HEART AND MEDIASTINUM: The cardiomediastinal silhouette is unremarkable. Name of his density projected on the cardiac shadow may represent valvular calcification. BONES AND SOFT TISSUES: No acute osseous lesion. Remote lower right-sided rib fracture UPPER ABDOMEN: No free air under the diaphragm. IMPRESSION: No acute thoracic abnormality. Signed by: Dr. Phylicia Jacobs M.D. on 11/04/2018 6:23 PM
[2018-11-04] MEDS ORDERED: OCTREOTIDE ACETATE 0.05 MG/ML AMP IV NR (18:30)
[2018-11-04] MEDS ORDERED: OCTREOTIDE ACETATE 500 MCG in SODIUM CHLORIDE 0.9% 250ML 249 ML IV SCH (18:30)
[2018-11-04] MEDS ORDERED: SODIUM CHLORIDE 0.9% 500ML 500 ML IV ONE (19:00)
--- NOTE | 2018-11-04 19:24 | NUR ---
TRANSFER INITIATED TO [facility]; SPOKE TO NICOLASA
[2018-11-04] MEDS ORDERED: PHYTONADIONE 10 MG/ML AMP SQ NR (19:30)
[2018-11-04] MEDS ORDERED: SODIUM CHLORIDE 0.9% 250ML 250 ML ONE (19:34)
--- NOTE | 2018-11-04 20:00 | NUR ---
PER DR NOEL VERBAL ORDER, FFP AND VITAMIN K CANCELLED
--- NOTE | 2018-11-04 20:35 | NUR ---
REPORT TO [facility]
== END 2018-11-04 20:36 | disposition other institution (70) ==
LOC: ER 15:28
DX: K92.1 Melena (principal); N18.9 Chronic kidney disease, unspecified; Z94.4 Liver transplant status; T45.515A Adverse effect of anticoagulants, initial encounter; Z86.718 Personal history of other venous thrombosis and embolism; C22.0 Liver cell carcinoma; B19.20 Unspecified viral hepatitis C without hepatic coma; Z79.01 Long term (current) use of anticoagulants; Z82.49 Family history of ischemic heart disease and other diseases of the circulatory system; Z79.82 Long term (current) use of aspirin; Z79.4 Long term (current) use of insulin; I12.9 Hypertensive chronic kidney disease with stage 1 through stage 4 chronic kidney disease, or unspecified chronic kidney disease; E11.22 Type 2 diabetes mellitus with diabetic chronic kidney disease
CPT/HCPCS: 36415; 71045; 80053; 82550; 82553; 83605; 83735; 84484; 85025; 85610; 85730; 86850; 86900; 87040; 87086; 93005; 99284; C9113; J2353; J2354; J7040; J7050

== ENCOUNTER → 2019-06-24 | Outpatient (CLI) | payer MEDICARE, OTHER ==
[~2019-06-24] MED LIST changes: +DIATRIZOATE MEGL/DIATRIZOA SOD 30 ML BTL PO ONE
--- NOTE | 2019-06-24 16:22 | Diagnostic Imaging Report ---
CT of the abdomen and pelvis, without contrast, 06/24/2019. History: Abdominal pain, right lower quadrant lump. Comparison: None available. Technique: Multidetector CT scanning of the abdomen and pelvis was performed from the level of the lung bases to the inferior pubic rami without intravenous or oral contrast. Coronal and sagittal multiplanar reformations were obtained. RADIATION DOSE: Total DLP: 444 mGy*cm Dose modulation, iterative reconstruction, and/or weight based adjustment of the mA/kV was utilized to reduce the radiation dose to as low as reasonably achievable. Discussion: Examination is limited without contrast. Lung bases: Dense calcification of the mitral valve and left ventricle are noted. Aortic stent is present. The heart is enlarged. There is bibasilar linear atelectasis versus scarring. Abdomen: There is diffuse low-density of the liver. The gallbladder is absent. Multiple collateral vessels are present in the left retroperitoneum. The biliary tree, spleen, pancreas, adrenal glands, and kidneys are unremarkable. The abdominal aorta is within normal limits. There is no bowel dilatation. The ascending colon is not visualized. Suture material is present within the proximal colon. Multiple diverticuli are present within the sigmoid colon without evidence of adjacent inflammation. There is no evidence of adenopathy or free fluid. Infrarenal IVC filter is present. Pelvis: Streak artifact from right hip prosthesis limits evaluation. The bladder, prostate, and seminal vesicles are unremarkable. There is no evidence of free fluid or adenopathy. Bones and soft tissues: Degenerative changes are present throughout the lumbar spine without evidence of lytic or sclerotic lesion. Status post total right hip replacement. Linear and subcentimeter nodular opacities in the right lower anterior abdominal wall are likely related to prior surgery. IMPRESSION: 1. Diffuse fatty infiltration of the liver. 2. Right hemicolectomy and distal colonic diverticulosis without evidence of diverticulitis. 3. Likely postoperative changes in the right lower anterior abdominal wall. 4. Dense mitral valvular and left ventricular calcifications. Signed by: Bacilio Cash on 06/24/2019 4:19 PM
== END ==
LOC: CT 10:00
PROVIDERS: ATTEND Internal Medicine Gastroenterology
DX: E11.9 Type 2 diabetes mellitus without complications (principal); I10 Essential (primary) hypertension; K43.9 Ventral hernia without obstruction or gangrene; E66.3 Overweight; Z71.3 Dietary counseling and surveillance
CPT/HCPCS: 74176

== ENCOUNTER 2020-01-19 06:37 | Emergency (ER) | payer MEDICARE, OTHER ==
[~2020-01-19] VITALS: Ht 177.8 cm; Wt 78.5 kg
[~2020-01-19 06:37] MED LIST changes: -DIATRIZOATE MEGL/DIATRIZOA SOD 30 ML BTL PO ONE
[2020-01-19] MEDS ORDERED: CEFTRIAXONE SOD 1 GM/NS 50 ML 50 ML IV ONE (07:00)
--- NOTE | 2020-01-19 07:01 | NUR ---
report to ERNESTINE Pat.
[2020-01-19 07:16] LABS: BASOPHILS % 0.4 % (0.0-1.0); EOSINOPHILS % 0.6 % (0.0-6.0); HEMATOCRIT 20.6 % (38.2-49.6); LYMPHOCYTES # (AUTO) 0.6 (1.0-3.2); LYMPHOCYTES % 8.7 % (18.0-39.1); MEAN CORPUSCULAR HEMOGLOBIN 32.8 pg (28-32); MEAN CORPUSCULAR HGB CONC 31.6 g/dL (31-35); MONOCYTES # (AUTO) 0.6 (0.2-0.8); NEUTROPHILS # (AUTO) 5.9 (2.1-6.9); NEUTROPHILS % 81.9 % (38.7-80.0); PLATELET COUNT 166 x10e3/uL (140-360); RED BLOOD COUNT 1.98 x10e6/uL (4.3-5.7); RED CELL DISTRIBUTION WIDTH 18.7 % (11.7-14.4)
[2020-01-19 07:28] LABS: INR 1.55; PROTHROMBIN TIME 19.7 seconds (11.9-14.5)
[2020-01-19 07:29] LABS: HEMOGLOBIN 6.5 g/dL (14.0-18.0)
[2020-01-19] MEDS ORDERED: FUROSEMIDE INJ 10 MG/ML 2 ML VIAL IV PRN (07:30)
[2020-01-19] MEDS ORDERED: SODIUM CHLORIDE 0.9% 250ML 250 ML IV ONE (07:30)
[2020-01-19] MEDS ORDERED: AZITHROMYCIN 500MG/NS 250 ML 250 ML IV ONE (07:30)
[2020-01-19 07:36] LABS: ALBUMIN/GLOBULIN RATIO 0.5 (0.8-2.0); ANION GAP 19.6 mmol/L (8-16); CALCIUM 8.4 mg/dL (8.4-10.2); CREATININE, SERUM 3.84 mg/dL (0.72-1.25); POTASSIUM 4.6 mmol/L (3.5-5.1)
[2020-01-19 07:43] LABS: CREATINE KINASE MB 3.6 ng/mL (0-5.0)
[2020-01-19 07:50] LABS: B-TYPE NATRIURETIC PEPTIDE2 > 5000.0 pg/mL (0-100)
[2020-01-19] MEDS ORDERED: FUROSEMIDE INJ 10 MG/ML 4 ML VIAL IV ONE (08:15)
--- NOTE | 2020-01-19 08:28 | Emergency Department Note ---
History of Present Illnes History of Present Illness Chief Complaint: Respiratory History of Present Illness This is a 64 year old male 64 Y/O MALE PT AAOX3 PRESENTS TO THE ER VIA EMS FROM HOME C/O SOB ONSET LAST NIGHT AT 2100; PT STATES SOB WORSENED AND "FEELS LIKE I HAVE BEEN RUNNING A MARATHON"; PER EMS, PT O2 SAT WAS 86% RA AND PLACED ON 2L NC, O2 SAT INCREASED TO 98%. DENIES COUGH, F/C. 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 WHERE HE WAS TREATED FOR BACTEREMIA/SEPSIS) Relieving factors: none Exacerbating factors: none Associated symptoms: Reports shortness of breath (WITH WRIGHT/ORTHOPNEA); Denies chest pain, Denies cough, Denies fever/chills, Denies loss of appetite, Denies nausea/vomiting Treatments prior to arrival: none Past Medical/Family History Physician Review I have reviewed the patient's past medical and family history. Any updates have been documented here. Past Medical History Recent Fever: No Clinical Suspicion of Infectio: No New/Unexplained Change in Ment: No Past Medical History: Hypertension, Diabetes, Cancer, GERD, DVT/PE, Chronic Kidney Disease Other Medical History: COLOSTOMY-RUPTURED INTESTINE WHILE DOING COLONOSCOPY ARTIFICIAL HEART VALVE(TVAR) (HAD HEART MURMUR) LIVER TRANSPLANT PT HEPATITIS GOUT DVT LIVER CANCER Past Surgical History: PCI Other Surgery: COLOSTOMY HEART VALVE LIVER TRANSPLANT REVERSED COLOSTOMY RT TOTAL HIP REPLACEMENT Social History Smoking Cessation: Former smoker Counseling Performed: No Alcohol Use: None Any Illegal Drug Use: No TB Exposure/Symptoms: No Physically hurt or threatened: No Family History Family history of heart diseas: No Other Last Tetanus: 2018 Any Pre-Existing Lines (PICC,: No Review of Systems Review of Systems Constitutional: Reports no symptoms EENTM: Reports no symptoms Cardiovascular: Reports no symptoms Respiratory: Reports as per HPI, Reports dyspnea, Reports dyspnea on exertion; Denies chest congestion, Denies cough Gastrointestinal: Reports no symptoms Genitourinary: Reports no symptoms Musculoskeletal: Reports no symptoms Integumentary: Reports no symptoms Neurological: Reports no symptoms Psychological: Reports no symptoms Endocrine: Reports no symptoms Hematological/Lymphatic: Reports no symptoms Review of other systems: All other systems negative Physical Exam Related Data Allergies: Coded Allergies: No Known Drug Allergies (Unverified Allergy, Unknown, 11/04/18) Triage Vital Signs Vital Signs Date Time Temp Pulse Resp B/P (MAP) Pulse Ox O2 Delivery O2 Flow Rate FiO2 01/19/20 06:44 98.2 100 24 158/115 98 Nasal Cannula 2.0 Vital signs reviewed: Yes Physical Exam CONSTITUTIONAL Constitutional: Present well-developed, Present well-nourished HENT HENT: Present normocephalic, Present atraumatic, Present oropharynx linnette r/moist, Present nose normal HENT L/R: Present left ext ear normal, Present right ext ear normal EYES Eyes: Reports PERRL, Reports conjunctivae normal NECK Neck: Present ROM normal PULMONARY Pulmonary: Present effort normal, Present breath sounds normal CARDIOVASCULAR Cardiovascular: Present regular rhythm, Present heart sounds normal, Present normal rate, Present murmur (2/6 SYS MURMUR), Present LLE edema (1+), Present RLE edema (1+), Present other (RIGHT SC DOUBLE-LUMEN CENTRAL LINE INFUSING AMPICILLIN CURRENTLY) GASTROINTESTINAL Abdominal: Present soft, Present nontender, Present bowel sounds normal GENITOURINARY Genitourinary: Present exam deferred SKIN Skin: Present warm, Present dry MUSCULOSKELETAL Musculoskeletal: Present ROM normal NEUROLOGICAL Neurological: Present alert, Present oriented x 3, Present no gross motor or sensory deficits PSYCHOLOGICAL Psychological: Present mood/affect normal, Present judgement normal Exam - additional comments RECTAL EXAM - NO TENDERNESS, LIGHT BROWN STOOL, HEMOCCULT NEGATIVE Results Laboratory Result Diagram: 01/19/20 0644 01/19/20 0644 Laboratory Laboratory Tests Test 01/19/20 07:35 01/19/20 07:29 01/19/20 06:44 Stool Occult Blood Negative (NEGATIVE) White Blood Count 7.16 x10e3/uL (4.8-10.8) Red Blood Count 1.98 x10e6/uL (4.3-5.7) Hemoglobin 6.5 g/dL (14.0-18.0) Hematocrit 20.6 % (38.2-49.6) Mean Corpuscular Volume 104.0 fL (81-99) Mean Corpuscular Hemoglobin 32.8 pg (28-32) Mean Corpuscular Hemoglobin Concent 31.6 g/dL (31-35) Red Cell Distribution Width 18.7 % (11.7-14.4) Platelet Count 166 x10e3/uL (140-360) Neutrophils (%) (Auto) 81.9 % (38.7-80.0) Lymphocytes (%) (Auto) 8.7 % (18.0-39.1) Monocytes (%) (Auto) 8.0 % (4.4-11.3) Eosinophils (%) (Auto) 0.6 % (0.0-6.0) Basophils (%) (Auto) 0.4 % (0.0-1.0) Neutrophils # (Auto) 5.9 (2.1-6.9) Lymphocytes # (Auto) 0.6 (1.0-3.2) Monocytes # (Auto) 0.6 (0.2-0.8) Eosinophils # (Auto) 0.0 (0.0-0.4) Basophils # (Auto) 0.0 (0.0-0.1) Absolute Immature Granulocyte (auto 0.03 x10e3/uL (0-0.1) Prothrombin Time 19.7 seconds (11.9-14.5) Prothromb Time International Ratio 1.55 Activated Partial Thromboplast Time 34.0 seconds (23.8-35.5) Sodium Level 139 mmol/L (136-145) Potassium Level 4.6 mmol/L (3.5-5.1) Chloride Level 105 mmol/L (98-107) Carbon Dioxide Level 19 mmol/L (22-29) Anion Gap 19.6 mmol/L (8-16) Blood Urea Nitrogen 46 mg/dL (7-26) Creatinine 3.84 mg/dL (0.72-1.25) Estimat Glomerular Filtration Rate 16 ML/MIN (60-) BUN/Creatinine Ratio 12 (6-25) Glucose Level 103 mg/dL (74-118) Lactic Acid Level 1.6 mmol/L (0.5-2.0) Calcium Level 8.4 mg/dL (8.4-10.2) Total Bilirubin 0.5 mg/dL (0.2-1.2) Aspartate Amino Transf (AST/SGOT) 62 IU/L (5-34) Alanine Aminotransferase (ALT/SGPT) 44 IU/L (0-55) Alkaline Phosphatase 102 IU/L (40-150) Creatine Kinase 219 IU/L (30-200) Creatine Kinase MB 3.60 ng/mL (0-5.0) Troponin I 0.085 ng/mL (0-0.300) B-Type Natriuretic Peptide > 5000.0 pg/mL (0-100) Total Protein 6.4 g/dL (6.5-8.1) Albumin 2.0 g/dL (3.5-5.0) Globulin 4.4 g/dL (2.3-3.5) Albumin/Globulin Ratio 0.5 (0.8-2.0) Lab results reviewed: Yes Laboratory comments Laboratory Tests Test 01/19/20 07:35 01/19/20 07:29 01/19/20 06:44 Stool Occult Blood Negative (NEGATIVE) White Blood Count 7.16 x10e3/uL (4.8-10.8) Red Blood Count 1.98 x10e6/uL (4.3-5.7) Hemoglobin 6.5 g/dL (14.0-18.0) Hematocrit 20.6 % (38.2-49.6) Mean Corpuscular Volume 104.0 fL (81-99) Mean Corpuscular Hemoglobin 32.8 pg (28-32) Mean Corpuscular Hemoglobin Concent 31.6 g/dL (31-35) Red Cell Distribution Width 18.7 % (11.7-14.4) Platelet Count 166 x10e3/uL (140-360) Neutrophils (%) (Auto) 81.9 % (38.7-80.0) Lymphocytes (%) (Auto) 8.7 % (18.0-39.1) Monocytes (%) (Auto) 8.0 % (4.4-11.3) Eosinophils (%) (Auto) 0.6 % (0.0-6.0) Basophils (%) (Auto) 0.4 % (0.0-1.0) Neutrophils # (Auto) 5.9 (2.1-6.9) Lymphocytes # (Auto) 0.6 (1.0-3.2) Monocytes # (Auto) 0.6 (0.2-0.8) Eosinophils # (Auto) 0.0 (0.0-0.4) Basophils # (Auto) 0.0 (0.0-0.1) Absolute Immature Granulocyte (auto 0.03 x10e3/uL (0-0.1) Prothrombin Time 19.7 seconds (11.9-14.5) Prothromb Time International Ratio 1.55 Activated Partial Thromboplast Time 34.0 seconds (23.8-35.5) Sodium Level 139 mmol/L (136-145) Potassium Level 4.6 mmol/L (3.5-5.1) Chloride Level 105 mmol/L (98-107) Carbon Dioxide Level 19 mmol/L (22-29) Anion Gap 19.6 mmol/L (8-16) Blood Urea Nitrogen 46 mg/dL (7-26) Creatinine 3.84 mg/dL (0.72-1.25) Estimat Glomerular Filtration Rate 16 ML/MIN (60-) BUN/Creatinine Ratio 12 (6-25) Glucose Level 103 mg/dL (74-118) Lactic Acid Level 1.6 mmol/L (0.5-2.0) Calcium Level 8.4 mg/dL (8.4-10.2) Total Bilirubin 0.5 mg/dL (0.2-1.2) Aspartate Amino Transf (AST/SGOT) 62 IU/L (5-34) Alanine Aminotransferase (ALT/SGPT) 44 IU/L (0-55) Alkaline Phosphatase 102 IU/L (40-150) Creatine Kinase 219 IU/L (30-200) Creatine Kinase MB 3.60 ng/mL (0-5.0) Troponin I 0.085 ng/mL (0-0.300) B-Type Natriuretic Peptide > 5000.0 pg/mL (0-100) Total Protein 6.4 g/dL (6.5-8.1) Albumin 2.0 g/dL (3.5-5.0) Globulin 4.4 g/dL (2.3-3.5) Albumin/Globulin Ratio 0.5 (0.8-2.0) Imaging Imaging results reviewed: Yes Procedures 12 Lead ECG Interpretation ECG Interpretation : ECG: ECG 1 Notch Machine Operator: Interpreted by ED physician Date: Jan 19, 2020 Time: 06:45 Rhythm: sinus rhythm Rate: normal (95) QRS axis: left Conduction: intraventricular conduction delay (QRS 124 MS) ST segments normal: Yes T waves normal: Yes Clinical Impression: abnormal ECG Assessment & Plan Medical Decision Making MDM check cbc, chem's, coag's, ua, cxr, deng-cx's, lactic, covid swab (although pt reports 2 [address]abs [address] [facility] recently), ecg, cardiac enzymes, bnp - r/o pneumonia, CHF, renal failure, electrolyte abnl, sepsis, uti, COVID19 Reassessment Reassessment Our hospital is full and pt is S/P liver transplant who was recently discharged from [facility], transfer initiated by hot car chargerERNESTINE West. I spoke with pt's Cook Pickled Meat, Dr Vinson, and the hospitalist, Dr Taylor who accepted pt for transfer Assessment & Plan Final Impression: (1) CHF (congestive heart failure) (2) Anemia (3) CKD (chronic kidney disease) (4) Liver transplant recipient (5) Pneumonia Depart Disposition: TRANS TO OTHER [facility] F[facility] Last Vital Signs Date Time Temp Pulse Resp B/P (MAP) Pulse Ox O2 Delivery O2 Flow Rate FiO2 01/19/20 06:50 95 26 157/105 95 01/19/20 06:44 98.2 Nasal Cannula 2.0 Home Meds Reported Medications Mycophenolate Mofetil (MYCOPHENOLATE MOFETIL) 250 Mg Capsule, 250 MG PO BID, CAP 03/30/17 Tacrolimus (PROGRAF) 0.5 Mg Capsule, 1 MG PO HS 03/30/17 Loperamide Hcl* (IMODIUM*) 2 Mg Cap, 2 MG PO DAILY, CAP 03/30/17 Warfarin Sodium (WARFARIN SODIUM) 2.5 Mg Tablet, 5 MG PO SAT,SATURDAY, #30 TAB 06/17/16 Warfarin Sodium (WARFARIN SODIUM) 2.5 Mg Tablet, 2.5 MG PO SAT,SAT,TH,SAT,SUN, #30 TAB 06/17/16 Torsemide (TORSEMIDE) 10 Mg Tablet, 10 MG PO DAILY 06/17/16 Metoprolol Tartrate (METOPROLOL TARTRATE) 25 Mg Tablet, 12.5 MG PO BID, TAB 06/17/16 Folic Acid (FOLIC ACID) 1 Mg Tablet, 1 MG PO DAILY, #30 TAB 06/17/16 Insulin Lispro (HUMALOG) 100 Unit/1 Ml Insuln.pen 02/11/14 Aspirin (ASPIRIN) 81 Mg Tab.chew, 81 MG PO DAILY 02/11/14 Medications in the ED Ceftriaxone Sodium 50 ml @ 100 mls/hr ONCE ONCE IV Last administered on 01/19/20at 07:57; Admin Dose 100 MLS/HR; Start 01/19/20 at 07:00; Stop 01/19/20 at 07:29; Status DC Azithromycin 250 ml @ 250 mls/hr NOW ONCE IV Last administered on 01/19/20at 07:57; Admin Dose 250 MLS/HR; Start 01/19/20 at 07:30; Stop 01/19/20 at 08:29 Sodium Chloride 250 ml @ 0 mls/hr ONCE ONCE IV ; Start 01/19/20 at 07:30; Stop 01/19/20 at 07:38; Status DC Furosemide 20 mg UD IV ; Start 01/19/20 at 07:30; Stop 02/18/20 at 07:29; Status UNV Furosemide 60 mg ONCE ONCE IV ; Start 01/19/20 at 08:15; Stop 01/19/20 at 08:16 ; Status UNV NOA MCCONNELL MD Jan 19, 2020 08:28
--- NOTE | 2020-01-19 09:39 | Diagnostic Imaging Report ---
EXAMINATION: CHEST SINGLE (PORTABLE) INDICATION: Shortness of breath, cough COMPARISON: Chest radiograph of 11/04/2018, CT abdomen and pelvis of 06/24/2019 FINDINGS: LINES/TUBES:Right IJ tunneled central venous catheter terminates in the superior vena cava. EKG leads overlie the chest. LUNGS:The lungs are moderately inflated. Multifocal bilateral mid and lower lung patchy opacities. PLEURA:No pleural effusion or pneumothorax. MEDIASTINUM:The heart is mildly enlarged. BONES/SOFT TISSUES:No acute osseous injury. ABDOMEN:No free air under the diaphragm. IMPRESSION: Multifocal bilateral patchy opacities, concerning for pneumonia in the proper clinical setting. Signed by: Oscar Lima MD on 01/19/2020 9:36 AM
[2020-01-19 11:03] LABS: BILIRUBIN,URINE NEGATIVE (NEGATIVE); CLARITY,URINE CLEAR (CLEAR); COLOR,URINE YELLOW (YELLOW); KETONES,URINE NEGATIVE (NEGATIVE); LEUKOCYTE ESTERASE ,URINE NEGATIVE (NEGATIVE); NITRITE,URINE NEGATIVE (NEGATIVE); PROTEIN,URINE DIPSTICK 2+ (NEGATIVE); URINE UROBILINOGEN 0.2 mg/dL (0.2 - 1)
[2020-01-19 11:15] LABS: BACTERIA,URINE RARE /HPF; RBC,URINE 0-5 /HPF (0-5); WBC,URINE (MAN) 0-5 /HPF (0-5)
[2020-01-19 11:45] VITALS: BP 147/110
--- NOTE | 2020-01-25 11:08 | NUR ---
Attempt to call pt with COVID results, no answer.
== END 2020-01-19 13:14 | disposition other institution (70) ==
LOC: ER 07:18
DX: J18.9 Pneumonia, unspecified organism (principal); R06.02 Shortness of breath; I50.9 Heart failure, unspecified; N18.9 Chronic kidney disease, unspecified; Z94.4 Liver transplant status; Z11.59 Encounter for screening for other viral diseases; I10 Essential (primary) hypertension; E11.9 Type 2 diabetes mellitus without complications; K21.9 Gastro-esophageal reflux disease without esophagitis; Z86.718 Personal history of other venous thrombosis and embolism; Z85.05 Personal history of malignant neoplasm of liver
CPT/HCPCS: 36415; 71045; 80053; 81001; 82270; 82550; 82553; 83605; 83880; 84484; 85025; 85610; 85730; 86850; 86900; 87040; 87086; 87635; 93005; 99284; J0456; J0696; J1940; 86920; U0002

== ENCOUNTER 2020-09-19 23:29 | Inpatient (IN) | payer MEDICARE, OTHER ==
[~2020-09-19] VITALS: Ht 177.8 cm; Wt 72.6 kg
[2020-09-20 00:14] LABS: BASOPHILS % 0.7 % (0.0-1.0); EOSINOPHILS # (AUTO) 0.2 (0.0-0.4); EOSINOPHILS % 3.2 % (0.0-6.0); HEMATOCRIT 31.7 % (38.2-49.6); HEMOGLOBIN 10.5 g/dL (14.0-18.0); LYMPHOCYTES % 18.3 % (18.0-39.1); MEAN CORPUSCULAR HEMOGLOBIN 32.8 pg (28-32); MEAN CORPUSCULAR HGB CONC 33.1 g/dL (31-35); MEAN CORPUSCULAR VOLUME 99.1 fL (81-99); MONOCYTES # (AUTO) 0.8 (0.2-0.8); MONOCYTES % 13.4 % (4.4-11.3); NEUTROPHILS # (AUTO) 3.6 (2.1-6.9); PLATELET COUNT 118 x10e3/uL (140-360); RED CELL DISTRIBUTION WIDTH 14.8 % (11.7-14.4)
[2020-09-20 00:34] LABS: ALBUMIN/GLOBULIN RATIO 0.8 (0.8-2.0); ANION GAP 17.5 mmol/L (8-16); CALCIUM 8.7 mg/dL (8.4-10.2); POTASSIUM 4.5 mmol/L (3.5-5.1)
[2020-09-20 08:53] LABS: INR 1.14; PARTIAL THROMBOPLASTIN TIME 36.7 seconds (23.8-35.5); PROTHROMBIN TIME 15.4 seconds (11.9-14.5)
[2020-09-20 11:57] VITALS: BP 144/96
[2020-09-20] MEDS ORDERED: FUROSEMIDE INJ 10 MG/ML 4 ML VIAL IV ONE (17:15)
== END 2020-09-20 12:16 | disposition short-term general hospital (02) | DRG 308 ==
LOC: ACU 23:34 → ER 23:34 → INTOOBSV 09-20 06:12 → UNDOADMOB 09-20 06:12 → ERHOLD 09-20 06:12 → UNDODISIN 09-20 12:16 → ER 09-20 12:16
PROVIDERS: ADMIT Internal Medicine; ATTEND Emergency Medicine
DX: R00.1 Bradycardia, unspecified (principal); N18.6 End stage renal disease; Z94.4 Liver transplant status; I13.2 Hypertensive heart and chronic kidney disease with heart failure and with stage 5 chronic kidney disease, or end stage renal disease; I44.2 Atrioventricular block, complete; E11.22 Type 2 diabetes mellitus with diabetic chronic kidney disease; Z99.2 Dependence on renal dialysis; I50.9 Heart failure, unspecified; Z95.2 Presence of prosthetic heart valve; Z20.822 Contact with and (suspected) exposure to COVID-19; Z79.4 Long term (current) use of insulin
CPT/HCPCS: 36415; 70450; 71045; 80053; 83880; 84484; 85025; 85610; 85730; 93005; 99284; U0002

== ENCOUNTER 2021-08-02 06:51 | Emergency (ER) | payer MEDICARE ==
[~2021-08-02] VITALS: Ht 177.8 cm; Wt 72.6 kg
[2021-08-02 07:14] LABS: BASOPHILS % 0.4 % (0.0-1.0); EOSINOPHILS % 0.2 % (0.0-6.0); HEMATOCRIT 25.6 % (38.2-49.6); HEMOGLOBIN 8.5 g/dL (14.0-18.0); LYMPHOCYTES # (AUTO) 0.5 (1.0-3.2); LYMPHOCYTES % 5.7 % (18.0-39.1); MEAN CORPUSCULAR HEMOGLOBIN 38.5 pg (28-32); MEAN CORPUSCULAR HGB CONC 33.2 g/dL (31-35); MEAN CORPUSCULAR VOLUME 115.8 fL (81-99); MONOCYTES # (AUTO) 0.5 (0.2-0.8); MONOCYTES % 6.2 % (4.4-11.3); NEUTROPHILS % 86.8 % (38.7-80.0); RED BLOOD COUNT 2.21 x10e6/uL (4.3-5.7); RED CELL DISTRIBUTION WIDTH 18.5 % (11.7-14.4)
[2021-08-02] MEDS ORDERED: AMIODARONE HCL200 MG PO (07:26)
[2021-08-02] MEDS ORDERED: humalog SC (07:26)
[2021-08-02] MEDS ORDERED: ALPRAZOLAM0.25 MG PO (07:26)
[2021-08-02] MEDS ORDERED: LEVOTHYROXINE75 MCG PO (07:26)
[2021-08-02] MEDS ORDERED: PROTONIX20 MG PO (07:26)
[2021-08-02] MEDS ORDERED: ALLOPURINOL100 MG PO (07:26)
[2021-08-02] MEDS ORDERED: SERTRALINE HCL100 MG PO (07:26)
[2021-08-02] MEDS ORDERED: CLOPIDOGREL75 MG PO (07:26)
[2021-08-02] MEDS ORDERED: fluticasone (07:26)
[2021-08-02] MEDS ORDERED: ACETAMINOPHEN-1 EAC4 PO (07:26)
[2021-08-02] MEDS ORDERED: MIDODRINE HCL5 MG PO (07:26)
[2021-08-02 07:28] LABS: PLATELET COUNT 92 x10e3/uL (140-360)
[2021-08-02 07:39] LABS: ALBUMIN 2.9 g/dL (3.5-5.0); ALBUMIN/GLOBULIN RATIO 0.7 (0.8-2.0); CALCIUM 9.7 mg/dL (8.4-10.2); CREATININE, SERUM 9.96 mg/dL (0.72-1.25)
[2021-08-02] MEDS ORDERED: CHOLECALCIFEROL (07:47)
[2021-08-02] MEDS ORDERED: VENOFER100 MG/5 M PO (07:47)
[2021-08-02] MEDS ORDERED: CENTRUM ADULTS1 EACH PO (07:47)
[2021-08-02] MEDS ORDERED: LEVETIRACETAM500 MG PO ×2 (07:47)
[2021-08-02] MEDS ORDERED: ATORVASTATIN CA20 MG PO (07:47)
[2021-08-02] MEDS ORDERED: POLYETHYLENE GL17 GM PO (07:47)
[2021-08-02] MEDS ORDERED: FEROSUL325 MG PO (07:47)
[2021-08-02] MEDS ORDERED: [UNRECOGNIZED DRUG - OTHER] (07:47)
[2021-08-02] MEDS ORDERED: [UNRECOGNIZED DRUG - OTHER] PO (07:47)
[2021-08-02] MEDS ORDERED: DULCOLAX5 MG PO (07:47)
[2021-08-02] MEDS ORDERED: THIAMINE H100 MG/1 M PO (07:47)
[2021-08-02] MEDS ORDERED: levetiracetam PO (07:47)
== END 2021-08-02 11:33 | disposition other institution (70) ==
LOC: ER 07:04
DX: R07.89 Other chest pain (principal); D64.9 Anemia, unspecified; I12.9 Hypertensive chronic kidney disease with stage 1 through stage 4 chronic kidney disease, or unspecified chronic kidney disease; E11.22 Type 2 diabetes mellitus with diabetic chronic kidney disease; N18.9 Chronic kidney disease, unspecified; Z99.2 Dependence on renal dialysis; Z98.0 Intestinal bypass and anastomosis status; Z85.05 Personal history of malignant neoplasm of liver; Z95.810 Presence of automatic (implantable) cardiac defibrillator; Z94.4 Liver transplant status; Z96.641 Presence of right artificial hip joint; Z20.822 Contact with and (suspected) exposure to COVID-19
CPT/HCPCS: 36415; 71045; 80053; 83690; 84484; 85025; 93005; 99284; U0002